=== PATIENT | female | born 1995 | race Caucasian/White ===

== ENCOUNTER 2022-03-31 22:15 | Observation (INO) | payer OTHER, SELFPAY ==
[2022-03-31 22:28] VITALS: BP 127/82; PULSE 80
[2022-03-31 22:31] VITALS: BP 129/63; PULSE 83
[2022-03-31 22:46] VITALS: BP 121/63; PULSE 73
[2022-03-31 23:01] VITALS: BP 118/56; PULSE 72
[2022-03-31 23:04] VITALS: BMI 20.3
--- NOTE | 2022-03-31 23:04 | OBADM ---
This patient, Maribel Hoffman, admitted to the OB room OB Post 116 for observation. Patient/family oriented to hospital policies and general routines including ID bracelet, bed and alarms, visiting hours, pain management, procedures, bathroom and other care routines, personal items, smoking policy, room service/diet, and visiting hours. Patient/Family are encouraged to report perceived risks to care and to ask questions if they do not understand what they are told or what they should do.
--- NOTE | 2022-04-24 10:55 | PM.OBTRLD ---
OB - Triage/Final Diagnosis Visit Information Comments/Additional reasons for admission: I have assessed the risk for this patient, Maribel Hoffman, and determined that she would benefit from observation care. Final Diagnosis (1) Trauma during : Code(s): O9A.219 - Injury, poisoning and certain other consequences of external causes complicating , unspecified trimester Status: Acute
== END 2022-03-31 23:30 | disposition home or self-care (01) ==
PROVIDERS: Admitting Provider Obstetrics & Gynecology; PCP Advanced Practice Midwife; Visit Provider Obstetrics & Gynecology
DX: O9A.212 Injury, poisoning and certain other consequences of external causes complicating pregnancy, second trimester (principal); Z3A.22 22 weeks gestation of pregnancy; X58.XXXA Exposure to other specified factors, initial encounter
CPT/HCPCS: G0378; G0379

== ENCOUNTER 2022-05-14 13:54 | Outpatient (CLI) | payer OTHER, SELFPAY ==
[2022-05-14 14:27] LABS: Hematocrit 33.4 % (37.0-47.0); Hemoglobin 11.3 g/dL (12.0-15.0)
[2022-05-14 15:17] LABS: HIV 1/2 Ab P24 Ag Result Negative (Negative)
[2022-05-14] MEDS: RHO(D) IMMUNE GLOBULIN 300 MCG/2 ML SYRINGE IM (15:44)
[2022-05-14 15:56] LABS: Glucose 1 Hour PP 50gm Dose 122 mg/dL
== END 2022-05-14 13:55 | disposition home or self-care (01) ==
LOC: ANHLAB 13:57
PROVIDERS: PCP Advanced Practice Midwife; Visit Provider Obstetrics & Gynecology
DX: Z36.89 Encounter for other specified antenatal screening (principal); O36.0130 Maternal care for anti-D [Rh] antibodies, third trimester, not applicable or unspecified; Z3A.00 Weeks of gestation of pregnancy not specified
CPT/HCPCS: 36415; 82947; 85014; 85018; 85461; 86703; 86850; 86900; 86901; 90384; 96372; G0432; J2790

== ENCOUNTER 2022-06-15 06:34 | Observation (INO) | payer OTHER, SELFPAY ==
[2022-06-15] VITALS (15 sets, daily range): BP systolic 104–136; BP diastolic 55–112; PULSE 53–97; RESP 18; TEMP 36.8–37; BMI 21.7
--- NOTE | 2022-06-15 07:06 | OBADM ---
This patient, Maribel Hoffman, admitted to the OB room 115 for observation. Patient/family oriented to hospital policies and general routines including ID bracelet, bed and alarms, visiting hours, pain management, procedures, bathroom and other care routines, personal items, smoking policy, room service/diet, and visiting hours. Patient/Family are encouraged to report perceived risks to care and to ask questions if they do not understand what they are told or what they should do.
--- NOTE | 2022-06-15 07:57 | PM.IMHP ---
H&P: HPI History of Present Illness Date/Time: 06/15/22 07:57 Chief Complaint: nausea, vomiting and diarrhea, unable to tolerate po fluids Narrative: pt has been treated multiple times in for UTI caused by E.coli. medication recently changed to ampicillin and GI sxs started soon after. denies fever, valerio Review of Systems Review of Systems: All systems reviewed & are unremarkable except as noted in HPI and below Meds Home Medications and Allergies Home Medications Medication Instructions Recorded Confirmed Type ampicillin 500 mg capsule 500 mg PO BID 06/15/22 06/15/22 History vits no.130-ferrous fum 1 tablet PO DAILY 06/15/22 06/15/22 History 27 mg iron-folic acid 800 mcg tablet ( Vitamin) sertraline 50 mg tablet 50 mg PO HS 06/15/22 06/15/22 History Allergies Allergy/AdvReac Type Severity Reaction Status Date / Time No Known Allergies Allergy Unknown Verified 02/20/19 03:03 Vital Signs Vital Signs - 24 hr 06/15/22 07:04 06/15/22 07:04 06/15/22 07:05 Temperature 36.8 C Pulse Rate 68 Respiratory Rate 18 Blood Pressure 124/69 Oxygen Delivery Room Air 06/15/22 07:15 06/15/22 07:30 06/15/22 07:46 Temperature Pulse Rate 74 72 75 Respiratory Rate Blood Pressure 123/76 123/72 123/73 Oxygen Delivery Exam Const: General: cooperative and ill appearing Resp: Effort & Inspection: normal respiratory effort and able to speak in complete sentences GI: Other: gravid Assessment and Plan Assessment and plan (1) Gastritis: Code(s): K29.70 - Gastritis, unspecified, without bleeding Status: Acute (2) UTI (urinary tract infection): Code(s): N39.0 - Urinary tract infection, site not specified Status: Acute Plan gastritis plan labs IV hydration anti-emetics Urinary tract infection rocephin IV monitor sxs await cultures
[2022-06-15] MEDS: ONDANSETRON INJ 4 MG/2 ML VIAL IV PUSH ×2 (08:20→14:29)
[2022-06-15] MEDS: SODIUM CHLORIDE 0.9% IV 100 ML 50 ML (08:23)
[2022-06-15] MEDS: FAMOTIDINE 20 MG/2 ML VIAL IV PUSH (08:27)
[2022-06-15 08:34] LABS: Basophils Percent Auto 0.2 % (0.2-1.2); Eosinophils Percent Auto 0.2 % (0-4.4); Hemoglobin 11.5 g/dL (12.0-15.0); Immature Granulocyte Absolute 0.06 K/mm3 (0.00-0.031); Immature Granulocyte Percent A 0.6 % (0-0.5); Lymphocytes Absolute Auto 1.53 K/mm3 (0.9-3.2); Lymphocytes Percent Auto 14.8 % (18.3-44.2); Mean Corpuscular HGB Conc 33.8 g/dl (32-36); Mean Corpuscular Hemoglobin 30.3 pg (26-34); Mean Corpuscular Volume 89.5 fl (80-100); Mean Platelet Volume 11.4 fl (7.4-10.4); Monocytes Absolute Auto 0.5 K/mm3 (0.1-0.6); Monocytes Percent Auto 4.5 % (2.6-8.5); Neutrophils Absolute Auto 8.3 K/mm3 (1.3-6.7); Neutrophils Percent Auto 79.7 % (45.5-73.1); Platelet Count Result 195 k/mm3 (150-375); White Blood Count 10.4 K/mm3 (4.5-10.0)
[2022-06-15 08:47] LABS: Alanine Aminotransferase 11 U/L (6-35); Albumin Level 3.6 g/dL (3.5-5.1); Alkaline Phosphatase 149 U/L (38-126); Anion Gap 6 mmol/L (8-16); Aspartate Amino Transferase 21 U/L (14-36); Bilirubin,Total 0.3 mg/dL (0.2-1.3); Blood Urea Nitrogen 4 mg/dL (7-17); Calcium 8.3 mg/dL (8.4-10.2); Carbon Dioxide 21 mmol/L (22-30); Chloride 105 mmol/L (98-107); Estimated CRCL calculation 142 ml/min; Estimated Glomerular Filt Rate > 60; Glucose 80 mg/dL (65-110); Potassium 3.1 mmol/L (3.4-5.0); Sodium 132 mmol/L (137-145)
[2022-06-15] MEDS: DEXTROSE 5%/LACTATED RINGERS 1,000 ML 999 ML IV CONT (09:15)
[2022-06-15] MEDS: POTASSIUM CHLORIDE INJ 40 MEQ in SODIUM CHLORIDE 0.9% IV 500 ML 125 MEQ IVPB (10:27)
[2022-06-15 10:49] LABS: Appearance Urine Slightly Cloudy (Clear); Bilirubin Urine Negative (Negative); Blood Urine Trace-intact (Negative); Color Urine Yellow (Yellow); Glucose Urine UA Negative (Negative); Ketones Urine 3+ mg/dL (Negative); Leukocyte Esterase Ur 2+ LEU/UL (Negative); Nitrate Urine Positive (Negative); Protein Urine Trace mg/dL (Negative); Specific Grav Ur 1.015 (1.001-1.035); Urobilinogen Urine 0.2 mg/dL (<2.0)
[2022-06-15 10:56] LABS: Bacteria Urine 1+ /hpf; Mucus Urine Rare /lpf; RBC Urine 0-2 /hpf (0-2); Squamous Epithelial Cell Urine Moderate /hpf (Few); WBC Urine >75 /hpf
[2022-06-15 10:59] LABS: Add Urine Microscopic? YES
[2022-06-15 13:57] LABS: Toxigenic C. Diff NEGATIVE (NEGATIVE)
[2022-06-15] MEDS: DEXTROSE 5%/LACTATED RINGERS 1,000 ML 250 ML IV CONT (15:16)
[2022-06-15] MEDS: AMPICILLIN TRIHYDRATE 500 MG CAPSULE PO (15:19)
--- NOTE | 2022-06-20 05:53 | PM.OBTRLD ---
OB - Triage/Final Diagnosis Visit Information Date of evaluation: 06/15/22 Reason for evaluation: other (nausea and vomiting) Comments/Additional reasons for admission: I have assessed the risk for this patient, Maribel Bradford Harlankaitlin, and determined that she would benefit from observation care. Evaluation Laboratory results: Laboratory Tests 06/15/22 06/15/22 06/15/22 08:17 08:17 10:33 WBC 10.4 H RBC 3.80 L Hgb 11.5 L Hct 34.0 L MCV 89.5 MCH 30.3 MCHC 33.8 RDW 13.0 Plt Count 195 MPV 11.4 H Immature Gran % (Auto) 0.6 H Neut % (Auto) 79.7 H Lymph % (Auto) 14.8 L [place] % (Auto) 4.5 Eos % (Auto) 0.2 Baso % (Auto) 0.2 Lymph # (Auto) 1.53 [place] # (Auto) 0.5 Eos # (Auto) 0.0 Baso # (Auto) 0.0 Abs Immat Gran (auto) 0.06 H Absolute Neuts (auto) 8.3 H Absolute Nucleated RBC 0.0 Nucleated RBC % 0.0 Sodium 132 L Potassium 3.1 L Chloride 105 Carbon Dioxide 21 L Anion Gap 6 L BUN 4 L Creatinine 0.50 L Estim Creat Clear Calc 142 Estimated GFR > 60 Glucose 80 Calcium 8.3 L Total Bilirubin 0.3 AST 21 ALT 11 Alkaline Phosphatase 149 H Total Protein 7.0 Albumin 3.6 Urine Color Yellow Urine Appearance Slightly cloudy Urine pH 7.0 Ur Specific [place] 1.015 Urine Protein Trace Urine Glucose (UA) Negative Urine Ketones 3+ H Ur Blood (Man) Trace-intact Urine Nitrate Positive H Urine Bilirubin Negative Urine Urobilinogen 0.2 Leukocyte Esterase Rfl 2+ H Urine RBC 0-2 Urine WBC >75 H Ur Squamous Epith Cells Moderate H Urine Bacteria 1+ H Urine Mucus Rare C. difficile (PCR) 06/15/22 12:03 WBC RBC Hgb Hct MCV MCH MCHC RDW Plt Count MPV Immature Gran % (Auto) Neut % (Auto) Lymph % (Auto) [place] % (Auto) Eos % (Auto) Baso % (Auto) Lymph # (Auto) [place] # (Auto) Eos # (Auto) Baso # (Auto) Abs Immat Gran (auto) Absolute Neuts (auto) Absolute Nucleated RBC Nucleated RBC % Sodium Potassium Chloride Carbon Dioxide Anion Gap BUN Creatinine Estim Creat Clear Calc Estimated GFR Glucose Calcium Total Bilirubin AST ALT Alkaline Phosphatase Total Protein Albumin Urine Color Urine Appearance Urine pH Ur Specific [place] Urine Protein Urine Glucose (UA) Urine Ketones Ur Blood (Man) Urine Nitrate Urine Bilirubin Urine Urobilinogen Leukocyte Esterase Rfl Urine RBC Urine WBC Ur Squamous Epith Cells Urine Bacteria Urine Mucus C. difficile (PCR) Negative
== END 2022-06-15 17:54 | disposition home or self-care (01) ==
PROVIDERS: Admitting Provider Obstetrics & Gynecology; PCP Advanced Practice Midwife; Visit Provider Obstetrics & Gynecology
DX: O21.2 Late vomiting of pregnancy (principal); O23.43 Unspecified infection of urinary tract in pregnancy, third trimester; N39.0 Urinary tract infection, site not specified; Z3A.33 33 weeks gestation of pregnancy
CPT/HCPCS: 36415; 80053; 81001; 85025; 87045; 87086; 87088; 87177; 87209; 87427; 87493; 96361; 96365; 96366; 96367; 96375; A9270; G0378; G0379; J0696; J2405; J3480; J7040; J7121

== ENCOUNTER 2022-07-01 08:27 | Outpatient (RCR) | payer OTHER, SELFPAY ==
[2022-06-30 08:52] VITALS: BP 126/61; PULSE 67
[2022-07-01 09:02] VITALS: BP 117/79; PULSE 87
== END 2022-08-11 19:48 | disposition home or self-care (01) ==
LOC: ANHOBOP 08:27
PROVIDERS: PCP Advanced Practice Midwife; Visit Provider Obstetrics & Gynecology
DX: O26.893 Other specified pregnancy related conditions, third trimester (principal); N85.8 Other specified noninflammatory disorders of uterus; Z3A.35 35 weeks gestation of pregnancy; Z3A.36 36 weeks gestation of pregnancy
CPT/HCPCS: 59025

== ENCOUNTER 2022-07-13 16:44 | Inpatient (IN) | payer OTHER, SELFPAY ==
[2022-07-13] VITALS (15 sets, daily range): BP systolic 124–161; BP diastolic 62–101; PULSE 50–78; RESP 14; TEMP 36.8; BMI 22.6
[2022-07-13 15:39] LABS: Basophils Percent Auto 0.2 % (0.2-1.2); Eosinophils Percent Auto 0.4 % (0-4.4); Hematocrit 33.6 % (37.0-47.0); Immature Granulocyte Absolute 0.04 K/mm3 (0.00-0.031); Immature Granulocyte Percent A 0.4 % (0-0.5); Lymphocytes Absolute Auto 1.62 K/mm3 (0.9-3.2); Lymphocytes Percent Auto 17.6 % (18.3-44.2); Mean Corpuscular HGB Conc 32.7 g/dl (32-36); Mean Corpuscular Hemoglobin 29.7 pg (26-34); Mean Corpuscular Volume 90.8 fl (80-100); Monocytes Absolute Auto 0.7 K/mm3 (0.1-0.6); Monocytes Percent Auto 7.2 % (2.6-8.5); Neutrophils Absolute Auto 6.8 K/mm3 (1.3-6.7); Neutrophils Percent Auto 74.2 % (45.5-73.1); Platelet Count Result 197 k/mm3 (150-375); Red Cell Distribution Width 13.9 % (11.5-14.5); White Blood Count 9.2 K/mm3 (4.5-10.0)
[2022-07-13 15:41] LABS: Appearance Urine Clear (Clear); Bilirubin Urine Negative (Negative); Blood Urine Negative (Negative); Color Urine Yellow (Yellow); Glucose Urine UA Negative (Negative); Ketones Urine Negative (Negative); Leukocyte Esterase Ur Negative LEU/UL (NEGATIVE); Nitrate Urine Negative (Negative); Protein Urine Negative (Negative); Urobilinogen Urine 0.2 mg/dL (<2.0)
[2022-07-13 15:48] LABS: Add Urine Microscopic? NO
[2022-07-13 15:52] LABS: Alanine Aminotransferase 12 U/L (6-35); Albumin Level 3.2 g/dL (3.5-5.1); Alkaline Phosphatase 166 U/L (38-126); Anion Gap 4 mmol/L (8-16); Aspartate Amino Transferase 21 U/L (14-36); Bilirubin,Total 0.3 mg/dL (0.2-1.3); Blood Urea Nitrogen 2 mg/dL (7-17); Calcium 8.3 mg/dL (8.4-10.2); Carbon Dioxide 21 mmol/L (22-30); Chloride 110 mmol/L (98-107); Estimated Glomerular Filt Rate > 60; Glucose 91 mg/dL (65-110); Potassium 3.6 mmol/L (3.4-5.0); Sodium 135 mmol/L (137-145); Uric Acid 3.9 mg/dL (2.5-7.5)
[2022-07-13 16:32] LABS: Creatinine Urine 11.4 mg/dL; Total Protein Urine Random 15 mg/dL; Ur Ttl Prot Creatinine Ratio 1.32 mg/mg (0-0.20)
--- NOTE | 2022-07-13 16:47 | WPDOBADMIT ---
Obstetrics - Admit Note Admission Note: record reviewed. No pertinent additions to the history and/or any subsequent changes in the physical findings that are not consistent with the expected course of the were found. pt admitted for IOL for preeclampsia,, elevated blood pressures no severe range pressures, mild valerio, elevated PCR, discussed POC with Dr. San Additions to the history and/or subsequent changes in the physical findings follow. None.
--- NOTE | 2022-07-13 17:34 | LDADM ---
This patient, Maribel Hoffman, was admitted to Labor/Delivery/Recovery 106 on 07/13/22 at 16:44. Plans for labor, pain management and were discussed with patient. Patient/family oriented to hospital policies and general routines including ID bracelet, bed and alarms, visiting hours, pain management, procedures, bathroom and other care routines, personal items, smoking policy, room service/diet and guest tray routines, infant security routines, and visiting hours. Patient/Family are encouraged to report perceived risks to care and to ask questions if they do not understand what they are told or what they should do. See OBIX for further documentation.
[2022-07-13 17:41] LABS: Amphetamine Screen Urine Negative (Negative); Barbiturate Screen Urine Negative (Negative); Benzodiazepines Screen Urine Negative (Negative); Cannabinoid Screen Urine Positive (Negative); Cocaine Screen Urine Negative (Negative); Methadone Screen Urine Negative (Negative); Opiate Screen Urine Negative (Negative); Phencyclidine Screen Urine Negative (Negative)
[2022-07-13] MEDS: DINOPROSTONE 10 MG VAG INSERT VAGINAL (18:02)
--- NOTE | 2022-07-13 20:26 | WPDANESEPP ---
Anes - Eval Pre Procedure Procedure: Labor Epidural Date/Time: 07/13/22 20:26 Surgeon: Mena Preop Diagnosis: Labor Pain Pre Op Diagnosis: IOL With Preeclampsia Patient Data Age: 27 Gender: F Height: 1.75 m Weight: 69.54 kg Last Vital Signs Temp 36.8 C 07/13/22 20:05 Pulse 50 L 07/13/22 20:00 Resp 14 07/13/22 20:05 BP 137/87 07/13/22 20:00 O2 Del Method Room Air 07/13/22 19:15 Allergies Allergy/AdvReac Type Severity Reaction Status Date / Time No Known Allergies Allergy Unknown Verified 07/10/22 12:28 Home Medications Medication Instructions Recorded Confirmed Type vits no.130-ferrous fum 1 tablet PO DAILY 06/15/22 07/13/22 History 27 mg iron-folic acid 800 mcg tablet ( Vitamin) sertraline 50 mg tablet 50 mg PO HS 06/15/22 07/13/22 History Laboratory Tests 07/13/22 07/13/22 07/13/22 15:24 15:24 15:24 WBC 9.2 K/mm3 K/mm3 (4.5-10.0) RBC 3.70 M/mm3 L M/mm3 (4.2-5.4) Hgb 11.0 g/dL L g/dL (12.0-15.0) Hct 33.6 % L % (37.0-47.0) MCV 90.8 fl fl (80-100) MCH 29.7 pg pg (26-34) MCHC 32.7 g/dl g/dl (32-36) RDW 13.9 % % (11.5-14.5) Plt Count 197 k/mm3 k/mm3 (150-375) MPV 12.0 fl H fl (7.4-10.4) Immature Gran % (Auto) 0.4 % % (0-0.5) Neut % (Auto) 74.2 % H % (45.5-73.1) Lymph % (Auto) 17.6 % L % (18.3-44.2) [place] % (Auto) 7.2 % % (2.6-8.5) Eos % (Auto) 0.4 % % (0-4.4) Baso % (Auto) 0.2 % % (0.2-1.2) Lymph # (Auto) 1.62 K/mm3 K/mm3 (0.9-3.2) [place] # (Auto) 0.7 K/mm3 H K/mm3 (0.1-0.6) Eos # (Auto) 0.0 K/mm3 K/mm3 (0-0.3) Baso # (Auto) 0.0 K/mm3 K/mm3 (0.0-0.1) Abs Immat Gran (auto) 0.04 K/mm3 H K/mm3 (0.00-0.031) Absolute Neuts (auto) 6.8 K/mm3 H K/mm3 (1.3-6.7) Absolute Nucleated RBC 0.0 K/mm3 K/mm3 (0.0-0.012) Nucleated RBC % 0.0 % % (0.0-0.2) Sodium Potassium Chloride Carbon Dioxide Anion Gap BUN Creatinine Estim Creat Clear Calc Estimated GFR Glucose Uric Acid Calcium Total Bilirubin AST ALT Alkaline Phosphatase Total Protein Albumin Urine Color Yellow (Yellow) Urine Appearance Clear (Clear) Urine pH 7.0 (5.0-9.0) Ur Specific [place] 1.010 (1.001-1.035) Urine Protein Negative mg/dL mg/dL (Negative) Urine Glucose (UA) Negative mg/dL mg/dL (Negative) Urine Ketones Negative mg/dL mg/dL (Negative) Ur Blood (Man) Negative (Negative) Urine Nitrate Negative (Negative) Urine Bilirubin Negative (Negative) Urine Urobilinogen 0.2 mg/dL mg/dL (<2.0) Ur Leukocyte Esterase Negative BRODERICK/UL BRODERICK/UL (NEGATIVE) U Random Total Protein 15 mg/dL mg/dL Urine Creatinine 11.4 mg/dL mg/dL Protein/Creat Ratio 2 1.32 mg/mg H mg/mg (0-0.20) Urine Opiates Screen Urine Methadone Screen Ur Barbiturates Screen Ur Phencyclidine Scrn Ur Amphetamine Screen U Benzodiazepines Scrn Urine Cocaine Screen U Cannabinoids Screen RPR Blood Type Antibody Screen 07/13/22 07/13/22 07/13/22 15:24 15:24 17:23 WBC RBC Hgb Hct MCV MCH MCHC RDW Plt Count MPV Immature Gran % (Auto) Neut % (Auto) Lymph % (Auto) [place] % (Auto) E
[2022-07-14] VITALS (208 sets, daily range): BP systolic 112–159; BP diastolic 58–105; PULSE 43–155; RESP 14–20; TEMP 36.6–37.2; O2SAT 96–100
[2022-07-14] MEDS: LACTATED RINGERS 1,000 ML 999 ML IV CONT (00:22)
[2022-07-14] MEDS: LACTATED RINGERS 1,000 ML 125 ML IV CONT (02:07)
--- NOTE | 2022-07-14 02:23 | WPDANESEPN ---
Anes - Epidural Procedure Note Date/Time: 07/14/22 02:23 Consent: I have discussed with the patient/family/POA, the placement of an epidural catheter and the use of epidural narcotic/local anesthetic for labor analgesia and/or postoperative pain management, including associated potential risks, benefits, complications and side effects. I have discussed alternative methods of labor analgesia and/or postoperative pain management. The patient/family/POA, understand(s) and wish(es) to proceed with epidural narcotic/local anesthetic for labor analgesia and/or postoperative pain management. Time-Out: A pre-procedural Time-Out was completed immediately before starting the procedure and confirmed: Patient Identification, Site, Procedure, Patient Position and the Availability of Requisite Equipment. Clinical Indications: Labor Epidural Epidural Insertion Note Patient position: sitting Skin prep: chlorhexidine and sterile drape Needle: 18g Tuohy-Schliff Catheter: 20g Unstyleted Technique: Loss of resistance. Level of insertion: L3/4 Catheter skin shante (cm): 4 Length in epidural space (cm): 9 Skin anesthesia: lidocaine 1% Test dose: 1.5% Lidocaine with [id number] Epi, negative for subarachnoid Inj and negative for intravascular Inj Time of test dose: 02:10 Observations: tolerated well Complications: none
[2022-07-14] MEDS: OXYTOCIN 30 UNITS/NS 500 ML 30 UNITS/500 ML BAG IV CONT (06:51)
--- NOTE | 2022-07-14 09:48 | PM.OBPNLAB ---
Pain Control Date/time seen: 07/14/22 09:48 Comments: SVE 2/60/-2 AROM large amount of clear, odorless fluid, anticipate vaginal delivery
[2022-07-14] MEDS: ONDANSETRON INJ 4 MG/2 ML VIAL IV PUSH (13:14)
[2022-07-14] MEDS: SODIUM CHLORIDE 0.9% IV 300 ML 600 ML I-UTERINE (15:23)
--- NOTE | 2022-07-14 17:53 | PM.OBPRVD ---
OB - Delivery Note Procedure Delivery date: 07/14/22 Procedure: Events: Preeclampsia w/o severe features Induction method: AROM, Per Pitocin Protocol and Per Cervidil Protocol Delivery monitor: External FHT and Internal Uterine Route of delivery: Episiotomy description: None Laceration Description: None Specimen: Yes Quantitative Blood Loss (ml): 95 Anesthesia type: Epidural [place] Baby Date of : 07/14/22 Time of : 17:36 Weeks of gestation at delivery: 37 Infant gender: Female presentation: vertex position: Left Occiput Anterior Placenta delivery description: Spontaneous Cord Vessel Description: 3 Vessels, Nuchal Cord, Loose, Clamped/Cut and Delayed Cord Clamping Narrative: mother and baby skin to skin in stable condition
[2022-07-14] MEDS: IBUPROFEN 600 MG TABLET PO (18:13)
[2022-07-14] MEDS: OXYTOCIN 30 UNITS/NS 500 ML 30 UNITS/500 ML BAG 125 UNITS IV CONT (18:13)
[2022-07-14] MEDS: ACETAMINOPHEN 325 MG TABLET 650 MG PO (19:26)
[2022-07-15 00:20] VITALS: BP 123/75; PULSE 60; RESP 16; TEMP 36.5; O2SAT 96
[2022-07-15] MEDS: IBUPROFEN 600 MG TABLET PO ×3 (00:36→17:21)
[2022-07-15] MEDS: ACETAMINOPHEN 325 MG TABLET 650 MG PO (01:30)
[2022-07-15 04:00] VITALS: BP 120/70; PULSE 64; RESP 14; TEMP 36.7; O2SAT 98
[2022-07-15 05:10] LABS: Hematocrit 31.8 % (37.0-47.0); Hemoglobin 10.4 g/dL (12.0-15.0)
--- NOTE | 2022-07-15 07:00 | PC.NURSE ---
PT introductions made and plan of care discussed per post , pain management, bottle feeding, daily care activities. PT and fob both recipients of such instructions and no barriers to learning identified at this time. Pt received such instructions per one to one discussion , mom baby care guide and demonstrations this shift. PT verbalized understanding of such care.
--- NOTE | 2022-07-15 08:16 | PM.OBPNVD ---
OB - PN: Subj Subjective Date/time seen: 07/15/22 08:16 s/p vaginal delivery day1 OB - PN: Obj Data Labs 07/15/22 04:42 07/13/22 15:24 Labs: Laboratory Results - last 24 hr 07/15/22 07/15/22 04:42 04:42 Hgb 10.4 L Hct 31.8 L Blood Type O Negative Antibody Screen Negative Screen Negative Baby's Blood Type O pos Baby's JOANN Negative Doses of RhIg Required 1 OB - PN A/P Plan day: 1 Plan: routine care Time Spent With Patient Time: Total time spent is greater than 50% in coordination of care (as documented) at patient's floor/unit and/or counseling patient: Review of Systems Review of Systems: All systems reviewed & are unremarkable except as noted in HPI and below Exam Const: General: cooperative, healthy appearing and comfortable
[2022-07-15 10:16] VITALS: BP 127/79; PULSE 64; PULSE 72; RESP 18; TEMP 36.8; O2SAT 99
[2022-07-15] MEDS: DOCUSATE SODIUM 100 MG CAPSULE PO ×2 (10:16→17:21)
[2022-07-15] MEDS: HYDROcodone/acetaminophen (*CRX) 5-325 MG TABLET 1 TAB PO ×4 (10:17→21:18)
--- NOTE | 2022-07-15 11:40 | WPDANLDPN2 ---
Anes-Prog Note L&D Date/Time: 07/15/22 11:40 Comfortable throughout: labor and delivery Neuraxial method: epidural Epidural/Spinal procedure site: clean & non-tender Neuro status: Neuro function grossly intact. Cardiovascular status: normal Respiratory status: normal Airway patency: baseline Mental status: baseline Post-Op hydration status: normal Vital Signs: Last Vital Signs Temp 36.7 C 07/15/22 04:00 Pulse 64 07/15/22 04:00 Resp 14 07/15/22 04:00 BP 120/70 07/15/22 04:00 Pulse Ox 98 07/15/22 04:00 O2 Del Method Room Air 07/13/22 19:15 Pain score (VAS): 3/10 I/O: Intake & Output 07/14/22 07/15/22 07/15/22 23:59 07:59 15:59 Intake Total 1100 550 Output Total 442 700 Balance 658 -150 Post-procedural complaints: none Patient feedback: Patient satisfied with anesthetic care.
[2022-07-15 13:00] VITALS: BP 124/80; PULSE 68; RESP 18; TEMP 36.6; O2SAT 99
[2022-07-15] MEDS: RHO(D) IMMUNE GLOBULIN 300 MCG/2 ML SYRINGE IM (17:22)
[2022-07-15 17:30] VITALS: BP 131/74; PULSE 88; RESP 18; TEMP 37.1; O2SAT 99
[2022-07-15 20:13] VITALS: BP 118/76; PULSE 71; RESP 18; TEMP 36.7; O2SAT 97
[2022-07-15] MEDS: SERTRALINE HCL 50 MG TABLET PO (21:18)
[2022-07-16] MEDS: HYDROcodone/acetaminophen (*CRX) 5-325 MG TABLET 1 TAB PO ×3 (02:46→11:40)
[2022-07-16] MEDS: IBUPROFEN 600 MG TABLET PO ×2 (02:46→11:40)
[2022-07-16 04:30] VITALS: BP 133/74
[2022-07-16 06:50] VITALS: PULSE 71; RESP 18; O2SAT 97
--- NOTE | 2022-07-16 08:00 | P.PNOB_ITS ---
OB - PN: Subj Subjective Date/time seen: 07/16/22 08:00 Patient comments: no complaints baby status: doing well OB - PN: Obj Data Labs 07/15/22 04:42 07/13/22 15:24 Labs: Laboratory Results - last 24 hr 07/15/22 04:42 Blood Type O Negative Antibody Screen Negative Screen Negative Baby's Blood Type O pos Baby's JOANN Negative Doses of RhIg Required 1 OB - PN A/P Plan day: 2 Plan: routine care and discharge home (F/U in 1 week for bp check) Comments: Pt doing well but has asked for rx for pain. Agreed to a couple norco in addition to ibuprofen rx. Pain described sounds appropriate for post involution.If any additional interventions or meds needed, she will need to be seen. Time Spent With Patient Time: Total time spent is greater than 50% in coordination of care (as documented) at patient's floor/unit and/or counseling patient: Time with patient: less than 15 minutes Review of Systems Review of Systems: All systems reviewed & are unremarkable except as noted in HPI and below Exam Narrative: Fundus firm and vaginal flow controlled. No lower ext redness, warmth, or edema. Negative homans. Denies h/a, v/d or e/p. Reflexes normal. Const: General: comfortable Chest: Breast/axilla inspection: normal inspection of the breasts Resp: Effort & Inspection: normal respiratory effort Cardio: Rate: regular rate GI: GI Palp: Yes Soft to palpation Psych: Appearance: grossly normal Affect: normal affect Attitude: coope rative Thought content: Yes Normal thought content present Judgement: Good judgement present (Psych)
[2022-07-16 08:10] VITALS: BP 148/83; PULSE 59; RESP 16; TEMP 36.8; O2SAT 100
--- NOTE | 2022-07-16 08:13 | PM.OBDSVD ---
DS: Admitting Diagnosis Discharge Date 07/16/22 Admitting Diagnosis Labor DS: Discharge Diagnosis Discharge Diagnosis (1) Vaginal delivery: Code(s): O80 - Encounter for full-term uncomplicated delivery Status: Acute OB - DS: Summary OB Procedures : None OB Procedures Intrapartum: Spontaneous Vag Delivery OB Procedures: : None Time Spent with Patient Time attestation: Total time spent providing and/or coordinating discharge services: DS: Data Data Completed and Pending Pending studies at discharge: Pending at discharge 07/14/22 17:58 Surgical [PTH] Routine Labs on day of discharge: Labs from last 24 hours 07/15/22 04:42 Blood Type O Negative Antibody Screen Negative Screen Negative Baby's Blood Type O pos Baby's JOANN Negative Doses of RhIg Required 1 Discharge Plan Discharge Attending physician on discharge: Norah Ramirez Discharging Clinician: Wilma Herring Patient Disposition: Home, Self-Care Activity: pelvic rest Diet: as tolerated Patient Instructions: Antibiotic Form Stand Alone Forms: General Discharge Information Follow-up/Referrals: Norah Ramirez CNM [Primary Care Provider] - Discharge Medications: New hydrocodone-acetaminophen 5-325 mg Tablet 1 tablet PO Q4H Qty: 5 0RF ibuprofen 600 mg Tablet 600 mg PO Q6H PRN (Reason: Pain) Qty: 20 0RF Continued sertraline 50 mg tablet 50 mg PO HS Vitamin 27 mg iron- 800 mcg tablet 1 tablet PO DAILY Date of admission: 07/13/22 16:44 Primary Care Provider: Norah Ramirez Admitting Provider: Matheus San Attending physician on admission: Matheus San Condition: Stable
[2022-07-16 10:02] LABS: Rapid Plasma Reagin Non-Reactive (NonReactive)
[2022-07-16 11:30] VITALS: BP 134/72; PULSE 58; RESP 14; TEMP 36.9; O2SAT 100
--- NOTE | 2022-07-16 12:02 | PCCCNOTE ---
Care Coordination Consult: Met with pt. and FOB at bedside. This is pt.'s second child, she has a three year old at home. Pt. has all necessary equipment for baby including a car seat, crib, clothing, diapers, and bottles. resources provided with pt. reporting she plans to return to her home in [place], encouraged pt. to seek [facility] services in [facility]. Pt. has family support. Reports recreational marijuana use, denies any other substance use. RN confirms baby was not tested for substances. Anticipates discharge today. Denies any other needs.
--- NOTE | 2022-07-16 12:35 | PC.NURSE ---
Patient was given the opportunity to view the discharge video Mother & Baby Care, The First Two Weeks and to ask questions. Patient declined viewing the video and has been given the mother/baby guide for home reference.
== END 2022-07-16 14:00 | disposition home or self-care (01) | DRG 560 ==
LOC: ANHOBOP 16:53 → ANHLDR 17:08 → ANHOB2 07-15 12:55 → ANHLDR 07-17 10:21 → ANHOB2 07-17 10:21 → ANHOBPP 07-17 10:21
PROVIDERS: Admitting Provider Obstetrics & Gynecology; PCP Advanced Practice Midwife; Visit Provider Advanced Practice Midwife
DX: O14.94 Unspecified pre-eclampsia, complicating childbirth (principal); O36.8330 Maternal care for abnormalities of the fetal heart rate or rhythm, third trimester, not applicable or unspecified; Z37.0 Single live birth; Z3A.37 37 weeks gestation of pregnancy; O69.81X0 Labor and delivery complicated by cord around neck, without compression, not applicable or unspecified; O43.193 Other malformation of placenta, third trimester
CPT/HCPCS: 36415; 80053; 80307; 81003; 82570; 84112; 84156; 84550; 85014; 85018; 85025; 85461; 86592; 86850; 86900; 86901; 87086; 88307; 90384; A9270; J2405; J2590; J2790; J2795; J7030; J7120

== ENCOUNTER 2022-07-30 00:07 | Day surgery (SDC) | payer OTHER, SELFPAY ==
[2022-07-26 12:01] VITALS: BMI 19.8
--- NOTE | 2022-07-26 12:05 | PC.NURSE ---
Report to the Outpatient Waiting Room, entrance under the green pavilion located off [facility], at time 1000 on date 07/30/22. Planned Procedure Time: 1200. Time changes happen often and if your time is changed the preop area will call you the afternoon before. - You and your visitor will be asked to self-screen and do not enter if you have any COVID symptoms. - Only one visitor is requested with a max of two and NO children visitors are allowed at this time. - The patient visitor may be requested to leave or wait in car when not with patient due to distancing restrictions. - A mask is optional within the hospital at this time. Patients may have clear liquids (water, carbonated beverages, clear teas, apple juice) until 3 hours prior to surgery with a maximum of 20 ounces. - No food from midnight until time of surgery Take the following medications with a SIP of water the morning of surgery: PAIN PILL IF NEEDED DO NOT STOP ANY OF YOUR OTHER PRESCRIPTION MEDICATIONS PRIOR TO SURGERY EXCEPT THE FOLLOWING Medications to discontinue per physician: N/A Date to take last dose: N/A Please no make-up, nail hungarian, hairspray, perfume, deodorant, or body powder the day of surgery. No jewelry (including any body piercings) or valuables the day of surgery, leave them at home. Please take a shower or bath the night before, or the morning of, surgery with an antibacterial soap. Wear comfortable, loose fitting clothing. - Jewelry must be removed prior to entering the operating room. Rings and piercings that are not removed may be cut off. - The hospital will not accept responsibility for valuables. - Please leave all valuables, including medications, at home the day of surgery. If you are going home after surgery, a licensed [facility] driver must drive you home. - NO public transportation without another adult if you receive anesthesia. - We recommend that an adult stay with you for 24 hours following discharge. - We also recommend that you do not drive, make important decision, drink alcoholic beverages, or take any drugs that were not prescribed by your health care provider for at least 24 hours after your discharge time. Follow any additional instructions given to you from your surgeon. If you or anyone in your household have experienced Covid symptoms in the past week, please notify your surgeon or the nurse liaison at the phone number below for possible testing. Telephone instructions given to PT - TONEY WAHL and asked if any additional questions and then verbalized understanding. Patient advised to call surgeon office or pre surgery nurse liaison [phone] if any additional questions.
[2022-07-30] MEDS: ACETAMINOPHEN 500 MG TABLET 1000 MG PO (10:11)
[2022-07-30 10:17] VITALS: BP 116/67; PULSE 78; RESP 16; TEMP 36.4; O2SAT 100
[2022-07-30] MEDS: LACTATED RINGERS 1,000 ML 30 ML IV CONT (10:30)
--- NOTE | 2022-07-30 11:39 | P.PNAN_ITS ---
Anes - Initial Pre Proc Eval Procedure: Operation Date: 07/30/22 12:00 Proposed Procedures p Suction Dilation and Curettage - Mahteus San MD Date/Time: 07/30/22 11:39 Surgeon: Matheus San MD Pre Op Diagnosis: Retained Products at Conception Patient Data Age: 27 Gender: F Height: 1.75 m Weight: 59 kg Last Vital Signs Temp 97.6 F 07/30/22 10:17 Pulse 78 07/30/22 10:17 Resp 16 07/30/22 10:17 BP 116/67 07/30/22 10:17 Pulse Ox 100 07/30/22 10:17 O2 Del Method Room Air 07/30/22 10:17 Allergies Allergy/AdvReac Type Severity Reaction Status Date / Time No Known Allergies Allergy Unknown Verified 07/30/22 10:07 Home Medications Medication Instructions Recorded Confirmed Type sertraline 50 mg tablet 50 mg PO HS 06/15/22 07/26/22 History hydrocodone 5 mg-acetaminophen 325 1 tablet PO Q4H PRN Pain 07/26/22 07/26/22 History mg tablet lamotrigine 25 mg tablet 25 mg PO HS 07/26/22 07/26/22 History Patient hx anesthesia problems: none Family hx anesthesia problems: none Results Review: All pre-operative results and documents have been reviewed as part of the pre- operative evaluation. [facility] Family History Family History Grandparent Diabetes mellitus Hypertension Grandparent Epilepsy Other No problems noted. Sibling Epilepsy Social History Social History Smoking packs per day: 1 Smoking cigarettes per day: 20.0 Years smoked: 5 Smoking pack-years: 5.00 Smoking status: Former smoker Tobacco type: cigarettes Second hand tobacco smoke exposure: No Smoking end date: 05/27/17 Alcohol intake: never Substance use: current Substance use type: marijuana Living arrangements: with family Spiritual care concerns: No Anes - Eval Final PreProcedure Day of Procedure 07/30/22 11:39 Patient weight: normal Heart: regular rate and rhythm Lungs: clear to auscultation Airway: Mallampati scale class II Neurological: alert and oriented Last oral intake: >/= 8 hours ASA classification: II Emergent: no Anesthetic plan: proceed Anesthesia type and monitoring: general GIVS and standard monitoring Results Review: All pre-operative results and documents have been reviewed as part of the pre- operative evaluation. Informed Consent: The patient's anesthetic plan and its attendant risks and benefits were discussed with the patient/family/POA. Questions were solicited and answers provided to the satisfaction of the patient/family/POA.
--- NOTE | 2022-07-30 11:52 | WPDANESEPPF ---
Anes - Initial Pre Proc Eval Procedure: Operation Date: 07/30/22 12:00 Proposed Procedures p Suction Dilation and Curettage - Matheus San MD Date/Time: 07/30/22 11:52 Surgeon: Matheus San MD Pre Op Diagnosis: Retained Products at Conception Patient Data Age: 27 Gender: F Height: 1.75 m Weight: 59 kg Last Vital Signs Temp 97.6 F 07/30/22 10:17 Pulse 78 07/30/22 10:17 Resp 16 07/30/22 10:17 BP 116/67 07/30/22 10:17 Pulse Ox 100 07/30/22 10:17 O2 Del Method Room Air 07/30/22 10:17 Allergies Allergy/AdvReac Type Severity Reaction Status Date / Time No Known Allergies Allergy Unknown Verified 07/30/22 10:07 Home Medications Medication Instructions Recorded Confirmed Type sertraline 50 mg tablet 50 mg PO HS 06/15/22 07/26/22 History hydrocodone 5 mg-acetaminophen 325 1 tablet PO Q4H PRN Pain 07/26/22 07/26/22 History mg tablet lamotrigine 25 mg tablet 25 mg PO HS 07/26/22 07/26/22 History Patient hx anesthesia problems: none Family hx anesthesia problems: none Results Review: All pre-operative results and documents have been reviewed as part of the pre-operative evaluation. [facility] Family History Family History Grandparent Diabetes mellitus Hypertension Grandparent Epilepsy Other No problems noted. Sibling Epilepsy Social History Social History Smoking packs per day: 1 Smoking cigarettes per day: 20.0 Years smoked: 5 Smoking pack-years: 5.00 Smoking status: Former smoker Tobacco type: cigarettes Second hand tobacco smoke exposure: No Smoking end date: 05/27/17 Alcohol intake: never Substance use: current Substance use type: marijuana Living arrangements: with family Spiritual care concerns: No Anes - Eval Final PreProcedure Day of Procedure 07/30/22 11:52 Patient weight: normal Heart: regular rate and rhythm Lungs: clear to auscultation Airway: Mallampati scale class II Neurological: alert and oriented Last oral intake: >/= 8 hours ASA classification: II Emergent: no Anesthetic plan: proceed Anesthesia type and monitoring: general GIVS and standard monitoring Results Review: All pre-operative results and documents have been reviewed as part of the pre-operative evaluation. Informed Consent: The patient's anesthetic plan and its attendant risks and benefits were discussed with the patient/family/POA. Questions were solicited and answers provided to the satisfaction of the patient/family/POA.
--- NOTE | 2022-07-30 12:21 | WPDHPUPDATE1 ---
History and Physical Update Update Date/Time: 07/30/22 12:21 History and Physical has been reviewed, including an updated exam of the patient. There are NO changes in the patient's condition. Risks, benefits, and alternatives have been discussed and questions answered. Patient agrees to proceed with procedure.
--- NOTE | 2022-07-30 12:28 | SUR.PREOP ---
dr crook said there is no need for rhogam at this time.
[2022-07-30] MEDS: LIDOCAINE HCL 1% LOCAL INJ 20 ML VIAL INFILTRATE (13:02)
--- NOTE | 2022-07-30 13:08 | W.PM.PROC2 ---
Procedure Note - Detailed Date of Procedure 07/30/22 Pre-op Diagnosis Retained Products at Conception Post-op Diagnosis Same Procedure Performed Suction D&C Surgeon Matheus San MD Anesthesia MAC Indications missed Findings normal-appearing vulva vagina and cervix to. Moderate amount of products conception within the uterus. 8 cm uterus Description of Procedure the patient was taken the operating room. She was prepped and draped in dorsal lithotomy position after induction of mac anesthesia. A speculum was placed in the vagina. Cervix grasped with tenaculum. The cervix was dilated to about 1 cm Using Wren dilators. A 8. Upper Sorbian curved curette was used to perform suction D&C. The curette was introduced and vacuum was applied. The curette was removed over all surfaces of the intrauterine cavity multiple times. This was done until all the surfaces were clear and had the familiar grainy texture they can be felt through the instrument. A sharp curette was then used to curettage all the surfaces. The suction cup was then reapplied 1 more time to remove any debris. The instruments were removed. The speculum and tenaculum were removed. The patient tolerated the procedure well. She was taken recovery room stable condition. Estimated Blood Loss 50 Drains No Packing No Pathology Yes Complications No immediate complications Condition Stable Disposition PACU
[2022-07-30 13:10] VITALS: BP 94/55; PULSE 61; RESP 14; O2SAT 100
[2022-07-30] MEDS: KETOROLAC 30 MG/ML VIAL (*BKC) IV PUSH (13:27)
[2022-07-30 13:40] VITALS: BP 109/70; PULSE 65
[2022-07-30] MEDS: oxyCODONE HCL (*CRX) 5 MG TAB IR PO (13:56)
[2022-07-30 14:10] VITALS: BP 102/60; PULSE 57
[2022-07-30 14:20] VITALS: BP 106/61; PULSE 58
== END 2022-07-30 14:35 | disposition home or self-care (01) ==
PROVIDERS: PCP Advanced Practice Midwife; Visit Provider Obstetrics & Gynecology
PROC: (CPT 59160; principal; 2022-07-30 12:00)
DX: O72.0 Third-stage hemorrhage (principal); Z87.891 Personal history of nicotine dependence; F12.90 Cannabis use, unspecified, uncomplicated
CPT/HCPCS: 59160; 88305; A9270; J1885; J2250; J2704; J3010; J7120

== ENCOUNTER 2022-11-02 16:58 | Emergency (ER) | payer OTHER, SELFPAY ==
--- NOTE | ~2022-11-02 | XR_ITS ---
EXAMINATION: XR hand RT min 3V INDICATION: Right hand pain, initial encounter TECHNIQUE: For views of the right hand are obtained. COMPARISON: None available FINDINGS: There is an acute, traumatic, closed, transverse fracture in the distal neck of the fifth m etacarpal. There are approximately 30 degrees of palmar angulation at the fracture site. The joint sp aces are normal. No additional fracture is identified. IMPRESSION: 1. Acute fracture in the distal neck of the fifth metacarpal with palmar angulation. Reviewed, dictated and finalized at location F. IMPRESSION: 1. Acute fracture in the distal neck of the fifth metacarpal with palmar angula tion.
[2022-11-02 17:13] VITALS: BP 115/72; PULSE 74; RESP 18; TEMP 36.6; O2SAT 100
--- NOTE | 2022-11-02 17:18 | ED.UPPEXIN ---
HPI - Extremity Injury (Upper) General Stated Complaint: right hand injury Source: patient and RN notes reviewed History of Present Illness HPI narrative: 27 yo F presents to urgent care with complaints of right hand swelling and pain. Pt states she was boxing earlier today without gloves. Pt states her hands were wrapped but admits to being overzealous during her workout today. Denies any numbness or tingling. Denies any other injury and has no other complaints. Pt admits to taking ibuprofen and one of her Tramadol [employer]. Related Data Home Medications Medication Instructions Recorded Confirmed alprazolam 1 mg tablet 1 mg PO TID PRN Anxiety 11/02/22 11/02/22 aripiprazole 2 mg tablet 2 mg PO DAILY 11/02/22 11/02/22 lamotrigine 100 mg tablet 100 mg PO DAILY 11/02/22 11/02/22 quetiapine 25 mg tablet 25 mg PO DAILY 11/02/22 11/02/22 sertraline 100 mg tablet 100 mg PO BID 11/02/22 11/02/22 Allergies Allergy/AdvReac Type Severity Reaction Status Date / Time No Known Allergies Allergy Unknown Verified 11/02/22 17:24 Review of Systems Review of Systems: CONSTITUTIONAL: Denies fever, chills, or sweats. EYES: Denies visual changes, redness, or discharge. ENT: Denies otalgia and sore throat CARDIOVASCULAR: Denies chest pain, palpitations, or edema. RESPIRATORY: Denies cough or dyspnea. GASTROINTESTINAL: Denies abdominal pain, nausea, vomiting, or diarrhea. GENITOURINARY: Denies dysuria or hematuria. SKIN: Denies rash or itching. MUSCULOSKELETAL: Right hand pain and swelling NEUROLOGIC: Denies headache, numbness, or weakness. Pertinent positives per HPI. [facility] Family History Family History Grandparent Diabetes mellitus Hypertension Grandparent Epilepsy Other No problems noted. Sibling Epilepsy Social History Social History Smoking packs per day: 1 Smoking cigarettes per day: 20.0 Years smoked: 5 Smoking pack-years: 5.00 Smoking status: Former smoker Tobacco type: cigarettes Second hand tobacco smoke exposure: No Smoking end date: 05/27/17 Alcohol intake: never Substance use: current Substance use type: marijuana Living arrangements: with family Spiritual care concerns: No Comments At the time of my signature, I reviewed and agree with the nursing past medical, surgical, social, and family history. There is no relevant family history pertinent to the patient complaint. Exam Narrative: GENERAL: This is a well-nourished, well-developed patient, in no apparent distress. HEAD: normocephalic, atraumatic. EYES: Sclera clear/white. Vision is grossly intact. EARS: External ears normal, auditory canals clear and without drainage. Hearing grossly intact. NOSE: External nose normal with no obvious nasal discharge, nares without redness, no rhinorrhea. THROAT: Mucous membranes moist, posterior pharynx clear. NECK: Neck supple, non-tender without lymphadenopathy, masses or thyromegaly. CARDIOVASCULAR: Regular rate and rhythm without murmurs, gallops, or rubs. RESPIRATORY: Clear to auscultation. Breath sounds equal bilaterally. No wheezes, rales, or rhonchi. SKIN: warm, intact with no suspicious lesions or rash, good texture and turgor. NEURO: awake, alert, and oriented to person, place and time. There were no obvious focal neurologic abnormalities. EXTREMITIES: Right dorsal hand swelling and tenderness over 5th metacarpal. BACK: Nontender without deformity or crepitus. No flank tenderness. Course Course Level of Care: Express Care Visit Vital Signs Vital signs: Vital Signs Temperature 97.9 F 11/02/22 17:13 Pulse Rate 74 11/02/22 17:13 Respiratory Rate 18 11/02/22 17:13 Blood Pressure 115/72 11/02/22 17:13 Pulse Oximetry 100 11/02/22 17:13 Oxygen Delivery Room Air 11/02/22 17:13 Temperature 97.9 F 11/02/22 17:13 Pulse Rate 74 11/02/22 17:13 Respiratory Rate 18 11/02/22 17:13 Blood
== END 2022-11-02 17:25 | disposition home or self-care (01) ==
PROVIDERS: Emergency Provider Nurse Practitioner Family; PCP Family Medicine
DX: S62.336A Displaced fracture of neck of fifth metacarpal bone, right hand, initial encounter for closed fracture (principal); W22.8XXA Striking against or struck by other objects, initial encounter; Y93.71 Activity, boxing; Z87.891 Personal history of nicotine dependence; F12.90 Cannabis use, unspecified, uncomplicated
CPT/HCPCS: 29125; 73130; 99214; A4565; G0463

== ENCOUNTER 2022-11-03 17:48 | Emergency (ER) | payer OTHER, SELFPAY ==
[2022-11-03 17:56] VITALS: BP 115/69; PULSE 66; RESP 16; TEMP 36.9; O2SAT 100
--- NOTE | 2022-11-03 17:57 | ED.UPPEXIN ---
HPI - Extremity Injury (Upper) General Stated Complaint: Right Wrist Injury Time Seen by Provider: 11/03/22 17:57 Source: patient Mode of arrival: ambulatory Limitations: no limitations History of Present Illness HPI narrative: 27 yo F presents with c/o pain to R hand. Seen yesterday for boxer fracture and thinks OCL is too tight. Reports tingling and cold sensation. Also says splint feels like rubbing on little finger knuckle . Requesting pain medication. States that she was not given any yesterday. has not schedule follow up appt with hand specialist. all systems reviewed and negative except as noted above. Related Data Home Medications Medication Instructions Recorded Confirmed alprazolam 1 mg tablet 1 mg PO TID PRN Anxiety 11/02/22 11/02/22 aripiprazole 2 mg tablet 2 mg PO DAILY 11/02/22 11/02/22 lamotrigine 100 mg tablet 100 mg PO DAILY 11/02/22 11/02/22 quetiapine 25 mg tablet 25 mg PO DAILY 11/02/22 11/02/22 sertraline 100 mg tablet 100 mg PO BID 11/02/22 11/02/22 Allergies Allergy/AdvReac Type Severity Reaction Status Date / Time No Known Allergies Allergy Unknown Verified 11/02/22 17:24 Review of Systems Review of Systems: CONSTITUTIONAL: Denies fever, chills, or sweats. EYES: Denies visual changes, redness, or discharge. ENT: Denies rhinorrhea, congestion, sore throat, or otalgia. CARDIOVASCULAR: Denies chest pain, palpitations, or edema. RESPIRATORY: Denies cough or dyspnea. GASTROINTESTINAL: Denies abdominal pain, nausea, vomiting, or diarrhea. GENITOURINARY: Denies dysuria or hematuria. SKIN: Denies rash or itching. MUSCULOSKELETAL: Reports pain, cool feeling and tingling to right 5th finger. NEUROLOGIC: Denies headache, numbness, or weakness. PSYCHIATRIC: Denies anxiety or depression. All other systems reviewed are negative, except as documented in HPI. [facility] Family History Family History Grandparent Diabetes mellitus Hypertension Grandparent Epilepsy Other No problems noted. Sibling Epilepsy Social History Social History Smoking packs per day: 1 Smoking cigarettes per day: 20.0 Years smoked: 5 Smoking pack-years: 5.00 Smoking status: Former smoker Tobacco type: cigarettes Second hand tobacco smoke exposure: No Smoking end date: 05/27/17 Alcohol intake: never Substance use: current Substance use type: marijuana Living arrangements: with family Spiritual care concerns: No Comments At time of signature, agree with nursing past medical, surgical, social and family history. There is no relevant family history pertinent to the presenting complaint. Exam Narrative: GENERAL: This is a well-nourished, well-developed patient, in no apparent distress. HEAD: normocephalic, atraumatic. EYES: PERRL. Sclera clear/white. Vision is grossly intact. EARS: External ears normal NOSE: External nose normal NECK: Neck supple, non-tender without lymphadenopathy, masses or thyromegaly. CARDIOVASCULAR: Regular rate and rhythm without murmurs, gallops, or rubs. RESPIRATORY: Clear to auscultation. Breath sounds equal bilaterally. No wheezes, rales, or rhonchi. SKIN: warm, Dry, intact with no suspicious lesions or rash, good texture and turgor. NEURO: awake, alert, and oriented to person, place and time. There were no obvious focal neurologic abnormalities. EXTREMITIES: Tenderness to right 5th metacarpal. No deformity noted. Mild swelling. OCL removed, no signs of decreased circulation. Course Course Level of Care: Express Care Visit Vital Signs Vital signs: Vital Signs Temperature 36.9 C 11/03/22 17:56 Pulse Rate 66 11/03/22 17:56 Respiratory Rate 16 11/03/22 17:56 Blood Pressure 115/69 11/03/22 17:56 Pulse Oximetry 100 11/03/22 17:56 Oxygen Delivery Room Air 11/03/22 17:56 Temperature 36.9 C 11/03/22 17:56 Pulse Rate 66 11/03/22 17:56 Respiratory Rate 16
== END 2022-11-03 18:30 | disposition home or self-care (01) ==
PROVIDERS: Emergency Provider Nurse Practitioner Family; PCP Family Medicine
DX: S62.306A Unspecified fracture of fifth metacarpal bone, right hand, initial encounter for closed fracture (principal); X58.XXXA Exposure to other specified factors, initial encounter; Z87.891 Personal history of nicotine dependence; Z86.16 Personal history of COVID-19
CPT/HCPCS: 99213; G0463

== ENCOUNTER → 2022-11-22 15:31 | Outpatient (CLI) | payer OTHER, SELFPAY ==
--- NOTE | ~2022-11-22 | XR_ITS ---
EXAM: XR hand RT min 3V DATE: 11/22/2022 16:32 HISTORY: PAIN IN 4TH METACARPAL OF RIGHT HAND . COMPARISON: 11/02/2022. FINDINGS: Normal mineralization. Redemonstration of the mildly comminuted distal left fifth metacarp al fracture, with increased anterior displacement and angulation. There is early callus formation. No new acute fracture or dislocation. No lytic or blastic lesion. Joint spaces are maintained. No erosi on or periosteal change. Soft tissue swelling over the fracture site. IMPRESSION: Worsening anterior displacement and angulation of the mildly comminuted distal right fift h metacarpal fracture. Early healing changes are present. Reviewed, dictated and finalized at location K. IMPRESSION: Worsening anterior displacement and angulation of the mildly commin uted distal right fifth metacarpal fracture. Early healing changes are present.
== END ==
PROVIDERS: PCP Family Medicine; Visit Provider Physician Assistant
DX: S62.91XA Unspecified fracture of right hand, initial encounter for closed fracture (principal)
CPT/HCPCS: 73130

== ENCOUNTER 2022-12-06 09:55 | Emergency (ER) | payer OTHER, SELFPAY ==
[2022-12-06 10:29] VITALS: BP 147/97; PULSE 67; RESP 14; TEMP 37; O2SAT 99
--- NOTE | 2022-12-06 10:58 | ED.UPPEXIN ---
HPI - Extremity Injury (Upper) General Chief Complaint: Extremity Injury, Upper Stated Complaint: right hand injury Time Seen by Provider: 12/06/22 10:07 Source: patient Mode of arrival: ambulatory Limitations: no limitations History of Present Illness HPI narrative: This is a 27 year old female that presents to the ER for right hand pain worsening since yesterday. Reports she has a right fifth metacarpal fracture. She has been following with Dr. Dickens for this. She had her cast taken off yesterday. She then had a brace placed. Reports the brace has been hurting her fracture worse which prompted her to be seen today. Denies fever, erythema, or numbness. Related Data Home Medications Medication Instructions Recorded Confirmed alprazolam 1 mg tablet 1 mg PO TID PRN Anxiety 11/02/22 11/02/22 aripiprazole 2 mg tablet 2 mg PO DAILY 11/02/22 11/02/22 lamotrigine 100 mg tablet 100 mg PO DAILY 11/02/22 11/02/22 quetiapine 25 mg tablet 25 mg PO DAILY 11/02/22 11/02/22 sertraline 100 mg tablet 100 mg PO BID 11/02/22 11/02/22 Allergies Allergy/AdvReac Type Severity Reaction Status Date / Time No Known Allergies Allergy Unknown Verified 12/06/22 10:43 Review of Systems Review of Systems: CONSTITUTIONAL: Denies fever MUSCULOSKELETAL: Reports joint pain, and myalgia. NEUROLOGIC: Denies numbness All systems reviewed & are unremarkable except as noted in HPI and below PMFSH Past Medical History Medical History (Updated 12/06/22 @ 11:50 by Bri Regalado PA-C) Depression Family History Family History Grandparent Diabetes mellitus Hypertension Grandparent Epilepsy Other No problems noted. Sibling Epilepsy Social History Social History Smoking packs per day: 1 Smoking cigarettes per day: 20.0 Years smoked: 5 Smoking pack-years: 5.00 Smoking status: Former smoker Tobacco type: cigarettes Second hand tobacco smoke exposure: No Smoking end date: 05/27/17 Alcohol intake: never Substance use: current Substance use type: marijuana Living arrangements: with family Spiritual care concerns: No Exam Narrative: GENERAL: Well-appearing, well-nourished, and in no acute distress. HEAD: Normocephalic, atraumatic. EYES: EOMI. EXTREMITIES: Normal range of motion, except decreased active ROM in the right 5th finger. Mild edema with bruising about the right fifth metacarpal. Normal radial pulse. Normal sensation. Normal capillary refill SKIN: Warm, dry, no rash. NEURO: No focal deficits. Alert and oriented x3. PSYCH: Normal mood and affect Course Course Emergency Course: Patient placed in fiberglass splint. We will follow-up with her orthopedics doctor on Saturday. She is in agreement with plan Consultations Consultation #1: Spoke with Dr. Dickens about patient and work-up who is okay with patient being placed in a fiberglass splint temporarily until he sees her on Saturday Date: 12/06/22 Vital Signs Vital signs: Vital Signs Temperature 98.6 F 12/06/22 10:29 Pulse Rate 67 12/06/22 10:29 Respiratory Rate 14 12/06/22 10:29 Blood Pressure 147/97 H 12/06/22 10:29 Pulse Oximetry 99 12/06/22 10:29 Oxygen Delivery Room Air 12/06/22 10:29 Temperature 98.6 F 12/06/22 10:29 Pulse Rate 58 L 12/06/22 11:38 Respiratory Rate 16 12/06/22 11:38 Blood Pressure 114/75 12/06/22 11:38 Pulse Oximetry 99 12/06/22 11:38 Oxygen Delivery Room Air 12/06/22 10:29 Procedures Orthopedic Splinting/Casting Injury #1: Splinting/Casting Date: 12/06/22 Splinting/Casting Time: 11:48 Side: right Upper Extremity Injury Location: hand Splint: customized in ED OCL: ulnar gutter Pre-Procedure Neuro Vascular Exam: normal Post-Procedure Neuro Vascular Exam: normal MDM - Extremity Injury (Upper) MDM Narrative Medical decision making narrative: Patient pres
[2022-12-06] MEDS: KETOROLAC 30 MG/ML VIAL (*BKC) IM (11:09)
[2022-12-06 11:10] VITALS: BP 105/60; PULSE 57; RESP 18; O2SAT 100
[2022-12-06 11:38] VITALS: BP 114/75; PULSE 58; RESP 16; O2SAT 99
== END 2022-12-06 12:00 | disposition home or self-care (01) ==
PROVIDERS: Emergency Provider Physician Assistant; PCP Family Medicine
DX: S62.336D Displaced fracture of neck of fifth metacarpal bone, right hand, subsequent encounter for fracture with routine healing (principal); Z87.891 Personal history of nicotine dependence; X58.XXXD Exposure to other specified factors, subsequent encounter
CPT/HCPCS: 29125; 96372; 99284; J1885

== ENCOUNTER 2023-01-16 08:07 | Emergency (ER) | payer OTHER, SELFPAY ==
[2023-01-16 08:13] VITALS: BP 142/94; PULSE 82; RESP 18; TEMP 36.3; O2SAT 100
--- NOTE | 2023-01-16 08:21 | ED.URI ---
HPI - URI/Sore Throat General Chief Complaint: Upper Respiratory Infection Stated Complaint: Sore Throat/Chest Congestion Time Seen by Provider: 01/16/23 08:26 Source: patient, RN notes reviewed and old records reviewed Mode of arrival: ambulatory Limitations: no limitations History of Present Illness HPI Narrative: 27 year old female who presents to [facility] care with complaints of sore throat since yesterday with cough and congestion starting this morning. Patient reports that she has had known exposure to strep throat from daughter who tested positive for strep one week ago. Patient reports increase throat pain when swallowing with some decreased appetite. Patient reports that she has not taken any OTC medication for her symptoms. MD elicited complaint: cough, sore throat, rhinorrhea and nasal congestion Pertinent past history: other (exposure to strep) Onset (ago): day(s) (day 2 of symptoms) Severity: moderate Able to tolerate fluids by mouth: Yes Exacerbating factors: swallowing Treatments prior to arrival: none Related Data Home Medications Medication Instructions Recorded Confirmed lamotrigine 100 mg tablet 100 mg PO DAILY 11/02/22 11/02/22 quetiapine 25 mg tablet 25 mg PO DAILY 11/02/22 11/02/22 sertraline 100 mg tablet 100 mg PO BID 11/02/22 11/02/22 ciprofloxacin HCl 500 mg tablet mg 01/16/23 Allergies Allergy/AdvReac Type Severity Reaction Status Date / Time No Known Allergies Allergy Unknown Verified 12/06/22 10:43 Review of Systems Review of Systems: CONSTITUTIONAL: Denies malaise, chills, sweats, or fever. EYES: Denies visual changes, redness, or discharge. ENT: Reports rhinorrhea, congestion, no sinus pain, no otalgia positive for sore throat. CARDIOVASCULAR: Denies chest pain, palpitations, or edema. RESPIRATORY: Reports cough.? Denies dyspnea. GASTROINTESTINAL: Denies abdominal pain, nausea, vomiting, diarrhea SKIN: Denies rash or itching. MUSCULOSKELETAL: Denies myalgia. NEUROLOGIC: Denies headache. All systems reviewed & are unremarkable except as noted in HPI and below PMFSH Past Medical History Medical History (Updated 01/16/23 @ 11:25 by Aline Orr NP) Anxiety Depression Surgical History Surgical History (Updated 01/16/23 @ 11:32 by Aline Orr NP) History of dilatation and curettage Family History Family History Grandparent Diabetes mellitus Hypertension Grandparent Epilepsy Other No problems noted. Sibling Epilepsy Social History Social History (Updated 01/16/23 @ 11:31 by Aline Orr NP) Smoking packs per day: 1 Smoking cigarettes per day: 20.0 Years smoked: 5 Smoking pack-years: 5.00 Smoking status: Current every day smoker Tobacco type: cigarettes and e-cigarettes/vaping Second hand tobacco smoke exposure: No Smoking end date: 05/27/17 Alcohol intake: never Substance use: current Substance use type: marijuana Living arrangements: with family Spiritual care concerns: No Comments At time of signature, agree with nursing past medical, surgical, social and family history. There is no relevant family history pertinent to the presenting complaint Exam Narrative: GENERAL: Well-appearing, well-nourished, and in no acute distress. HEAD: Normocephalic EYES: PERRLA, conjunctivae clear ENT: Nares clear, turbinates edematous and erythematous, clear discharge. Mucous membranes moist. TM pearly chacon with dull light reflex bilaterally; no tragal tenderness. Oropharynx erythematous without lesions. Tonsils red enlarged and without exudate, no drooling, no hoarseness, no trismus, uvula midline.Some post nasal drainage NECK: Supple. lymphadenopathy CHEST: Clear to auscultation, breath sounds equal. No wheezing, rhonchi, rales, or stridor. No respiratory distress, speaks in full sentences.SAO2 100% on room air HEART: Regular rate and rhythm.
== END 2023-01-16 08:51 | disposition home or self-care (01) ==
PROVIDERS: Emergency Provider Registered Nurse; PCP Family Medicine
DX: J03.90 Acute tonsillitis, unspecified (principal); Z20.818 Contact with and (suspected) exposure to other bacterial communicable diseases; F12.90 Cannabis use, unspecified, uncomplicated; F41.9 Anxiety disorder, unspecified; F32.A Depression, unspecified
CPT/HCPCS: 87081; 87880; 99213; G0463

== ENCOUNTER 2024-09-08 10:17 | Emergency (ER) | payer OTHER, SELFPAY ==
[2024-09-08 10:22] VITALS: BP 111/70; PULSE 90; RESP 20; TEMP 36.9; O2SAT 98
[2024-09-08 10:53] LABS: EDUAAPPEAR Cloudy; EDUABILI Negative (Negative); EDUABLOOD Negative (Negative); EDUACOLOR1 Light/Pale; EDUAGLUCOSE Negative (Negative); EDUAKETONE Negative (Negative); EDUALEUKO 1+ (Negative); EDUANITRATE Negative (Negative); EDUAPH 6.5; EDUAPROTEIN Negative (Negative); EDUASPGRAVITY 1.015; EDUAUROBILI 0.2
--- NOTE | 2024-09-08 11:11 | ED.FEMALEGU ---
HPI - Female Genitourinary General Chief complaint: Urogenital-Female Stated complaint: poss uti Time Seen by Provider: 09/08/24 11:00 Source: patient, RN notes reviewed and old records reviewed Mode of arrival: ambulatory Limitations: no limitations History of Present Illness HPI Narrative: 29 year old female presents to [facility] care with complaints of urinary burning, some cramping sensation and lower back pain for the past 2 weeks. Patient reports that she just found out recently that she is about 8 weeks along. 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 Patient reports that she has history of UTI's in past. Patient states that she has been taking Tylenol for her discomfort and has increased water intake. Patient reports no vaginal bleeding or discharge or any concern for STD exposure. Patient reports no nausea or vomiting or diarrhea. MD elicited complaint: UTI Pertinent past history: recurrent UTIs Onset (ago): week(s) (2) Location of symptoms: urethra, pelvis and low back Severity scale (1-10): 3 Vaginal discharge: none Vaginal bleeding: none Urinary symptoms: Dysuria, Urgency and Frequency Treatment prior to arrival: acetaminophen Possible : at home test positive Date of Last Menstrual Period: 07/10/24 Related Data Allergies Allergy/AdvReac Type Severity Reaction Status Date / Time No Known Allergies Allergy Unknown Verified 09/08/24 10:26 Review of Systems Review of Systems: CONSTITUTIONAL: Denies fever, chills, or sweats. CARDIOVASCULAR: Denies chest pain, palpitations, or edema. RESPIRATORY: Denies cough or dyspnea. GASTROINTESTINAL:reports some abdominal cramping,no nausea, vomiting, or diarrhea. GENITOURINARY: Reports dysuria, frequency, urgency. Denies flank pain or hematuria. SKIN: Denies rash or itching. MUSCULOSKELETAL: Reports low back pain or myalgia. Denies CVA tenderness NEUROLOGIC: Denies headache All systems reviewed & are unremarkable except as noted in HPI and below PMFSH Past Medical History Medical History (Updated 09/09/24 @ 09:02 by Aline Orr NP) Asthma as child UTI (urinary tract infection) Anxiety Depression Surgical History Surgical History (Updated 09/09/24 @ 08:44 by Aline Orr NP) H/O breast biopsy benign S/P thyroid biopsy History of dilatation and curettage Family History Family History Grandparent Diabetes mellitus Hypertension Grandparent Epilepsy Other No problems noted. Sibling Epilepsy Social History Social History Smoking packs per day: 1 Smoking cigarettes per day: 20.0 Years smoked: 5 Smoking pack-years: 5.00 Smoking status: Current every day smoker Tobacco type: cigarettes and e-cigarettes/vaping Second hand tobacco smoke exposure: No Smoking end date: 05/27/17 Additional smoking assessment comments: former cigarette smoker now vapes Alcohol intake: never Substance use: current Substance use type: marijuana Living arrangements: with family Spiritual care concerns: No Comments At time of signature, agree with nursing past medical, surgical, social and family history. There is no relevant family history pertinent to the presenting complaint Exam Narrative: GENERAL: Well-appearing, well-nourished, and in no acute distress. HEAD: Normocephalic, atraumatic. NECK: Supple. no lymphadenopathy CHEST: Clear to auscultation. No respiratory distress.SAO2 98% on room air HEART: Regular rate and rhythm. No murmur heard. Normal peripheral pulses. ABDOMEN: Soft, nontender to palpation, no suprapubic pain or any McBurney point tenderness, nondistended, normal active bowel sounds. No CVA tenderness, reports low back pain some pelvic cramping and burning with urination with some urgency and frequency. EXTREMITIES: Normal range of motion. No edema. SKIN: Warm, dry, no rash. NEURO: No focal deficits. Alert and oriented x3. Course Course Emergency Course: Patient is aware of diagnosis, understands and agrees to treatment plan.? Anticipatory guidance given.? Patient agrees to follow-up as directed and is aware of reasons to seek care at the emergency department. Portions of this record may have been created with voice recognition software Level of Care: Express Care Visit Vital Signs Vital signs: Vital Signs Temperature 36.9 C 09/08/24 10:22 Pulse Rate 90 09/08/24 10:22 Respiratory Rate 20 09/08/24 10:22 Blood Pressure 111/70 09/08/24 10:22 Pulse Oximetry 98 09/08/24 10:22 Oxygen Delivery Room Air 09/08/24 10:22 Temperature 36.9 C 09/08/24 10:22 Pulse Rate 90 09/08/24 10:22 Respiratory Rate 20 09/08/24 10:22 Blood Pressure 111/70 09/08/24 10:22 Pulse Oximetry 98 09/08/24 10:22 Oxygen Delivery Room Air 09/08/24 10:22 MDM - Female Genitourinary MDM Narrative Medical decision making narrative: Exam findings and UA show no acute concerns or changes; patient is non-toxic appearing and is in no distress.? Patient is appropriate for outpatient treatment and follow-up. Differential Diagnosis Differential diagnosis: Likely urinary tract infection, cystitis and other (low back pain, pelvic cramping, dysuria) Lab Data Attestation: I reviewed the patient's lab results. Lab results narrative: see urine dip: pale cloudy urine with 1+leukocytes, no blood noted in urine Labs: Lab Results 09/08/24 Range/Units 10:30 POC Urine Color Light/pale POC Urine Clarity Cloudy POC Urine pH 6.5 POC Ur Specif Causey 1.015 POC Urine Protein Negative (Negative) POC Ur Glucose (UA) Negative (Negative) POC Urine Ketones Negative (Negative) POC Urine Blood Negative (Negative) POC Urine Nitrite Negative (Negative) POC Urine Bilirubin Negative (Negative) POC Urine Urobilinogen 0.2 POC U Leukocyte Esteras 1+ (Negative) reviewed Critical Care Time Critical Care Time Critical Care Time: No Discharge Plan Discharge Clinical Impression: UTI (urinary tract infection) Qualifiers: Urinary tract infection type: site unspecified Hematuria presence: without hematuria Qualified Code(s): N39.0 - Urinary tract infection, site not specified Currently Qualifiers: Weeks of gestation: 8 weeks Qualified Code(s): Z3A.08 - 8 weeks gestation of Patient Disposition: Home Condition: Stable Instructions: Antibiotic Form, Dysuria (ED), Urinary Tract Infection in (ED) Additional Instructions: Increase fluids especially cranberry juice and water Avoid caffeine and carbonated beverages Antibiotic as directed take all doses Tylenol for pain or fever Follow-up with her primary care provider if further problems or concerns Recheck if you have fever over 101, nausea and vomiting. If your symptoms persist, change or worsen significantly before you can contact your personal physician then please, without delay, go to the emergency department for further evaluation. Follow-up with PCP in 7-10 days or sooner if needed Patient Language: Japanese Prescriptions: New nitrofurantoin monohyd/m-cryst [Macrobid] 100 mg capsule 100 mg PO Q12H 7 Days Qty: 14 0RF Rx Instructions: must administer with a meal/food Follow-up/Referrals: UNKNOWN,DOCTOR [Primary Care Provider] - Time of Disposition: 11:20 Quality Elizabeth Coma Scale Eyes: Open Verbal: Oriented and Alert Motor: Follows Commands Elizabeth Coma Total Score: 15
--- OUTSIDE RECORDS SUMMARY | 2024-09-08 11:13 | XMS_ITS ---
Author Organization [facility] Address [address] [place] [address] Care Team Providers Care Lung Puller Name Role Phone Monserrat Zapata Primary Care Provider [phone] Social History Sex Assigned At : Social History Observation Description Sex Assigned At Female Encounters Encounter Location Date Provider Diagnosis [place] [id number] [facility] [address] 09/01/2024 Monserrat Zapata Plan Of Treatment No Information Progress Notes * Maribel WAHL RDOB: (29 yo F)Acc No.[id number]:09/01/2024 Patient: Edwin Maribel MONTELONGO :1995 A ge:29 Y S ex:Female Address:[address] [place] [address], [id number] * true * Date: Generated for Printi ng/Fahannahg/eTransmitting on: 0 09/08/2024 11:13 AM CDT
--- OUTSIDE RECORDS SUMMARY | 2024-09-08 11:13 | XMS_ITS | Clinical Summary ---
Author Organization [facility] Address [address] [place] [address] Care Team Providers Care Shoe Cutter Name Role Phone Huma Hall MD Primary Care Provider [phone] Allergies No known active allergies Medications ALPRAZolam (XANAX) 0.5 mg tablet TK 1 T PO Q 8 H PRN FOR ANXIETY. SIS 0 7 Active clonazePAM (KlonoPIN) 1 mg tablet TK 1 T PO BID PRN 0 8 Active cyclobenzaprin e (FLEXERIL) 5 mg tablet TK 1 T PO TID 3 8 Active QUEtiapine (SEROquel) 100 mg tablet TK 1 T PO QD 5 8 Active sertraline (ZOLOFT) 100 mg tablet Take 1 tablet (100 mg total) by mouth 7 Active topiramate (TOPAMAX) 50 mg tablet TK 1 T PO QD 5 8 Active naproxen (NAPROSYN,ALEV E) 500 mg tablet Take 1 tablet (500 mg total) by mouth 2 (two) times a day as needed for pain. Take with food. 30 tablet 8 Active Additional Information Patient not taking.Reported on 11/09/2022 artificial tears,hypromel lose, (GENTEAL) 0.2 % ophthalmic solutionIndica tions:Dry Eye Administer 2 drops into the right eye 4 (four) times a day as needed (eye redness and eye itching). 1 Bottle 8 Active Additional Information Patient not taking.Reported on 11/09/2022 erythromycin (ILOTYCIN) ophthalmic ointment Place 1/2 inch ribbon in right eye four times a day for 7 days 3.5 g 8 Active Additional Information Patient not taking.Reported on 11/09/2022 ibuprofen (ADVIL,MOTRIN) 800 mg tabletIndicati ons:Closed displaced fracture of base of fifth metacarpal bone of right hand with routine healing, subsequent encounter Take 1 tablet (800 mg total) by mouth 3 (three) times a day P.r.n. pain and swelling. Take with food. 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 Anti-D, titer 1:2 S/p MFM consult on 08/18/18 For serial titers Supervision of high-risk , unspecified trimester 08/12/2018 Overview (08/12/2018): Co-management Referring Provider: Travis San MD [x] Dating Criteria: LMP 04/03/18 ANALY 01/08/19 [x] Labs: Rh [ O- ], Ab [ positive (anti-D) ], Rubella [ immune ], HIV [ negative ], HepBSAg [ negative ], RPR [ non-reactive ] [] Genetic Screening: [] Hgb electrophoresis (if indicated) [] GC/CT: [] UCx: [] Pap: 06/02/18 wnl [] PNBHS referral (if indicated) 2nd Tri Labs: [] Anatomy ultrasound [] CBC [] 1hr gtt [] Flu Shot (Jan-Apr) [] Tdap (27-36wks) [] Rhogam (if Rh neg): 3rd Tri Labs: [] CBC/HIV/RPR [] GBS [] GC/CT (if indicated) Counselling [] MOD: [] MOC: [] Method of feeding: [] PP Depression Discussed Bipolar disease during 08/12/2018 Overview (08/18/2018): Currently not on meds S/p MFM consult on 08/18/18. See consult letter. Medical History Medical History Date Comments Bipolar disorder, unspecified (HCC) Substance abuse (HCC) Kratom Family History Medical History Relation Name Comments Diabetes Maternal Grandmother Hyperlipidemia Maternal Grandmother Hypertension Maternal Grandmother Asthma Mother Ovarian cysts Mother Anemia Sister Relation Name Status Comments Maternal Grandmother Mother Sister Social History Tobacco Use Types Packs/Day Years Used Date Smoking Tobacco: Never Smokeless Tobacco: Never Tobacco Cessation:Counseling Given: Not Answered Alcohol Use Standard Drinks/Week Comments Never 0 (1 standard drink = 0.6 oz pur e alcohol) AUDIT-C Answer Date Recorded Frequency of Alcohol Consumption Never 05/17/2019 Average Number of Drinks Not on file 019 Frequency of Binge Drinking Not on file 04/27 Personal Safety Answer Date Recorded Have you ever been in or are you currently in a harmful physical or emotional relationship or is someone making you feel afraid or unsafe? 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 Gender Identity Not on file Sexual Orientation Not on file Obstetrics History Para Term AB IAB SAB Ectopic Multiple Livin g Live Births 2 0 0 0 1 0 0 0 0 0 0 Date Outcome GA Total Labor Labor/2nd/3rd Weight Sex Type Anes PTL April A1 A5 Name Clin AB Last Filed Vital Signs Vital Sign Reading Time Taken Comments Blood Pressure 131/87 02/21/2023 5:04 PM CDT Pulse 114 02/21/2023 5:04 PM CDT Temperature 36.7 C (98.1 F) 02/21/2023 5:04 PM CDT Respiratory Rate 16 02/21/2023 5:04 PM CDT Oxygen Saturation 100% 02/21/2023 5:04 PM CDT Inhaled Oxygen Concentration - - Weight 47.6 kg (105 lb) 02/21/2023 5:04 PM CDT Height 175.3 cm (5' 9 ) 02/21/2023 5:04 PM CDT Body Mass Index 15.51 02/21/2023 5:04 PM CDT Plan of Treatment Health Maintenance Due Date Last Done Comments Cervical Cancer Screening 1995 Depression Screening 1995 Hepatitis C Screening 1995 Varicella Vaccines (1 of 2 - 13+ 2-dose series) 2008 Hepatitis B Screening 2013 Regular Well Visit/Exam 18-64 2013 Pneumococcal vaccine <65 (1 of 2 - PCV) 2014 Influenza Vaccine (Season Ended) 2025 03/16/2019 DTaP/Tdap/Td Vaccine (3 - Td or Tdap) 05/14/2032 05/14/2022, 10/28/2018 HPV Vaccines Aged Out No longer eligi ble based on patient's age to complete this topic Insurance [facility] [address] [place] [phone] [facility] [address] [place] [phone] [facility] Care Teams Shoe Cutter Relationship Specialty Start Date End Date Huma Hall MD [facility] [place] [address] PCP - General Family Medicine 12/04/22
--- OUTSIDE RECORDS SUMMARY | 2024-09-08 11:13 | XMS_ITS | Referral Summary ---
Author Organization [facility] Address [address] [place] [address] Care Team Providers Care Powder Loader Name Role Phone Huma Hall MD Primary Care Provider [phone]- [phone] Allergies No known active allergies Medications ALPRAZolam [...] MFM consult on 08/18/18. See consult letter. 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
--- OUTSIDE RECORDS SUMMARY | 2024-09-08 11:13 | XMS_ITS | Data Portability ---
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 Plan of Treatment Reminders Order Date Submit Date Provider Last Modified By Organization Details Last Modified Time Details Appointments None recorded. Lab None recorded. Referral None recorded. Procedures None recorded. Surgeries suction dilation & curettage (SURG) 2022 023 [email or web address] [facility], [address], [place], [address], 19:38:03 Imaging US, pelvis 2022 023 [email or web address] [facility] [address], [place], [address], 3 20:36:32 Medication Orders None recorded. Patient TargetsNo targets recorded. Patient InstructionsNo instructions recorded. Reason for Referral None Reported. Results Created Date Observation Date Name Description Value Unit Range Abnormal Flag Note LastModifiedBy Organization Detail LastModifiedTime 07/06/1907/06/2022 URIC ACID uric acid 4.4 mg/dL 2.3-6. 6 Not Available [facility] (Lab) [address] [facility], [place], [address], 07/07/2022 03:01:25 07/06/19 23 07/06/2022 CMP(C OMPRE HENSI VE METAB OLIC PANEL ) sodium 140 mmol/ L 133-14 6 Not Available [facility] (Lab) [address] [facility], [place], [address], 07/07/2022 03:01:25 07/06/19 23 07/06/2022 CMP(C OMPRE HENSI VE METAB OLIC PANEL ) potassium 3.3 mmol/ L 3.5-5. 1 low Not Available [facility] (Lab) [address] [facility], [place], [address], 07/07/2022 03:01:25 07/06/19 23 07/06/2022 CMP(C OMPRE HENSI VE METAB OLIC PANEL ) chloride 105 mmol/ L 98-107 Not Available [facility] (Lab) [address] [facility], [place], [address], 07/07/2022 03:01:25 07/06/19 23 07/06/2022 CMP(C OMPRE HENSI VE METAB OLIC PANEL ) carbon dioxide 23 mmol/ L 21-31 Not Available [facility] (Lab) [address] [facility], [place], [address], 07/07/2022 03:01:25 07/06/19 23 07/06/2022 CMP(C OMPRE HENSI VE METAB OLIC PANEL ) anion gap 12 mmol/ L 4-13 Not Available [facility] (Lab) [address] [facility], [place], [address], 07/07/2022 03:01:25 07/06/19 23 07/06/2022 CMP(C OMPRE HENSI VE METAB OLIC PANEL ) blood urea nitrogen 4 mg/dL 7-25 low Not Available [facility] (Lab) [address] [place], [address], 07/07/2022 03:01:25 07/06/19 23 07/06/2022 CMP(C OMPRE HENSI VE METAB OLIC PANEL ) creatinine 0.64 mg/dL 0.60-1 .30 Not Available [facility] (Lab) [address] [place], [address], 07/07/2022 03:01:25 07/06/19 23 07/06/2022 CMP(C OMPRE HENSI VE METAB OLIC PANEL ) egfrcr (CKD-epi 2020) >90 mL/mi n/1.7 3_m2 >=60 Not Available [facility] (Lab) [address] [facility], [place], [address], 07/07/2022 03:01:25 07/06/19 23 07/06/2022 CMP(C OMPRE HENSI VE METAB OLIC PANEL ) calcium 8.7 mg/dL 8.3-10 .5 Not Available [facility] (Lab) [address] [facility], [place], [address], 07/07/2022 03:01:25 07/06/19 23 07/06/2022 CMP(C OMPRE HENSI VE METAB OLIC PANEL ) glucose 78 mg/dL 70-100 Not Available [facility] (Lab) [address] [facility], [place], [address], 07/07/2022 03:01:25 07/06/19 23 07/06/2022 CMP(C OMPRE HENSI VE METAB OLIC PANEL ) protein, total 6.3 g/dL 6.4-8. 3 low Not Available [facility] (Lab) [address] [place], [address], 07/07/2022 03:01:25 07/06/19 23 07/06/2022 CMP(C OMPRE HENSI VE METAB OLIC PANEL ) albumin 3.3 g/dL 3.5-5. 0 low Not Available [facility] (Lab) [address] [place], [address], 07/07/2022 03:01:25 07/06/19 23 07/06/2022 CMP(C OMPRE HENSI VE METAB OLIC PANEL ) ALT 7 units /L 9-43 low Not Available [facility] (Lab) [address] [facility], [place], [address], 07/07/2022 03:01:25 07/06/19 23 07/06/2022 CMP(C OMPRE HENSI VE METAB OLIC PANEL ) alkaline phosphatase 182 units /L 34-104 high Not Available [facility] (Lab) [address] [facility], [place], [address], 07/07/2022 03:01:25 07/06/19 23 07/06/2022 CMP(C OMPRE HENSI VE METAB OLIC PANEL ) AST 19 units /L 13-39 Not Available [facility] (Lab) [address] [facility], [place], [address], 07/07/2022 03:01:25 07/06/19 23 07/06/2022 CMP(C OMPRE HENSI VE METAB OLIC PANEL ) bilirubin, total 0.3 mg/dL 0.2-1. 2 Not Available [facility] (Lab) [address] [facility], [place], [address], 07/07/2022 03:01:25 07/06/19 23 07/06/2022 CBC W/DIF F WBC 13.5 10'3/ uL 3.6-10 .2 high Not Available [facility] (Lab) [address] [facility], [place], [address], 07/07/2022 03:01:26 07/06/19 23 07/06/2022 CBC W/DIF F RBC 4.14 10'6/ uL (based on docume nted legal sex) 4.10-5 .30 Not Available [facility] (Lab) [address] [facility], [place], [address], 07/07/2022 03:01:26 07/06/19 23 07/06/2022 CBC W/DIF F HGB 12.5 g/dL (based on docume nted legal sex) 11.9-1 5.8 Not Available [facility] (Lab) [address] [facility], [place], [address], 07/07/2022 03:01:26 07/06/19 23 07/06/2022 CBC W/DIF F HCT 38.7 % (based on docume nted legal sex) 37.4-4 8.3 Not Available [facility] (Lab) [address], [place], [address], 07/07/2022 03:01:26 07/06/19 23 07/06/2022 CBC W/DIF F MCV 93.5 fL 82.0-9 9.0 Not Available [facility] (Lab) [address], [place], [address], 07/07/2022 03:01:26 07/06/19 23 07/06/2022 CBC W/DIF F MCH 30.2 pg 27.0-3 3.0 Not Available [facility] (Lab) [address], [place], [address], 07/07/2022 03:01:26 07/06/19 23 07/06/2022 CBC W/DIF F MCHC 32.3 g/dL 32.0-3 6.0 Not Available [facility] (Lab) [address], [place], [address], 07/07/2022 03:01:26 07/06/19 23 07/06/2022 CBC W/DIF F RDW 13.7 % 11.0-1 5.0 Not Available [facility] (Lab) [address], [place], [address], 07/07/2022 03:01:26 07/06/19 23 07/06/2022 CBC W/DIF F plt 235 10'3/ uL 150-45 0 Not Available [facility] (Lab) [address], [place], [address], 07/07/2022 03:01:26 07/06/19 23 07/06/2022 CBC W/DIF F MPV 12.4 fL 9.8-12 .7 Not Available [facility] (Lab) [address], [place], [address], 07/07/2022 03:01:26 07/06/19 23 07/06/2022 CBC W/DIF F NRBC's 0.0 % 0 Not Available [facility] (Lab) [address] [facility], [place], [address], 07/07/2022 03:01:26 07/06/19 23 07/06/2022 CBC W/DIF F absolute NRBCs 0.0 10'3/ uL 0 Not Available [facility] (Lab) [address] [facility], [place], [address], 07/07/2022 03:01:26 07/06/19 23 07/06/2022 CBC W/DIF F neutrophils 74.5 % 37.0-7 2.0 high Not Available [facility] (Lab) [address] [facility], [place], [address], 07/07/2022 03:01:26 07/06/19 23 07/06/2022 CBC W/DIF F lymphocytes 19.2 % 16.0-4 8.0 Not Available [facility] (Lab) [address] [facility], [place], [address], 07/07/2022 03:01:26 07/06/19 23 07/06/2022 CBC W/DIF F monocytes 5.0 % 4.0-14 .0 Not Available [facility] (Lab) [address] [facility], [place], [address], 07/07/2022 03:01:26 07/06/19 23 07/06/2022 CBC W/DIF F eosinophils 0.2 % 0.0-9. 0 Not Available [facility] (Lab) [address] [facility], [place], [address], 07/07/2022 03:01:26 07/06/19 23 07/06/2022 CBC W/DIF F basophils 0.4 % 0.0-2. 0 Not Available [facility] (Lab) [address] [facility], [place], [address], 07/07/2022 03:01:26 07/06/19 23 07/06/2022 CBC W/DIF F immature granulocytes 0.7 % no define d refere nce range Not Available [facility] (Lab) [address] [facility], [place], [address], 07/07/2022 03:01:26 07/06/19 23 07/06/2022 CBC W/DIF F absolute neutrophils 10.0 10'3/ uL 1.1-6. 0 high Not Available [facility] (Lab) [address] [facility], [place], [address], 07/07/2022 03:01:26 07/06/19 23 07/06/2022 CBC W/DIF F absolute lymphocytes 2.6 10'3/ uL 0.7-3. 4 Not Available [facility] (Lab) [address] [facility], [place], [address], 07/07/2022 03:01:26 07/06/19 23 07/06/2022 CBC W/DIF F absolute monocytes 0.7 10'3/ uL 0.3-1. 0 Not Available [facility] (Lab) [address] [facility], [place], [address], 07/07/2022 03:01:26 07/06/19 23 07/06/2022 CBC W/DIF F absolute eosinophils 0.0 10'3/ uL 0.0-0. 6 Not Available [facility] (Lab) [address] [facility], [place], [address], 07/07/2022 03:01:26 07/06/19 23 07/06/2022 CBC W/DIF F absolute basophils 0.1 10'3/ uL 0.0-0. 1 Not Available [facility] (Lab) [address] [facility], [place], [address], 07/07/2022 03:01:26 07/06/19 23 07/06/2022 CBC W/DIF F absolute immature granulocytes 0.1 10'3/ uL 0.00-0 .10 2022 1:58 AM: P indic ates parti al resul ts on a panel have been relea sed. Addit ional resul ts will follo w. 2022 1:58 AM: This resul t has been final verif ied. No addit ional or lao ed resul ts are expec semaj. Not Available [facility] (Lab) [address], [place], [address], 07/07/2022 03:01:26 06/29/19 23 06/29/2022 non-s tress test No observ ation record ed. [email or web address] [facility] [address], [place], [address], 06/29/2022 15:20:48 06/29/19 23 06/29/2022 US, obste tric, follo w-up No observ ation record ed. [email or web address] [address], [place], [address], 07/02/2022 09:53:27 06/29/19 23 06/29/2022 US, obste tric, bioph ysica l profi le + non-s tress test No observ ation record ed. [email or web address] [facility] [address], [place], [address], 06/29/2022 18:15:40 06/29/19 23 06/29/2022 US, doppl er, umbil ical arter y veloc imetr y No observ ation record ed. [email or web address] [facility] [address], [place], [address], 06/29/2022 18:15:31 06/30/19 23 06/30/2022 non-s tress test No observ ation record ed. [facility] [address], [place], [address], 07/02/2022 12:10:05 07/01/19 23 07/01/2022 non-s tress test No observ ation record ed. [email or web address] [facility] [address] [facility] [address], [place], [address], 07/03/2022 10:48:59 07/02/19 23 07/02/2022 non-s tress test No observ ation record ed. [email or web address] [place] [address] [address], [place], [address], 07/02/2022 16:04:23 07/03/19 23 07/03/2022 US, obste tric, follo w-up No observ ation record ed. [email or web address] [address], [place], [address], 07/06/2022 11:00:37 07/06/19 23 07/06/2022 non-s tress test No observ ation record ed. [email or web address] [place] [address] [address], [place], [address], 07/06/2022 14:36:02 07/06/19 23 07/06/2022 US, obste tric, follo w-up No observ ation record ed. [email or web address] [address], [place], [address], 07/06/2022 15:46:10 07/06/19 23 07/06/2022 US, obste tric, bioph ysica l profi le No observ ation record ed. [email or web address] [facility] [address], [place], [address], 07/06/2022 17:00:11 07/13/19 23 07/13/2022 non-s tress test No observ ation record ed. [email or web address] [place] [address] [address], [place], [address], 07/13/2022 15:00:53 07/13/19 23 07/13/2022 US, obste tric, bioph ysica l profi le + non-s tress test No observ ation record ed. [email or web address] [address], [place], [address], 07/13/2022 18:13:17 07/13/19 23 07/13/2022 US, doppl er, umbil ical arter y veloc imetr y No observ ation record ed. [email or web address] [address], [place], [address], 07/13/2022 18:13:08 07/13/19 23 07/13/2022 US, obste tric, bioph ysica l profi le + non-s tress test No observ ation record ed. [email or web address] [address], [place], [address], 07/15/2022 09:18:38 07/24/19 23 07/24/2022 US, pelvi s No observ ation record ed. [email or web address] [address], [place], [address], 07/24/2022 18:35:59 07/24/19 23 07/24/2022 US, pelvi s No observ ation record ed. [email or web address] [address], [place], [address], 07/24/2022 22:09:21 Result Notes None recorded. Problems Name Problem SNOMED Code Status Onset Date Resolution Date Notes Provider Name and Address Organization Details Recorded Time Bipolar disorder 90845191 Active 2018 Bipolar disorder , unspecif ied;Prac isabell ID: [id number] Not Available [facility] 0 18:25:44 Pregnanc y 11080632 Completed 202109/03/2022 [facility] 17:51:37 Asthma 115711272 Completed not using inhaler Alie [facility] 3 17:51:31 Past pregnanc y history of gestatio nal diabetes mellitus 369272461 Completed early screenin g [facility] 3 17:51:31 Depressi ve disorder 87100679 Completed Started Zoloft 50mg [facility] 3 17:51:31 RhD negative 136554845 Completed Alie [facility] 3 17:51:31 Nausea and vomiting 55727036 Completed [facility] 3 17:51:31 Placenta l abnormal ity 845229241 Completed bilobed - Grade 1 & Grd 3- MFM 07/18 2wk growth at [facility] 3 17:51:31 Problem Notes None recorded. Procedures Surgical History Date Name Laterality Status Provider Name and Address Organization Details Recorded Time 07/31/19 23 SUCTION DILATION & CURETTAGE (SURG) completed [facility] 07/31/2022 10:15:18 07/31/19 23 SUCTION DILATION & CURETTAGE (SURG) completed [facility] 07/31/2022 10:15:12 12/28/19 22 Date of Last Pap Smear completed Karley Almeida [facility] 01/15/2022 11:18:52 05/27/19 20 biopsy of thyroid completed Anna Cohen [facility] 02/06/2022 17:27:34 05/27/19 19 Breast Biopsy completed Anna Cohen [facility] 02/06/2022 17:27:47 05/27/19 16 termination of completed Anna Cohen [facility] 02/06/2022 17:24:48 Imaging Results Imaging Date Name Status LastModified by Organiz ation Details LastModified Time 06/29/2022 non-stress test completed [address], [place], [address], 06/29/2022 15:20:48 06/29/2022 US, obstetric, follow-up completed [address] [facility], [place], [address], 07/02/2022 09:53:27 06/29/2022 US, obstetric, biophysical profile + non-stress test completed [address], [place], [address], 06/29/2022 18:15:40 06/29/2022 US, doppler, umbilical artery velocimetry completed [address], [place], [address], 06/29/2022 18:15:31 06/30/2022 non-stress test completed [email or web address], [address], 07/02/2022 12:10:05 07/01/2022 non-stress test completed [email or web address], [address], 07/03/2022 10:48:59 07/02/2022 non-stress test completed [address], [place], [address], 07/02/2022 16:04:23 07/03/2022 US, obstetric, follow-up completed [email or web address] [facility] [address], [place], [address], 07/06/2022 11:00:37 07/06/2022 non-stress test [facility] [address], [place], [address], 07/06/2022 14:36:02 07/06/2022 US, obstetric, follow-up completed [email or web address] [address], [place], [address], 07/06/2022 15:46:10 07/06/2022 US, obstetric, biophysical profile completed [email or web address] [facility] [address], [place], [address], 07/06/2022 17:00:11 07/13/2022 non-stress test [facility] [address], [place], [address], 07/13/2022 15:00:53 07/13/2022 US, obstetric, biophysical profile + non-stress test completed [email or web address] [address], [place], [address], 07/13/2022 18:13:17 07/13/2022 US, doppler, umbilical artery velocimetry completed [email or web address] [address], [place], [address], 07/13/2022 18:13:08 07/13/2022 US, obstetric, biophysical profile + non-stress test completed [email or web address] [address], [place], [address], 07/15/2022 09:18:38 07/24/2022 US, pelvis completed [email or web address] [facility] [address], [place], [address], 07/24/2022 18:35:59 07/24/2022 US, pelvis completed [email or web address] [address], [place], [address], 07/24/2022 22:09:21 Procedure Notes None recorded. Medical Equipment None Reported. Allergies No known drug allergies Medications Name Sig Start Date Stop Date Status Note LastModified by Organization Details LastModified Time quetiapin e 25 mg tablet TAKE 1 TABLET BY MOUTH EVERY NIGHT AT BEDTIME active Not Available Not Available No t Available cyclobenz aprine 10 mg tablet TAKE 1 TABLET BY MOUTH EVERY DAY AT BEDTIME active Not Available Not Available No t Available buspirone 5 mg tablet take 1 tablet by oral route 2 times every day 01/10 completed Prescrib ed Elsewher e: Yes Loca tion: [facility] odify By: [email or web address] Encounte r DateTime : 02/29/20 09:45:00 AM Not Available Not Available Not Available doxycycli ne hyclate 100 mg capsule take 1 capsule by oral route 2 times every day 01/10 completed Prescrib ed Elsewher e: No Locat ion: [facility] odify By: [email or web address] Encounte r DateTime : 02/29/20 09:45:00 AM Not Available Not Available Not Available trazodone 50 mg tablet TAKE 1 TABLET BY MOUTH EVERY DAY AT BEDTIME 01/10 completed Not Available Not Available Not Available azithromy richard 250 mg tablet TAKE 2 TABLETS BY MOUTH FOR 1 DAY THEN TAKE 1 TABLET BY MOUTH DAILY FOR 4 DAYS 01/10 completed Not Available Not Available Not Available ibuprofen 800 mg tablet TAKE 1 TABLET BY MOUTH THREE TIMES DAILY NEEDED FOR PAIN AND SWELLING . active Not Available Not Available No t Available alprazola m 1 mg tablet TAKE 1 TABLET BY MOUTH FOUR TIMES DAILY NEEDED active Not Available Not Available No t Available Lidocaine Viscous 2 % mucosal solution RINSE AND GARGLE 5 ML BY MOUTH EVERY 3 HOURS NEEDED active Not Available Not Available No t Available fluconazo le 150 mg tablet Take 1 tablet by oral route. 06/29 completed Not Available Not Available Not Available ampicilli n 500 mg capsule Take 1 capsule twice a day by oral route for 10 days. 06/29 completed Not Available Not Available Not Available hydrocodo ne 5 mg-acetam inophen 325 mg tablet TAKE 1 TABLET BY MOUTH EVERY 4 TO 6 HOURS NEEDED active Not Available Not Available No t Available prazosin 1 mg capsule take 1 capsule by oral route 3 times every day 02/04 completed Prescrib ed Elsewher e: Yes Loca tion: [facility] odify By: ernesto carmona DateTime : 06/02/19 01:00:00 PM Not Available Not Available Not Available phenazopy ridine 200 mg tablet TAKE 1 TABLET BY MOUTH THREE TIMES DAILY FOR 2 DAYS active Not Available Not Available No t Available prednison e 20 mg tablet active Not Available Not Available Not Available sertralin e 100 mg tablet TAKE 2 TABLETS BY MOUTH DAILY active Not Available Not Available No t Available acyclovir 400 mg tablet TAKE 1 TABLET BY MOUTH THREE TIMES DAILY FOR 7 DAYS 01/10 completed Not Available Not Available Not Available ciproflox acin 500 mg tablet TAKE 1 TABLET BY MOUTH EVERY 12 HOURS FOR 10 DAYS active Not Available Not Available No t Available Tamiflu 75 mg capsule take 1 capsule by oral route twice daily 01/14 completed Prescrib ed Elsewher e: No Locat ion: [facility] odify By: mohit qureshi DateTime : 10/04/19 02:19:09 PM Not Available Not Available Not Available tramadol 50 mg tablet TAKE 1 TABLET BY MOUTH EVERY 6 HOURS NEEDED FOR PAIN 01/10 completed Not Available Not Available Not Available butalbita l-acetami nophen-ca ffeine 50 mg-325 mg-40 mg tablet TAKE 1 TABLET BY MOUTH EVERY 4 HOURS NEEDED active Not Available Not Available No t Available ondansetr on 8 mg disintegr ating tablet DISSOLVE 1 TABLET ON THE TONGUE TWICE DAILY 06/06 completed Not Available Not Available Not Available lamotrigi ne 25 mg tablet TAKE 2 TABLETS BY MOUTH EVERY DAY active Not Available Not Available No t Available oxycodone -acetamin ophen 5 mg-325 mg tablet TAKE 1 TABLET BY MOUTH EVERY 6 HOURS active Not Available Not Available No t Available latricia WOOD QIKike 01/14 completed Prescrib ed Elsewher e: No Locat ion: Lilli tracey [facility] odify By: [email or web address] E ncounter DateTime : 12/10/19 03:30:00 PM Not Available Not Available Not Available amoxicill in 875 mg tablet TAKE 1 TABLET BY MOUTH EVERY 12 HOURS active Not Available Not Available No t Available Metrogel Vaginal 0.75 % (37.5 mg/5 gram) insert 1 applicat orful by vaginal route every day at bedtime 06/02 completed Prescrib ed Elsewher e: No Locat ion: Lilli tracey [facility] odify By: alonzo renteria DateTime : 05/13/20 10:42:35 AM Not Available Not Available Not Available potassium chloride ER 20 mEq tablet,ex tended release(p art/cryst ) TAKE 1 TABLET BY MOUTH TWICE DAILY FOR 3 DAYS 01/10 completed Not Available Not Available Not Available Flagyl 500 mg tablet take 1 tablet by oral route every 12 hours 01/10 completed Prescrib ed Elsewher e: No Locat ion: [facility] odify By: [email or web address] Kei r DateTime : 02/29/20 09:45:00 AM Not Available Not Available Not Available hydrocodo ne 7.5 mg-acetam inophen 325 mg tablet TAKE 1 TABLET BY MOUTH EVERY 8 HOURS NEEDED FOR PAIN active Not Available Not Available No t Available cephalexi n 500 mg capsule TAKE 1 CAPSULE BY MOUTH THREE TIMES DAILY 01/10 completed Not Available Not Available Not Available buspirone 10 mg tablet TAKE 1 TABLET BY MOUTH TWICE DAILY 01/10 completed Not Available Not Available Not Available promethaz ine 25 mg tablet TAKE 1 TABLET BY MOUTH EVERY 4 HOURS 06/06 completed Not Available Not Available Not Available orphenadr ine citrate ER 100 mg tablet,ex tended release TAKE 1 TABLET BY MOUTH EVERY 12 HOURS NEEDED FOR MUSCLE SPASMS 01/10 completed Not Available Not Available Not Available mirtazapi ne 15 mg tablet take 1 tablet by oral route every day before bedtime 02/04 completed Prescrib ed Elsewher e: Yes Loca tion: Lilli tracey [facility] odify By: [email or web address] l Zak ter DateTime : 06/02/19 19 01:00:00 PM Not Available Not Available Not Available ibuprofen 600 mg tablet TAKE 1 TABLET BY MOUTH EVERY 6 HOURS NEEDED FOR PAIN 09/07 completed Not Available Not Available Not Available methylpre dnisolone 4 mg tablets in a dose pack FOLLOW PACKAGE DIRECTIO NS 01/10 completed Not Available Not Available Not Available albuterol sulfate HFA 90 mcg/actua tion aerosol inhaler Inhale 2 puffs every 4 hours by inhalati on route. active Not Available Not Available No t Available ondansetr on 4 mg disintegr ating tablet Place 1 tablet every 8 hours by translin gual route as needed. 06/29 completed Not Available Not Available Not Available sertralin e 50 mg tablet TAKE 1 TABLET BY MOUTH EVERY DAY 09/07 completed Not Available Not Available Not Available medroxypr ogesteron e 150 mg/mL intramusc ular suspensio n ADMINIST ER 1 ML IN THE MUSCLE EVERY 3 MONTHS 01/10 completed Not Available Not Available Not Available doxycycli ne hyclate 100 mg tablet TAKE 1 TABLET BY MOUTH TWICE DAILY active Not Available Not Available No t Available lamotrigi ne 100 mg tablet TAKE 1 TABLET BY MOUTH EVERY DAY active Not Available Not Available No t Available naproxen 500 mg tablet TAKE 1 TABLET BY MOUTH TWICE DAILY FOR 5 DAYS 01/10 completed Not Available Not Available Not Available Vitamin 27 mg iron-0.8 mg tablet TAKE 1 TABLET BY MOUTH ONCE DAILY 01/10 completed Not Available Not Available Not Available Depo-Prov era 150 mg/mL intramusc ular syringe inject 1 millilit er by intramus cular route every 3 months 01/10 completed Prescrib ed Elsewher e: No Locat ion: [facility] odify By: [email or web address] Encounte r DateTime : 02/05/20 04:45:00 PM Not Available Not Available Not Available Lexapro 20 mg tablet take 1 tablet by oral route every day 02/04 completed Prescrib ed Elsewher e: No [facility] By: [email or web address] DateTime : 01/08/20 11:30:00 AM Not Available Not Available Not Available cyclobenz aprine 5 mg tablet TAKE 1 TABLET BY MOUTH THREE TIMES DAILY 06/29 completed Not Available Not Available Not Available aripipraz ole 5 mg tablet TAKE 1 TABLET BY MOUTH EVERY DAY active Not Available Not Available No t Available bupropion HCl XL 150 mg 24 hr tablet, extended release TAKE 1 TABLET BY MOUTH EVERY DAY active Not Available Not Available No t Available nitrofura ntoin monohydra te/macroc rystals 100 mg capsule TAKE 1 CAPSULE BY MOUTH EVERY 12 HOURS WITH FOOD FOR 5 DAYS 05/23 completed Not Available Not Available Not Available Tylenol active Not Available Not Avail able Not Available Vitamin active Not Available Not Available Not Available aripipraz ole 2 mg tablet TAKE 1 TABLET BY MOUTH EVERY DAY active Not Available Not Available No t Available Fioricet 50 mg-300 mg-40 mg capsule take 1 - 2 capsule by oral route every 4 hours as needed not to exceed 6 capsules per 24hrs 2022 active Not Available Not Available Not Avai lable OneTouch Ultra Blue Test Strip BS QID 01/14 completed Prescrib ed Elsewher e: No Locat ion: [facility] odify By: mohit qureshi DateTime : 12/10/19 03:30:00 PM Not Available Not Available Not Available OneTouch Ultra2 Meter Check blood sugar QID; fasting and 1hr pc 01/14 completed Prescrib ed Elsewher e: No Locat ion: [facility] odify By: mohit qureshi DateTime : 12/10/19 03:30:00 PM Not Available Not Available Not Available Vitals Date Recorded Body height Body mass index (BMI) Systolic blood pressure Diastolic blood pressure Provider Name and Address Organization Details Last Updated DateTime 07/25/2022 170.82 cm 21.3 kg/m2 120 mm[Hg] 76 mm[Hg] Karley Elle [facility] 07/25/2022 17:49:20 Date Recorded Body weight Provider Name an d Address Organization Details Last Updated DateTime 07/25/[phone] g [facility] 09/03/2022 17:51:35 Date Recorded Body height Body mass index (BMI) Systolic blood pressure Diastolic blood pressure Provider Name and Address Organization Details Last Updated DateTime 08/06/2022 170.82 cm 20.4 kg/m2 110 mm[Hg] 65 mm[Hg] Karley Almeida [facility] 08/06/2022 11:51:50 Date Recorded Body weight Provider Name an d Address Organization Details Last Updated DateTime 08/06/[phone] g [facility] 09/03/2022 17:51:35 Date Recorded Body height Body mass index (BMI) Body weight Systolic blood pressure Diastolic blood pressure Provider Name and Address Organization Details Last Updated DateTime 09/07/2022 170.82 cm 19.1 kg/m2 66869.86 g 131 mm[Hg] 84 mm[Hg] Anna Cohen [facility] 11:38:58 Social History Question Answer Notes LastModified by Organizat ion Details LastModified Time Tobacco Smoking Status Former Smoker Anna Cohen [facility] 04/11/2022 15:15:06 Do You Have An Advance Directive? No [email or web address] Information not available 04/11/2022 What Is Your Level Of Alcohol Consumption? None [email or web address] Information not available 02/06/2022 If You Are , What Was Your Level Of Alcohol Consumption Prior To ? Occasional [email or web address] Information not available 04/11/2022 Are You Blind Or Do You Have Difficulty Seeing? No [email or web address] Information not available 02/06/2022 What Is Your Level Of Caffeine Consumption? Moderate [email or web address] Information not available 04/11/2022 How Much Tobacco Do You Chew? None [email or web address] Information not available 04/11/2022 In The 14 Days Before Symptom Onset, Have You Had Close Contact [facility] While That Case Was Ill? No [email or web address] Information not available 02/06/2022 In The 14 Days Before Symptom Onset, Have You Had Close Contact With A Person Who Is Under Investigation For COVID-19 While That Person Was Ill? No [email or web address] Information not available 02/06/2022 Have You Been To An Area Known To Be High Risk For COVID-19? No Information not available 02/06/2022 Are You Deaf Or Do You Have Serious Difficulty Hearing? No [email or web address] Information not available 02/06/2022 What Type Of Diet Are You Following? REGULAR [email or web address] Information not available 02/06/2022 Do You Or Have You Ever Used E-cigarettes Or Vape? Former User Of Electronic Cigarettes [email or web address] Information not available 04/11/2022 What Is The Highest Grade Or Level Of School You Have Completed Or The Highest Degree You Have Received? 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 No Information not available 04/11/2022 Do You Use Protection During Sex? No Information not available 04/11/2022 Do You Use Your Seat Belt Or Car Seat Routinely? Yes Information not available 02/06/2022 Do You Have Smoke And Carbon Monoxide Detectors In Your Home? Yes [email or web address] Information not available 02/06/2022 At What Age Did You Start Smoking Tobacco? 14 [email or web address] Information not available 04/11/2022 How Much Tobacco Do You Smoke? No Information not available 04/11/2022 Do You Feel Stressed (tense, Restless, Nervous, Or Anxious, Or Unable To Sleep At Night)? [id number] [email or web address] Information not available 02/06/2022 Do You Use Any Illicit Or Recreational Drugs? No [email or web address] Information not available 02/06/2022 Do You Use Sunscreen Routinely? Yes Information not available 02/06/2022 Has Tobacco Cessation Counseling Been Provided? No [email or web address] Information not available 04/11/2022 How Many Years Have You Smoked Tobacco? 9 [email or web address] Information not available 04/11/2022 Have You Used IV Drugs? No Information not available 04/11/2022 Do You Or Have You Ever Used Any Other Forms Of Tobacco Or Nicotine? Yes [email or web address] Information not available 04/11/2022 Sex: Unknown Functional Status Question Answer Note LastModified by Organizat ion Details LastModified Time Do you have difficulty walking or climbing stairs? No [email or web address] Information not available 04/11/2022 Are you able to walk? YESWOREST [email or web address] Information not available 02/06/2022 Are you able to care for yourself? Yes [email or web address] Information not available 04/11/2022 Do you have difficulty dressing or bathing? No [email or web address] Information not available 04/11/2022 What is your exercise level? Occasional [email or web address] Information not available 02/06/2022 Mental Status None recorded. Family History Relationship Description Onset Age of this Age Resolved Age Notes LastModified by Organization Details LastModified Time Brother Malignant tumor of esophagus [email or web address] Not available 04/11 15:15:05 Brother Anxiety disorder [email or web address] Not available 04/11 15:15:05 Brother Depressive disorder Not available 04/11 15:15:05 Father Malignant neoplasm of skin [email or web address] Not available 04/11 15:15:05 Father Malignant tumor of thyroid gland [email or web address] Not available 04/11 15:15:05 Mother Cyst of ovary [email or web address] Not available 04/11 15:15:05 Mother Asthma [email or web address] Not available 02/06/2022 17:23:01 Mother Malignant tumor of thyroid gland glnigjof29 Not available 04/11 15:15:05 Mother Disorder of lung [email or web address] Not available 04/11 15:15:05 Mother Anxiety disorder [email or web address] Not available 04/11 15:15:05 Mother Hypercholest erolemia [email or web address] Not available 04/11 15:15:05 Mother Depressive disorder [email or web address] Not available 04/11 15:15:05 Mother Hypertensive disorder [email or web address] Not available 04/11 15:15:05 Mother Mental disorder [email or web address] Not available 04/11 15:15:05 Mother Disorder of thyroid gland [email or web address] Not available 04/11 15:15:05 Sister Anemia Not available 02/06/2022 17:23:07 Sister High risk [email or web address] Not available 04/11 15:15:05 Sister Depressive disorder [email or web address] Not available 04/11 15:15:05 Sister Cerebrovascu lar accident [email or web address] Not available 15:15:05 Sister Anxiety disorder [email or web address] Not available 04/11 15:15:05 Sister Mental disorder Not available 04/11 15:15:05 Maternal Grandmother Diabetes mellitus Not available 02/06 17:23:20 Maternal Grandmother Hypercholest erolemia [email or web address] Not available 02/06 17:23:30 Maternal Grandmother Hypertensive disorder [email or web address] Not available 02/06 17:23:40 Maternal Grandmother Malignant tumor of thyroid gland [email or web address] Not available 04/11 15:15:05 Maternal Grandmother Heart disease [email or web address] Not available 04/11 15:15:05 Maternal Grandmother Depressive disorder [email or web address] Not available 04/11 15:15:05 Maternal Grandmother Mental disorder Not available 04/11 15:15:05 Maternal Grandmother Disorder of lung [email or web address] Not available 04/11 15:15:05 Maternal Grandmother Osteoporosis [email or web address] Not availabl e 04/11/2022 15:15:05 Maternal Uncle Hypertensive disorder Not available 04/11 15:15:05 Daughter Mental disorder [email or web address] Not available 04/11 15:15:05 Maternal Aunt Disorder of thyroid gland [email or web address] Not available 04/11 15:15:05 Maternal Grandfather Depressive disorder [email or web address] Not available 04/11 15:15:05 Maternal Grandfather Mental disorder [email or web address] Not available 04/11 15:15:05 Maternal Grandfather Cerebrovascu lar accident [email or web address] Not available 15:15:05 Medical History Condition Response Allergies (Food, seasonal, environmental ) Y Other Y Breast Cancer N Drug/Latex Allergies/Reactions N Blood Transfusion N Dermatologic Disorders N Lung Disease N Defects or Inherited Disease N Breast Problem Y Gestational Diabetes Y Hematologic disorders N Anesthesia Complications N History of STI N Deep Vein Thrombosis N Polycystic ovary syndrome N Anxiety Disorder Y Autoimmune disease N Arthritis N Infertility N Polyps N Acid Reflux (GERD) N History of abnormal pap N Cancer N Stroke N Varicosities N Neurologic/Epilepsy Y Endometriosis N High Cholesterol N Headaches N Fibromyalgia N Kidney Disease N Heart Problems N Kidney or Bladder Problems N Thyroid Problems Y GI Problems N Eating Disorder N Anemia N Art (IVF or FET) N Psychiatric Illness Y Ovarian Cancer N Diabetes Y Pulmonary (TB, Asthma) N Hepatitis/Liver Disease N No Past Medical History N Eczema N Urinary Tract Infection N Abuse/Domestic Violence N Asthma Y Trauma/Violence N Depression/ depression Y Heart Disease N Pre-Eclampsia N Hypertension N Osteoporosis N Thrombophilias N Gynecological History Statement/Question Response Date of Last Mammogram Date of LMP 10/22/2021 STIs/STDs N Was last menstrual period normal N Current Control Method None Age at First Child 22 Sexually Active? Y Date of DEXA bone scan Age of first menstrual cycle 14 Date of Last Pap Smear 12/27/2021 Sexual Problems? N Desired Control Method None Obstetrics History GPAL:G 3 P 2 0 1 2 Type Value Full Term 2 Induced 1 Living 2 Total 3 Past Encounters Encounter ID Performer Location Encounter Start Date Encounter Closed Date Diagnosis/Indication Diagnosis SNOMED-CT Code Diagnosis ICD10 Code Diagnosis Note [id number] Ruth Robledo [facility] [address] [address] 12/27/2021 14:28:32 12/27/2021 14:50:54 [id number] [facility] [address] [address] 12/27/2021 14:31:55 12/27/2021 18:02:31 test positive 530629153 Z32.01 Amenorrhea 78762992 N91. 2 [id number] Lorenza Miller MD [facility] [address],[place] [address] 01/10/2022 15:17:23 01/12/2022 15:33:57 Bipolar disorder 67825364 F31.9 [id number] [facility] [address],[place] [address] 01/15/2022 10:24:01 01/15/2022 10:57:58 screening 334010123 Z36.82 [id number] Travis San MD [facility] [address],[place] [address] 01/15/2022 10:24:22 01/18/2022 14:24:38 Routine care 776077271 Z34.81 [id number] Travis San MD [facility] [address],[place] [address] 02/12/2022 10:57:19 02/12/2022 12:14:40 Nausea and vomiting 26444232 R11.2 Routine an tenatal care 372118627 Z34.81 [id number] Norah Ramirez [facility] [address],[place] [address] 03/14/2022 11:48:27 03/14/2022 13:59:54 Routine care 869323985 Z34.92 [id number] [facility] [address],[place] [address] 03/15/2022 16:56:25 03/16/2022 18:24:20 screening for malformation 194476572 Z36.3 [id number] [facility] [address],[place] [address] 04/11/2022 14:51:11 04/11/2022 15:36:29 Routine care 639298183 Z34.92 [id number] Anna Cohen [facility] [address],[place] [address] 05/09/2022 14:46:41 05/09/2022 17:06:32 Urinary symptoms 610853068 R39.9 Routine an tenatal care 531550117 Z34.92 [id number] Norah Ramirez [facility] [address],[place] [address] 05/23/2022 15:24:26 05/23/2022 16:20:32 Routine care 053825694 Z34.92 - induced hypertension 55463813 O13.9 [id number] Norah Ramirez [facility] [address],[place] [address] 06/06/2022 11:47:41 06/06/2022 14:39:04 Urinary symptoms 389254900 R39.9 Routine an tenatal care 006966767 Z34.92 [id number] Ruth Robledo [facility] [address],[place] [address] 06/20/2022 11:32:46 06/20/2022 12:31:48 Uterine size for dates discrepancy 484836273 O26.843 Z3A.34 [id number] Norah Ramirez [facility] [address],[place] [address] 06/20/2022 11:33:06 06/20/2022 13:18:02 Dysuria 94456901 R30.0 Routine an tenatal care 547845964 Z34.92 [id number] Brenda Ramírezdelfinakyung [facility] [address],[place] [address] 06/20/2022 12:29:24 06/20/2022 18:40:59 Placental abnormality 589569007 O43.193 Z3A.34 [id number] Whitley Moore [facility] [address],[place] [address] 06/29/2022 14:39:48 06/29/2022 15:29:39 Placental abnormality 342055145 O43.193 Z3A.34 [id number] Karolina Lau [facility] [address],[place] [address] 06/29/2022 14:40:06 07/02/2022 14:57:27 Placental abnormality 698541078 O43.193 Z3A.35 [id number] Norah Ramirez CNM [facility] [address],[place] [address] 06/29/2022 14:40:25 07/02/2022 17:10:56 Routine care 380560153 Z34.92 [id number] [facility] [address],[place] [address] 07/02/2022 15:26:44 07/02/2022 16:10:57 Placental abnormality 548138917 O43.193 Z3A.35 [id number] [facility] [address],[place] [address] 07/06/2022 13:53:51 07/06/2022 15:19:22 Placental abnormality 778021261 O43.193 Z3A.35 [id number] Alie Douglas [facility] [address],[place] [address] 07/06/2022 13:54:29 07/06/2022 17:04:42 Placental abnormality 880285087 O43.93 [id number] [facility] [address],[place] [address] 07/06/2022 13:54:45 07/06/2022 15:23:18 [id number] Nicole Georges [facility] [address] [place] [address] 07/13/2022 13:58:19 07/13/2022 15:04:53 Placental abnormality 009971763 O43.193 Z3A.37 [id number] [facility] [address] [place] [address] 07/13/2022 13:58:33 07/13/2022 15:01:52 Placental abnormality 242254895 O43.193 Z3A.35 [id number] Norah Ramirez CNM [facility] [address] [place] [address] 07/13/2022 13:58:45 07/13/2022 15:59:29 Routine care 084180104 Z34.92 [id number] Alie Douglas [facility] [address],[place] [address] 07/17/2022 16:43:16 07/17/2022 17:53:30 Past history of pre-eclampsia 1869291832 55122 Z87.59 Pt delivered on 07/14/22 r/t pre-e. Pt missed f/u at [facility] today. Went to PCP today and BP was 150/90 there and then rpt was 130/?, but pt states it was normal. No PIH sxs. Some non-pittin g edema in ankles. Initial BP 133/93 and manual rpt BP was 130/86. Reviewed and ok per SP and pt schd for 1 wk BP check. Gave precaution s and to call sooner with any changes in sxs. Pt verbalized understand ing. YU carranza [id number] Ruth Robledo [facility] [address],[place] [address] 07/24/2022 15:34:36 07/24/2022 16:32:47 Retained products of conception 114583509 O72.2 [id number] Travis San MD [facility] [address],[place] [address] 07/25/2022 17:42:15 07/26/2022 11:41:28 Retained placenta 200019694 O72.0 this patient is a 27-year-ol d female with retained placenta. We will perform suction D&C. She understand s the risks, benefits, and alternativ es. She has completed the informed consent process and is ready to proceed. [id number] Travis San MD [facility] [address],[place] [address] 08/06/2022 11:39:08 08/06/2022 14:51:55 Postoperative care 633619236 Z48.89 27-year-ol d female presents for postop follow-up. She is 1 week postop from a delivery. She is recovering normally. Her incision is clean dry and intact. She has no complaints . Her baby is doing. [id number] Anna Cohen [facility] [address] [address] 09/07/2022 11:10:58 09/07/2022 12:20:27 care 096048760 Z39.2 anxiety and depression continue to see PCP, start nextellis for bcm, disc se risks and benefits including blood clot, stroke, f/u [facility] in january Health Concerns Section Related Observation LastModified by Organization Detai ls LastModified Time None Recorded Concern Status LastModified by Organization Details LastModified Time None Recorded Advance Directives Directive N: Payers Encounter Date Sequence Insurance Name Policy Number Policy Edward Covered Member ID Edward Member ID Guarantor Name 07/24/2022 1 [facility] ON OR AFTER 11/24/20 (MEDICAID REPLACEMENT - HMO) Maribel Contreraz [id number] Maribel Contreraz 07/25/2022 1 [facility] ON OR AFTER 11/24/20 (MEDICAID REPLACEMENT - HMO) Maribel Contreraz [id number] Maribel Contreraz 08/06/2022 1 [facility] ON OR AFTER 11/24/20 (MEDICAID REPLACEMENT - HMO) Maribel Contreraz [id number] Maribel Contreraz 09/07/2022 1 [facility] ON OR AFTER 11/24/20 (MEDICAID REPLACEMENT - HMO) Maribel Contreraz [id number] Maribel Contreraz Notes Date Note Type Note Provider Name and Address Organization Details Recorded Time 07/25/2022 text/html patient is a 27-year-old female who is and has retained placenta. She needs D and C, The patient understands the procedure. The procedure was described to the patient in great detail. the patient also understands the risks. The risks were also explained in detail. She understands that injuries May occur during surgery. She understands these injuries can result in hospitalization, more surgery, and severe illness. She understands there is risk of hemorrhage and infection. Travis San MD [address], [place], [address], [facility] 07/25/2022 23:58:21 08/06/2022 text/html 27-year-old joshua pastor presents for postop follow-up. She is 1 week postop from a delivery. She is recovering normally. Her incision is clean dry and intact. She has no complaints. Her baby is doing. Travis San MD [address], [place], [address], [facility] 08/06/2022 14:46:35 09/07/2022 text/html VisitReported bypatient.Quality:N Context:complicatio ns of : PIH; complications of labor: PIH; complications: endometritis; feeding choice: bottle; depression; good support from partner/family; resumed menstrual bleeding no; needed d/c for retained product Associated Symptoms:no abnormal bleeding; no vaginal discharge; no pelvic pain; no constipation; no fecal incontinence; no dysuria; no urinary incontinence; no fever; no problems Contraception Plan:oral contraceptive pillNotes:wants bcm disc options wants to start with pill for nowvapes occ Anna brock, [facility] 09/07/2022 19:00:24 OBGyn Episode Ob Episode Information Episode Created Date Number of Fetuses Patient Bloodtype Patient rh Status Prepregnancy Weight lbs Domestic Partner Domestic Partner Phone Father Name Herbarium Curator Status 01/16/20 22 1 O Negative 118 CLOSED Fetus Data First Name Last Name Admitted to NICU Weight (g) Sex Living Outcome Pediatric Complications Fetus ID Race Codes Race Delivery Type Barry tijerina [phone] F true Full Term [id number] Vaginal Delivery Problems Problem Notes Forceps delivery - pushed fo r three hours, [facility] to d/c 04/18/22PIH LABS WNL 07/06 Problem Name Start Date End Date Resolution Snomed Code Not e Placental abnormality 29906906 5 bilobed - Grade 1 & Grd 3- MFM 07/18 2wk growth at [facility] Asthma 361567094 not using inhaler Past history of gestational diabetes mellitus 748820956 early scre ening Depressive disorder 25899254 Started Zoloft 50mg RhD negative 673111225 Nausea and vomiting 82800760 Brett Calculation Initial Brett Date Initial Exam Date Initial Exam Provider Initial Ultrasound Date Last Menstrual Period Date Ultra Sound Weeks Gestation 07/29/2022 01/15/2022 12/27/2021 10/22/2021 9 Eighteen To Twenty Week Brett Update Ultra Sound Date Fundal Height At Umbil Quickening Date Ultra Sound Latest Weeks Gestation Final Brett Confirmed By Final Brett Confirmed Date Final Brett Date Ultra Sound Latest Days Gestation 0 [email or web address] 01/15/2022 07/30/19 23 0 Pre- Flowsheet Flowsheet Date 01/15/2022 Haro Score Blood Edema Fundus Height Fundus Units Glucose Ketones Leukocytes Nitrite Labor Signs Protein Cervic Dilation Cervic Effacement Cervic Station 12 Type Weight in lbs Pre/Post Dialysis Refused Weight 122.685948179158 BP Diastolic BP Location Tested BP Systolic BP Type 68 R arm 120 sitting Fetus Heart Rate Present A 155 Fetus Movement Comments this patient is a 26-year-ol d 2 para 1001 at 12 weeks gestation who presents for initial care. She has a history of gestational diabetes, forceps delivery, intrapartum fever, endometritis. She has a medical history significant for asthma, and depression/anxiety. She is not taking any medications at this time. She is not vaccinated for COVID but did get infected with the virus. She was given other vaccine recommendations. She will begin routine care. care was described to her in detail. Flowsheet Date 02/12/2022 Haro Score Blood Edema Fundus Height Fundus Units Glucose Ketones Leukocytes Nitrite Labor Signs Protein Cervic Dilation Cervic Effacement Cervic Station 16 Type Weight in lbs Pre/Post Dialysis Refused Weight 124.206699998139 BP Diastolic BP Location Tested BP Systolic BP Type 65 R arm 131 sitting Fetus Heart Rate Present A 145 Fetus Movement Comments nausea and vomiting, Zofran snow effective at this time, to add some Phenergan, maybe had a viral GI infection. Was accompanied with some hypoglycemia. Given cautions on hypoglycemia. Flowsheet Date 03/14/2022 Haro Score Blood Edema Fundus Height Fundus Units Glucose Ketones Leukocytes Nitrite Labor Signs Protein Cervic Dilation Cervic Effacement Cervic Station Type Weight in lbs Pre/Post Dialysis Refused Weight 134.054328430146 BP Diastolic BP Location Tested BP Systolic BP Type 78 R arm 143 sitting Fetus Heart Rate Present Fetus Movement Comments anatomy scan tomorrow, early one hour glucose today, precautions reviewed, increase protein and hydration f/u as scheduled Flowsheet Date 03/15/2022 Haro Score Blood Edema Fundus Height Fundus Units Glucose Ketones Leukocytes Nitrite Labor Signs Protein Cervic Dilation Cervic Effacement Cervic Station Type Weight in lbs Pre/Post Dialysis Refused BP Diastolic BP Location Tested BP Systolic BP Type Fetus Heart Rate Present Fetus Movement Comments Flowsheet Date 04/11/2022 Haro Score Blood Edema Fundus Height Fundus Units Glucose Ketones Leukocytes Nitrite Labor Signs Protein Cervic Dilation Cervic Effacement Cervic Station neg none none trace Type Weight in lbs Pre/Post Dialysis Refused Weight 139.485388748063 BP Diastolic BP Location Tested BP Systolic BP Type 73 127 Fetus Heart Rate Present Fetus Movement A Yes Comments patient is having pain and n ausea. doing well with zoloft, tired working and going to school, precautions reviewed lab order given for rhogam and 28 week labs f/u 4 weeks Flowsheet Date 05/09/2022 Haro Score Blood Edema Fundus Height Fundus Units Glucose Ketones Leukocytes Nitrite Labor Signs Protein Cervic Dilation Cervic Effacement Cervic Station 27 wks Type Weight in lbs Pre/Post Dialysis Refused Weight 136.247581531951 BP Diastolic BP Location Tested BP Systolic BP Type 61 103 Fetus Heart Rate Present A 144 Present Fetus Movement Comments will do glucose and rhogam t omorrow at [place], [place]ap, forgetting zoloft sometimes, encouraged daily use, also uti, had been having sxs for almost 2 weeks, urine sent for culture, macrobid to pharmacy, precautions reviewed, will f/u in 2 weeks Flowsheet Date 05/23/2022 Haro Score Blood Edema Fundus Height Fundus Units Glucose Ketones Leukocytes Nitrite Labor Signs Protein Cervic Dilation Cervic Effacement Cervic Station neg trace 27 none trace Type Weight in lbs Pre/Post Dialysis Refused Weight 144.599377779324 BP Diastolic BP Location Tested BP Systolic BP Type 63 107 Fetus Heart Rate Present A 144 Present Fetus Movement A Yes Comments patient is having some pain, swelling, and contractions. labor precautions reviewed, fioricet and fleril for migraines, bp normotensive, will check labs f/u 2 weeks. 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 urine for culture, burning is resolving with increased hydration s<d plan growth us next visit, labs today rhogam and glucose complete, tdap done Flowsheet Date 06/20/2022 Haro Score Blood Edema Fundus Height Fundus Units Glucose Ketones Leukocytes Nitrite Labor Signs Protein Cervic Dilation Cervic Effacement Cervic Station Type Weight in lbs Pre/Post Dialysis Refused BP Diastolic BP Location Tested BP Systolic BP Type Fetus Heart Rate Present Fetus Movement Comments Flowsheet Date 06/20/2022 Haro Score Blood Edema Fundus Height Fundus Units Glucose Ketones Leukocytes Nitrite Labor Signs Protein Cervic Dilation Cervic Effacement Cervic Station Type Weight in lbs Pre/Post Dialysis Refused BP Diastolic BP Location Tested BP Systolic BP Type Fetus Heart Rate Present Fetus Movement Comments Flowsheet Date 06/20/2022 Haro Score Blood Edema Fundus Height Fundus Units Glucose Ketones Leukocytes Nitrite Labor Signs Protein Cervic Dilation Cervic Effacement Cervic Station neg none none trace Type Weight in lbs Pre/Post Dialysis Refused Weight 145.4304915602 BP Diastolic BP Location Tested BP Systolic BP Type 69 109 Fetus Heart Rate Present Fetus Movement A Yes Comments patient is having pain, cont ractions, burning with urination, and swelling.?bi lobed placenta grade 1/grade 3, short [place], will have beer review, plan weekly nst bpp, disc movement bpp today 01/03. precautions reviewed, call for preadmit Flowsheet Date 06/29/2022 Haro Score Blood Edema Fundus Height Fundus Units Glucose Ketones Leukocytes Nitrite Labor Signs Protein Cervic Dilation Cervic Effacement Cervic Station Type Weight in lbs Pre/Post Dialysis Refused BP Diastolic BP Location Tested BP Systolic BP Type Fetus Heart Rate Present Fetus Movement Comments Flowsheet Date 06/29/2022 Haro Score Blood Edema Fundus Height Fundus Units Glucose Ketones Leukocytes Nitrite Labor Signs Protein Cervic Dilation Cervic Effacement Cervic Station Type Weight in lbs Pre/Post Dialysis Refused BP Diastolic BP Location Tested BP Systolic BP Type Fetus Heart Rate Present Fetus Movement Comments Flowsheet Date 06/29/2022 Haro Score Blood Edema Fundus Height Fundus Units Glucose Ketones Leukocytes Nitrite Labor Signs Protein Cervic Dilation Cervic Effacement Cervic Station neg trace none trace Type Weight in lbs Pre/Post Dialysis Refused Weight 147.173561006085 BP Diastolic BP Location Tested BP Systolic BP Type 84 131 Fetus Heart Rate Present Fetus Movement A Yes Comments patient is having vaginal di scomfort, pain with urination, contractions, swelling and nausea. cervix FT/thick/softon review of US new area noted on grade 1 placenta/grade 3 bilobed again seen on US, disc with Dr. San and MFM was consulted by [facility] CNM, Dr. Rome, reviewed findings BPP 03/05 dopplers wnl, growth wnl, feels that outpatient appt with consult would be appropriate and was then scheduled for early next week, Per Dr. San NSt daily until MFM reviewpt aware, reviewed kick counts, movements, if any concerns to LD for evaluation.Pt given note to d/c work. Flowsheet Date 07/02/2022 Haro Score Blood Edema Fundus Height Fundus Units Glucose Ketones Leukocytes Nitrite Labor Signs Protein Cervic Dilation Cervic Effacement Cervic Station Type Weight in lbs Pre/Post Dialysis Refused BP Diastolic BP Location Tested BP Systolic BP Type 76 126 Fetus Heart Rate Present Fetus Movement Comments Flowsheet Date 07/06/2022 Haro Score Blood Edema Fundus Height Fundus Units Glucose Ketones Leukocytes Nitrite Labor Signs Protein Cervic Dilation Cervic Effacement Cervic Station Type Weight in lbs Pre/Post Dialysis Refused BP Diastolic BP Location Tested BP Systolic BP Type Fetus Heart Rate Present Fetus Movement Comments Flowsheet Date 07/06/2022 Haro Score Blood Edema Fundus Height Fundus Units Glucose Ketones Leukocytes Nitrite Labor Signs Protein Cervic Dilation Cervic Effacement Cervic Station Type Weight in lbs Pre/Post Dialysis Refused BP Diastolic BP Location Tested BP Systolic BP Type Fetus Heart Rate Present Fetus Movement Comments Flowsheet Date 07/06/2022 Haro Score Blood Edema Fundus Height Fundus Units Glucose Ketones Leukocytes Nitrite Labor Signs Protein Cervic Dilation Cervic Effacement Cervic Station neg trace none trace Type Weight in lbs Pre/Post Dialysis Refused Weight 150.969345336249 BP Diastolic BP Location Tested BP Systolic BP Type 77 130 Fetus Heart Rate Present Fetus Movement A Yes Comments patient feel like breast lum p bigger, swelling, vision changes, headaches, discharge, contractions, nausea and acid reflux. bpp 03/05reviewed MFM us, plan growth in 2-3 weeks per MFM, has a breast lump right that has been followed previously, that dr no longer in practice, will get records and refer to new breast specialist, area about 2-3 cm mobile soft, non tenderfioricet refilled for valerio, had blurry vision x 1, check labs, denies new valerio (same migraine type, that resolve with fioricet) or epigastric pain Flowsheet Date 07/13/2022 Haro Score Blood Edema Fundus Height Fundus Units Glucose Ketones Leukocytes Nitrite Labor Signs Protein Cervic Dilation Cervic Effacement Cervic Station Type Weight in lbs Pre/Post Dialysis Refused BP Diastolic BP Location Tested BP Systolic BP Type Fetus Heart Rate Present Fetus Movement Comments Flowsheet Date 07/13/2022 Haro Score Blood Edema Fundus Height Fundus Units Glucose Ketones Leukocytes Nitrite Labor Signs Protein Cervic Dilation Cervic Effacement Cervic Station Type Weight in lbs Pre/Post Dialysis Refused BP Diastolic BP Location Tested BP Systolic BP Type Fetus Heart Rate Present Fetus Movement Comments Flowsheet Date 07/13/2022 Haro Score Blood Edema Fundus Height Fundus Units Glucose Ketones Leukocytes Nitrite Labor Signs Protein Cervic Dilation Cervic Effacement Cervic Station neg trace none trace Type Weight in lbs Pre/Post Dialysis Refused Weight 153.116849598992 BP Diastolic BP Location Tested BP Systolic BP Type 93 147 80 140 Fetus Heart Rate Present Fetus Movement A Yes Comments patient states that is weak , dizzy, some pain, feels like wet with discharge, swelling, nausea and vomiting. to ld for r/o rupture and PIH labs, bpp 8/8, c/o headache and visual changes Flowsheet Date 07/17/2022 Haro Score Blood Edema Fundus Height Fundus Units Glucose Ketones Leukocytes Nitrite Labor Signs Protein Cervic Dilation Cervic Effacement Cervic Station Type Weight in lbs Pre/Post Dialysis Refused BP Diastolic BP Location Tested BP Systolic BP Type 93 133 86 130 Fetus Heart Rate Present Fetus Movement Comments Flowsheet Date 07/24/2022 Haro Score Blood Edema Fundus Height Fundus Units Glucose Ketones Leukocytes Nitrite Labor Signs Protein Cervic Dilation Cervic Effacement Cervic Station Type Weight in lbs Pre/Post Dialysis Refused BP Diastolic BP Location Tested BP Systolic BP Type Fetus Heart Rate Present Fetus Movement Comments Flowsheet Date 07/25/2022 Haro Score Blood Edema Fundus Height Fundus Units Glucose Ketones Leukocytes Nitrite Labor Signs Protein Cervic Dilation Cervic Effacement Cervic Station Type Weight in lbs Pre/Post Dialysis Refused Weight 137.494728326166 BP Diastolic BP Location Tested BP Systolic BP Type 76 R arm 120 sitting Fetus Heart Rate Present Fetus Movement Comments Flowsheet Date 07/30/2022 Haro Score Blood Edema Fundus Height Fundus Units Glucose Ketones Leukocytes Nitrite Labor Signs Protein Cervic Dilation Cervic Effacement Cervic Station Type Weight in lbs Pre/Post Dialysis Refused BP Diastolic BP Location Tested BP Systolic BP Type Fetus Heart Rate Present Fetus Movement Comments Flowsheet Date 08/06/2022 Haro Score Blood Edema Fundus Height Fundus Units Glucose Ketones Leukocytes Nitrite Labor Signs Protein Cervic Dilation Cervic Effacement Cervic Station Type Weight in lbs Pre/Post Dialysis Refused Weight 131.255832954404 BP Diastolic BP Location Tested BP Systolic BP Type 65 R arm 110 sitting Fetus Heart Rate Present Fetus Movement Comments Menstrual History Last Menstrual Date Menses Monthly On Bcp Conception Prior Menses Frequency Hcg Plus Date Menarche Onset Age 0510/22/2021 Genetic Screening And Infection History Question Response Note Mental Retardation/Autism false Patient's Age Will Be 35 Years Or Older At Estim ated Date of Delivery false Thalassemia (Syrian, Czech, Mediterranean, Or Background): MCV < 80 false Neural Tube Defect (Meningomyelocele, Spina Bifi da, Or Anencephaly) false Congenital Heart Defect false Down Syndrome false Sherman-Sachs (eg, Cheondoism, Cajun, [place] Islander-Latty) f alse Kindra Disease false Sickle Cell Disease Or Trait () false Hemophilia Or Other Blood Disorders false Muscular Dystrophy false Cystic Fibrosis false Fults's Chorea false Intellectual Disability/Autism false If Yes, Was Person Tested For Fragile X? false Other Inherited Genetic Or Chromosomal Disorder false Maternal Metabolic Disorder (eg, Type 1 Diabetes , PKU) false Patient Or Baby's Father Had A Child With Defects Not Listed Above false Recurrent Loss, Or A Stillbirth false Medications (including Suppl ements, Vitamins, Herbs, OTC Drugs), Illicit/Recreational Drugs, Alcohol false If Yes, Agent(s) And Strength/Dosage false Any Other Genetic History false Live With Someone With TB Or Exposed To TB false Patient Or Partner Has History Of Genital Herpes false Rash Or Viral Illness Since Last Menstrual Perio d false History Of STD, Gonorrhea, Chlamydia, HPV, Syphi lis false Other Infection History false History of HIV false History of Hepatitis false Prior GBS-infected child false Hemoglobinopathy Or Carrier false Other Structural Defect false Recent Travel History Outside of Country false Delivery Information Delivery Date Delivery Type Labor Anesthesia Weeks Gestation Incision Type Labor Labor Length Hrs Delivered By Post Complications Tubal Sterilization Discharge Date Comments 3 Induce d [facility]- idural 37.6 false Norah Ramirez CNM Lobed Placenta & Pre Eclampsia w/o severe features Discharge Information Feeding Method Contraceptive Method Maternal HG B and HCT Levels Ob Episode Information Episode Created Date Number of Fetuses Patient Bloodtype Patient rh Status Prepregnancy Weight lbs Domestic Partner Domestic Partner Phone Father Name Herbarium Curator Status 02/07/20 22 1 CLOSED Fetus Data First Name Last Name Admitted to NICU Weight (g) Sex Living Outcome Pediatric Complications Fetus ID Race Codes Race Delivery Type , Induced [id number] Brett Calculation Initial Brett Date Initial Exam Date Initial Exam Provider Initial Ultrasound Date Last Menstrual Period Date Ultra Sound Weeks Gestation 0 Eighteen To Twenty Week Brett Update Ultra Sound Date Fundal Height At Umbil Quickening Date Ultra Sound Latest Weeks Gestation Final Brett Confirmed By Final Brett Confirmed Date Final Brett Date Ultra Sound Latest Days Gestation 0 0 Menstrual History Last Menstrual Date Menses Monthly On Bcp Conception Prior Menses Frequency Hcg Plus Date Menarche Onset Age Delivery Information Delivery Date Delivery Type Labor Anesthesia Weeks Gestation Incision Type Labor Labor Length Hrs Delivered By Post Complications Tubal Sterilization Discharge Date Comments 6 Discharge Information Feeding Method Contraceptive Method Maternal HG B and HCT Levels Ob Episode Information Episode Created Date Number of Fetuses Patient Bloodtype Patient rh Status Prepregnancy Weight lbs Domestic Partner Domestic Partner Phone Father Name Herbarium Curator Status 01/16/20 22 1 CLOSED Fetus Data First Name Last Name Admitted to NICU Weight (g) Sex Living Outcome Pediatric Complications Fetus ID Race Codes Race Delivery Type 3118.44 5 F Full Term [id number] Vaginal Delivery Brett Calculation Initial Brett Date Initial Exam Date Initial Exam Provider Initial Ultrasound Date Last Menstrual Period Date Ultra Sound Weeks Gestation 0 Eighteen To Twenty Week Brett Update Ultra Sound Date Fundal Height At Umbil Quickening Date Ultra Sound Latest Weeks Gestation Final Brett Confirmed By Final Brett Confirmed Date Final Brett Date Ultra Sound Latest Days Gestation 0 0 Menstrual History Last Menstrual Date Menses Monthly On Bcp Conception Prior Menses Frequency Hcg Plus Date Menarche Onset Age Delivery Information Delivery Date Delivery Type Labor Anesthesia Weeks Gestation Incision Type Labor Labor Length Hrs Delivered By Post Complications Tubal Sterilization Discharge Date Comments 9 39 Jeffrey tracey GDM Discharge Information Feeding Method Contraceptive Method Maternal HG B and HCT Levels
--- OUTSIDE RECORDS SUMMARY | 2024-09-08 11:14 | XMS_ITS ---
Author Organization [facility]ly [facility] Address [address] [place] [address] Care Team Providers Care Grocery Specialist Name Role Phone Monserrat Zapata Primary Care Provider [phone] Butch Cooney Unavailable [phone] REASON FOR VISIT clarify rx Social History Sex Assigned At : Social History Observation Description Sex Assigned At Female Encounters Encounter Location Date Provider Diagnosis [address] [place] [address] 08/31/2024 Butch Cooney Plan Of Treatment No Information Progress Notes * Maribel WAHL RDOB: (29 yo F)Acc No.[id number]:08/31/2024 Patient: Edwin Maribel MONTELONGO :1995 A ge:29 Y S ex:Female Address:[address] [place] [address], [id number] * true * Date: Generated for Printi ng/Faxing/eTransmitting on: 0 09/08/2024 11:14 AM CDT
--- OUTSIDE RECORDS SUMMARY | 2024-09-08 11:14 | XMS_ITS ---
Author Organization [facility] Address [address] [place] [address] Care Team Providers Care Bias Binding Folder Name Role Phone Monserrat Zapata Primary Care Provider Butch Cooney Unavailable [phone] REASON FOR VISIT Medications Medication SIG (Take, Route, Fr equency, Duration) Notes Start Date End Date Status Azithromycin 250 MG 4 tablets Orally once for 2 days 08/29/2024 Active Social History Sex Assigned At : Social History Observation Description Sex Assigned At Female Encounters Encounter Location Date Provider Diagnosis [address] [address] 08/28/2024 Butch Cooney Chlamydia A74.9 Assessments Encounter Date Diagnosis (ICD Code) Assessment Notes Treatment Notes Treatment Clinical Notes Section Notes 08/28/2024 Chlamydia (ICD-10 - A74.9) Plan Of Treatment Medication Medication Name Sig Start Date Stop Date Notes Azithromycin 250 MG 4 tablets Orally once for 2 days 08/29 Progress Notes * Maribel WAHL RDOB: (29 yo F)Acc No.[id number]:08/28/2024 Patient: Edwin Maribel MONTELONGO :1995 A ge:29 Y S ex:Female Address:[address] [place] [address], [id number] * Refills Start Azithromycin Tablet, 250 MG, Orally, 4, 4 tablets, once, 2 days, Refills=0 Subjective: * Chief Complaints: * P regnancy * Medical History: * Surgical History: * Hospitalization/Major Diagno stic Procedure: * Medications: Objective: * Vitals: * Physical Examination: Assessment: * Assessment: 1. C hlamydia - A74.9 (Primary) Plan: * Treatment: * Procedure Codes: * true * Date: Generated for [place]/eTransmitting on: 0 09/08/2024 11:14 AM CDT
--- OUTSIDE RECORDS SUMMARY | 2024-09-08 11:14 | XMS_ITS | Patient Health Record ---
Author Organization [facility] Address [address] [place] [address] Care Team Providers Care Event Designer Name Role Phone Monserrat Roach Primary Care Provider [phone] Ivet Butch Unavailable [phone] Marissa Magana Unavailable [phone] Rei Cool Unavailable [phone] Wall LakeLorenza stanford Unavailable [phone] Sabmorelia, Anjali Unavailable [phone] Allergies No Known Allergies Results Component Value Reference Range Notes UA/M w/rflx Culture, Comp Reviewed date:07/02/2024 08:05:29 AM Interpretation: Performing Lab:[facility] [place], [address] [facility], Phone - [phone], Director - Claudette Notes/Report: Specific [place] 1.014 1.005-1.030 pH 7.0 5.0-7.5 Urine-Color Yellow Yellow Appearance Clear Clear WBC Esterase 2+ Negative Protein Negative Negative/Trace Glucose Negative Negative Ketones Negative Negative Occult Blood Negative Negative Bilirubin Negative Negative Urobilinogen,Semi-Qn 0.2 0.2-1.0 mg/dL Nitrite, Urine Negative Negative Microscopic Examination See below: Micr oscopic was indicated and was performed. Urinalysis Reflex This speci men has reflexed to a Urine Culture. WBC 11-30 0 - 5 /hpf RBC None seen 0 - 2 /hpf Epithelial Cells (non renal) >10 0 - 10 /hpf Casts None seen None seen /lpf Bacteria None seen None seen/Few Urine Culture,Comprehensive Final report Result 1 No growth in 36 - 48 hours. No Test Indicated Reviewed date:06/28/2024 05:24:26 PM Interpretation: Performing Lab:[facility], [address] [facility], Phone - [phone], Director - Claudette Notes/Report: . NTI Miscellaneous . Dear Doctor, . The requisition we received for the above patient has no test indicated on the request form for one or more of the specimens submitted. The [place] Code of Federal Regulations requires a written and signed request be forwarded to the testing laboratory following the verbal order of a laboratory test. . Date: . ICD-9/10 Diagnosis Code(s): . Physician or Authorized Designee Signature: . _ . Your signature confirms your order of the test(s) listed . Required test name(s): . Required test number(s): . Please provide requested information and fax to to expedite testing. . NuSwab Vaginitis Plus (VG+) ([id number]) Reviewed date:07/05/2024 04:16:37 PM Interpretation:Abnormal Performing Lab:[facility], [address] [place] [address] [facility], Phone - [phone], Director - Zenaida Notes/Report: Test(s) 967505- Atopobium vaginae; 129838- BVAB 2; 100228- Megasphaera 1 was developed and its performance characteristics determined by [facility]. It has not been cleared or approved by the Food and Drug Administration. Test(s) 006656-Ywwmnui albicans, TOBIAS; 071488-Uizuxlf glabrata, TOBIAS was developed and its performance characteristics determined by [facility]. It has not been cleared or approved by the Food and Drug Administration. Atopobium vaginae Low - 0 BVAB 2 Low - 0 Megasphaera 1 Low - 0 Calculate total score by adding the 3 individual bacterial vaginosis (BV) marker scores together. Total score is interpreted as follows: Total score 0-1: Indicates the absence of BV. Total score 2: Indeterminate for BV. Additional clinical data should be evaluated to establish a diagnosis. Total score 3-6: Indicates the presence of BV. Joanie albicans, TOBIAS Negative Negative Joanie glabrata, TOBIAS Negative Negative Trich vag by TOBIAS Positive Negative Chlamydia trachomatis, TOBIAS Negative Negative Neisseria gonorrhoeae, TOBIAS Negative Negative Urine Culture,Comprehensive Reviewed date:03/16/2024 01:05:54 PM Interpretation:Abnormal [facility]forming [facility], [address] [place] [address], Phone - [phone], Director - Claudette Notes/Report: Urine Culture,Comprehensive Final report Result 1 Escherichia coli Multi-Drug Resistant Organism Susceptibility profile is consistent with a probable ESBL. Greater than 100,000 colony forming units per mL Antimicrobial Susceptibility S = Susceptible; I = Intermediate; R = Resistant P = Positive; N = Negative MICS are expressed in micrograms per mL Antibiotic RSLT#1 RSLT#2 RSLT#3 RSLT#4 Amoxicillin/Clavulanic Acid S Ampicillin R Cefazolin R Cefepime S Ceftriaxone R Cefuroxime R Ciprofloxacin S Ertapenem S Gentamicin S Imipenem S Levofloxacin S Meropenem S Nitrofurantoin S Piperacillin/Tazobactam S Tetracycline S Tobramycin S Trimethoprim/Sulfa S Urinalysis In-House, Routine Reviewed date:03/10/2024 02:59:26 PM Interpretation: Performing Lab: Notes/Report: Leukocytes small Nitrite, Urine neg Urobilinogen,Semi-Qn 0.2 Protein neg pH 7.0 Occult Blood neg Specific Opolis 1.020 Ketones neg Bilirubin neg Glucose neg Test, Urine Reviewed date:04/08/2024 02:37:55 PM Interpretation: Performing Lab: Notes/Report: Test, Urine neg Negative - Negative TSH Rfx on Abnormal to Free T4 Reviewed date:03/16/2024 01:05:54 PM Interpretation:Normal Performing Lab:[facility] [place], [facility], Phone - [phone], Director - [facility] Notes/Report: TSH 0.556 0.450-4.500 uIU/mL RPR w/reflex to TrepSure Reviewed date:03/16/2024 01:05:54 PM Interpretation:Negative Performing Lab:[facility] [place], [place], [place], Phone - [phone], Director - [facility] Notes/Report: RPR Non Reactive Non Reactive Treponemal Antibodies, TPPA Non Reactive Non Reactive Interpretation: Syphilis: Treponemal Antibodies with Reflex to RPR and RPR Titer, Reverse Screening and Diagnosis Algorithm Treponemal Treponemal Ab RPR, Qn Ab, TPPA Final Interpretation -------- Non N/A N/A No laboratory evidence Reactive of syphilis. Retest in 2-4 weeks if recent exposure is suspected. -------- Reactive Non Non Treponemal antibodies Reactive Reactive not confirmed. Inconclusive for syphilis; potential early syphilis, possible false positive. Retest in 2-4 weeks if recent exposure is suspected. -------- Reactive Non Reactive Treponemal antibodies Reactive detected. Consistent with past or current (potential early) syphilis. -------- Reactive >/=1:1 N/A Treponemal and nontreponemal antibodies detected. Consistent with current or past syphilis. This test is intended ONLY for specimens that have tested positive (reactive) or equivocal for Treponema pallidum antibodies prior to submission for testing. For the full CDC-recommended syphilis screening and diagnosis algorithm, [facility] offers test code 406711 RPR, Rfx Qn RPR/Confirm TP or 464532 T pallidum Screening [place]. HIV Screen *HIV 1, 2 Ab, p24 Ag ([id number]) Reviewed date:03/16/2024 01:05:54 PM Interpretation:Negative Performing Lab:[facility], [address] [facility], Phone - [phone], Director - Claudette Notes/Report: HIV Ab/p24 Ag Screen Non Reactive Non Reactive HIV-1/HIV-2 antibodies and HIV-1 p24 antigen were NOT detected. There is no laboratory evidence of HIV infection. HIV Negative Test, Urine Reviewed date:08/28/2024 03:32:38 PM Interpretation: Performing Lab: Notes/Report: Test, Urine pos Negative - Negative Urinalysis In-House, Routine Reviewed date:06/23/2024 12:02:02 PM Interpretation: Performing Lab: Notes/Report: Leukocytes small Nitrite, Urine neg Urobilinogen,Semi-Qn 0.2 Protein neg pH 7.0 Occult Blood trace Specific Opol[place] 1.030 Ketones neg Bilirubin neg Glucose neg NuSwab Vaginitis Plus (VG+) ([id number]) Reviewed date:08/17/2024 02:05:07 PM Interpretation: Performing Lab:[address], Phone - [phone], Director - Zenaida Notes/Report: Test(s) 127160- Atopobium vaginae; 298235- BVAB 2; 506384- Megasphaera 1 was developed and its performance characteristics determined by [facility]. It has not been cleared or approved by the Food and Drug Administration. Test(s) 512704-Fifiuvx albicans, TOBIAS; 738218-Zpwrcal glabrata, TOBIAS was developed and its performance characteristics determined by [facility]. It has not been cleared or approved by the Food and Drug Administration. Atopobium vaginae High - 2 BVAB 2 High - 2 Megasphaera 1 High - 2 Calculate total score by adding the 3 individual bacterial vaginosis (BV) marker scores together. Total score is interpreted as follows: Total score 0-1: Indicates the absence of BV. Total score 2: Indeterminate for BV. Additional clinical data should be evaluated to establish a diagnosis. Total score 3-6: Indicates the presence of BV. Joanie albicans, TOBIAS Negative Negative Joanie glabrata, TOBIAS Negative Negative Trich vag by TOBIAS Positive Negative Chlamydia trachomatis, TOBIAS Positive Negative . Neisseria gonorrhoeae, TOBIAS Negative Negative Hemoglobin A1c* Reviewed date:06/15/2024 05:24:49 PM Interpretation: Performing Lab:[facility] [place], [address] [facility], Phone - [phone], Director - [facility] Notes/Report: Hemoglobin A1c 5.7 4.8-5.6 % . Prediabetes: 5.7 - 6.4 Diabetes: >6.4 Glycemic control for adults with diabetes: <7.0 CMP 14 Comprehensive Metabol ic Panel* Reviewed date:06/15/2024 05:24:49 PM Interpretation: Performing Lab:[facility] [place], [address] [facility], Phone - [phone], Director - [facility] Notes/Report: Glucose 80 70-99 mg/dL BUN 8 6-20 mg/dL Creatinine 0.65 0.57-1.00 mg/dL eGFR 122 >59 mL/min/1.73 BUN/Creatinine Ratio 12 9-23 Sodium 138 134-144 mmol/L Potassium 4.2 3.5-5.2 mmol/L Chloride 100 96-106 mmol/L Carbon Dioxide, Total 23 20-29 mmol/L Calcium 9.9 8.7-10.2 mg/dL Protein, Total 7.4 6.0-8.5 g/dL Albumin 4.7 4.0-5.0 g/dL Globulin, Total 2.7 1.5-4.5 g/dL Bilirubin, Total <0.2 0.0-1.2 mg/dL Alkaline Phosphatase 93 44-121 IU/L AST (SGOT) 30 0-40 IU/L ALT (SGPT) 19 0-32 IU/L CBC With Differential/Platel et* Reviewed date:06/15/2024 05:24:49 PM Interpretation: Performing Lab:[facility] [place], [address] [facility], Phone - [phone], Director - [facility] Notes/Report: WBC 6.4 3.4-10.8 x10E3/uL RBC 4.86 3.77-5.28 x10E6/uL Hemoglobin 13.0 11.1-15.9 g/dL Hematocrit 40.7 34.0-46.6 % MCV 84 79-97 fL MCH 26.7 26.6-33.0 pg MCHC 31.9 31.5-35.7 g/dL RDW 15.1 11.7-15.4 % Platelets 581 150-450 x10E3/uL Neutrophils 48 Not Estab. % Lymphs 42 Not Estab. % Monocytes 8 Not Estab. % Eos 1 Not Estab. % Basos 1 Not Estab. % Neutrophils (Absolute) 3.0 1.4-7.0 x10E3/uL Lymphs (Absolute) 2.7 0.7-3.1 x10E3/uL Monocytes(Absolute) 0.5 0.1-0.9 x10E3/uL Eos (Absolute) 0.1 0.0-0.4 x10E3/uL Baso (Absolute) 0.1 0.0-0.2 x10E3/uL Immature Granulocytes 0 Not Estab. % Immature Grans (Abs) 0.0 0.0-0.1 x10E3/uL CMP 14 Comprehensive Metabol ic Panel* Reviewed date:03/16/2024 01:05:54 PM Interpretation:Normal Performing Lab:[facility] [place], [address] [facility], Phone - [phone], Director - [facility] Notes/Report: Glucose 78 70-99 mg/dL BUN 13 6-20 mg/dL Creatinine 0.70 0.57-1.00 mg/dL eGFR 121 >59 mL/min/1.73 BUN/Creatinine Ratio 19 9-23 Sodium 140 134-144 mmol/L Potassium 4.4 3.5-5.2 mmol/L Chloride 105 96-106 mmol/L Carbon Dioxide, Total 20 20-29 mmol/L Calcium 9.6 8.7-10.2 mg/dL Protein, Total 6.9 6.0-8.5 g/dL Albumin 4.5 4.0-5.0 g/dL Globulin, Total 2.4 1.5-4.5 g/dL Bilirubin, Total <0.2 0.0-1.2 mg/dL Alkaline Phosphatase 88 44-121 IU/L AST (SGOT) 20 0-40 IU/L ALT (SGPT) 11 0-32 IU/L CBC With Differential/Platel et* Reviewed date:03/16/2024 01:05:54 PM Interpretation:Normal Performing Lab:[facility] [place], [address] [place] [address], Phone - [phone], Director - Claudette Notes/Report: WBC 7.2 3.4-10.8 x10E3/uL RBC 4.48 3.77-5.28 x10E6/uL Hemoglobin 12.0 11.1-15.9 g/dL Hematocrit 38.2 34.0-46.6 % MCV 85 79-97 fL MCH 26.8 26.6-33.0 pg MCHC 31.4 31.5-35.7 g/dL RDW 14.2 11.7-15.4 % Platelets 370 150-450 x10E3/uL Neutrophils 59 Not Estab. % Lymphs 34 Not Estab. % Monocytes 5 Not Estab. % Eos 2 Not Estab. % Basos 0 Not Estab. % Neutrophils (Absolute) 4.2 1.4-7.0 x10E3/uL Lymphs (Absolute) 2.5 0.7-3.1 x10E3/uL Monocytes(Absolute) 0.4 0.1-0.9 x10E3/uL Eos (Absolute) 0.2 0.0-0.4 x10E3/uL Baso (Absolute) 0.0 0.0-0.2 x10E3/uL Immature Granulocytes 0 Not Estab. % Immature Grans (Abs) 0.0 0.0-0.1 x10E3/uL Written Authorization Reviewed date:07/05/2024 04:22:56 PM Interpretation: Performing Lab:[facility] [place], [address] [place] [place], Phone - [phone], Director - Zenaida Notes/Report: Test(s) 212420- Atopobium vaginae; 175284- BVAB 2; 537610- Megasphaera 1 was developed and its performance characteristics determined by [facility]. It has not been cleared or approved by the Food and Drug Administration. Test(s) 209455-Bttoxoh albicans, TOBIAS; 403345-Abajmwx glabrata, TOBIAS was developed and its performance characteristics determined by [facility]. It has not been cleared or approved by the Food and Drug Administration. Written Authorization Written Authorization Received. Authorization received from MONSERRAT ROACH APRN 07-02-2024 Logged by Cary Manzo Reason For Referral Reason Hx of frequent UTIs. Recent hospitalization for pyelo. with midline insertion. Urine culture still abnormal. Diagnosis [address] urinary tra ct infections (N39.0) Referral Organization [facility] Referring Provider First Name Monserrat Referring Provider Last Name Benny Referring Provider [facility] Referred Provider [facility] Referred Provider Specialty Urology General Notes Silvia Vicente 06/29/2024 02:47:53 PM >Spoke with staff and was advised patient's insurance is accepted at this office Clinical Notes [facility]- Urology dept. , [address] [facility] [address], [place]. [address], , Referral Priority Routine Medications Medication SIG (Take, Route, Frequency, Duration) Notes Start Date End Date Status Albuterol Sulfate HFA 108 (90 Base) MCG/ACT 1 puff as needed Inhalation every 4 hrs for 30 days 03/10/2024 Active Azithromycin 250 MG 4 tablets Orally onc e for 2 days 08/29/2024 Active lamoTRIgine 100 MG 1 tablet Orally twic e a day for 30 days Active Triamcinolone Acetonide 0.1 % 1 application Externally twice daily for 7 days 08/13/2024 Active diphenhydrAMINE HCl 25 MG 1 capsule every 6 hours Orally Once a day for 7 days As needed 08/13/2024 Active Doxycycline Hyclate 100 MG 1 capsule Ora lly twice daily for 7 days 08/17/2024 Active Social History Tobacco Use: Social History Observation Description Date Details (start date - stop date) Never Smoker NA - NA Sex Assigned At : Social History Observation Description Sex Assigned At Female PRAPARE Question Answer Notes Enabling Services Provided? Yes Are you a refugee? No What country are you from? [place] Date Completed/Updated: 03/10/2024 What is your current housing situation? I do not have housing (staying with others, in a hotel, in a nursing home, living outside on the street, on a beach, or in a park) Are you worried about losing your housing? Yes What is the highest level of school that you have finished? 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 Check all that apply Clothing Has lack of transportation k ept you from medical appointments, meetings, work or from getting things needed for daily living? No How often do you see or talk to people that you care about and feel close to? (For example: talking to friends on the phone, visiting friends or family, going to mandaen or club meetings) Less than once a week How stressed are you? Stress is when someone feels tense, nervous, anxious, or can\t sleep at night because their mind is troubled Very much In the past year have you sp ent more than 2 nights in a row in a skilled nursing, half-way, [place] [facility] center, or juvenile correctional facility? No Do you feel physically and emotionally safe where you currently live? Unsure In the past year, have you b een afraid of your partner or ex-partner? No Please specify Referral for Housing Services,Other Services Housing and clothing resources PRAPARE Score: 1 Tobacco Control (Standard) Question Answer Notes Tobacco use: Nonsmoker Section Notes: Social History- location- Current home- Describe childhood- Abuse/Trauma- Education- Occupation- Hobbies/Interests- Spiritual Affiliation- Who lives at home? Siblings? Children? 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 [employer] Legal History- Drug-related charges in past, nothing current Spiritual Affiliation- None Other Social History - Lives with mom right now - - - - - - - - - - - ALCOHOL/DRUG HISTORY Alcohol - None Marijuana - None Cocaine - None Heroin - None Fentanyl - Last 01/15/2024 Meth - None Other Illicit Drugs - None OTC/Rx Drugs - Last use 01/15/2024 - Rx pills uppers - - - - - - - - - - - PAST PSYCHIATRIC HISTORY Past Psychiatrist or Therapist - Saw a provider in [phone] for a short time Psychiatric Diagnosis(es) - Substance use disorder, depression, anxiety Past Psychiatric Medications - Lamictal, Xanax, Buspar, Trazodone, and possibly Sertraline In Psych Hospitalizations - Twice at age and at age 20 Suicidal Ideation Hx - endorses Suicide Attempt(s) - At age 13-overdose on pills Homicidal Ideation - None Self-Injury/High Risk Bx - None - - - - - - - - - - - FAMILY PSYCHIATRIC HISTORY Suicides or Attempts - Father hung himself and , mother made an attempt, 3 uncles on father's side by suicide. 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[employer] Legal History- Drug-related charges in past, nothing current Spiritual Affiliation- None Other Social History - Lives with mom right now - - - - - - - - - - - ALCOHOL/DRUG HISTORY Alcohol - None Marijuana - None Cocaine - None Heroin - None Fentanyl - Last 01/15/2024 Meth - None Other Illicit Drugs - None OTC/Rx Drugs - Last use 01/15/2024 - Rx pills uppers - - - - - - - - - - - PAST PSYCHIATRIC HISTORY Past Psychiatrist or Therapist - Saw a provider in [phone] for a short time Psychiatric Diagnosis(es) - Substance use disorder, depression, anxiety Past Psychiatric Medications - Lamictal, Xanax, Buspar, Trazodone, and possibly Sertraline Inpt Psych Hospitalizations - Twice at age and at age 20 Suicidal Ideation Hx - endorses Suicide Attempt(s) - At age 13-overdose on pills Homicidal Ideation - None Self-Injury/High Risk Bx - None - - - - - - - - - - - FAMILY PSYCHIATRIC HISTORY Suicides or Attempts - Father hung himself and , mother made an attempt, 3 uncles on father's side by suicide. 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[employer] Legal History- Drug-related charges in past, nothing current Spiritual Affiliation- None Other Social History - Lives with mom right now - - - - - - - - - - - ALCOHOL/DRUG HISTORY Alcohol - None Marijuana - None Cocaine - None Heroin - None Fentanyl - Last 01/15/2024 Meth - None Other Illicit Drugs - None OTC/Rx Drugs - Last use 01/15/2024 - Rx pills uppers - - - - - - - - - - - PAST PSYCHIATRIC HISTORY Past Psychiatrist or Therapist - Saw a provider in [phone] for a short time Psychiatric Diagnosis(es) - Substance use disorder, depression, anxiety Past Psychiatric Medications - Lamictal, Xanax, Buspar, Trazodone, and possibly Sertraline Inpt Psych Hospitalizations - Twice at age and at age 20 Suicidal Ideation Hx - endorses Suicide Attempt(s) - At age 13-overdose on pills Homicidal Ideation - None Self-Injury/High Risk Bx - None - - - - - - - - - - - FAMILY PSYCHIATRIC HISTORY Suicides or Attempts - Father hung himself and , mother made an attempt, 3 uncles on father's side by suicide. 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[employer] Legal History- Drug-related charges in past, nothing current Spiritual Affiliation- None Other Social History - Lives with mom right now - - - - - - - - - - - ALCOHOL/DRUG HISTORY Alcohol - None Marijuana - None Cocaine - None Heroin - None Fentanyl - Last 01/15/2024 Meth - None Other Illicit Drugs - None OTC/Rx Drugs - Last use 01/15/2024 - Rx pills uppers - - - - - - - - - - - PAST PSYCHIATRIC HISTORY Past Psychiatrist or Therapist - Saw a provider in [phone] for a short time Psychiatric Diagnosis(es) - Substance use disorder, depression, anxiety Past Psychiatric Medications - Lamictal, Xanax, Buspar, Trazodone, and possibly Sertraline Inpt Psych Hospitalizations - Twice at age and at age 20 Suicidal Ideation Hx - endorses Suicide Attempt(s) - At age 13-overdose on pills Homicidal Ideation - None Self-Injury/High Risk Bx - None - - - - - - - - - - - FAMILY PSYCHIATRIC HISTORY Suicides or Attempts - Father hung himself and , mother made an attempt, 3 uncles on father's side by suicide. 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[employer] Legal History- Drug-related charges in past, nothing current Spiritual Affiliation- None Other Social History - Lives with mom right now - - - - - - - - - - - ALCOHOL/DRUG HISTORY Alcohol - None Marijuana - None Cocaine - None Heroin - None Fentanyl - Last 01/15/2024 Meth - None Other Illicit Drugs - None OTC/Rx Drugs - Last use 01/15/2024 - Rx pills uppers - - - - - - - - - - - PAST PSYCHIATRIC HISTORY Past Psychiatrist or Therapist - Saw a provider in [phone] for a short time Psychiatric Diagnosis(es) - Substance use disorder, depression, anxiety Past Psychiatric Medications - Lamictal, Xanax, Buspar, Trazodone, and possibly Sertraline Inpt Psych Hospitalizations - Twice at age and at age 20 Suicidal Ideation Hx - endorses Suicide Attempt(s) - At age 13-overdose on pills Homicidal Ideation - None Self-Injury/High Risk Bx - None - - - - - - - - - - - FAMILY PSYCHIATRIC HISTORY Suicides or Attempts - Father hung himself and , mother made an attempt, 3 uncles on father's side by suicide. 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[employer] Legal History- Drug-related charges in past, nothing current Spiritual Affiliation- None Other Social History - Lives with mom right now - - - - - - - - - - - ALCOHOL/DRUG HISTORY Alcohol - None Marijuana - None Cocaine - None Heroin - None Fentanyl - Last 01/15/2024 Meth - None Other Illicit Drugs - None OTC/Rx Drugs - Last use 01/15/2024 - Rx pills uppers - - - - - - - - - - - PAST PSYCHIATRIC HISTORY Past Psychiatrist or Therapist - Saw a provider in [phone] for a short time Psychiatric Diagnosis(es) - Substance use disorder, depression, anxiety Past Psychiatric Medications - Lamictal, Xanax, Buspar, Trazodone, and possibly Sertraline Inpt Psych Hospitalizations - Twice at age and at age 20 Suicidal Ideation Hx - endorses Suicide Attempt(s) - At age 13-overdose on pills Homicidal Ideation - None Self-Injury/High Risk Bx - None - - - - - - - - - - - FAMILY PSYCHIATRIC HISTORY Suicides or Attempts - Father hung himself and , mother made an attempt, 3 uncles on father's side by suicide. 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[employer] Legal History- Drug-related charges in past, nothing current Spiritual Affiliation- None Other Social History - Lives with mom right now - - - - - - - - - - - ALCOHOL/DRUG HISTORY Alcohol - None Marijuana - None Cocaine - None Heroin - None Fentanyl - Last 01/15/2024 Meth - None Other Illicit Drugs - None OTC/Rx Drugs - Last use 01/15/2024 - Rx pills uppers - - - - - - - - - - - PAST PSYCHIATRIC HISTORY Past Psychiatrist or Therapist - Saw a provider in [phone] for a short time Psychiatric Diagnosis(es) - Substance use disorder, depression, anxiety Past Psychiatric Medications - Lamictal, Xanax, Buspar, Trazodone, and possibly Sertraline Inpt Psych Hospitalizations - Twice at age and at age 20 Suicidal Ideation Hx - endorses Suicide Attempt(s) - At age 13-overdose on pills Homicidal Ideation - None Self-Injury/High Risk Bx - None - - - - - - - - - - - FAMILY PSYCHIATRIC HISTORY Suicides or Attempts - Father hung himself and , mother made an attempt, 3 uncles on father's side by suicide. Alcohol/Drug Use - Father, paternal uncles Schizophrenia - Maternal grandtather Bipolar - A lot on mom's side of family Depression - Mother Anxiety - Mother - - - - - - - - - - - Problems Problem Type SNOMED Code ICD Code Onset Dates Problem Status W/U Status Risk Notes Problem Tobacco user (141494533) Nicotine dependence, unspecified, uncomplicated (F17.200) 03/18/20 Active confirmed Problem Depression (490502748) Depression (F32.9) Active confirmed Problem Mood disorder (00374752) Mood disorder (F39) 03/18/20 Active confirmed MDD vs. bipolar 2 disorder Problem Posttraumatic stress disorder (54300588) PTSD (post-traumatic stress disorder) (F43.10) 03/18/20 Active confirmed Problem Asthma (809178605) Asthma (J45.909) Active confirmed Problem Generalized anxiety disorder (60440009) AZAEL (generalized anxiety disorder) (F41.1) 03/18/20 Active confirmed Problem Thyroid nodule (244443543) Thyroid nodule (E04.1) Active confirmed Problem Missed period (83111420) Missed menses (N92.6) Active confirmed Problem migraine (disorder) (76804774) Migraines (G43.909) Active confirmed Problem Peripheral neuropathy of bilateral lower limbs (disorder) (171212895474728 08) Neuropathy involving both lower extremities (G57.93) Active confirmed Vital Signs Heart Rate 78 /min 08/13/2024 Temperature 98.4 degrees Fahrenheit 06/11/2024 Respiratory Rate 16 /min 08/13/2024 Blood pressure diastolic 68 mm Hg 08/13/2024 Oximetry 98 % 08/13/2024 Height 67.5 in 08/13/2024 Blood pressure systolic 110 mm Hg 08/13/2024 Weight 119 lbs 08/13/2024 BMI 18.36 kg/m2 08/13/2024 Encounters Encounter Location Date Provider Diagnosis [address] [place] [address] 03/17/2024 Lorenza Means Nicotine dependence, unspecified, uncomplicated F17.200 [facility] [address] [place] [address] 08/28/2024 Monserrat Roach [facility] [address] [place] [address] 03/10/2024 Monserrat Roach Establishing care with new doctor, encounter for Z71.89 ; Screening for deficiency anemia Z13.0 ; Screening for metabolic disorder Z13.228 ; Exposure to potential infection Z20.9 ; Missed menses N92.6 ; Screening for thyroid disorder Z13.29 ; Symptoms of urinary tract infection R39.9 ; Cough R05.9 ; Asthma J45.909 ; Nicotine dependence, unspecified, uncomplicated F17.200 ; Thyroid nodule E04.1 and Breast mass, right N63.10 [facility] [address] [place] [address] 03/10/2024 Marissa Magana [address] [address] 03/18/2024 Anjali Sabmorelia Mood disorder F39 ; PTSD (post-traumatic stress disorder) F43.10 ; AZAEL (generalized anxiety disorder) F41.1 ; Substance use disorder F19.90 ; Nicotine dependence, unspecified, uncomplicated F17.200 and Medication management Z79.[address] [address] 04/20/2024 Anjali Sabblut Mood disorder F39 ; PTSD (post-traumatic stress disorder) F43.10 ; AZAEL (generalized anxiety disorder) F41.1 ; Substance use disorder F19.90 ; Nicotine dependence, unspecified, uncomplicated F17.200 and Medication management Z79.[address] [address] 06/02/2024 Anjali Sabblut Mood disorder F39 ; PTSD (post-traumatic stress disorder) F43.10 ; AZAEL (generalized anxiety disorder) F41.1 ; Substance use disorder F19.90 ; Nicotine dependence, unspecified, uncomplicated F17.200 and Medication management Z79.899 [facility] [address] [place] [address] 06/11/2024 Monserrat Roach Screening for deficiency anemia Z13.0 ; Hospital discharge follow-up Z09 ; Screening for metabolic disorder Z13.228 ; Screening for diabetes mellitus Z13.1 ; Patient underweight R63.6 ; Non-tobacco user Z78.9 and Nutritional counseling Z71.3 [facility] [place] [address] 06/23/2024 Monserrat Roach Urinary tract infection N39.0 and Vaginitis N76.[address] [address] 08/03/2024 Anjali House Mood disorder F39 ; PTSD (post-traumatic stress disorder) F43.10 ; AZAEL (generalized anxiety disorder) F41.1 ; Substance use disorder F19.90 ; Nicotine dependence, unspecified, uncomplicated F17.200 and Medication management Z79.899 [facility] [address] [place] [address] 08/13/2024 Monserrat Roach Patient underweight R63.6 ; Insect bite W57.XXXA ; Non-tobacco user Z78.9 ; Nutritional counseling Z71.3 and Vaginitis N76.[address] [place] [address] 03/11/2024 Rei Cool [address] [address] 03/16/2024 Monserrat Roach Urinary tract infection N39.[address] [place] [address] 03/19/2024 Monserrat Roach [address] [address] 05/25/2024 Anjali House Mood disorder F39 ; PTSD (post-traumatic stress disorder) F43.10 and AZAEL (generalized anxiety disorder) F41.[address] [place] [address] 06/22/2024 Monserrat Roach [address] [place] [address] 06/28/2024 Monserrat Roach Pyelonephritis N12 and Frequent urinary tract infections N39.0 [facility] [address] [place] [address] 07/01/2024 Monserrat Roach [address] [place] [address] 07/05/2024 Monserrat Roach Trichomoniasis of vagina A59.[address] [place] [address] 08/17/2024 Monserrat Roach Chlamydia A74.[address] [place] [address] 08/28/2024 Monserrat Roach Mood disorder F39 [address] [place] [address] 08/28/2024 Butch Cooney Chlamydia A74.[address] [place] [address] 08/31/2024 Butch Cooney [facility] [address] [place] [address] [place] [address] 09/01/2024 Monserrat Roach Assessments Encounter Date Diagnosis (ICD Code) Assessment Notes Treatment Notes Treatment Clinical Notes Section Notes 08/28/2024 Mood disorder (ICD-10 - F39) 08/28/2024 Chlamydia (ICD-10 - A74.9) 08/17/2024 Chlamydia (ICD-10 - A74.9) 08/13/2024 Insect bite (ICD-10 - W57.XXXA) 08/13/2024 Patient underweight (ICD-10 - R63.6) 06/11/2024 Screening for deficiency anemia (ICD-10 - Z13.0) 06/23/2024 Vaginitis (ICD-10 - N76.0) 06/23/2024 Urinary tract infection (ICD-10 - N39.0) 06/28/2024 Pyelonephritis (ICD-10 - N12) 06/28/2024 Frequent urinary tract infections (ICD-10 - N39.0) 07/05/2024 Trichomoniasis of vagina (ICD-10 - A59.01) 06/11/2024 Hospital discharge follow-up (ICD-10 - Z09) 08/03/2024 Mood disorder (ICD-10 - F39) MDD vs. bipolar 2 disorder Continue psychotherapy as scheduled. 03/10/2024 Establishing care with new doctor, encounter for (ICD-10 - Z71.89) 03/16/2024 Urinary tract infection (ICD-10 - N39.0) 03/17/2024 Nicotine dependence, unspecified, uncomplicated (ICD-10 - F17.200) 03/18/2024 Mood disorder (ICD-10 - F39) MDD vs. bipolar 2 disorder Continue psychotherapy as scheduled. 04/20/2024 Mood disorder (ICD-10 - F39) MDD vs. bipolar 2 disorder Continue psychotherapy as scheduled. 05/25/2024 Mood disorder (ICD-10 - F39) MDD vs. bipolar 2 disorder 06/02/2024 Mood disorder (ICD-10 - F39) MDD vs. bipolar 2 disorder Continue psychotherapy as scheduled. 03/10/2024 Screening for deficiency anemia (ICD-10 - Z13.0) 06/02/2024 PTSD (post-traumatic stress disorder) (ICD-10 - F43.10) Continue psychotherapy as scheduled. 05/25/2024 PTSD (post-traumatic stress disorder) (ICD-10 - F43.10) 04/20/2024 PTSD (post-traumatic stress disorder) (ICD-10 - F43.10) Continue psychotherapy as scheduled. 03/18/2024 PTSD (post-traumatic stress disorder) (ICD-10 - F43.10) Continue psychotherapy as scheduled. 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 Continue psychotherapy as scheduled. 08/13/2024 Non-tobacco user (ICD-10 - Z78.9) 06/11/2024 Screening for metabolic disorder (ICD-10 - Z13.228) 08/13/2024 Nutritional counseling (ICD-10 - Z71.3) 08/03/2024 AZAEL (generalized anxiety disorder) (ICD-10 - F41.1) Client reports no longer needing gabapentin. Continue psychotherapy as scheduled. 03/18/2024 AZAEL (generalized anxiety disorder) (ICD-10 - F41.1) Continue psychotherapy as scheduled. 04/20/2024 AZAEL (generalized anxiety disorder) (ICD-10 - F41.1) Continue psychotherapy as scheduled. 05/25/2024 AZAEL (generalized anxiety disorder) (ICD-10 - F41.1) 06/02/2024 AZAEL (generalized anxiety disorder) (ICD-10 - F41.1) Continue psychotherapy as scheduled. 03/10/2024 Exposure to potential infection (ICD-10 - Z20.9) 06/11/2024 Screening for diabetes mellitus (ICD-10 - Z13.1) 03/10/2024 Missed menses (ICD-10 - N92.6) 06/02/2024 Substance use disorder (ICD-10 - F19.90) Recommend a combination of 12-step programs, outpatient programs, and psychotherapy to maintain recovery in the outpatient setting. Recommend sober living house as planned. 04/20/2024 Substance use disorder (ICD-10 - F19.90) Recommend a combination of 12-step programs, outpatient programs, and psychotherapy to maintain recovery in the outpatient setting. Recommend sober living house as planned. 03/18/2024 Substance use disorder (ICD-10 - F19.90) Recommend a combination of 12-step programs, outpatient programs, and psychotherapy to maintain recovery in the outpatient setting. Recommend sober living house as planned. 08/03/2024 Substance use disorder (ICD-10 - F19.90) Recommend a combination of 12-step programs, outpatient programs, and psychotherapy to maintain recovery in the outpatient setting. Recommend sober living house as planned. 08/13/2024 Vaginitis (ICD-10 - N76.0) 06/11/2024 Patient underweight (ICD-10 - R63.6) 08/03/2024 Nicotine dependence, unspecified, uncomplicated (ICD-10 - F17.200) 04/20/2024 Nicotine dependence, unspecified, uncomplicated (ICD-10 - F17.200) 03/18/2024 Nicotine dependence, unspecified, uncomplicated (ICD-10 - F17.200) 03/10/2024 Screening for thyroid disorder (ICD-10 - Z13.29) 06/02/2024 Nicotine dependence, unspecified, uncomplicated (ICD-10 - F17.200) 06/02/2024 Medication management (ICD-10 - Z79.899) May self-administer medications or be administered own oral medications per [facility] protocols. Provided informed consent with understanding of side effects, adverse effects, risks and benefits as well as alternative treatments as previously discussed and with the above recommended medications & other aspects of the treatment program. Agrees to return sooner if symptoms worsen or suicidal or homicidal ideations occur. 03/10/2024 Symptoms of urinary tract infection (ICD-10 - R39.9) 03/18/2024 Medication management (ICD-10 - Z79.899) May self-administer medications or be administered own oral medications per [facility] protocols. Provided informed consent with understanding of side effects, adverse effects, risks and benefits as well as alternative treatments as previously discussed and with the above recommended medications & other aspects of the treatment program. Agrees to return sooner if symptoms worsen or suicidal or homicidal ideations occur. 04/20/2024 Medication management (ICD-10 - Z79.899) May self-administer medications or be administered own oral medications per [facility] protocols. Provided informed consent with understanding of side effects, adverse effects, risks and benefits as well as alternative treatments as previously discussed and with the above recommended medications & other aspects of the treatment program. Agrees to return sooner if symptoms worsen or suicidal or homicidal ideations occur. 08/03/2024 Medication management (ICD-10 - Z79.899) May self-administer medications or be administered own oral medications per [facility] protocols. Provided informed consent with understanding of side effects, adverse effects, risks and benefits as well as alternative treatments as previously discussed and with the above recommended medications & other aspects of the treatment program. Agrees to return sooner if symptoms worsen or suicidal or homicidal ideations occur. 06/11/2024 Non-tobacco user (ICD-10 - Z78.9) 06/11/2024 Nutritional counseling (ICD-10 - Z71.3) 03/10/2024 Cough (ICD-10 - R05.9) 03/10/2024 Asthma (ICD-10 - J45.909) 03/10/2024 Nicotine dependence, unspecified, uncomplicated (ICD-10 - F17.200) 03/10/2024 Thyroid nodule (ICD-10 - E04.1) Reports right thyroid nodule w/ biopsy- benign 03/10/2024 Breast mass, right (ICD-10 - N63.10) Reports biopsy- benign 03/10/2024 Other Human Factors Specialist met with Maribel to assist in working on building skills to help the consumer gain confidence in their independent living skills. The account underwriter practiced with Maribel implementing problem solving skills to help facilitate exploration of options. The account underwriter encouraged and engaged in critical thinking of how to use natural resources and coping skills to help manage symptoms in the moment. Human Factors Specialist also worked on modeling and practicing with the consumer healthy coping skills to reduce stress and anxiety. 06/23/2024 Other Learning About the Safe Use of Antibiotics material was discussed. Pt was educated on use of antibiotic medication including dosing, side effects, adverse effects and anticipated response. Pt was also educated on importance of completing full course of treatment as ordered. Patient voiced understanding of all. Plan Of Treatment No Information Insurance Providers Payer Name Payer Address Payer Phone Subscriber Number Group Number Insured Name Patient Relationship to Insured Coverage Start Date Coverage End Date [facility] Attn Claims Department [address] [place] [phone] [id number] Maribel Hoffman Self - patient is the insured 2 [facility] Attn Claims Department [facility] [address] [place] [address] [phone] [id number] Maribel Hoffman Self - patient is the insured 4 Medical (General) History Medical History History ICD Code Asthma J45.909 Neuropathy involving both lower extremit ies G57.93 Migraines G43.909 Pleurisy R09.1 Ovarian cyst N83.209 Thyroid mass E07.9 Hospitalization History Reason Date(Month/Year) [facility] 2022 PID [id number]
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
--- OUTSIDE RECORDS SUMMARY | 2024-09-08 11:14 | XMS_ITS | Data Portability ---
Author Organization [facility] AGN[facility] Address [address] [place] [address] Care Team Providers Care Laborer Cheesemaking Name Role Phone RODERICK CASTILLO Psychiatrist [phone] SHOBHA FRANCIS Primary Care Provider Unavailabl e Assessment No assessment recorded. 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-Bc Not available Not available Not available Lab CMP, serum or plasma 2017 [facility], [address] [place], [place] [address]s[address], [address], [place], [address], 03/21/2018 10:36:29 HbA1c (hemoglob in A1c), blood 2017 018 [facility], [address] [place], [place] [address]sunny [address], [address], [place], [address], 03/21/2018 10:36:29 TSH, ultra-sen sitive, serum 2017 018 [facility], [address] [place], [place] [address]s[address] Harvey, [address], [place], [address], 03/21/2018 10:36:30 CBC w/ auto diff 2017 018 [facility], [address] [place], [place] [address]sunny Harvey, [address], [place], [address], 03/21/2018 10:36:28 Referral None recorded. Procedures None recorded. Surgeries None recorded. Imaging None recorded. Medication Orders Ventolin HFA 90 mcg/actua tion aerosol inhaler 2017 018 [id number] [id number], [address], [place], [place], [id number], 08/28/2024 12:13:31 ranitidin e 150 mg tablet 2017 018 [id number] [facility] #[id number], [address], [place], [place], [id number], 08/28/2024 12:13:52 Patient TargetsNo targets recorded. Patient Instructions Encounter Date Encounter Id Patient Instructions Last Modified By Organization Details Last Modified Time 03/20/2018 [id number] gastroesophageal reflux disease (GERD): care instructions [email or web address] Not available 03/20/2018 09:48:30 Reason for Referral None Reported. Results Created Date Observation Date Name Description Value Unit Range Abnormal Flag Note LastModifiedBy Organization Detail LastModifiedTime 03/20/20 18 03/20/2018 CBC w/ auto diff WBC 6.1 x10e3 /uL 3.4-10 .8 Not Available [facility] ([facility]) [address] [place], [address], 03/21/2018 10:36:28 03/20/2003/20/2018 CBC w/ auto diff RBC 4.12 x10e6 /uL 3.77-5 .28 Not Available [facility] ([facility]) [address] [place], [address], 03/21/2018 10:36:28 03/20/20 18 03/20/2018 CBC w/ auto diff hemoglobin 12.0 g/dL 11.1-1 5.9 Not Available [facility] ([facility]) [address] [place], [address], 03/21/2018 10:36:28 03/20/20 18 03/20/2018 CBC w/ auto diff hematocrit 36.0 % 34.0-4 6.6 Not Available [facility] ([facility]) [address] [facility], [place], [address], 03/21/2018 10:36:28 03/20/20 18 03/20/2018 CBC w/ auto diff MCV 87 fL 79-97 Not Available [facility] ([facility]) [address] [facility], [place], [address], 03/21/2018 10:36:28 03/20/20 18 03/20/2018 CBC w/ auto diff MCH 29.1 pg 26.6-3 3.0 Not Available [facility] ([facility]) [address] [facility], [place], [address], 03/21/2018 10:36:28 03/20/20 18 03/20/2018 CBC w/ auto diff MCHC 33.3 g/dL 31.5-3 5.7 Not Available [facility] ([facility]) [address] [facility], [place], [address], 03/21/2018 10:36:28 03/20/20 18 03/20/2018 CBC w/ auto diff RDW 14.0 % 12.3-1 5.4 Not Available [facility] ([facility]) [address] [facility], [place], [address], 03/21/2018 10:36:28 03/20/20 18 03/20/2018 CBC w/ auto diff platelets 269 x10e3 /uL 150-37 9 Not Available [facility] ([facility]) [address] [facility], [place], [address], 03/21/2018 10:36:28 03/20/20 18 03/20/2018 CBC w/ auto diff neutrophils 62 % not estab. Not Available [facility] ([facility]) [address] [facility], [place], [address], 03/21/2018 10:36:28 03/20/20 18 03/20/2018 CBC w/ auto diff lymphs 30 % not estab. Not Available [facility] ([facility]) [address] [facility], [place], [address], 03/21/2018 10:36:28 03/20/20 18 03/20/2018 CBC w/ auto diff monocytes 7 % not estab. Not Available [facility] ([facility]) [address] [facility], [place], [address], 03/21/2018 10:36:28 03/20/20 18 03/20/2018 CBC w/ auto diff eos 1 % not estab. Not Available [facility] ([facility]) [address] [place], [address], 03/21/2018 10:36:28 03/20/20 18 03/20/2018 CBC w/ auto diff basos 0 % not estab. Not Available [facility] ([facility]) [address] [facility], [place], [address], 03/21/2018 10:36:28 03/20/20 18 03/20/2018 CBC w/ auto diff immature cells HEEL GOUGER Not Available [facility] ([facility]) [address] [facility], [place], [address], 03/21/2018 10:36:28 03/20/20 18 03/20/2018 CBC w/ auto diff neutrophils (absolute) 3.8 x10e3 /uL 1.4-7. 0 Not Available [facility] ([facility]) [address] [place], [address], 03/21/2018 10:36:28 03/20/20 18 03/20/2018 CBC w/ auto diff lymphs (absolute) 1.8 x10e3 /uL 0.7-3. 1 Not Available [facility] ([facility]) [address] [place], [address], 03/21/2018 10:36:28 03/20/20 18 03/20/2018 CBC w/ auto diff monocytes(ab solute) 0.4 x10e3 /uL 0.1-0. 9 Not Available [facility] ([facility]) [address] [facility], [place], [address], 03/21/2018 10:36:28 03/20/20 18 03/20/2018 CBC w/ auto diff eos (absolute) 0.1 x10e3 /uL 0.0-0. 4 Not Available [facility] ([facility]) [address] [facility], [place], [address], 03/21/2018 10:36:28 03/20/20 18 03/20/2018 CBC w/ auto diff baso (absolute) 0.0 x10e3 /uL 0.0-0. 2 Not Available [facility] ([facility]) [address] [facility], [place], [address], 03/21/2018 10:36:28 03/20/20 18 03/20/2018 CBC w/ auto diff immature granulocytes 0 % not estab. Not Available [facility] ([facility]) [address] [facility], [place], [address], 03/21/2018 10:36:28 03/20/20 18 03/20/2018 CBC w/ auto diff immature grans (abs) 0.0 x10e3 /uL 0.0-0. 1 Not Available [facility] ([facility]) [address] [facility], [place], [address], 03/21/2018 10:36:28 03/20/20 18 03/20/2018 CBC w/ auto diff NRBC HEEL GOUGER Not Available [facility] ([facility]) [address] [place], [address], 03/21/2018 10:36:28 03/20/20 18 03/20/2018 CBC w/ auto diff hematology comments: HEEL GOUGER Not Available [facility] ([facility]) [address] [facility], [place], [address], 03/21/2018 10:36:28 03/20/20 18 03/21/2018 CMP, serum or plasm a glucose 83 mg/dL 65-99 Not Available [facility] ([facility]) [address] [place], [address], 03/21/2018 10:36:29 03/20/20 18 03/21/2018 CMP, serum or plasm a BUN 8 mg/dL 6-20 Not Available [facility] ([facility]) [address] [place], [address], 03/21/2018 10:36:29 03/20/20 18 03/21/2018 CMP, serum or plasm a creatinine 0.59 mg/dL 0.57-1 .00 Not Available [facility] ([facility]) [address] [place], [address], 03/21/2018 10:36:29 03/20/20 18 03/21/2018 CMP, serum or plasm a eGFR if nonafricn AM 131 mL/mi n/1.7 3 >59 Not Available [facility] ([facility]) [address] [place], [address], 03/21/2018 10:36:29 03/20/20 18 03/21/2018 CMP, serum or plasm a eGFR if africn AM 150 mL/mi n/1.7 3 >59 Not Available [facility] ([facility]) [address] [place], [address], 03/21/2018 10:36:29 03/20/20 18 03/21/2018 CMP, serum or plasm a BUN/creatini ne ratio 14 9-23 Not Available [facility] ([facility]) [address] [place] [address], [address], 03/21/2018 10:36:29 03/20/20 18 03/21/2018 CMP, serum or plasm a sodium 141 mmol/ L 134-14 4 Not Available [facility] ([facility]) [address] [facility] [place], [address], 03/21/2018 10:36:29 03/20/20 18 03/21/2018 CMP, serum or plasm a potassium 4.6 mmol/ L 3.5-5. 2 Not Available [facility] ([facility]) [address] [facility] [place], [address], 03/21/2018 10:36:29 03/20/20 18 03/21/2018 CMP, serum or plasm a chloride 106 mmol/ L 96-106 Not Available [facility] ([facility]) [address] [facility] [place], [address], 03/21/2018 10:36:29 03/20/20 18 03/21/2018 CMP, serum or plasm a carbon dioxide, total 22 mmol/ L 20-29 Not Available [facility] ([facility]) [address] [facility] [place], [address], 03/21/2018 10:36:29 03/20/20 18 03/21/2018 CMP, serum or plasm a calcium 9.6 mg/dL 8.7-10 .2 Not Available [facility] ([facility]) [address] [facility], [place], [address], 03/21/2018 10:36:29 03/20/20 18 03/21/2018 CMP, serum or plasm a protein, total 7.1 g/dL 6.0-8. 5 Not Available [facility] ([facility]) [address] [facility] [place], [address], 03/21/2018 10:36:29 03/20/20 18 03/21/2018 CMP, serum or plasm a albumin 4.5 g/dL 3.5-5. 5 Not Available [facility] ([facility]) [address] [facility], [address], 03/21/2018 10:36:29 03/20/20 18 03/21/2018 CMP, serum or plasm a globulin, total 2.6 g/dL 1.5-4. 5 Not Available [facility] ([facility]) [address] [place], [address], 03/21/2018 10:36:29 03/20/20 18 03/21/2018 CMP, serum or plasm a A/G ratio 1.7 1.2-2. 2 Not Available [facility] ([facility]) [address] [place], [address], 03/21/2018 10:36:29 03/20/20 18 03/21/2018 CMP, serum or plasm a bilirubin, total 0.3 mg/dL 0.0-1. 2 Not Available [facility] ([facility]) [address] [place], [address], 03/21/2018 10:36:29 03/20/20 18 03/21/2018 CMP, serum or plasm a alkaline phosphatase 72 IU/L 39-117 Not Available [facility] ([facility]) [address] [place] [address], [address], 03/21/2018 10:36:29 03/20/20 18 03/21/2018 CMP, serum or plasm a AST (SGOT) 26 IU/L 0-40 Not Available [facility] ([facility]) [address] [place], [address], 03/21/2018 10:36:29 03/20/20 18 03/21/2018 CMP, serum or plasm a ALT (SGPT) 14 IU/L 0-32 Not Available [facility] ([facility]) [address] [place] [address], [address], 03/21/2018 10:36:29 03/20/20 18 03/21/2018 HbA1c (hemo globi n A1c), blood hemoglobin A1C 5.2 % 4.8-5. 6 Predi abete s: 5.7 - 6.4 Diabe zulay: >6.4 Glyce margareth contr ol for adult s with diabe zulay: <7.0 Not Available [facility] ([facility]) [address] [facility], [place], [address], 03/21/2018 10:36:29 03/20/20 18 03/21/2018 TSH, ultra -sens itive , serum TSH 1.170 uIU/m L 0.450- 4.500 Not Available [facility] ([facility]) [address] [facility], [place], [address], 03/21/2018 10:36:30 07/06/19 23 07/06/2022 CBC W Auto Diffe renti al panel - Blood WBC high WBC Not Available Not Availa ble 08/28/2024 10:42:12 07/06/19 23 07/06/2022 CBC W Auto Diffe renti al panel - Blood RBC RBC Not Available Not Availa ble 08/28/2024 10:42:12 07/06/19 23 07/06/2022 CBC W Auto Diffe renti al panel - Blood HGB HGB Not Available Not Availa ble 08/28/2024 10:42:12 07/06/19 23 07/06/2022 CBC W Auto Diffe renti al panel - Blood HCT HCT Not Available Not Availa ble 08/28/2024 10:42:12 07/06/19 23 07/06/2022 CBC W Auto Diffe renti al panel - Blood MCV MCV Not Available Not Availa ble 08/28/2024 10:42:12 07/06/19 23 07/06/2022 CBC W Auto Diffe renti al panel - Blood MCH MCH Not Available Not Availa ble 08/28/2024 10:42:12 07/06/19 23 07/06/2022 CBC W Auto Diffe renti al panel - Blood MCHC MCHC Not Available Not Availa ble 08/28/2024 10:42:12 07/06/19 23 07/06/2022 CBC W Auto Diffe renti al panel - Blood RDW RDW Not Available Not Availa ble 08/28/2024 10:42:12 07/06/19 23 07/06/2022 CBC W Auto Diffe renti al panel - Blood plt plt Not Available Not Availa ble 08/28/2024 10:42:12 07/06/19 23 07/06/2022 CBC W Auto Diffe renti al panel - Blood MPV MPV Not Available Not Availa ble 08/28/2024 10:42:12 07/06/19 23 07/06/2022 CBC W Auto Diffe renti al panel - Blood NRBC's NRBC' s Not Available Not Available 08/28/2024 10:42:12 07/06/19 23 07/06/2022 CBC W Auto Diffe renti al panel - Blood absolute NRBCs absol [place] NRBCs Not Available Not Available 08/28/2024 10:42:12 07/06/19 23 07/06/2022 CBC W Auto Diffe renti al panel - Blood neutrophils high neutr ophil s Not Available Not Available 08/28/2024 10:42:12 07/06/19 23 07/06/2022 CBC W Auto Diffe renti al panel - Blood lymphocytes lymph ocyte s Not Available Not Available 08/28/2024 10:42:12 07/06/19 23 07/06/2022 CBC W Auto Diffe renti al panel - Blood monocytes monoc ytes Not Available Not Available 08/28/2024 10:42:12 07/06/19 23 07/06/2022 CBC W Auto Diffe renti al panel - Blood eosinophils eosin ophil s Not Available Not Available 08/28/2024 10:42:12 07/06/19 23 07/06/2022 CBC W Auto Diffe renti al panel - Blood basophils basop hils Not Available Not Available 08/28/2024 10:42:12 07/06/19 23 07/06/2022 CBC W Auto Diffe renti al panel - Blood immature granulocytes immat ure granu locyt es Not Available Not Available 08/28/2024 10:42:12 07/06/19 23 07/06/2022 CBC W Auto Diffe renti al panel - Blood absolute neutrophils high absol [place] neutr ophil s Not Available Not Available 08/28/2024 10:42:12 07/06/19 23 07/06/2022 CBC W Auto Diffe renti al panel - Blood absolute lymphocytes absol [place] lymph ocyte s Not Available Not Available 08/28/2024 10:42:12 07/06/19 23 07/06/2022 CBC W Auto Diffe renti al panel - Blood absolute monocytes absol [place] monoc ytes Not Available Not Available 08/28/2024 10:42:12 07/06/19 23 07/06/2022 CBC W Auto Diffe renti al panel - Blood absolute eosinophils absol [place] eosin ophil s Not Available Not Available 08/28/2024 10:42:12 07/06/19 23 07/06/2022 CBC W Auto Diffe renti al panel - Blood absolute basophils [place] basop hils Not Available Not Available 08/28/2024 10:42:12 07/06/19 23 07/06/2022 CBC W Auto Diffe renti al panel - Blood absolute immature granulocytes absol [place] immat ure granu locyt es Not Available Not Available 08/28/2024 10:42:12 07/06/19 23 07/06/2022 Compr ehens pieter metab olic 2000 panel - Serum or Plasm a sodium sodiu m Not Available Not Available 08/28/2024 10:42:12 07/06/19 23 07/06/2022 Compr ehens pieter metab olic 2000 panel - Serum or Plasm a potassium low potas sium Not Available Not Available 08/28/2024 10:42:12 07/06/19 23 07/06/2022 Compr ehens pieter metab olic 2000 panel - Serum or Plasm a chloride chlor melecio Not Available Not Available 08/28/2024 10:42:12 07/06/19 23 07/06/2022 Compr ehens pieter metab olic 2000 panel - Serum or Plasm a carbon dioxide carbo n dioxi de Not Available Not Available 08/28/2024 10:42:12 07/06/19 23 07/06/2022 Compr ehens pieter metab olic 2000 panel - Serum or Plasm a anion gap anion gap Not Available Not Available 08/28/2024 10:42:12 07/06/19 23 07/06/2022 Compr ehens pieter metab olic 2000 panel - Serum or Plasm a blood urea nitrogen low blood urea nitro gen Not Available Not Available 08/28/2024 10:42:12 07/06/19 23 07/06/2022 Compr ehens pieter metab olic 1999 panel - Serum or Plasm a creatinine creat inine Not Available Not Available 08/28/2024 10:42:12 07/06/19 23 07/06/2022 Compr ehens pieter metab olic 1999 panel - Serum or Plasm a egfrcr (CKD-epi 2020) >90 egfrc r (CKD- epi 2020) Not Available Not Available 08/28/2024 10:42:12 07/06/19 23 07/06/2022 Compr ehens pieter metab olic 1999 panel - Serum or Plasm a calcium calci um Not Available Not Available 08/28/2024 10:42:12 07/06/19 23 07/06/2022 Compr ehens pieter metab olic 1999 panel - Serum or Plasm a glucose gluco se Not Available Not Available 08/28/2024 10:42:12 07/06/19 23 07/06/2022 Compr ehens pieter metab olic 1999 panel - Serum or Plasm a protein, total low prote in, total Not Available Not Available 08/28/2024 10:42:12 07/06/19 23 07/06/2022 Compr ehens pieter metab olic 1999 panel - Serum or Plasm a albumin low album in Not Available Not Available 08/28/2024 10:42:12 07/06/19 23 07/06/2022 Compr ehens pieter metab olic 1999 panel - Serum or Plasm a ALT low ALT Not Available Not Availa ble 08/28/2024 10:42:12 07/06/19 23 07/06/2022 Compr ehens pieter metab olic 1999 panel - Serum or Plasm a alkaline phosphatase high alkal ine phosp hatas e Not Available Not Available 08/28/2024 10:42:12 07/06/19 23 07/06/2022 Compr ehens pieter metab olic 1999 panel - Serum or Plasm a AST AST Not Available Not Availa ble 08/28/2024 10:42:12 07/06/19 23 07/06/2022 Compr ehens pieter metab olic 2000 panel - Serum or Plasm a bilirubin, total bilir ubin, total Not Available Not Available 08/28/2024 10:42:12 07/06/19 23 07/06/2022 Urate [Mass /volu me] in Serum or Plasm a uric acid uric acid Not Available Not Available 08/28/2024 10:42:12 05/09/20 24 05/12/2024 Bacte maximino ident ified in Urine by Cultu re bacteria identified in urine by culture >100,0 00 CFU/mL Escher ichia coli extend ed-spe ctrum beta-l actama se (ESBL) abnormal Cultu re Urine >100, 000 CFU/m L Esche jerald a coli exten ded-s pectr um beta- lacta angus (ESBL ) (A) MARGARETH 05/12 10:40 PM REHAB SERVICES AIDE [facility] Not Available Not Available 08/28/2024 10:41:54 05/09/20 24 05/12/2024 Bacte maximino ident ified in Urine by Cultu re Unknown Analyte Contac t Precau tions Requir ed. Conta ct Preca ution s Requi red. Not Available Not Available 08/28/2024 10:41:54 05/09/20 24 05/12/2024 Bacte maximino ident ified in Urine by Cultu re interpretati on and review of laboratory results Abnorm al Not Available Not Available 10:41:54 06/05/19 25 06/11/2024 Bacte maximino ident ified in Blood by Cultu re microorganis m identified in specimen by culture No growth day 5 Cultu re No growt h day 5 MARGARETH 06/11 11:00 AM REHAB SERVICES AIDE [facility] Not Available Not Available 08/28/2024 10:42:06 06/05/19 25 06/11/2024 Bacte maximino ident ified in Blood by Cultu re interpretati on and review of laboratory results Normal Not Available Not Available 08/2024 10:42:06 06/05/19 25 06/05/2024 Lacta te [Mole s/vol ume] in Blood lactate [moles/volum e] in serum or plasma 0.9 mmol/ L low: 0.5mmo l/Lhig h: 2mmol/ L Lacti c Acid 0.9 0.5 - 2.0 mmol/ L 06/05 8:33 PM REHAB SERVICES AIDE [facility] Not Available Not Available 08/28/2024 10:42:06 06/05/1906/05/2024 Lacta te [Mole s/vol ume] in Blood interpretati on and review of laboratory results Normal Not Available Not Available 08/2024 10:42:06 06/05/19 25 06/06/2024 Phosp hate [Mass /volu me] in Serum or Plasm a phosphate [mass/volume ] in serum or plasma 2.5 mg/dL low: 2.5mg/ dLhigh : 4.5mg/ dL Phosp horus 2.5 2.5 - 4.5 mg/dL 06/05 11:56 PM REHAB SERVICES AIDE [facility] Not Available Not Available 08/28/2024 10:42:06 06/05/19 25 06/06/2024 Phosp hate [Mass /volu me] in Serum or Plasm a interpretati on and review of laboratory results Normal Not Available Not Available 08/2024 10:42:06 06/05/19 25 06/06/2024 Magne sium [Mass /volu me] in Serum or Plasm a magnesium [mass/volume ] in serum or plasma 1.9 mg/dL low: 1.6mg/ dLhigh : 2.6mg/ dL Magne sium 1.9 1.6 - 2.6 mg/dL 06/05 11:56 PM [facility] Not Available Not Available 08/28/2024 10:42:06 06/05/19 25 06/06/2024 Magne sium [Mass /volu me] in Serum or Plasm a interpretati on and review of laboratory results Normal Not Available Not Available 08/2024 10:42:06 06/05/19 25 06/08/2024 Bacte maximino ident ified in Urine by Cultu re bacteria identified in urine by culture >100,0 00 CFU/mL Escher ichia coli extend ed-spe ctrum beta-l actama se (ESBL) abnormal Cultu re Urine >100, 000 CFU/m L Esche jerald a coli exten ded-s pectr um beta- lacta angus (ESBL ) (A) MARGARETH 06/08 8:31 AM REHAB SERVICES AIDE [facility] Not Available Not Available 08/28/2024 10:42:06 06/05/19 25 06/08/2024 Bacte maximino ident ified in Urine by Cultu re Unknown Analyte Contac t Precau tions Requir ed. Conta ct Preca ution s Requi red. Not Available Not Available 08/28/2024 10:42:06 06/05/19 25 06/08/2024 Bacte maximino ident ified in Urine by Cultu re interpretati on and review of laboratory results Abnorm al Not Available Not Available 10:42:06 06/05/19 25 06/05/2024 Urina lysis compl ete W Refle x Cultu re panel - Urine service comment Cultur e to follow Refle x Statu s Cultu re to follo w 06/05 7:22 PM REHAB SERVICES AIDE [facility] Not Available Not Available 08/28/2024 10:42:05 06/05/19 25 06/05/2024 Urina lysis compl ete W Refle x Cultu re panel - Urine erythrocytes [#/area] in urine sediment by automated count 6-10 text: 0 - 5 # /hpf abnormal RBC UA 6-10 (A) 0 - 5 # /hpf 06/05 7:22 PM REHAB SERVICES AIDE [employer] [facility] Not Available Not Available 08/28/2024 10:42:05 06/05/19 25 06/05/2024 Urina lysis compl ete W Refle x Cultu re panel - Urine leukocytes [#/area] in urine sediment by automated count 51-100 text: none seen, 0-5 # /hpf abnormal WBC UA 51-10 0 (A) None Seen, 0-5 # /hpf 06/05 7:22 PM REHAB SERVICES AIDE [facility] Not Available Not Available 08/28/2024 10:42:05 06/05/19 25 06/05/2024 Urina lysis compl ete W Refle x Cultu re panel - Urine bacteria [presence] in urine by automated 3+ text: none seen abnormal Bacte maximino UA 3+ (A) None Seen 06/05 7:22 PM REHAB SERVICES AIDE [facility] Not Available Not Available 08/28/2024 10:42:05 06/05/19 25 06/05/2024 Urina lysis compl ete W Refle x Cultu re panel - Urine epithelial cells.squamo us [presence] in urine by automated 11-03 text: none seen, 0-2, 3-5 /hpf abnormal Squam ous Epith elial Cells 6-10 (A) None Seen, 0-2, 3-5 /hpf 06/05 7:22 PM REHAB SERVICES AIDE [facility] Not Available Not Available 08/28/2024 10:42:05 06/05/19 25 06/05/2024 Urina lysis compl ete W Refle x Cultu re panel - Urine yeast.buddin g [presence] in urine by computer assisted method Occasi onal text: none seen /hpf abnormal Buddi ng Yeast Occas ional (A) None seen /hpf 06/05 7:22 PM REHAB SERVICES AIDE [facility] Not Available Not Available 08/28/2024 10:42:05 06/05/19 25 06/05/2024 Urina lysis compl ete W Refle x Cultu re panel - Urine Unknown Analyte Not Available Not Available 08/2024 10:42:05 06/05/19 25 06/05/2024 Urina lysis compl ete W Refle x Cultu re panel - Urine interpretati on and review of laboratory results Abnorm al Not Available Not Available 10:42:05 06/05/19 25 06/05/2024 Influ colin virus A and B and SARS- CoV-2 (COVI D-19) and Respi rator y syncy tial virus RNA panel - Respi rator y syste m speci men by TOBIAS with probe detec tion sars-cov-2 (covid-19) RNA [presence] in respiratory system specimen by TOBIAS with probe detection Not detect ed text: not detect ed, invali d COVID -19 PCR Not detec semaj Not detec semaj, Inval id 06/05 7:53 PM [facility] Not Available Not Available 08/28/2024 10:42:05 06/05/19 25 06/05/2024 Influ colin virus A and B and SARS- CoV-2 (COVI D-19) and Respi rator y syncy tial virus RNA panel - Respi rator y syste m speci men by TOBIAS with probe detec tion influenza virus A RNA [presence] in specimen by TOBIAS with probe detection Not detect ed text: not detect ed Influ colin A PCR Not detec semaj Not detec semaj 06/05 7:53 PM [facility] SERVICES [facility] Not Available Not Available 08/28/2024 10:42:05 06/05/19 25 06/05/2024 Influ colin virus A and B and SARS- CoV-2 (COVI D-19) and Respi rator y syncy tial virus RNA panel - Respi rator y syste m speci men by TOBIAS with probe detec tion influenza virus B RNA [presence] in specimen by TOBIAS with probe detection Not detect ed text: not detect ed Influ colin B PCR Not detec semaj Not detec semaj 06/05 7:53 PM [facility] SERVICES A[facility] Not Available Not Available 08/28/2024 10:42:05 06/05/19 25 06/05/2024 Influ colin virus A and B and SARS- CoV-2 (COVI D-19) and Respi rator y syncy tial virus RNA panel - Respi rator y syste m speci men by TOBIAS with probe detec tion respiratory syncytial virus RNA [identifier] in specimen by TOBIAS with probe detection Not detect ed text: not detect ed RSV PCR Not detec semaj Not detec semaj 06/05 7:53 PM [facility] SERVICES A[facility] Not Available Not Available 08/28/2024 10:42:05 06/05/1906/05/2024 Influ colin virus A and B and SARS- CoV-2 (COVI D-19) and Respi rator y syncy tial virus RNA panel - Respi rator y syste m speci men by TOBIAS with probe detec tion Unknown Analyte The Cephei d Xpert Xpress SARS-C OV-2 has been author ized by the Food and Drug admini strati on (FDA) under an Emerge ncy Use Author soheila torres (INGA). This test has been valida semaj in accord ance with the FDA's guidan ce bijalume nt Polic y for Diagno stic Testin g in Labora tories Certif ied to perfor m High Comple xity Testin g under CLIA prior to Emerge ncy Use Author soheila torres for Mast virus Diseas -2018 during the Public Health Emerge ncy issued on 2019. FDA indepe ndent review of this valida tion is pendin g. This test is only author ized for the durati on of time the declar ation that circum stance s exist justif kaushik the author soheila torres of emerge ncy use of in vitro diagno stic tests for detect ion of SARS-C OV-2 virus and/or diagno sis of COVID- 19 infect ion under 564(b) (1)of the Act, 21 U.S.C. 360bbb -3 (b) (1), unless the author soheila torres is termin ated or revoke d sooner . The Cephe id Xpert Xpres s SARS- COV-2 has been autho rized by the Food and Drug admin istra tion (FDA) under an Emerg ency Use Autho rizat ion (EUA) . This test has been valid ated in accor dance with the FDA's myron nce docum ent [place] for Diagn ostic Testi ng in Labor atori es Certi fied to perfo rm High Compl exity Testi ng under CLIA prior to Emerg ency Use Autho rizat ion for Coron aviru s Disea durin g the Publi c Healt h Emerg ency issue d on 2019. FDA indep enden t revie w of this valid ation is pendi ng. This test is only autho rized for the durat ion of time the decla ratio n that circu mstan polly exist justi fying the autho rizat ion of emerg ency use of in vitro diagn ostic tests for detec tion of SARS- COV-2 virus and/o r diagn osis of COVID -19 infec tion under 564(b )(1)o f the Act, 21 U.S.C . 360bb b-3 (b) (1), unles s the autho rizat ion is termi nated or revok ed soone r. Not Available Not Available 08/28/2024 10:42:05 01/10/20 25 06/05/2024 Influ colin virus A and B and SARS- CoV-2 (COVI D-19) and Respi rator y syncy tial virus RNA panel - Respi rator y syste m speci men by TOBIAS with probe detec tion interpretati on and review of laboratory results Normal Not Available Not Available 08/2024 10:42:05 06/05/19 25 06/05/2024 Urina lysis panel - Urine by Autom ated color of urine by auto Yellow text: straw, yellow , dark yellow Color UA Yello w Straw , Yello w, Dark Yello w 06/05 7:23 PM [facility] SERVICES AIDE [facility] Not Available Not Available 08/28/2024 10:42:05 06/05/19 25 06/05/2024 Urina lysis panel - Urine by Autom ated clarity in urine by refractometr y automated Slt Cloudy text: clear abnormal Vane ty UA Slt [place] y (A) Clear 06/05 7:23 PM [facility] SERVICES AIDE [facility] Not Available Not Available 08/28/2024 10:42:05 06/05/19 25 06/05/2024 Urina lysis panel - Urine by Autom ated glucose [presence] in urine by test strip Negati ve text: negati ve Gluco se UA Negat pieter Negat pieter 06/05 7:23 PM RE[facility] SERVICES AIDE [facility] Not Available Not Available 08/28/2024 10:42:05 06/05/19 25 06/05/2024 Urina lysis panel - Urine by Autom ated bilirubin.to alyssa [presence] in urine by test strip Negati ve text: negati ve Bilir ubin UA Negat pieter Negat pieter 06/05 7:23 PM RE[facility] SERVICES AIDE [facility] Not Available Not Available 08/28/2024 10:42:05 06/05/19 25 06/05/2024 Urina lysis panel - Urine by Autom ated ketones [presence] in urine by automated test strip Negati ve text: negati ve Keton e UA Negat pieter Negat pieter 06/05 7:23 PM RE[facility] SERVICES AIDE [facility] Not Available Not Available 08/28/2024 10:42:05 06/05/19 25 06/05/2024 Urina lysis panel - Urine by Autom ated specific gravity of urine by test strip 1.009 low: 1.005h igh: 1.03 Speci fic Gravi ty UA 1.009 1.005 - 1.030 06/05 7:23 PM RE[facility] SERVICES AIDE [facility] Not Available Not Available 08/28/2024 10:42:05 06/05/19 25 06/05/2024 Urina lysis panel - Urine by Autom ated hemoglobin [presence] in urine by test strip 1+ text: negati ve abnormal Blood UA 1+ (A) Negat pieter 06/05 7:23 PM RE[facility] SERVICES AIDE [facility] Not Available Not Available 08/28/2024 10:42:05 06/05/19 25 06/05/2024 Urina lysis panel - Urine by Autom ated pH of urine by test strip 6 pH low: 5pHhig h: 8pH pH UA 6.0 5.0 - 8.0 pH 06/05 7:23 PM RE[facility] SERVICES AIDE [facility] Not Available Not Available 08/28/2024 10:42:05 06/05/19 25 06/05/2024 Urina lysis panel - Urine by Autom ated protein [presence] in urine by test strip 1+ text: negati ve abnormal Prote in UA 1+ (A) Negat pieter 06/05 7:23 PM RE[facility] SERVICES A[facility] Not Available Not Available 08/28/2024 10:42:05 06/05/19 25 06/05/2024 Urina lysis panel - Urine by Autom ated urobilinogen [mass/volume ] in urine by automated test strip 2 mg/dL text: negati ve, >8.0 abnormal Urobi linog en UA 2.0 (A) Negat pieter, >8.0 mg/dL 06/05 7:23 PM [facility] SERVICES AIDE [facility] Not Available Not Available 08/28/2024 10:42:05 06/05/19 25 06/05/2024 Urina lysis panel - Urine by Autom ated nitrite [presence] in urine by test strip Positi ve text: negati ve abnormal Nitri te UA Posit pieter (A) Negat pieter 06/05 7:23 PM [facility] Not Available Not Available 08/28/2024 10:42:05 06/05/19 25 06/05/2024 Urina lysis panel - Urine by Autom ated leukocyte esterase [presence] in urine by test strip 3+ text: negati ve abnormal Leuko cyte UA 3+ (A) Negat pieter 06/05 7:23 PM [facility] Not Available Not Available 08/28/2024 10:42:05 06/05/19 25 06/05/2024 Urina lysis panel - Urine by Autom ated microscopic method - urine Urine micros copy to follow Urine Micro scopy Urine micro scopy to [facility] w 06/05 7:23 PM [facility] Not Available Not Available 08/28/2024 10:42:05 06/05/19 25 06/05/2024 Urina lysis panel - Urine by Autom ated service comment Cultur e to follow Refle x Statu s Cultu re to [facility] w 06/05 7:23 PM [facility] Not Available Not Available 08/28/2024 10:42:05 06/05/19 25 06/05/2024 Urina lysis panel - Urine by Autom ated Unknown Analyte Not Available Not Available 08/2024 10:42:05 06/05/19 25 06/05/2024 Urina lysis panel - Urine by Autom ated interpretati on and review of laboratory results Abnorm al Not Available Not Available 10:42:05 06/05/19 25 06/05/2024 Chori ogona dotro pin [Pres ence] in Urine choriogonado tropin [presence] in urine Negati ve text: negati ve hCG Quali tativ e Urine Negat pieter Negat pieter 06/05 7:21 PM [facility] Not Available Not Available 08/28/2024 10:42:05 06/05/19 25 06/05/2024 Chori ogona dotro pin [Pres ence] in Urine specific gravity of urine by test strip 1.009 low: 1.005h igh: 1.03 Speci fic Gravi ty UA 1.009 1.005 - 1.030 06/05 7:21 PM [facility] SERVICES AIDE [facility] Not Available Not Available 08/28/2024 10:42:05 06/05/19 25 06/05/2024 Chori ogona dotro pin [Pres ence] in Urine interpretati on and review of laboratory results Normal Not Available Not Available 08/2024 10:42:05 06/05/19 25 06/05/2024 Lipas e [Enzy matic activ ity/v olume ] in Serum or Plasm a lipase [enzymatic activity/vol ume] in serum or plasma 13 U/L low: 8U/Lhi gh: 78U/L Lipas e 13 8 - 78 U/L 06/05 7:32 PM [facility] Not Available Not Available 08/28/2024 10:42:05 06/05/19 25 06/05/2024 Lipas e [Enzy matic activ ity/v olume ] in Serum or Plasm a interpretati on and review of laboratory results Normal Not Available Not Available 08/2024 10:42:05 06/05/19 25 06/05/2024 Compr ehens pieter metab olic 1999 panel - Serum or Plasm a glucose [mass/volume ] in serum or plasma 133 mg/dL low: 70mg/d Lhigh: 125mg/ dL high Gluco se 133 (H) 70 - 125 mg/dL 06/05 7:32 PM [facility] Not Available Not Available 08/28/2024 10:42:05 06/05/19 25 06/05/2024 Compr ehens pieter metab olic 1999 panel - Serum or Plasm a sodium [moles/volum e] in serum or plasma 137 mmol/ L low: 136mmo l/Lhig h: 145mmo l/L Sodiu m 137 136 - 145 mmol/ L 06/05 7:32 PM [facility] Not Available Not Available 08/28/2024 10:42:05 06/05/19 25 06/05/2024 Compr ehens pieter metab olic 1999 panel - Serum or Plasm a potassium [moles/volum e] in serum or plasma 3.4 mmol/ L low: 3.4mmo l/Lhig h: 5.1mmo l/L Potas sium 3.4 3.4 - 5.1 mmol/ L 06/05 7:32 PM [facility] Not Available Not Available 08/28/2024 10:42:05 06/05/19 25 06/05/2024 Compr [employer] pieter metab olic 1999 panel - Serum or Plasm a chloride [moles/volum e] in serum or plasma 104 mmol/ L low: 98mmol /Lhigh : 107mmo l/L Chlor melecio 104 98 - 107 mmol/ L 06/05 7:32 PM [facility] Not Available Not Available 08/28/2024 10:42:05 06/05/19 25 06/05/2024 Compr [employer] pieter metab olic 2000 panel - Serum or Plasm a carbon dioxide, total [moles/volum e] in serum or plasma 24 mmol/ L low: 22mmol /Lhigh : 29mmol /L CO2 24 22 - 29 mmol/ L 06/05 7:32 PM [facility] Not Available Not Available 08/28/2024 10:42:05 06/05/19 25 06/05/2024 Compr DS [employer] pieter [employer] olic 1999 panel - Serum or Plasm a calcium [mass/volume ] in serum or plasma 10.03 mg/dL low: 8.4mg/ dLhigh : 10.2mg /dL Calci um 10.03 8.4 - 10.2 mg/dL 06/05 7:32 PM [facility] Not Available Not Available 08/28/2024 10:42:05 06/05/19 25 06/05/2024 Compr [employer] pieter [employer] olic 1999 panel - Serum or Plasm a anion gap in blood by calculation 9 mmol/ L low: 6mmol/ Lhigh: 16mmol /L Anion Gap 9 6 - 16 mmol/ L 06/05 7:32 PM [facility] Not Available Not Available 08/28/2024 10:42:05 06/05/19 25 06/05/2024 Compr Moblyngens pieter metab olic 1999 panel - Serum or Plasm a urea nitrogen [mass/volume ] in serum or plasma 11 mg/dL low: 9.8mg/ dLhigh : 20.1mg /dL BUN 11.0 9.8 - 20.1 mg/dL 06/05 7:32 PM [facility] Not Available Not Available 08/28/2024 10:42:05 06/05/1906/05/2024 Compr [employer]lyngens pieter metab olic 1999 panel - Serum or Plasm a creatinine [mass/volume ] in serum or plasma 0.64 mg/dL low: 0.57mg /dLhig h: 1.11mg /dL Creat inine 0.64 0.57 - 1.11 mg/dL 06/05 7:32 PM [facility] Not Available Not Available 08/28/2024 10:42:05 06/05/19 25 06/05/2024 Compr Moblyngens pieter metab olic 1999 panel - Serum or Plasm a alkaline phosphatase [enzymatic activity/vol ume] in serum or plasma 81 U/L low: 40U/Lh igh: 150U/L Alkal ine Phosp hatas e 81 40 - 150 U/L 06/05 7:32 PM [facility] Not Available Not Available 08/28/2024 10:42:05 06/05/19 25 06/05/2024 Compr [employer]lyngens pieter metab olic 1999 panel - Serum or Plasm a alanine aminotransfe rase [enzymatic activity/vol ume] in serum or plasma 11 U/L high: 55U/L ALT 11 <=55 U/L 06/05 7:32 PM [facility] Not Available Not Available 08/28/2024 10:42:05 06/05/19 25 06/05/2024 Compr DS [employer] Seiten pieter metab olic 1999 panel - Serum or Plasm a aspartate aminotransfe rase [enzymatic activity/vol ume] in serum or plasma 18 U/L low: 5U/Lhi gh: 34U/L AST 18 5 - 34 U/L 06/05 7:32 PM [facility] Not Available Not Available 08/28/2024 10:42:05 06/05/19 25 06/05/2024 Compr Moblyngens pieter metab olic 1999 panel - Serum or Plasm a protein [mass/volume ] in serum or plasma 7.7 text: 6.4 - 8.3 gm/dL Prote in Total 7.7 6.4 - 8.3 gm/dL 06/05 7:32 PM [facility] Not Available Not Available 08/28/2024 10:42:05 06/05/19 25 06/05/2024 Compr DS [employer]itale Seiten pieter[employer]NA PRE[employer]Eic 1999 panel - Serum or Plasm a albumin [mass/volume ] in serum or plasma 4.1 text: 3.4 - 4.8 gm/dL Album in 4.1 3.4 - 4.8 gm/dL 06/05 7:32 PM [facility] [employer] [facility] Not Available Not Available 08/28/2024 10:42:05 06/05/19 25 06/05/2024 Compr DS Digitale Seiten pieter [employer] olic 2000 panel - Serum or Plasm a globulin [mass/volume ] in urine by calculation 3.6 text: 2.6 - 4.0 gm/dL Globu shiraz Total 3.6 2.6 - 4.0 gm/dL 06/05 7:32 PM [facility] [employer] [facility] Not Available Not Available 08/28/2024 10:42:05 06/05/19 25 06/05/2024 Compr DS Digitale Seiten pieterA [employer] olic 2000 panel - Serum or Plasm a albumin/glob ulin [mass ratio] in serum or plasma 1.1 low: 0.9hig h: 1.6 Album in/Gl obuli n Ratio 1.1 0.9 - 1.6 06/05 7:32 PM [facility] [employer] [facility] Not Available Not Available 08/28/2024 10:42:05 06/05/19 25 06/05/2024 Compr [employer] 2000 panel - Serum or Plasm a bilirubin.to alyssa [mass/volume ] in serum or plasma 0.6 mg/dL low: 0.2mg/ dLhigh : 1.2mg/ dL Bilir ubin Total 0.6 0.2 - 1.2 mg/dL 06/05 7:32 PM [facility] [employer] [facility] Not Available Not Available 08/28/2024 10:42:05 06/05/19 25 06/05/2024 Compr DS Digitale Seiten pieterA [employer] olic 2000 panel - Serum or Plasm a glomerular filtration rate [volume rate/area] in serum, plasma or blood by creatinine-b ased formula (CKD-epi 2020)/1.73 sq M text: >90 mL/min /1.73m 2 eGFR >90 >90 mL/mi n/1.7 3m2 06/05 7:32 PM [facility] A[facility] Not Available Not Available 08/28/2024 10:42:05 06/05/1906/05/2024 Compr ehens pieter metab olic 2000 panel - Serum or Plasm a interpretati on and review of laboratory results Abnorm al Not Available Not Available 10:42:05 06/05/1906/05/2024 CBC W Auto Diffe renti al panel - Blood leukocytes [#/volume] in blood by automated count 10.9 text: 4.0 - 10.7 x10e9/ L high WBC 10.9 (H) 4.0 - 10.7 x10E9 /L 06/05 7:18 PM [facility] Not Available Not Available 08/28/2024 10:42:06/05/1906/05/2024 CBC W Auto Diffe renti al panel - Blood erythrocytes [#/volume] in blood by automated count 4.96 text: 3.90 - 5.20 x10e12 /L RBC Count 4.96 3.90 - 5.20 x10E1 2/L 06/05 7:18 PM [facility] Not Available Not Available 08/28/2024 10:42:05 06/05/1906/05/2024 CBC W Auto Diffe renti al panel - Blood hemoglobin [mass/volume ] in blood 13.4 g/dL low: 11.9g/ dLhigh : 15.8g/ dL Hemog lobin 13.4 11.9 - 15.8 g/dL 06/05 7:18 PM [facility] Not Available Not Available 08/28/2024 10:42:05 06/05/1906/05/2024 CBC W Auto Diffe renti al panel - Blood hematocrit [volume fraction] of blood by automated count 41 % low: 34.8%h igh: 46.1% Hemat ocrit 41.0 34.8 - 46.1 % 06/05 7:18 PM [facility] Not Available Not Available 08/28/2024 10:42:05 06/05/1906/05/2024 CBC W Auto Diffe renti al panel - Blood MCV [entitic mean volume] in red blood cells by automated count 82.7 fL low: 80fLhi gh: 98fL MCV 82.7 80.0 - 98.0 fL 06/05 7:18 PM [facility] Not Available Not Available 08/28/2024 10:42:05 06/05/1906/05/2024 CBC W Auto Diffe renti al panel - Blood MCH [entitic mass] by automated count 27 pg low: 26.7pg high: 33.6pg MCH 27.0 26.7 - 33.6 pg 06/05 7:18 PM [facility] Not Available Not Available 08/28/2024 10:42:05 06/05/19 25 06/05/2024 CBC W Auto Diffe renti al panel - Blood MCHC [entitic mass/volume] in red blood cells by automated count 32.7 g/dL low: 31.7g/ dLhigh : 36.3g/ dL MCHC 32.7 31.7 - 36.3 g/dL 06/05 7:18 PM [facility] Not Available Not Available 08/28/2024 10:42:05 06/05/19 25 06/05/2024 CBC W Auto Diffe renti al panel - Blood erythrocyte [distwidth] in red blood cells by automated count 15.2 % low: 11.3%h igh: 14.8% high RDW-C V 15.2 (H) 11.3 - 14.8 % 06/05 7:18 PM [facility] Not Available Not Available 08/28/2024 10:42:05 06/05/1906/05/2024 CBC W Auto Diffe renti al panel - Blood platelets [#/volume] in blood by automated count 249 text: 150 - 420 x10e9/ L Plate let Count 249 150 - 420 x10E9 /L 06/05 7:18 PM [facility] Not Available Not Available 08/28/2024 10:42:05 06/05/1906/05/2024 CBC W Auto Diffe renti al panel - Blood platelet [entitic mean volume] in blood by automated count 10.5 fL low: 7.8fLh igh: 11.4fL MPV 10.5 7.8 - 11.4 fL 06/05 7:18 PM [facility] Not Available Not Available 08/28/2024 10:42:05 06/05/19 25 06/05/2024 CBC W Auto Diffe renti al panel - Blood neutrophils/ leukocytes in blood by automated count 74.8 % low: 41%hig h: 74% high Neutr ophil % 74.8 (H) 41.0 - 74.0 % 06/05 7:18 PM REHAB SERVICES AIDE [employer] [facility] Not Available Not Available 08/28/2024 10:42:05 06/05/19 25 06/05/2024 CBC W Auto Diffe renti al panel - Blood lymphocytes/ leukocytes in blood by automated count 13.3 % low: 17%hig h: 47% low Lymph ocyte % 13.3 (L) 17.0 - 47.0 % 06/05 7:18 PM REH[facility] SERVICES AIDE [employer] [facility] Not Available Not Available 08/28/2024 10:42:05 06/05/19 25 06/05/2024 CBC W Auto Diffe renti al panel - Blood monocytes/le ukocytes in blood by automated count 11.1 % low: 3%high : 11% high Monoc yte % 11.1 (H) 3.0 - 11.0 % 06/05 7:18 PM [facility] Not Available Not Available 08/28/2024 10:42:05 06/05/19 25 06/05/2024 CBC W Auto Diffe renti al panel - Blood eosinophils/ leukocytes in blood by automated count 0.3 % low: 0%high : 7% Eosin ophil % 0.3 0.0 - 7.0 % 06/05 7:18 PM [facility] Not Available Not Available 08/28/2024 10:42:05 06/05/19 25 06/05/2024 CBC W Auto Diffe renti al panel - Blood basophils/le ukocytes in blood by automated count 0.2 % low: 0%high : 1.6% Basop hil % 0.2 0.0 - 1.6 % 06/05 7:18 PM [facility] Not Available Not Available 08/28/2024 10:42:05 06/05/19 25 06/05/2024 CBC W Auto Diffe renti al panel - Blood immature granulocytes /leukocytes in blood by automated count 0.3 % low: 0%high : 1% Immat ure Granu locyt es % 0.3 0.0 - 1.0 % 06/05 7:18 PM [facility] Not Available Not Available 08/28/2024 10:42:05 06/05/19 25 06/05/2024 CBC W Auto Diffe renti al panel - Blood neutrophils [#/volume] in blood by automated count 8.13 text: 1.60 - 7.50 x10e9/ L high Neutr ophil Absol [place] 8.13 (H) 1.60 - 7.50 x10E9 /L 06/05 7:18 PM [facility] Not Available Not Available 08/28/2024 10:42:05 06/05/19 25 06/05/2024 CBC W Auto Diffe renti al panel - Blood lymphocytes [#/volume] in blood by automated count 1.44 text: 1.00 - 4.40 x10e9/ L Lymph ocyte Absol [place] 1.44 1.00 - 4.40 x10E9 /L 06/05 7:18 PM [facility] Not Available Not Available 08/28/2024 10:42:05 06/05/19 25 06/05/2024 CBC W Auto Diffe renti al panel - Blood monocytes [#/volume] in blood by automated count 1.2 text: 0.15 - 1.00 x10e9/ L high Monoc yte Absol [place] 1.20 (H) 0.15 - 1.00 x10E9 /L 06/05 7:18 PM [facility] Not Available Not Available 08/28/2024 10:42:05 06/05/19 25 06/05/2024 CBC W Auto Diffe renti al panel - Blood eosinophils [#/volume] in blood 0.03 text: 0.00 - 0.60 x10e9/ L Eosin ophil Absol [place] 0.03 0.00 - 0.60 x10E9 /L 06/05 7:18 PM [facility] Not Available Not Available 08/28/2024 10:42:05 06/05/19 25 06/05/2024 CBC W Auto Diffe renti al panel - Blood basophils [#/volume] in blood by automated count 0.02 text: 0.00 - 0.13 x10e9/ L Basop hil Absol [place] 0.02 0.00 - 0.13 x10E9 /L 06/05 7:18 PM [facility] Not Available Not Available 08/28/2024 10:42:05 06/05/1906/05/2024 CBC W Auto Diffe renti al panel - Blood interpretati on and review of laboratory results Abnorm al Not Available Not Available 10:42:05 06/05/1906/05/2024 Urina lysis dipst ick panel - Urine by Autom ated test strip color of urine Steffany text: straw, yellow , light yellow abnormal Color UA POCT Steffany (A) Straw , Yello w, Light Yello w 06/05 1:12 PM [facility] N[facility] CARE Not Available Not Available 08/28/2024 10:42:10 06/05/19 25 06/05/2024 Urina lysis dipst ick panel - Urine by Autom ated test strip clarity of urine Cloudy text: clear abnormal Vane ty UA POCT [place] y (A) Clear 06/05 1:12 PM [facility] CONVE NIENT CARE Not Available Not Available 08/28/2024 10:42:10 06/05/19 25 06/05/2024 Urina lysis dipst ick panel - Urine by Autom ated test strip urinalysis dipstick panel - urine by automated test strip 1.02 low: 1.005h igh: 1.03 Speci fic Gravi ty UA POCT 1.020 1.005 - 1.030 06/05 1:12 PM [facility] CONVE NIENT CARE Not Available Not Available 08/28/2024 10:42:10 06/05/19 25 06/05/2024 Urina lysis dipst ick panel - Urine by Autom ated test strip pH of urine by test strip 6 pH low: 5pHhig h: 8.5pH pH UA POCT 6.0 5.0 - 8.5 pH 06/05 1:12 PM [facility] [place] [facility] C[facility] Not Available Not Available 08/28/2024 10:42:10 06/05/19 25 06/05/2024 Urina lysis dipst ick panel - Urine by Autom ated test strip protein [presence] in urine by test strip 1+ text: negati ve abnormal Prote in UA POCT 1+ (A) Negat pieter 06/05 1:12 PM [facility] SERVICES [facility] [facility] NIENT CARE Not Available Not Available 08/28/2024 10:42:10 06/05/19 25 06/05/2024 Urina lysis dipst ick panel - Urine by Autom ated test strip hemoglobin [presence] in urine by test strip Trace- lysed text: negati ve, trace- lysed, trace- intact Blood UA POCT Trace -lyse d Negat pieter, Trace -lyse d, Trace -inta ct 06/05 1:12 PM [facility]HAB SERVICES AIDE [facility] [facility] NIENT CARE Not Available Not Available 08/28/2024 10:42:10 06/05/19 25 06/05/2024 Urina lysis dipst ick panel - Urine by Autom ated test strip leukocyte esterase [presence] in urine by test strip 1+ text: negati ve abnormal Leuko cyte UA POCT 1+ (A) Negat pieter 06/05 1:12 PM [facility] SERVICES AIDE [facility] [facility] Not Available Not Available 08/28/2024 10:42:10 06/05/19 25 06/05/2024 Urina lysis dipst ick panel - Urine by Autom ated test strip nitrite [presence] in urine by test strip Negati ve text: negati ve Nitri te UA POCT Negat pieter Negat pieter 06/05 1:12 PM REH[facility] SERVICES AIDE [facility] [facility] Not Available Not Available 08/28/2024 10:42:10 06/05/19 25 06/05/2024 Urina lysis dipst ick panel - Urine by Autom ated test strip glucose [presence] in urine by test strip Negati ve text: negati ve Gluco se UA POCT Negat pieter Negat pieter 06/05 1:12 PM [facility] CONVE NIENT CARE Not Available Not Available 08/28/2024 10:42:10 06/05/19 25 06/05/2024 Urina lysis dipst ick panel - Urine by Autom ated test strip ketones [presence] in urine by test strip Trace text: negati ve abnormal Keton e UA POCT Trace (A) Negat pieter 06/05 1:12 PM [facility]VE NIENT CARE Not Available Not Available 08/28/2024 10:42:10 06/05/1906/05/2024 Urina lysis dipst ick panel - Urine by Autom ated test strip bilirubin.to alyssa [presence] in urine by test strip Negati ve text: negati ve Bilir ubin UA POCT Negat pieter Negat pieter 06/05 1:12 PM [facility] CONVE NIENT CARE Not Available Not Available 08/28/2024 10:42:10 06/05/19 25 06/05/2024 Urina lysis dipst ick panel - Urine by Autom ated test strip urobilinogen [units/volum e] in urine by test strip 1 eu/dL low: 0.2eu/ dLhigh : 1eu/dL Urobi linog en UA POCT 1.0 0.2 - 1.0 EU/dL 06/05 1:12 PM [facility] NIENT CARE Not Available Not Available 08/28/2024 10:42:10 06/05/19 25 06/05/2024 Urina lysis dipst ick panel - Urine by Autom ated test strip interpretati on and review of laboratory results Abnorm al Not Available Not Available 10:42:10 06/06/1906/06/2024 Compr ehens pieter metab olic 2000 panel - Serum or Plasm a glucose [mass/volume ] in serum or plasma 109 mg/dL low: 70mg/d Lhigh: 125mg/ dL Gluco se 109 70 - 125 mg/dL 06/06 5:02 AM [facility] ATORY Not Available Not Available 08/28/2024 10:42:06 06/06/19 25 06/06/2024 Compr ehens pieter metab olic 1999 panel - Serum or Plasm a sodium [moles/volum e] in serum or plasma 139 mmol/ L low: 136mmo l/Lhig h: 145mmo l/L Sodiu m 139 136 - 145 mmol/ L 06/06 5:02 AM [facility] AT[facility] Not Available Not Available 08/28/2024 10:42:06 06/06/19 25 06/06/2024 Compr ehens pieter metab olic 2000 panel - Serum or Plasm a potassium [moles/volum e] in serum or plasma 3 mmol/ L low: 3.4mmo l/Lhig h: 5.1mmo l/L critical low Potas sium 3.0 (LL) 3.4 - 5.1 mmol/ L 06/06 5:02 AM [facility] AT[facility] Not Available Not Available 08/28/2024 10:42:06 06/06/19 25 06/06/2024 Compr ehens pieter metab olic 2000 panel - Serum or Plasm a chloride [moles/volum e] in serum or plasma 108 mmol/ L low: 98mmol /Lhigh : 107mmo l/L high Chlor melecio 108 (H) 98 - 107 mmol/ L 06/06 5:02 AM [facility] Not Available Not Available 08/28/2024 10:42:06 06/06/19 25 06/06/2024 Compr ehens pieter metab olic 2000 panel - Serum or Plasm a carbon dioxide, total [moles/volum e] in serum or plasma 26 mmol/ L low: 22mmol /Lhigh : 29mmol /L CO2 26 22 - 29 mmol/ L 06/06 5:02 AM [facility] Not Available Not Available 08/28/2024 10:42:06 06/06/19 25 06/06/2024 Compr ehens pieter metab olic 2000 panel - Serum or Plasm a calcium [mass/volume ] in serum or plasma 8.4 mg/dL low: 8.4mg/ dLhigh : 10.2mg /dL Calci um 8.40 8.4 - 10.2 mg/dL 06/06 5:02 AM [facility] Not Available Not Available 08/28/2024 10:42:06 06/06/19 25 06/06/2024 Compr [employer] pieter metab olic 1999 panel - Serum or Plasm a anion gap in blood by calculation 5 mmol/ L low: 6mmol/ Lhigh: 16mmol /L low Anion Gap 5 (L) 6 - 16 mmol/ L 06/06 5:02 AM [facility] Not Available Not Available 08/28/2024 10:42:06 06/06/19 25 06/06/2024 Compr Mobly[employer] pieter metab olic 1999 panel - Serum or Plasm a urea nitrogen [mass/volume ] in serum or plasma 8.4 mg/dL low: 9.8mg/ dLhigh : 20.1mg /dL low BUN 8.4 (L) 9.8 - 20.1 mg/dL 06/06 5:02 AM [facility] Not Available Not Available 08/28/2024 10:42:06 06/06/19 25 06/06/2024 Compr DS [employer] pieter [employer] olic 1999 panel - Serum or Plasm a creatinine [mass/volume ] in serum or plasma 0.66 mg/dL low: 0.57mg /dLhig h: 1.11mg /dL Creat inine 0.66 0.57 - 1.11 mg/dL 06/06 5:02 AM [facility] Not Available Not Available 08/28/2024 10:42:06 06/06/19 25 06/06/2024 Compr Moblyngens pieter metab olic 1999 panel - Serum or Plasm a alkaline phosphatase [enzymatic activity/vol ume] in serum or plasma 63 U/L low: 40U/Lh igh: 150U/L Alkal ine Phosp hatas e 63 40 - 150 U/L 06/06 5:02 AM [facility] Not Available Not Available 08/28/2024 10:42:06 06/06/19 25 06/06/2024 Compr DS [employer] pieter metab olic 2000 panel - Serum or Plasm a alanine aminotransfe rase [enzymatic activity/vol ume] in serum or plasma 8 U/L high: 55U/L ALT 8 <=55 U/L 06/06 5:02 AM [facility] Not Available Not Available 08/28/2024 10:42:06 06/06/19 25 06/06/2024 Compr [employer] pieter metab olic 2000 panel - Serum or Plasm a aspartate aminotransfe rase [enzymatic activity/vol ume] in serum or plasma 13 U/L low: 5U/Lhi gh: 34U/L AST 13 5 - 34 U/L 06/06 5:[address] [facility] [employer] LABOR ATORY Not Available Not Available 08/28/2024 10:42:06 06/06/19 25 06/06/2024 Compr Moblyngens pieter metab olic 1999 panel - Serum or Plasm a protein [mass/volume ] in serum or plasma 5.8 text: 6.4 - 8.3 gm/dL low Prote in Total 5.8 (L) 6.4 - 8.3 gm/dL 06/06 5:02 AM [facility] [employer] ATORY Not Available Not Available 08/28/2024 10:42:06 06/06/19 25 06/06/2024 Compr Moblyngens pieter metab olic 1999 panel - Serum or Plasm a albumin [mass/volume ] in serum or plasma 3.2 text: 3.4 - 4.8 gm/dL low Album in 3.2 (L) 3.4 - 4.8 gm/dL 06/06 5:02 AM [facility] [employer] ATORY Not Available Not Available 08/28/2024 10:42:06 06/06/19 25 06/06/2024 Compr Moblyngens pieter [employer] olic 2000 panel - Serum or Plasm a globulin [mass/volume ] in urine by calculation 2.6 text: 2.6 - 4.0 gm/dL Globu shiraz Total 2.6 2.6 - 4.0 gm/dL 06/06 5:02 AM [facility] AT[facility] Not Available Not Available 08/28/2024 10:42:06 06/06/19 25 06/06/2024 Compr ehens pieter metab olic 2000 panel - Serum or Plasm a albumin/glob ulin [mass ratio] in serum or plasma 1.2 low: 0.9hig h: 1.6 Album in/Gl obuli n Ratio 1.2 0.9 - 1.6 06/06 5:02 AM [facility] AT[facility] Not Available Not Available 08/28/2024 10:42:06 06/06/19 25 06/06/2024 Compr ehens pieter metab olic 1999 panel - Serum or Plasm a bilirubin.to alyssa [mass/volume ] in serum or plasma 0.4 mg/dL low: 0.2mg/ dLhigh : 1.2mg/ dL Bilir ubin Total 0.4 0.2 - 1.2 mg/dL 06/06 5:02 AM [facility] AT[facility] Not Available Not Available 08/28/2024 10:42:06 06/06/19 25 06/06/2024 Compr ehens pieter metab olic 2000 panel - Serum or Plasm a glomerular filtration rate [volume rate/area] in serum, plasma or blood by creatinine-b ased formula (CKD-epi 2020)/1.73 sq M text: >90 mL/min /1.73m 2 eGFR >90 >90 mL/mi n/1.7 3m2 06/06 5:02 AM [facility] ATORY Not Available Not Available 08/28/2024 10:42:06 06/06/19 25 06/06/2024 Compr ehens pieter metab olic 2000 panel - Serum or Plasm a interpretati on and review of laboratory results Abnorm al Not Available Not Available 10:42:06 06/06/19 25 06/06/2024 CBC W Auto Diffe renti al panel - Blood leukocytes [#/volume] in blood by automated count 7.2 text: 4.0 - 10.7 x10e9/ L WBC 7.2 4.0 - 10.7 x10E9 /L 06/06 4:42 AM [facility] ATORY Not Available Not Available 08/28/2024 10:42:06 06/06/19 25 06/06/2024 CBC W Auto Diffe renti al panel - Blood erythrocytes [#/volume] in blood by automated count 4.11 text: 3.90 - 5.20 x10e12 /L RBC Count 4.11 3.90 - 5.20 x10E1 2/L 06/06 4:42 AM [facility] LABOR ATORY Not Available Not Available 08/28/2024 10:42:06 06/06/1906/06/2024 CBC W Auto Diffe renti al panel - Blood hemoglobin [mass/volume ] in blood 11 g/dL low: 11.9g/ dLhigh : 15.8g/ dL low Hemog lobin 11.0 (L) 11.9 - 15.8 g/dL 06/06 4:42 AM [facility] AT[facility] Not Available Not Available 08/28/2024 10:42:06 06/06/1906/06/2024 CBC W Auto Diffe renti al panel - Blood hematocrit [volume fraction] of blood by automated count 33.7 % low: 34.8%h igh: 46.1% low Hemat ocrit 33.7 (L) 34.8 - 46.1 % 06/06 4:42 AM [facility] AT[facility] Not Available Not Available 08/28/2024 10:42:06 06/06/1906/06/2024 CBC W Auto Diffe renti al panel - Blood MCV [entitic mean volume] in red blood cells by automated count 82 fL low: 80fLhi gh: 98fL MCV 82.0 80.0 - 98.0 fL 06/06 4:42 AM [facility] AT[facility] Not Available Not Available 08/28/2024 10:42:06 06/06/1906/06/2024 CBC W Auto Diffe renti al panel - Blood MCH [entitic mass] by automated count 26.8 pg low: 26.7pg high: 33.6pg MCH 26.8 26.7 - 33.6 pg 06/06 4:42 AM [facility] AT[facility] Not Available Not Available 08/28/2024 10:42:06 06/06/1906/06/2024 CBC W Auto Diffe renti al panel - Blood MCHC [entitic mass/volume] in red blood cells by automated count 32.6 g/dL low: 31.7g/ dLhigh : 36.3g/ dL MCHC 32.6 31.7 - 36.3 g/dL 06/06 4:42 AM [facility] AT[facility] Not Available Not Available 08/28/2024 10:42:06 06/06/19 25 06/06/2024 CBC W Auto Diffe renti al panel - Blood erythrocyte [distwidth] in red blood cells by automated count 15.2 % low: 11.3%h igh: 14.8% high RDW-C V 15.2 (H) 11.3 - 14.8 % 06/06 4:42 AM [facility] AT[facility] Not Available Not Available 08/28/2024 10:42:06 06/06/19 25 06/06/2024 CBC W Auto Diffe renti al panel - Blood platelets [#/volume] in blood by automated count 179 text: 150 - 420 x10e9/ L Plate let Count 179 150 - 420 x10E9 /L 06/06 4:42 AM [facility] Not Available Not Available 08/28/2024 10:42:06 06/06/19 25 06/06/2024 CBC W Auto Diffe renti al panel - Blood platelet [entitic mean volume] in blood by automated count 10.7 fL low: 7.8fLh igh: 11.4fL MPV 10.7 7.8 - 11.4 fL 06/06 4:42 AM [facility] Not Available Not Available 08/28/2024 10:42:06 06/06/19 25 06/06/2024 CBC W Auto Diffe renti al panel - Blood neutrophils/ leukocytes in blood by automated count 65.5 % low: 41%hig h: 74% Neutr ophil % 65.5 41.0 - 74.0 % 06/06 4:42 AM [facility] Not Available Not Available 08/28/2024 10:42:06 06/06/19 25 06/06/2024 CBC W Auto Diffe renti al panel - Blood lymphocytes/ leukocytes in blood by automated count 17 % low: 17%hig h: 47% Lymph ocyte % 17.0 17.0 - 47.0 % 06/06 4:42 AM [facility] ATORY Not Available Not Available 08/28/2024 10:42:06 06/06/19 25 06/06/2024 CBC W Auto Diffe renti al panel - Blood monocytes/le ukocytes in blood by automated count 16.3 % low: 3%high : 11% high Monoc yte % 16.3 (H) 3.0 - 11.0 % 06/06 4:42 AM [facility] ATORY Not Available Not Available 08/28/2024 10:42:06 06/06/19 25 06/06/2024 CBC W Auto Diffe renti al panel - Blood eosinophils/ leukocytes in blood by automated count 0.7 % low: 0%high : 7% Eosin ophil % 0.7 0.0 - 7.0 % 06/06 4:42 AM [facility] ATORY Not Available Not Available 08/28/2024 10:42:06 06/06/19 25 06/06/2024 CBC W Auto Diffe renti al panel - Blood basophils/le ukocytes in blood by automated count 0.1 % low: 0%high : 1.6% Basop hil % 0.1 0.0 - 1.6 % 06/06 4:42 AM [facility] AT[facility] Not Available Not Available 08/28/2024 10:42:06 06/06/19 25 06/06/2024 CBC W Auto Diffe renti al panel - Blood immature granulocytes /leukocytes in blood by automated count 0.4 % low: 0%high : 1% Immat ure Granu locyt es % 0.4 0.0 - 1.0 % 06/06 4:42 AM [facility] ATORY Not Available Not Available 08/28/2024 10:42:06 06/06/19 25 06/06/2024 CBC W Auto Diffe renti al panel - Blood neutrophils [#/volume] in blood by automated count 4.72 text: 1.60 - 7.50 x10e9/ L Neutr ophil Absol [place] 4.72 1.60 - 7.50 x10E9 /L 06/06 4:42 AM [facility] ATORY Not Available Not Available 08/28/2024 10:42:06 06/06/19 25 06/06/2024 CBC W Auto Diffe renti al panel - Blood lymphocytes [#/volume] in blood by automated count 1.23 text: 1.00 - 4.40 x10e9/ L Lymph ocyte Absol [place] 1.23 1.00 - 4.40 x10E9 /L 06/06 4:42 AM [facility] ATORY Not Available Not Available 08/28/2024 10:42:06 06/06/1906/06/2024 CBC W Auto Diffe renti al panel - Blood monocytes [#/volume] in blood by automated count 1.18 text: 0.15 - 1.00 x10e9/ L high Monoc yte Absol [place] 1.18 (H) 0.15 - 1.00 x10E9 /L 06/06 4:42 AM [facility] LAB[facility] ATORY Not Available Not Available 08/28/2024 10:42:06 06/06/1906/06/2024 CBC W Auto Diffe renti al panel - Blood eosinophils [#/volume] in blood 0.05 text: 0.00 - 0.60 x10e9/ L Eosin ophil Absol [place] 0.05 0.00 - 0.60 x10E9 /L 06/06 4:42 AM [facility] ATORY Not Available Not Available 08/28/2024 10:42:06 06/06/19 25 06/06/2024 CBC W Auto Diffe renti al panel - Blood basophils [#/volume] in blood by automated count 0.01 text: 0.00 - 0.13 x10e9/ L Basop hil Absol [place] 0.01 0.00 - 0.13 x10E9 /L 06/06 4:42 AM [facility] LAB[facility] ATORY Not Available Not Available 08/28/2024 10:42:06 06/06/1906/06/2024 CBC W Auto Diffe renti al panel - Blood interpretati on and review of laboratory results Abnorm al Not Available Not Available 10:42:06 06/07/19 25 06/07/2024 Basic metab olic 2000 panel - Serum or Plasm a glucose [mass/volume ] in serum or plasma 94 mg/dL low: 70mg/d Lhigh: 125mg/ dL Gluco se 94 70 - 125 mg/dL 06/07 6:34 AM [facility] ATORY Not Available Not Available 08/28/2024 10:42:06 06/07/19 25 06/07/2024 Basic metab olic 2000 panel - Serum or Plasm a sodium [moles/volum e] in serum or plasma 136 mmol/ L low: 136mmo l/Lhig h: 145mmo l/L Sodiu m 136 136 - 145 mmol/ L 06/07 6:34 AM [facility] LAB[facility] ATORY Not Available Not Available 08/28/2024 10:42:06 06/07/19 25 06/07/2024 Basic metab olic 2000 panel - Serum or Plasm a potassium [moles/volum e] in serum or plasma 3.9 mmol/ L low: 3.4mmo l/Lhig h: 5.1mmo l/L Potas sium 3.9 3.4 - 5.1 mmol/ L 06/07 6:34 AM [facility] ATORY Not Available Not Available 08/28/2024 10:42:06 06/07/19 25 06/07/2024 Basic metab olic 2000 panel - Serum or Plasm a chloride [moles/volum e] in serum or plasma 109 mmol/ L low: 98mmol /Lhigh : 107mmo l/L high Chlor melecio 109 (H) 98 - 107 mmol/ L 06/07 6:34 AM [facility] AT[facility] Not Available Not Available 08/28/2024 10:42:06 06/07/19 25 06/07/2024 Basic metab olic 2000 panel - Serum or Plasm a carbon dioxide, total [moles/volum e] in serum or plasma 23 mmol/ L low: 22mmol /Lhigh : 29mmol /L CO2 23 22 - 29 mmol/ L 06/07 6:34 AM [facility] ATORY Not Available Not Available 08/28/2024 10:42:06 06/07/19 25 06/07/2024 Basic metab olic 2000 panel - Serum or Plasm a calcium [mass/volume ] in serum or plasma 8.47 mg/dL low: 8.4mg/ dLhigh : 10.2mg /dL Calci um 8.47 8.4 - 10.2 mg/dL 06/07 6:34 AM [facility] LAB[facility] ATORY Not Available Not Available 08/28/2024 10:42:06 06/07/19 25 06/07/2024 [employer] panel - Serum or Plasm a anion gap in blood by calculation 4 mmol/ L low: 6mmol/ Lhigh: 16mmol /L low Anion Gap 4 (L) 6 - 16 mmol/ L 06/07 6:34 AM [facility] LAB[facility] ATORY Not Available Not Available 08/28/2024 10:42:06 06/07/19 25 06/07/2024 Basic [employer] olic 2000 panel - Serum or Plasm a urea nitrogen [mass/volume ] in serum or plasma 5.8 mg/dL low: 9.8mg/ dLhigh : 20.1mg /dL low BUN 5.8 (L) 9.8 - 20.1 mg/dL 06/07 6:34 AM [facility] AT[facility] Not Available Not Available 08/28/2024 10:42:06 06/07/19 25 06/07/2024 Basic [employer] 2000 panel - Serum or Plasm a creatinine [mass/volume ] in serum or plasma 0.57 mg/dL low: 0.57mg /dLhig h: 1.11mg /dL Creat inine 0.57 0.57 - 1.11 mg/dL 06/07 6:34 AM [facility] ATORY Not Available Not Available 08/28/2024 10:42:06 06/07/19 25 06/07/2024 [email or web address] 2000 panel - Serum or Plasm a glomerular filtration rate [volume rate/area] in serum, plasma or blood by creatinine-b ased formula (CKD-epi 2020)/1.73 sq M text: >90 mL/min /1.73m 2 eGFR >90 >90 mL/mi n/1.7 3m2 06/07 6:34 AM [facility] LAB[facility] ATORY Not Available Not Available 08/28/2024 10:42:06 06/07/19 25 06/07/2024 [employer] 2000 panel - Serum or Plasm a interpretati on and review of laboratory results Abnorm al Not Available Not Available 10:42:06 06/07/19 25 06/07/2024 CBC W Auto Diffe renti al panel - Blood leukocytes [#/volume] in blood by automated count 7.2 text: 4.0 - 10.7 x10e9/ L WBC 7.2 4.0 - 10.7 x10E9 /L 06/07 6:10 AM [facility] LABOR ATORY Not Available Not Available 08/28/2024 10:42:06 06/07/19 25 06/07/2024 CBC W Auto Diffe cathyti al panel - Blood erythrocytes [#/volume] in blood by automated count 3.76 text: 3.90 - 5.20 x10e12 /L low RBC Count 3.76 (L) 3.90 - 5.20 x10E1 2/L 06/07 6:10 AM [facility] LABOR ATORY Not Available Not Available 08/28/2024 10:42:06 06/07/1906/07/2024 CBC W Auto Diffe cyrus al panel - Blood hemoglobin [mass/volume ] in blood 10.3 g/dL low: 11.9g/ dLhigh : 15.8g/ dL low Hemog lobin 10.3 (L) 11.9 - 15.8 g/dL 06/07 6:10 AM [facility] LAB[facility] ATORY Not Available Not Available 08/28/2024 10:42:06 06/07/19 25 06/07/2024 CBC W Auto Diffe cyrus coy panel - Blood hematocrit [volume fraction] of blood by automated count 31.6 % low: 34.8%h igh: 46.1% low Hemat ocrit 31.6 (L) 34.8 - 46.1 % 06/07 6:10 AM [facility] LAB[facility] ATORY Not Available Not Available 08/28/2024 10:42:06 06/07/19 25 06/07/2024 CBC W Auto Diffe cathyti al panel - Blood MCV [entitic mean volume] in red blood cells by automated count 84 fL low: 80fLhi gh: 98fL MCV 84.0 80.0 - 98.0 fL 06/07 6:10 AM [facility] ATORY Not Available Not Available 08/28/2024 10:42:06 06/07/19 25 06/07/2024 CBC W Auto Diffe cathyti al panel - Blood MCH [entitic mass] by automated count 27.4 pg low: 26.7pg high: 33.6pg MCH 27.4 26.7 - 33.6 pg 06/07 6:10 AM [facility] ATORY Not Available Not Available 08/28/2024 10:42:06 06/07/19 25 06/07/2024 CBC W Auto Diffe renti al panel - Blood MCHC [entitic mass/volume] in red blood cells by automated count 32.6 g/dL low: 31.7g/ dLhigh : 36.3g/ dL MCHC 32.6 31.7 - 36.3 g/dL 06/07 6:10 AM [facility] AT[facility] Not Available Not Available 08/28/2024 10:42:06 06/07/19 25 06/07/2024 CBC W Auto Diffe renti al panel - Blood erythrocyte [distwidth] in red blood cells by automated count 15.6 % low: 11.3%h igh: 14.8% high RDW-C V 15.6 (H) 11.3 - 14.8 % 06/07 6:10 AM [facility] AT[facility] Not Available Not Available 08/28/2024 10:42:06 06/07/19 25 06/07/2024 CBC W Auto Diffe renti al panel - Blood platelets [#/volume] in blood by automated count 196 text: 150 - 420 x10e9/ L Plate let Count 196 150 - 420 x10E9 /L 06/07 6:10 AM [facility] AT[facility] Not Available Not Available 08/28/2024 10:42:06 06/07/19 25 06/07/2024 CBC W Auto Diffe renti al panel - Blood platelet [entitic mean volume] in blood by automated count 10.9 fL low: 7.8fLh igh: 11.4fL MPV 10.9 7.8 - 11.4 fL 06/07 6:10 AM [facility] LAB[facility] ATORY Not Available Not Available 08/28/2024 10:42:06 06/07/19 25 06/07/2024 CBC W Auto Diffe renti al panel - Blood neutrophils/ leukocytes in blood by automated count 63.2 % low: 41%hig h: 74% Neutr ophil % 63.2 41.0 - 74.0 % 01/12 /2025 6:10 AM REH[facility] SERVICES AIDE [employer] LABOR ATORY Not Available Not Available 08/28/2024 10:42:06 06/07/19 25 06/07/2024 CBC W Auto Diffe renti al panel - Blood lymphocytes/ leukocytes in blood by automated count 19.7 % low: 17%hig h: 47% Lymph ocyte % 19.7 17.0 - 47.0 % 06/07 6:10 AM [facility] [place] [facility] Not Available Not Available 08/28/2024 10:42:06 06/07/19 25 06/07/2024 CBC W Auto Diffe renti al panel - Blood monocytes/le ukocytes in blood by automated count 15.1 % low: 3%high : 11% high Monoc yte % 15.1 (H) 3.0 - 11.0 % 06/07 6:10 AM [facility] ATORY Not Available Not Available 08/28/2024 10:42:06 06/07/19 25 06/07/2024 CBC W Auto Diffe renti al panel - Blood eosinophils/ leukocytes in blood by automated count 1.4 % low: 0%high : 7% Eosin ophil % 1.4 0.0 - 7.0 % 06/07 6:10 AM [facility] ATORY Not Available Not Available 08/28/2024 10:42:06 06/07/19 25 06/07/2024 CBC W Auto Diffe renti al panel - Blood basophils/le ukocytes in blood by automated count 0.3 % low: 0%high : 1.6% Basop hil % 0.3 0.0 - 1.6 % 06/07 6:10 AM [facility] Not Available Not Available 08/28/2024 10:42:06 06/07/19 25 06/07/2024 CBC W Auto Diffe renti al panel - Blood immature granulocytes /leukocytes in blood by automated count 0.3 % low: 0%high : 1% Immat ure Granu locyt es % 0.3 0.0 - 1.0 % 06/07 6:10 AM [facility] Not Available Not Available 08/28/2024 10:42:06 06/07/19 25 06/07/2024 CBC W Auto Diffe renti al panel - Blood neutrophils [#/volume] in blood by automated count 4.52 text: 1.60 - 7.50 x10e9/ L Neutr ophil Absol [place] 4.52 1.60 - 7.50 x10E9 /L 06/07 6:10 AM [facility] Not Available Not Available 08/28/2024 10:42:06 06/07/19 25 06/07/2024 CBC W Auto Diffe renti al panel - Blood lymphocytes [#/volume] in blood by automated count 1.41 text: 1.00 - 4.40 x10e9/ L Lymph ocyte Absol [place] 1.41 1.00 - 4.40 x10E9 /L 06/07 6:10 AM [facility] Not Available Not Available 08/28/2024 10:42:06/07/1906/07/2024 CBC W Auto Diffe renti al panel - Blood monocytes [#/volume] in blood by automated count 1.08 text: 0.15 - 1.00 x10e9/ L high Monoc yte Absol [place] 1.08 (H) 0.15 - 1.00 x10E9 /L 06/07 6:10 AM [facility] Not Available Not Available 08/28/2024 10:42:06 06/07/19 25 06/07/2024 CBC W Auto Diffe renti al panel - Blood eosinophils [#/volume] in blood 0.1 text: 0.00 - 0.60 x10e9/ L Eosin ophil Absol [place] 0.10 0.00 - 0.60 x10E9 /L 06/07 6:10 AM [facility] ATORY Not Available Not Available 08/28/2024 10:42:06 06/07/19 25 06/07/2024 CBC W Auto Diffe renti al panel - Blood basophils [#/volume] in blood by automated count 0.02 text: 0.00 - 0.13 x10e9/ L Basop hil Absol [place] 0.02 0.00 - 0.13 x10E9 /L 06/07 6:10 AM [facility] ATORY Not Available Not Available 08/28/2024 10:42:06 06/07/19 25 06/07/2024 CBC W Auto Diffe renti al panel - Blood interpretati on and review of laboratory results Abnorm al Not Available Not Available 10:42:06 06/08/19 25 06/08/2024 Basic metab olic 2000 panel - Serum or Plasm a glucose [mass/volume ] in serum or plasma 86 mg/dL low: 70mg/d Lhigh: 125mg/ dL Gluco se 86 70 - 125 mg/dL 06/08 5:14 AM [facility] ATORY Not Available Not Available 08/28/2024 10:42:06 06/08/19 25 06/08/2024 Basic metab olic 2000 panel - Serum or Plasm a sodium [moles/volum e] in serum or plasma 139 mmol/ L low: 136mmo l/Lhig h: 145mmo l/L Sodiu m 139 136 - 145 mmol/ L 06/08 5:14 AM [facility] ATORY Not Available Not Available 08/28/2024 10:42:06 06/08/19 25 06/08/2024 Basic metab olic 2000 panel - Serum or Plasm a potassium [moles/volum e] in serum or plasma 3.7 mmol/ L low: 3.4mmo l/Lhig h: 5.1mmo l/L Potas sium 3.7 3.4 - 5.1 mmol/ L 06/08 5:14 AM [facility] ATORY Not Available Not Available 08/28/2024 10:42:06 06/08/19 25 06/08/2024 Basic metab olic 2000 panel - Serum or Plasm a chloride [moles/volum e] in serum or plasma 110 mmol/ L low: 98mmol /Lhigh : 107mmo l/L high Chlor melecio 110 (H) 98 - 107 mmol/ L 06/08 5:14 AM [facility] ATORY Not Available Not Available 08/28/2024 10:42:06 06/08/19 25 06/08/2024 Basic metab olic 2000 panel - Serum or Plasm a carbon dioxide, total [moles/volum e] in serum or plasma 22 mmol/ L low: 22mmol /Lhigh : 29mmol /L CO2 22 22 - 29 mmol/ L 06/08 5:14 AM [facility] [employer] LAB[facility] ATORY Not Available Not Available 08/28/2024 10:42:06 06/08/19 25 06/08/2024 Basic metab olic 2000 panel - Serum or Plasm a calcium [mass/volume ] in serum or plasma 8.63 mg/dL low: 8.4mg/ dLhigh : 10.2mg /dL Calci um 8.63 8.4 - 10.2 mg/dL 06/08 5:14 AM [facility] [employer] ATORY Not Available Not Available 08/28/2024 10:42:06 06/08/19 25 06/08/2024 Basic metab olic 2000 panel - Serum or Plasm a anion gap in blood by calculation 7 mmol/ L low: 6mmol/ Lhigh: 16mmol /L Anion Gap 7 6 - 16 mmol/ L 06/08 5:14 AM [facility] [employer] ATORY Not Available Not Available 08/28/2024 10:42:06 06/08/19 25 06/08/2024 Basic metab olic 2000 panel - Serum or Plasm a urea nitrogen [mass/volume ] in serum or plasma 6.5 mg/dL low: 9.8mg/ dLhigh : 20.1mg /dL low BUN 6.5 (L) 9.8 - 20.1 mg/dL 06/08 5:[address] [facility] ATORY Not Available Not Available 08/28/2024 10:42:06 06/08/19 25 06/08/2024 Basic metab olic 2000 panel - Serum or Plasm a creatinine [mass/volume ] in serum or plasma 0.55 mg/dL low: 0.57mg /dLhig h: 1.11mg /dL low Creat inine 0.55 (L) 0.57 - 1.11 mg/dL 06/08 5:14 AM [facility] [employer] ATORY Not Available Not Available 08/28/2024 10:42:06 06/08/19 25 06/08/2024 Basic metab olic 2000 panel - Serum or Plasm a glomerular filtration rate [volume rate/area] in serum, plasma or blood by creatinine-b ased formula (CKD-epi 2020)/1.73 sq M text: >90 mL/min /1.73m 2 eGFR >90 >90 mL/mi n/1.7 3m2 06/08 5:14 AM [facility] ATORY Not Available Not Available 08/28/2024 10:42:06 06/08/1906/08/2024 Basic metab olic 2000 panel - Serum or Plasm a interpretati on and review of laboratory results Abnorm al Not Available Not Available 10:42:06 06/08/1906/08/2024 CBC W Auto Diffe renti al panel - Blood leukocytes [#/volume] in blood by automated count 6.2 text: 4.0 - 10.7 x10e9/ L WBC 6.2 4.0 - 10.7 x10E9 /L 06/08 5:02 AM [facility] ATORY Not Available Not Available 08/28/2024 10:42:06 06/08/19 25 06/08/2024 CBC W Auto Diffe renti al panel - Blood erythrocytes [#/volume] in blood by automated count 3.86 text: 3.90 - 5.20 x10e12 /L low RBC Count 3.86 (L) 3.90 - 5.20 x10E1 2/L 06/08 5:02 AM [facility] ATORY Not Available Not Available 08/28/2024 10:42:06 06/08/19 25 06/08/2024 CBC W Auto Diffe renti al panel - Blood hemoglobin [mass/volume ] in blood 10.4 g/dL low: 11.9g/ dLhigh : 15.8g/ dL low Hemog lobin 10.4 (L) 11.9 - 15.8 g/dL 06/08 5:02 AM [facility] ATORY Not Available Not Available 08/28/2024 10:42:06 06/08/19 25 06/08/2024 CBC W Auto Diffe renti al panel - Blood hematocrit [volume fraction] of blood by automated count 32.2 % low: 34.8%h igh: 46.1% low Hemat ocrit 32.2 (L) 34.8 - 46.1 % 06/08 5:02 AM [facility] ATORY Not Available Not Available 08/28/2024 10:42:06 06/08/19 25 06/08/2024 CBC W Auto Diffe renti al panel - Blood MCV [entitic mean volume] in red blood cells by automated count 83.4 fL low: 80fLhi gh: 98fL MCV 83.4 80.0 - 98.0 fL 06/08 5:02 AM [facility] ATORY Not Available Not Available 08/28/2024 10:42:06 06/08/19 25 06/08/2024 CBC W Auto Diffe renti al panel - Blood MCH [entitic mass] by automated count 26.9 pg low: 26.7pg high: 33.6pg MCH 26.9 26.7 - 33.6 pg 06/08 5:02 AM [facility] ATORY Not Available Not Available 08/28/2024 10:42:06 06/08/19 25 06/08/2024 CBC W Auto Diffe renti al panel - Blood MCHC [entitic mass/volume] in red blood cells by automated count 32.3 g/dL low: 31.7g/ dLhigh : 36.3g/ dL MCHC 32.3 31.7 - 36.3 g/dL 06/08 5:02 AM [facility] ATORY Not Available Not Available 08/28/2024 10:42:06 06/08/19 25 06/08/2024 CBC W Auto Diffe renti al panel - Blood erythrocyte [distwidth] in red blood cells by automated count 15.3 % low: 11.3%h igh: 14.8% high RDW-C V 15.3 (H) 11.3 - 14.8 % 06/08 5:02 AM [facility] ATORY Not Available Not Available 08/28/2024 10:42:06 06/08/19 25 06/08/2024 CBC W Auto Diffe renti al panel - Blood platelets [#/volume] in blood by automated count 241 text: 150 - 420 x10e9/ L Plate let Count 241 150 - 420 x10E9 /L 06/08 5:02 AM [facility] ATORY Not Available Not Available 08/28/2024 10:42:06 06/08/19 25 06/08/2024 CBC W Auto Diffe renti al panel - Blood platelet [entitic mean volume] in blood by automated count 11.2 fL low: 7.8fLh igh: 11.4fL MPV 11.2 7.8 - 11.4 fL 06/08 5:02 AM [facility] ATORY Not Available Not Available 08/28/2024 10:42:06 06/08/19 25 06/08/2024 CBC W Auto Diffe renti al panel - Blood neutrophils/ leukocytes in blood by automated count 68.2 % low: 41%hig h: 74% Neutr ophil % 68.2 41.0 - 74.0 % 06/08 5:02 AM [facility] ATORY Not Available Not Available 08/28/2024 10:42:06 06/08/19 25 06/08/2024 CBC W Auto Diffe renti al panel - Blood lymphocytes/ leukocytes in blood by automated count 17.9 % low: 17%hig h: 47% Lymph ocyte % 17.9 17.0 - 47.0 % 06/08 5:02 AM [facility] ATORY Not Available Not Available 08/28/2024 10:42:06 06/08/19 25 06/08/2024 CBC W Auto Diffe renti al panel - Blood monocytes/le ukocytes in blood by automated count 12.2 % low: 3%high : 11% high Monoc yte % 12.2 (H) 3.0 - 11.0 % 06/08 5:02 AM [facility] ATORY Not Available Not Available 08/28/2024 10:42:06 06/08/19 25 06/08/2024 CBC W Auto Diffe renti al panel - Blood eosinophils/ leukocytes in blood by automated count 1.1 % low: 0%high : 7% Eosin ophil % 1.1 0.0 - 7.0 % 06/08 5:02 AM [facility] ATORY Not Available Not Available 08/28/2024 10:42:06 06/08/19 25 06/08/2024 CBC W Auto Diffe renti al panel - Blood basophils/le ukocytes in blood by automated count 0.3 % low: 0%high : 1.6% Basop hil % 0.3 0.0 - 1.6 % 06/08 5:02 AM [facility] ATORY Not Available Not Available 08/28/2024 10:42:06 06/08/19 25 06/08/2024 CBC W Auto Diffe renti al panel - Blood immature granulocytes /leukocytes in blood by automated count 0.3 % low: 0%high : 1% Immat ure Granu locyt es % 0.3 0.0 - 1.0 % 06/08 5:02 AM [facility] ATORY Not Available Not Available 08/28/2024 10:42:06 06/08/19 25 06/08/2024 CBC W Auto Diffe renti al panel - Blood neutrophils [#/volume] in blood by automated count 4.2 text: 1.60 - 7.50 x10e9/ L Neutr ophil Absol [place] 4.20 1.60 - 7.50 x10E9 /L 06/08 5:02 AM [facility] ATORY Not Available Not Available 08/28/2024 10:42:06 06/08/19 25 06/08/2024 CBC W Auto Diffe renti al panel - Blood lymphocytes [#/volume] in blood by automated count 1.1 text: 1.00 - 4.40 x10e9/ L Lymph ocyte Absol [place] 1.10 1.00 - 4.40 x10E9 /L 06/08 5:02 AM [facility] ATORY Not Available Not Available 08/28/2024 10:42:06 06/08/19 25 06/08/2024 CBC W Auto Diffe renti al panel - Blood monocytes [#/volume] in blood by automated count 0.75 text: 0.15 - 1.00 x10e9/ L Monoc yte Absol [place] 0.75 0.15 - 1.00 x10E9 /L 06/08 5:02 AM [facility] ATORY Not Available Not Available 08/28/2024 10:42:06 06/08/19 25 06/08/2024 CBC W Auto Diffe renti al panel - Blood eosinophils [#/volume] in blood 0.07 text: 0.00 - 0.60 x10e9/ L Eosin ophil Absol [place] 0.07 0.00 - 0.60 x10E9 /L 06/08 5:02 AM [facility] ATORY Not Available Not Available 08/28/2024 10:42:06 06/08/19 25 06/08/2024 CBC W Auto Diffe renti al panel - Blood basophils [#/volume] in blood by automated count 0.02 text: 0.00 - 0.13 x10e9/ L Basop hil Absol [place] 0.02 0.00 - 0.13 x10E9 /L 06/08 5:02 AM [facility] ATORY Not Available Not Available 08/28/2024 10:42:06 06/08/19 25 06/08/2024 CBC W Auto Diffe renti al panel - Blood interpretati on and review of laboratory results Abnorm al Not Available Not Available 10:42:06 06/09/19 25 06/09/2024 Basic metab olic 2000 panel - Serum or Plasm a glucose [mass/volume ] in serum or plasma 96 mg/dL low: 70mg/d Lhigh: 125mg/ dL Gluco se 96 70 - 125 mg/dL 06/09 5:18 AM [facility] ATORY Not Available Not Available 08/28/2024 10:42:07 06/09/19 25 06/09/2024 Basic metab olic 2000 panel - Serum or Plasm a sodium [moles/volum e] in serum or plasma 138 mmol/ L low: 136mmo l/Lhig h: 145mmo l/L Sodiu m 138 136 - 145 mmol/ L 06/09 5:18 AM [facility] ATORY Not Available Not Available 08/28/2024 10:42:07 06/09/19 25 06/09/2024 Basic metab olic 2000 panel - Serum or Plasm a potassium [moles/volum e] in serum or plasma 3.9 mmol/ L low: 3.4mmo l/Lhig h: 5.1mmo l/L Potas sium 3.9 3.4 - 5.1 mmol/ L 06/09 5:18 AM [facility] ATORY Not Available Not Available 08/28/2024 10:42:07 06/09/19 25 06/09/2024 Basic metab olic 2000 panel - Serum or Plasm a chloride [moles/volum e] in serum or plasma 107 mmol/ L low: 98mmol /Lhigh : 107mmo l/L Chlor melecio 107 98 - 107 mmol/ L 06/09 5:18 AM [facility] [employer] LABOR ATORY Not Available Not Available 08/28/2024 10:42:07 06/09/19 25 06/09/2024 Basic metab olic 2000 panel - Serum or Plasm a carbon dioxide, total [moles/volum e] in serum or plasma 25 mmol/ L low: 22mmol /Lhigh : 29mmol /L CO2 25 22 - 29 mmol/ L 06/09 5:18 AM [facility] [employer] LABOR ATORY Not Available Not Available 08/28/2024 10:42:07 06/09/1906/09/2024 Basic metab olic 2000 panel - Serum or Plasm a calcium [mass/volume ] in serum or plasma 9.15 mg/dL low: 8.4mg/ dLhigh : 10.2mg /dL Calci um 9.15 8.4 - 10.2 mg/dL 06/09 5:18 AM [facility] [employer] ATORY Not Available Not Available 08/28/2024 10:42:07 06/09/19 25 06/09/2024 Basic metab olic 2000 panel - Serum or Plasm a anion gap in blood by calculation 6 mmol/ L low: 6mmol/ Lhigh: 16mmol /L Anion Gap 6 6 - 16 mmol/ L 06/09 5:18 AM [facility] ATORY Not Available Not Available 08/28/2024 10:42:07 06/09/19 25 06/09/2024 Basic metab olic 2000 panel - Serum or Plasm a urea nitrogen [mass/volume ] in serum or plasma 6.6 mg/dL low: 9.8mg/ dLhigh : 20.1mg /dL low BUN 6.6 (L) 9.8 - 20.1 mg/dL 06/09 5:18 AM [facility] ATORY Not Available Not Available 08/28/2024 10:42:07 06/09/19 25 06/09/2024 Basic metab olic 2000 panel - Serum or Plasm a creatinine [mass/volume ] in serum or plasma 0.58 mg/dL low: 0.57mg /dLhig h: 1.11mg /dL Creat inine 0.58 0.57 - 1.11 mg/dL 06/09 5:18 AM [facility] ATORY Not Available Not Available 08/28/2024 10:42:07 06/09/1906/09/2024 Basic metab olic 2000 panel - Serum or Plasm a glomerular filtration rate [volume rate/area] in serum, plasma or blood by creatinine-b ased formula (CKD-epi 2020)/1.73 sq M text: >90 mL/min /1.73m 2 eGFR >90 >90 mL/mi n/1.7 3m2 06/09 5:18 AM [facility] ATORY Not Available Not Available 08/28/2024 10:42:07 06/09/1906/09/2024 Basic metab olic 2000 panel - Serum or Plasm a interpretati on and review of laboratory results Abnorm al Not Available Not Available 10:42:07 06/09/1906/09/2024 CBC W Auto Diffe renti al panel - Blood leukocytes [#/volume] in blood by automated count 5.3 text: 4.0 - 10.7 x10e9/ L WBC 5.3 4.0 - 10.7 x10E9 /L 06/09 4:57 AM [facility] ATORY Not Available Not Available 08/28/2024 10:42:07 06/09/19 25 06/09/2024 CBC W Auto Diffe renti al panel - Blood erythrocytes [#/volume] in blood by automated count 4.14 text: 3.90 - 5.20 x10e12 /L RBC Count 4.14 3.90 - 5.20 x10E1 2/L 06/09 4:57 AM [facility] ATORY Not Available Not Available 08/28/2024 10:42:07 06/09/1906/09/2024 CBC W Auto Diffe renti al panel - Blood hemoglobin [mass/volume ] in blood 11.1 g/dL low: 11.9g/ dLhigh : 15.8g/ dL low Hemog lobin 11.1 (L) 11.9 - 15.8 g/dL 06/09 4:57 AM [facility] ATORY Not Available Not Available 08/28/2024 10:42:07 06/09/19 25 06/09/2024 CBC W Auto Diffe renti al panel - Blood hematocrit [volume fraction] of blood by automated count 33.9 % low: 34.8%h igh: 46.1% low Hemat ocrit 33.9 (L) 34.8 - 46.1 % 06/09 4:57 AM [facility] ATORY Not Available Not Available 08/28/2024 10:42:07 06/09/19 25 06/09/2024 CBC W Auto Diffe renti al panel - Blood MCV [entitic mean volume] in red blood cells by automated count 81.9 fL low: 80fLhi gh: 98fL MCV 81.9 80.0 - 98.0 fL 06/09 4:57 AM [facility] ATORY Not Available Not Available 08/28/2024 10:42:07 06/09/19 25 06/09/2024 CBC W Auto Diffe renti al panel - Blood MCH [entitic mass] by automated count 26.8 pg low: 26.7pg high: 33.6pg MCH 26.8 26.7 - 33.6 pg 06/09 4:57 AM [facility] ATORY Not Available Not Available 08/28/2024 10:42:07 06/09/19 25 06/09/2024 CBC W Auto Diffe renti al panel - Blood MCHC [entitic mass/volume] in red blood cells by automated count 32.7 g/dL low: 31.7g/ dLhigh : 36.3g/ dL MCHC 32.7 31.7 - 36.3 g/dL 06/09 4:57 AM [facility] ATORY Not Available Not Available 08/28/2024 10:42:07 06/09/19 25 06/09/2024 CBC W Auto Diffe renti al panel - Blood erythrocyte [distwidth] in red blood cells by automated count 15.2 % low: 11.3%h igh: 14.8% high RDW-C V 15.2 (H) 11.3 - 14.8 % 06/09 4:57 AM [facility] ATORY Not Available Not Available 08/28/2024 10:42:07 06/09/19 25 06/09/2024 CBC W Auto Diffe renti al panel - Blood platelets [#/volume] in blood by automated count 283 text: 150 - 420 x10e9/ L Plate let Count 283 150 - 420 x10E9 /L 06/09 4:57 AM [facility] ATORY Not Available Not Available 08/28/2024 10:42:07 06/09/19 25 06/09/2024 CBC W Auto Diffe renti al panel - Blood platelet [entitic mean volume] in blood by automated count 10.6 fL low: 7.8fLh igh: 11.4fL MPV 10.6 7.8 - 11.4 fL 06/09 4:57 AM [facility] ATORY Not Available Not Available 08/28/2024 10:42:07 06/09/19 25 06/09/2024 CBC W Auto Diffe renti al panel - Blood neutrophils/ leukocytes in blood by automated count 58.3 % low: 41%hig h: 74% Neutr ophil % 58.3 41.0 - 74.0 % 06/09 4:57 AM [facility] ATORY Not Available Not Available 08/28/2024 10:42:07 06/09/19 25 06/09/2024 CBC W Auto Diffe renti al panel - Blood lymphocytes/ leukocytes in blood by automated count 27.1 % low: 17%hig h: 47% Lymph ocyte % 27.1 17.0 - 47.0 % 06/09 4:57 AM [facility] ATORY Not Available Not Available 08/28/2024 10:42:07 06/09/19 25 06/09/2024 CBC W Auto Diffe renti al panel - Blood monocytes/le ukocytes in blood by automated count 12.5 % low: 3%high : 11% high Monoc yte % 12.5 (H) 3.0 - 11.0 % 06/09 4:57 AM [facility] ATORY Not Available Not Available 08/28/2024 10:42:07 06/09/19 25 06/09/2024 CBC W Auto Diffe renti al panel - Blood eosinophils/ leukocytes in blood by automated count 1.5 % low: 0%high : 7% Eosin ophil % 1.5 0.0 - 7.0 % 06/09 4:57 AM [facility] ATORY Not Available Not Available 08/28/2024 10:42:07 06/09/19 25 06/09/2024 CBC W Auto Diffe renti al panel - Blood basophils/le ukocytes in blood by automated count 0.2 % low: 0%high : 1.6% Basop hil % 0.2 0.0 - 1.6 % 06/09 4:57 AM [facility] ATORY Not Available Not Available 08/28/2024 10:42:07 06/09/19 25 06/09/2024 CBC W Auto Diffe renti al panel - Blood immature granulocytes /leukocytes in blood by automated count 0.4 % low: 0%high : 1% Immat ure Granu locyt es % 0.4 0.0 - 1.0 % 06/09 4:57 AM [facility] ATORY Not Available Not Available 08/28/2024 10:42:07 06/09/19 25 06/09/2024 CBC W Auto Diffe renti al panel - Blood neutrophils [#/volume] in blood by automated count 3.07 text: 1.60 - 7.50 x10e9/ L Neutr ophil Absol [place] 3.07 1.60 - 7.50 x10E9 /L 06/09 4:57 AM [facility] ATORY Not Available Not Available 08/28/2024 10:42:07 06/09/19 25 06/09/2024 CBC W Auto Diffe renti al panel - Blood lymphocytes [#/volume] in blood by automated count 1.43 text: 1.00 - 4.40 x10e9/ L Lymph ocyte Absol [place] 1.43 1.00 - 4.40 x10E9 /L 06/09 4:57 AM [facility] ATORY Not Available Not Available 08/28/2024 10:42:07 06/09/19 25 06/09/2024 CBC W Auto Diffe renti al panel - Blood monocytes [#/volume] in blood by automated count 0.66 text: 0.15 - 1.00 x10e9/ L Monoc yte Absol [place] 0.66 0.15 - 1.00 x10E9 /L 06/09 4:57 AM [facility] [place] [facility] Not Available Not Available 08/28/2024 10:42:07 06/09/19 25 06/09/2024 CBC W Auto Diffe renti al panel - Blood eosinophils [#/volume] in blood 0.08 text: 0.00 - 0.60 x10e9/ L Eosin ophil Absol [place] 0.08 0.00 - 0.60 x10E9 /L 06/09 4:57 AM [facility] [place] [facility] Not Available Not Available 08/28/2024 10:42:07 06/09/19 25 06/09/2024 CBC W Auto Diffe renti al panel - Blood basophils [#/volume] in blood by automated count 0.01 text: 0.00 - 0.13 x10e9/ L Basop hil Absol [place] 0.01 0.00 - 0.13 x10E9 /L 06/09 4:57 AM [facility] [place] [facility] Not Available Not Available 08/28/2024 10:42:07 06/09/19 25 06/09/2024 CBC W Auto Diffe renti al panel - Blood interpretati on and review of laboratory results Abnorm al Not Available Not Available 10:42:07 11/23/19 23 11/22/2022 XR, hand No observ ation record ed. [facility] [address], [place], [address], 12/20/2022 11:14:36 11/24/19 23 11/22/2022 XR, hand No observ ation record ed. [facility] [address], [place], [address], 11/23/2022 11:58:12 Result Notes None recorded. Problems Name Problem SNOMED Code Status Onset Date Resolution Date Notes Provider Name and Address Organization Details Recorded Time History of drug abuse 828215134 Active 018 Shobha Francis PA-C Attn: Delonte g,[address] [facility], [place], [address], [facility] [place] 8 14:05:10 Mixed anxiety and depressive disorder [id number] Active 018 Shobha Francis PA-C Attn: Delonte strickland,[address] [facility], [place], [address], [facility] - [place] 8 14:05:12 [id number] Active 025 Karina Nassar [facility] [place] [place] - [place] 5 12:20:30 Problem Notes None recorded. Procedures Surgical History None recorded. Imaging Results Imaging Date Name Status LastModified by Organiz ation Details LastModified Time 11/22/2022 XR[facility] [address] [facility] [address], [place], [address], 12/20/2022 11:14:36 11/22/2022 XR, hand completed phillip [facility] [address], [place], [address], 11/23/2022 11:58:12 Procedure Notes None recorded. Medical Equipment None Reported. Allergies No known drug allergies Medications Name Sig Start Date Stop Date Status Note LastModified by Organization Details LastModified Time amoxicillin 500 mg capsule 08/28 completed Not Available Not Available Not Available buspirone 5 mg tablet 08/28 completed Not Available Not Available Not Available ropinirole 1 mg tablet 08/28 completed Not Available Not Available Not Available polyethylen e glycol 3350 17 gram oral powder packet 08/28 completed Not Available Not Available Not Available ibuprofen 800 mg tablet 08/28 completed Not Available Not Available Not Available alprazolam 1 mg tablet 08/28 completed Not Available Not Available Not Available hydrocodone 5 mg-acetamin ophen 325 mg tablet 08/28 completed Not Available Not Available Not Available prazosin 1 mg capsule Take 1 capsule every day by oral route at bedtime. 08/28 completed Not Available Not Available Not Available ondansetron HCl 8 mg tablet 08/28 completed Not Available Not Available Not Available metronidazo le 0.75 % (37.5 mg/5 gram) vaginal gel 08/28 completed Not Available Not Available Not Available topiramate 25 mg tablet 08/28 completed Not Available Not Available Not Available metronidazo le 500 mg tablet 08/28 completed Not Available Not Available Not Available acetaminoph en 300 mg-codeine 30 mg tablet 08/28 completed Not Available Not Available Not Available sulfamethox azole 800 mg-trimetho prim 160 mg tablet 08/28 completed Not Available Not Available Not Available tramadol 50 mg tablet 08/28 completed Not Available Not Available Not Available butalbital- acetaminoph en-caffeine 50 mg-325 mg-40 mg tablet 08/28 completed Not Available Not Available Not Available lamotrigine 25 mg tablet 08/28 completed Not Available Not Available Not Available alprazolam 0.5 mg tablet 08/28 completed Not Available Not Available Not Available potassium chloride ER 20 mEq tablet,exte nded release(par t/cryst) 08/28 completed Not Available Not Available Not Available DOK 100 mg capsule 08/28 completed Not Available Not Available Not Available doxycycline monohydrate 100 mg capsule 08/28 completed Not Available Not Available Not Available hydrocodone 7.5 mg-acetamin ophen 325 mg tablet 08/28 completed Not Available Not Available Not Available oseltamivir 75 mg capsule 08/28 completed Not Available Not Available Not Available ranitidine 150 mg tablet TAKE 1 TABLET BY MOUTH TWICE DAILY 08/28 completed Not Available Not Available Not Available buspirone 10 mg tablet 08/28 completed Not Available Not Available Not Available omeprazole 20 mg capsule,del ayed release 08/28 completed Not Available Not Available Not Available alcohol swabs 08/28 completed Not Available Not Available Not Available diclofenac sodium 50 mg tablet,martine yed release 08/28 completed Not Available Not Available Not Available mirtazapine 15 mg tablet Take 1 tablet every day by oral route at bedtime. 08/28 completed Not Available Not Available Not Available levofloxaci n 500 mg tablet 08/28 completed Not Available Not Available Not Available methylpredn isolone 4 mg tablets in a dose pack 08/28 completed Not Available Not Available Not Available albuterol sulfate HFA 90 mcg/actuati on aerosol inhaler Inhale 2 puffs every 4 hours by inhalatio n route as needed. 08/28 completed Not Available Not Available Not Available ondansetron 4 mg disintegrat ing tablet 08/28 completed Not Available Not Available Not Available medroxyprog esterone 150 mg/mL intramuscul ar suspension 08/28 completed Not Available Not Available Not Available lamotrigine 100 mg tablet Take 0.5 tablets every day by oral route. 08/28 completed Not Available Not Available Not Available naproxen 500 mg tablet 08/28 completed Not Available Not Available Not Available amoxicillin 875 mg-potassiu m clavulanate 125 mg tablet 08/28 completed Not Available Not Available Not Available escitalopra m 20 mg tablet Take 1 tablet every day by oral route in the morning. 08/28 completed Not Available Not Available Not Available cyclobenzap rine 5 mg tablet 08/28 completed Not Available Not Available Not Available nitrofurant oin monohydrate /macrocryst als 100 mg capsule 08/28 completed Not Available Not Available Not Available chlorhexidi ne gluconate 0.12 % mouthwash 08/28 completed Not Available Not Available Not Available active Not Available Not Avai lable Not Available Advocate Redi-Code strips 08/28 completed Not Available Not Available Not Available OneTouch Delica Lancets 30 gauge 08/28 completed Not Available Not Available Not Available OneTouch Ultra Blue Test Strip 08/28 completed Not Available Not Available Not Available OneTouch Ultra2 Meter 08/28 completed Not Available Not Available Not Available Vitals Date Recorded Body height Body mass index (BMI) Body weight Heart rate Respiratory rate Body temperature Oxygen saturation Oxygen saturation in Arterial blood by Pulse oximetry Systolic blood pressure Diastolic blood pressure Provider Name and Address Organization Details Last Updated DateTime 8 171.45 cm 23.8 kg/m2 93718.6 6 g 75 /min 16 /min 98.6 [degF] 100 % 100 % 106 mm[Hg] 72 mm[Hg] HUSSEIN Garber [place] - [facility] 8 09:28:45 Social History Question Answer Notes LastModified by Organization Details LastModified Time Tobacco Smoking Status Current Every Day Smoker Vapes Karina Hoytbreezy [place], [place] - [facility] 08/28/2024 12:19:46 What Is Your Level Of Alcohol Consumption? None Information not available 03/20/2018 What Is Your Level Of Caffeine Consumption? Occasional [email or web address] Information not available 08/28/2024 How Much Tobacco Do You Chew? None Information not available 03/20/2018 In The 14 Days Before Symptom Onset, Have You Had Close Contact With A Laboratory-confi rmed COVID-19 While That Case Was Ill? No [email or web address] Information not available 08/28/2024 In The 14 Days Before Symptom Onset, Have You Had Close Contact With A Person Who Is Under Investigation For COVID-19 While That Person Was Ill? No [email or web address] Information not available 08/28/2024 Have You Been To An Area Known To Be High Risk For COVID-19? No [email or web address] Information not available 08/28/2024 What Type Of Diet Are You Following? REGULAR Information not available 03/20/2018 Which Illicit Or Recreational Drugs Have You Used? None 7 Months Clean-used Benzo, Hydrocodone Information not available 03/20/2018 Do You Or Have You Ever Used E-cigarettes Or Vape? 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 No [email or web address] Information not available 08/28/2024 Hard Of Hearing Or Deaf In One Or Both Ears? No Information not available 03/20/2018 Legally Blind In One Or Both Eyes? No Information not available 03/20/2018 Marital Status Informatio n not available 03/20/2018 What Was The Date Of Your Most Recent Tobacco Screening? 08/28/2024 Information not available 08/28/2024 Performs Monthly Self-breast Exam? No Information not available 03/20/2018 Do You Have Smoke And Carbon Monoxide Detectors In Your Home? Yes [email or web address] Information not available 08/28/2024 How Much Tobacco Do You Smoke? No [email or web address] Information not available 08/28/2024 Do You Use Any Illicit Or Recreational Drugs? No [email or web address] Information not available 08/28/2024 Do You Use Sunscreen Routinely? Yes [email or web address] Information not available 08/28/2024 Has Tobacco Cessation Counseling Been Provided? Yes [email or web address] Information not available 08/28/2024 How Many Years Have You Smoked Tobacco? 7 Information not available 03/20/2018 Do You Or Have You Ever Used Any Other Forms Of Tobacco Or Nicotine? Yes Information not available 08/28/2024 Sex: Female Functional Status Question Answer Note LastModified by Organizat ion Details LastModified Time What is your exercise level? Occasional Information not available 03/20/2018 Mental Status None recorded. Family History Relationship Description Onset Age of this Age Resolved Age Notes LastModified by Organization Details LastModified Time Mother Chronic obstructive pulmonary disease [email or web address] Not available 2017 09:20:29 Mother Asthma [email or web address] Not available 1 09:20:35 Mother Hypothyroidi sm kyoungma Not available 2017 09:21:33 Mother Hypertensive disorder [email or web address] Not available 2024 12:18:30 Mother Diabetes mellitus [email or web address] Not available 2024 12:18:37 Maternal Grandmother Pulmonary emphysema kyoungma Not available 2017 09:20:50 Maternal Grandmother Diabetes mellitus [email or web address] Not available 2017 09:20:59 Maternal Grandmother Osteoporosis [email or web address] Not available 03/20/2018 09:21:16 Maternal Grandmother Hypertensive disorder [email or web address] Not available 2017 09:21:23 Maternal Grandmother Fibromyalgia [email or web address] Not available 03/20/2018 09:21:43 Notes:father's side unknown Medical History Condition Response Coronary Artery Disease N Other N Atrial Fibrillation N High Blood Pressure N Kidney or Bladder Problems Y Thyroid Problems N GI Problems N Depression Y COPD N Blood Clots N Skin Problems N Anemia N Heart Attack (MS) N Anxiety Disorder Y Diabetes N Muscle, Joint, or Bone Problems N Seizures/Epilepsy N Acid Reflux (GERD) Y Cancer N Stroke N Asthma Y Allergies Y High Cholesterol N Hepatitis Y Liver Disease N Headaches N Heart Failure N Osteoporosis N Gynecological History Statement/Question Response Flow Moderate Date of LMP 06/30/2024 Menses Monthly Y Duration of Flow (days) 5 Age at Menarche 15 Current Control Method Age at First Child 22 LMP Approximate Obstetrics History GPAL:G 4 P 2 0 1 2 Type Value Full Term 2 Spontaneous 1 Living 2 Total 4 Past Encounters Encounter ID Performer Location Encounter Start Date Encounter Closed Date Diagnosis/Indication Diagnosis SNOMED-CT Code Diagnosis ICD10 Code Diagnosis Note [id number] [facility] ([facility] [address] [place] [address] 03/20/2018 09:00:46 03/20/2018 18:03:37 Gastroesophageal reflux disease without esophagitis 222505849 K21.9 with cough and morning nausea, pain radiating to back, recommend low fat, low acid foods, avoid spicy foods, given list of food types to limit. Take H2 rob. Limit caffeine. She denies any alcohol use and quit smoking this past October. Long-term drug therapy 448500935 Z79.899 On lamotrigin e, remeron, escitalopr am and prazosin from psychiatry . She has not had labs done since she started meds. Recommend monitoring of kidney & liver function. With weight gain, check A1c. Adult [facility] examination 354837366 Z00.00 Exercise-i nduced asthma 33607902 J45.990 Not sure if truly asthma related sxs; hx of childhood asthma. She has clear lung exam today. Recommend treating GERD, use ihaler prior to exercise and PRN to see if it helps. f/u in 2-4 weeks if not improving. Corneal abrasion 1089877 2 S05.01XD had abrasion few months ago, feels similar sxs, less severe that started this past week. Recommend she see eye doctor, she said she was working on that. Ok to cont artificial tears as needed. Mixed anxi ety and depressive disorder 118788747 F41.8 Seeing carol ann ist, feels sxs are controlled on current meds, but she is gaining weight, likely from remeron. Recommend she reduce portions and once her shortness of breath improves, then increase exercise. History of drug abuse 37 8029695 F19.[address], recommend she discuss with her psychiatri st what med could be causing false ethanol positive test results. [id number] [facility] ([facility] [address] [place] [address] 04/30/2018 15:21:56 05/02/2018 13:01:47 Requires course of hepatitis B vaccination 551821527 Z23 Health Concerns Section Related Observation LastModified by Organization Detai ls LastModified Time None Recorded Concern Status LastModified by Organization Details LastModified Time None Recorded Advance Directives Directive None Recorded Payers Encounter Date Sequence Insurance Name Policy Number Policy Edward Covered Member ID Edward Member ID Guarantor Name 03/20/2018 1 [employer] - DOS PRIOR TO 2024 - [employer] () Maribel Contreraz [id number] Maribel Contreraz 04/30/2018 1 [employer] - [employer] PRIOR TO 2024 - [employer] () Maribel Contreraz [id number] Maribel Contreraz Notes Date Note Type Note Provider Name and Address Organization Details Recorded Time 03/20/2018 text/html Seeing psychiatrist HEEL GOUGER in [place], on [facility], but gaining weight since she started. She feels weight has leveled now that she is aware and has been able to reduce food portions, for a while she was waking up during the night and eating 5 bowls of cereal. She is going through drug court, has been clean, getting regular drug testing and going to NA meetings. h/o childhood asthma. getting short of breath with just reading, sweeping, mopping. trying to exercise, walking, hurt upper back and chest and struggling to breathe. Occasional wheeze. Quit smoking in October. Shobha Francis PA-C Attn: Accounting,[address] [facility], [place], [address], [facility] 03/20/2018 14:06:57 OBGyn Episode Ob Episode Information Episode Created Date Number of Fetuses Patient Bloodtype Patient rh Status Prepregnancy Weight lbs Domestic Partner Domestic Partner Phone Father Name City Carrier Status 08/29/19 25 1 CLOSED Fetus Data First Name Last Name Admitted to NICU Weight (g) Sex Living Outcome Pediatric Complications Fetus ID Race Codes Race Delivery Type F [id number] Vaginal Brett Calculation Initial Brett Date Initial Exam [...] Complications Tubal Sterilization Discharge Date Comments 3 37.5 Bi-lobe placenta with small tear. Also had preeclams ia, had to pe induced. Discharge Information Feeding Method Contraceptive Method Maternal HG B and HCT Levels Ob Episode Information Episode Created Date Number of Fetuses Patient Bloodtype Patient rh Status Prepregnancy Weight lbs Domestic Partner Domestic Partner Phone Father Name City Carrier Status 08/29/19 1 CLOSED Fetus Data First Name Last Name Admitted to NICU Weight (g) Sex Living Outcome Pediatric Complications Fetus ID Race Codes Race Delivery Type F [id number] Vaginal Brett Calculation Initial Brett Date Initial Exam [...] Complications Tubal Sterilization Discharge Date Comments 9 Had forceps . Had gestation al diabetes. Discharge Information Feeding Method Contraceptive Method Maternal HG B and HCT Levels Ob Episode Information Episode Created Date Number of Fetuses Patient Bloodtype Patient rh Status Prepregnancy Weight lbs Domestic Partner Domestic Partner Phone Father Name City Carrier Status 08/29/[address] Marcus Patrick OPEN Fetus Data First Name Last Name Admitted to NICU Weight (g) Sex Living Outcome Pediatric Complications Fetus ID Race Codes Race Delivery Type [id number] Brett Calculation Initial Brett Date Initial Exam Date Initial Exam Provider Initial Ultrasound Date Last Menstrual Period Date Ultra Sound Weeks Gestation 04/06/2025 08/28/2024 06/30/2024 0 Eighteen To Twenty Week Brett Update Ultra Sound Date Fundal Height At Umbil Quickening Date Ultra Sound Latest Weeks Gestation Final Brett Confirmed By Final Brett Confirmed Date Final Brett Date Ultra Sound Latest Days Gestation 0 0 Menstrual History Last Menstrual Date Menses Monthly On Bcp Conception Prior Menses Frequency Hcg Plus Date Menarche Onset Age 0206/30/2024 Genetic Screening And Infection History Question Response Note Patient's Age Will Be 35 Yea rs Or Older At Estimated Date of Delivery false Thalassemia (Khmer, Citizen Of [place], Mediterranean, Or Background): MCV < 80 false Neural Tube Defect (Meningom yelocele, Spina Bifida, Or Anencephaly) false Congenital Heart Defect true Patient' s brother from [place] in right ventricle Down Syndrome false Sherman-Sachs (eg, Scientology, Cajun , Belarusian-Beauregard) false Kindra Disease false Sickle Cell Disease Or Trait () false Hemophilia Or Other Blood Disorders false Muscular Dystrophy false Cystic Fibrosis false Philippe's Chorea false Mental Retardation/Autism false If Yes, Was Person Tested Fo r Fragile X? false Other Inherited Genetic Or C hromosomal Disorder false Maternal Metabolic Disorder (eg, Type 1 Diabetes, PKU) false Gestational diabetes Patient Or Baby's Father Had A Child With Defects Not Listed Above true Spinal stenosis Recurrent Loss, Or A Stillbirth false Medications (including Suppl ements, Vitamins, Herbs, OTC Drugs), Illicit/Recreational Drugs, Alcohol true If Yes, Agent(s) And Strength/Dosage true prenatals Any Other Genetic History false Live With Someone With TB Or Exposed To TB false Patient Or Partner Has Histo ry Of Genital Herpes false Rash Or Viral Illness Since Last Menstrual Period true Has had hive like rash on/of f since . PCP gave her cream. Previous had PUPS rash History Of STD, Gonorrhea, C hlamydia, HPV, Syphilis false Other Infection History false History of HIV false History of Hepatitis false Prior GBS-infected child false Delivery Information Delivery Date Delivery Type Labor Anesthesia Weeks Gestation Incision Type Labor Labor Length Hrs Delivered By Post Complications Tubal Sterilization Discharge Date Comments Discharge Information Feeding Method Contraceptive Method Maternal HG B and HCT Levels
--- OUTSIDE RECORDS SUMMARY | 2024-09-08 11:15 | XMS_ITS | Clinical Summary ---
Author Organization [facility] [employer] Address [address] [place] [address] Care Team Providers Care Air Hoist Operator Name Role Phone Huma Hall MD Unavailable [phone] Norah Ramirez APRN-COURT ABSTRACTOR Primary Care Provider Source Comments [facility],non-owned Affiliates and Associated Physician Practices is amultiple site organization consisting of ambulatory clinics and hospital sitesin [place], [place], [place] and [place]. This disclosure is being madepursuant to the Care Everywhere program and may not contain all information available regarding this patient. Last updated 18.[facility] [employer] Allergies No known active allergies Medications * This document contains information received from the source organization and may not represent a complete record from that organization. * Be aware that medications may not be up to date on this document. Alwaysverify current medications with the patient. gabapentin (Neurontin) 100 MG capsule Take 2 (two) capsules by mouth once daily for 7 days 14 capsule 4 Active Additional Information Patient not taking.Reason: Patient adjusted, Informant: Patient, Reported on 06/22/2024 lamoTRIgine (LaMICtal) 100 MG tablet Take 1 (one) tablet by mouth once daily for 7 days 7 tablet 4 Active traZODone (Desyrel) 50 MG tablet Take 1 (one) tablet by mouth at bedtime for 7 days 7 tablet 4 Active Additional Information Patient taking differently:50 mg OralAT BEDTIME PRN, Insomnia, Reason: Provider adjusted, Reported on 06/06/2024 ondansetron, disintegrating, (Zofran ODT) 4 MG tablet Take 1 (one) tablet to 2 (two) tablets by mouth every 6 hours as needed for Nausea/Vomiting Allow tablet to dissolve on the tongue 30 tablet 5 Active HYDROcodone-aakash taminophen (Bryant) 5-325 MG tabletIndicatio ns:Pyelonephrit is Take 1 (one) tablet by mouth every 6 hours as needed for Pain 16 tablet 5 Active Additional Information Patient not taking.Reason: Patient adjusted, Informant: Patient, Reported on 06/19/2024 ertapenem 1,000 mg in 0.9% NaCl IV 0.9 % 50 mL 1,000 (one thousand) mg by Intravenous route every 24 hours 13 Each 5 Active Active Problems Problem Noted Date Diagnosed Date Kidney abscess 06/09/2024 Nausea and vomiting 06/05/2024 Flank pain 06/05/2024 Nephroma, right 06/05/2024 Pyelonephritis 06/05/2024 Nausea and vomiting, unspecified vomiting type 0 06/05/2024 Injury of right hand 05/25/2024 Encounter for medication refill 05/25/2024 Major depression 09/17/2016 Generalized anxiety disorder 09/17/2016 Suicidal ideation 09/17/2016 Asthma 09/17/2016 Encounters Date Type Department Care Team Description 06/22/2024 8:00 AM ORE FIELDER - 06/22/2024 11:59 PM [facility] Hospital Encounter [facility] [address] [place] [address] Rosy Coe MD Discharge Disposition: Home or Self Care 06/21/2024 9:00 AM ORE FIELDER - 06/21/2024 11:59 PM [facility] Hospital Encounter [facility] [address] [place] [address] Rosy Coe MD Discharge Disposition: Home or Self Care 06/20/2024 8:03 AM ORE FIELDER - 06/20/2024 11:59 PM O[facility] FIEL[facility] Hospital Encounter [facility] [address] [place] [phone] Rosy Coe MD Discharge Disposition: Home or Self Care 06/19/2024 8:00 AM ORE FIELDER - 06/19/2024 11:59 PM O[facility] FIEL[facility] Hospital Encounter [facility] [address] [place] [phone] Rosy Coe MD Discharge Disposition: Home or Self Care 06/18/2024 8:30 AM ORE FIELDER - 06/18/2024 11:59 PM O[facility] FIELDER Hospital Encounter [facility] [address] [place] [phone] Rosy Coe MD Discharge Disposition: Home or Self Care 06/17/2024 8:30 AM ORE FIELDER - 06/17/2024 11:59 PM ORE FIELDER Hospital Encounter [facility] [address] [place] [phone] Rosy Coe MD Discharge Disposition: Home or Self Care 06/16/2024 8:30 AM ORE FIELDER - 06/16/2024 11:59 PM ORE FIELDER Hospital Encounter [facility] [address] [place] [phone] Rosy Coe MD Discharge Disposition: Home or Self Care 06/15/2024 9:00 AM ORE FIELDER - 06/15/2024 11:59 PM O[facility] FIEL[facility] Hospital Encounter [facility] [address] [place] [phone] Rosy Coe MD Discharge Disposition: Home or Self Care 06/14/2024 8:00 AM ORE FIELDER - 06/14/2024 11:59 PM ORE FIELDER Hospital Encounter [facility] [address] [place] [phone] Rosy Coe MD Discharge Disposition: Home or Self Care 06/13/2024 8:00 AM ORE FIELDER - 06/13/2024 11:59 PM ORE FIELDER Hospital Encounter [facility] [address] [place] [phone] Rosy Coe MD Discharge Disposition: Home or Self Care 06/12/2024 7:57 AM ORE FIELDER - 06/12/2024 11:59 PM O[facility] FIELDER Hospital Encounter [facility] [address] [place] [phone] Rosy Coe MD Discharge Disposition: Home or Self Care 06/11/2024 9:05 AM ORE FIELDER - 06/11/2024 11:59 PM ORE FIELDER Hospital Encounter [facility] [address] [place] [phone] Rosy Coe MD Discharge Disposition: Home or Self Care 06/10/2024 10:04 AM ORE FIELDER - 06/10/2024 11:59 PM ORE FIELDER Hospital Encounter [facility] [address] [place] [phone] Rosy Coe MD Discharge Disposition: Home or Self Care from Last 3 Months Family History Medical History Relation Name Comments Bipolar Disorder Maternal Grandfather Seizures Maternal Grandfather COPD - Chronic Obstructive Pulmonary Disease Maternal Grandmother Diabetes Maternal Grandmother Heart Failure Maternal Grandmother Asthma Mother Bipolar Disorder Mother COPD - Chronic Obstructive Pulmonary Disease Mother Bipolar Disorder Paternal Grandmother Relation Name Status Comments Maternal Grandfather Maternal Grandmother Mother Paternal Grandmother Social History Tobacco Use Types Packs/Day Years Used Date Smoking Tobacco: Former Cigarettes 0.5 6 Smokeless Tobacco: Former Quit: 10/31/2017 Tobacco Cessation:Counseling Given: Not Answered Alcohol Use Standard Drinks/Week Comments No 0 (1 standard drink = 0.6 oz pur e alcohol) AUDIT-C Answer Date Recorded Q1: How often do you have a drink containing alcohol? Never 06/06/2024 Q2: How many drinks containi ng alcohol do you have on a typical day when you are drinking? Patient does not drink Q3: How often do you have si x or more drinks on one occasion? Never 06/06/2024 Overall Financial Resource Strain (CARDIA) Answe r Date Recorded How hard is it for you to pa y for the very basics like food, housing, medical care, and heating? Not hard at all 06/06/2024 PHQ-2 Answer Date Recorded Patient Health Questionnaire-2 Score 0 06/22/2024 [facility] - Occupational Stress Questionnaire Answer Date Recorded Do you feel stress - tense, restless, nervous, or anxious, or unable to sleep at night because your mind is troubled all the time - these days? Not at all 06/06/2024 Hunger Vital Sign Answer Date Recorded Within the past 12 months, y ou worried that your food would run out before you got the money to buy more. Never true 06/06/19 25 Within the past 12 months, t he food you bought just didn't last and you didn't have money to get more. Never true 06/06/2024 PRAPARE - Transportation Answer Date Re corded In the past 12 months, has l ack of transportation kept you from medical appointments or from getting medications? No 05/27 In the past 12 months, has l ack of transportation kept you from meetings, work, or from getting things needed for daily living? No 06/06/2024 Housing Stability Vital Sign Answer Douglas e Recorded In the last 12 months, was t here a time when you were not able to pay the mortgage or rent on time? No 06/06/2024 In the past 12 months, how m any times have you moved where you were living? 1 06/06/2024 At any time in the past [address] [facility], were you homeless or living in a chcf (including now)? No 06/06/2024 Comments No Sex and Gender Information Value Date Recorded Sex Assigned at Female 02/26/2023 6:03 PM CDT Legal Sex Female 3:11 AM CDT Gender Identity Female 02/26/2023 6:03 PM CDT Sexual Orientation Not on file Last Filed Vital Signs Vital Sign Reading Time Taken Comments Blood Pressure 114/68 06/22/2024 8:10 AM ORE FIELDER Pulse 85 06/22/2024 8:10 AM ORE FIELDER Temperature 36.6 C (97.8 F) 06/22/2024 8:10 AM ORE FIELDER Respiratory Rate 16 06/22/2024 8:10 AM ORE FIELDER Oxygen Saturation 98% 06/22/2024 8:10 AM ORE FIELDER Inhaled Oxygen Concentration 21% 06/09/2024 7 :51 AM ORE FIELDER Weight 56.2 kg (124 lb) 06/12/2024 8:10 AM ORE FIELDER Height 175.3 cm (5' 9 ) 06/12/2024 8:10 AM ORE FIELDER Body Mass Index 18.31 06/12/2024 8:10 AM ORE FIELDER Plan of Treatment Health Maintenance Due Date Last Done Comments PAP SMEAR 1995 HIV SCREENING 2010 HEPATITIS C SCREENING 05/05/2013 DTAP/TDAP/TD VACCINES (1 - Tdap) 2014 HEPATITIS B VACCINE (1 of 3 - 19+ 3-dose series) 2014 PNEUMOCOCCAL VACCINE (1 of 2 - PCV) 2014 COVID-19 VACCINE (2 - 2023-2 5 season) 2024 12/23/2020 INFLUENZA VACCINE (Season Ended) 2025 03/16/2019 ZOSTER VACCINE (1 of 2) 2045 DEPRESSION SCREENING Completed 06/10/2024, 05/09/2024 HIB VACCINE Aged Out No longer eligi ble based on patient's age to complete this topic HPV VACCINE Aged Out No longer eligi ble based on patient's age to complete this topic MENINGOCOCCAL (Group B) VACCINE SHARED DECISION-MAKING Aged Out No longer eligible based on patient's age to complete this topic MENINGOCOCCAL GROUPS A/C/Y/W VACCINE Aged Out No longer eligible b ased on patient's age to complete this topic Procedures Procedure Name Priority Date/Time Associated Diagnosis Comments CARDIAC RHYTHM STRIP ORDER 06/12/2024 2:26 PM ORE FIELDER from Last 3 Months Results * CARDIAC RHYTHM STRIP ORDER (06/12/2024 2:26 PM ORE FIELDER) Narrative 06/12/2024 2:26 PM ORE FIELDER Ordered by an unspecified provider. us Scanned Document CARDIAC SERVICES ORDERABLES Fin al Result from Last 3 Months Additional Health Concerns Infection Onset Date Last Indicated ESBL GNR Comment:Urine 06/05/24; 05/09/2024 06/05/2024 Insurance [facility] [place] [address] [facility] MEDICAID - [place] Advance Directives * Full Code (Latest Code Status on File) Date Activated Date Inactivated Comments 06/05/2024 11:04 PM 06/09/2024 6:08 PM * Full Code Date Activated Date Inactivated Comments 06/05/2024 9:51 PM 06/05/2024 11:04 PM * Full Code Date Activated Date Inactivated Comments 09/16/2016 3:58 PM 09/20/2016 12:39 PM Care Teams Air Hoist Operator Relationship Specialty Start Date End Date Norah Ramirez, CAR DROPPER-COURT ABSTRACTOR [address] [place] [address] [place] [id number] PCP - General 08/01/22 Huma Hall MD [facility] [place] [phone] Family Medicine 10/06/18
== END 2024-09-08 11:24 | disposition home or self-care (01) ==
PROVIDERS: Emergency Provider Registered Nurse
DX: O23.41 Unspecified infection of urinary tract in pregnancy, first trimester (principal); N39.0 Urinary tract infection, site not specified; Z3A.08 8 weeks gestation of pregnancy; O99.330 Smoking (tobacco) complicating pregnancy, unspecified trimester; F17.290 Nicotine dependence, other tobacco product, uncomplicated
CPT/HCPCS: 81003; 87086; 87186; 99213; G0463

== ENCOUNTER 2025-01-19 15:00 | Emergency (ER) | payer OTHER, SELFPAY ==
--- OUTSIDE RECORDS SUMMARY | 2025-01-19 15:04 | XMS_ITS | Patient Health Record ---
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 Name Role Phone Monserrat Roach Primary Care Provider [phone] Butch Cooney Unavailable [phone] Marissa Magana Unavailable [phone] Rei Cool Unavailable [phone] Lorenza Means Unavailable [phone] Marline Cruz Unavailable [phone] Sabblut, Anjali Unavailable [phone] Allergies No Known Allergies Results Component Value Reference Range Notes Urinalysis In-House, Routine Reviewed date:06/23/2024 12:02:02 PM Interpretation: Performing Lab: Notes/Report: Leukocytes small Nitrite, Urine neg Urobilinogen,Semi-Qn 0.2 Protein neg pH 7.0 Occult Blood trace Specific [place] 1.030 Ketones neg Bilirubin neg Glucose neg UA/M w/rflx Culture, Comp Reviewed date:07/02/2024 08:05:29 AM Interpretation: Performing Lab:[facility] [place], [address] [facility], Phone - [phone], Director - Claudette Notes/Report: Specific [place] 1.014 1.005-1.030 pH 7.0 5.0-7.5 Urine-Color Yellow [...] date:06/28/2024 05:24:26 PM Interpretation: Performing Lab:[facility], [address] [facility], Phone - [phone], Director - Claudette Notes/Report: . NTI Miscellaneous [...] expedite testing. . NuSwab Vaginitis Plus (VG+) (790161) Reviewed date:07/05/2024 04:16:37 PM Interpretation:Abnormal Performing Lab:[facility] [place], [address] [place] [address], Phone - [phone], Director - Zenaida Notes/Report: Test(s) 651437- Atopobium vaginae; 028684- BVAB 2; 893349- Megasphaera 1 was developed and its performance characteristics determined by [facility]. It has not been cleared or approved by the Food and Drug Administration. Test(s) 210518-Xqvifdf albicans, TOBIAS; 846544-Jmkecdw glabrata, TOBIAS was developed and its performance characteristics determined by [facility]. It has not been cleared or approved [...] Negative Negative Neisseria gonorrhoeae, TOBIAS Negative Negative CBC With Differential/Platel et* Reviewed date:03/16/2024 01:05:54 PM Interpretation:Normal Performing Lab:[facility] [place], [address] [place] [address], Phone - [phone], Director - Claudette Notes/Report: WBC 7.2 3.4-10.8 [...] Panel* Reviewed date:03/16/2024 01:05:54 PM Interpretation:Normal Performing Lab:[facility], [place], [address] [facility], Phone - [phone], Director - Claudette Notes/Report: Glucose 78 70-99 mg/dL BUN 13 [...] 0-40 IU/L ALT (SGPT) 11 0-32 IU/L HIV Screen *HIV 1, 2 Ab, p24 Ag (874428) Reviewed date:03/16/2024 01:05:54 PM Interpretation:Negative Performing Lab:[facility], [place], [address] [employer] [facility], [place], Phone - [phone], Director - Claudette Notes/Report: HIV Ab/p24 Ag Screen Non Reactive Non Reactive HIV-1/HIV-2 antibodies and HIV-1 p24 antigen were NOT detected. There is no laboratory evidence of HIV infection. HIV Negative RPR w/reflex to TrepSure Reviewed date:03/16/2024 01:05:54 PM Interpretation:Negative Performing Lab:[facility], [address] [facility], [place], Phone - [phone], Director - Claudette Notes/Report: RPR Non Reactive Non Reactive Treponemal [...] full CDC-recommended syphilis screening and diagnosis algorithm, [facility] offers test code 903727 RPR, Rfx Qn RPR/Confirm TP or 656639 T pallidum Screening [place]. TSH Rfx on Abnormal to Free T4 Reviewed date:03/16/2024 01:05:54 PM Interpretation:Normal Performing Lab:[facility], [address] [place] [address], Phone - [phone], Director - PhDLisbethi Notes/Report: TSH 0.556 0.450-4.500 uIU/mL Test, Urine Reviewed date:04/08/2024 02:37:55 PM Interpretation: Performing Lab: Notes/Report: Test, Urine neg Negative - Negative Urinalysis In-House, Routine Reviewed date:03/10/2024 02:59:26 PM Interpretation: Performing Lab: Notes/Report: Leukocytes small Nitrite, Urine neg Urobilinogen,Semi-Qn 0.2 Protein neg pH 7.0 Occult Blood neg Specific [place] 1.020 Ketones neg Bilirubin neg Glucose neg Urine Culture,Comprehensive Reviewed date:03/16/2024 01:05:54 PM Interpretation:Abnormal Performing Lab:[facility], [address] [place] [address], Phone - [phone], Director - [facility] Notes/Report: Urine Culture,Comprehensive Final report Result 1 [...] S Tetracycline S Tobramycin S Trimethoprim/Sulfa S NuSwab Vaginitis Plus (VG+) (510591) Reviewed date:08/17/2024 02:05:07 PM Interpretation: Performing Lab:[facility] [place] [address] [place] [address], Phone - [phone], Director - UTMarita Notes/Report: Test(s) 523033- Atopobium vaginae; 050746- BVAB 2; 321403- Megasphaera 1 was developed and its performance characteristics determined by [facility]. It has not been cleared or approved by the Food and Drug Administration. Test(s) 841721-Xgxtufk albicans, TOBIAS; 384645-Fneldag glabrata, TOBIAS was developed and its performance [...] Negative . Neisseria gonorrhoeae, TOBIAS Negative Negative Written Authorization Reviewed date:07/05/2024 04:22:56 PM Interpretation: Performing Lab:[facility] [place], [address] [place] [address], Phone - [phone], Director - Zenaida Notes/Report: Test(s) 747313- Atopobium vaginae; 232979- BVAB 2; 273872- Megasphaera 1 was developed and its performance characteristics determined by [facility]. It has not been cleared or approved by the Food and Drug Administration. Test(s) 579030-Ndlznoj albicans, TOBIAS; 031289-Vjujzlb glabrata, TOBIAS was developed and its performance characteristics determined by [facility]. It has not been cleared or approved by the Food and Drug Administration. Written Authorization Written Authorization Received. Authorization received from MONSERRAT ROACH APRN 07-02-2024 Logged by Cary Manzo Test, Urine Reviewed date:08/28/2024 03:32:38 PM Interpretation: Performing Lab: Notes/Report: Test, Urine pos Negative - Negative CBC With Differential/Platel et* Reviewed date:06/15/2024 05:24:49 PM Interpretation: Performing Lab:[facility], [address] [facility], Phone - [phone], Director - [facility] Notes/Report: WBC 6.4 3.4-10.8 x10E3/uL [...] Panel* Reviewed date:06/15/2024 05:24:49 PM Interpretation: Performing Lab:[facility], [address] [facility], Phone - [phone], Director - [facility] Notes/Report: Glucose 80 70-99 mg/dL [...] 0-40 IU/L ALT (SGPT) 19 0-32 IU/L Hemoglobin A1c* Reviewed date:06/15/2024 05:24:49 PM Interpretation: Performing Lab:[facility] [place], [address] [facility], Phone - [phone], Director - Claudette Notes/Report: Hemoglobin A1c 5.7 4.8-5.6 % . Prediabetes: 5.7 - 6.4 Diabetes: >6.4 Glycemic control for adults with diabetes: <7.0 Reason For Referral Reason Hx of frequent UTIs. Recent hospitalization for pyelo. with midline insertion. Urine culture still abnormal. Diagnosis [address] urinary [address] infections (N39.0) Referral Organization [facility] Referring Provider First Name Monserrat Referring Provider Last Name Benny Referring Provider Speciality [facility] Specialty Urology General Notes Silvia Vicente 06/29/2024 02:47:53 PM >Spoke with staff and was advised patient's insurance is accepted at this office Clinical Notes [facility]- Urology dept. , [address] [facility] [address]. [address], , Referral Priority Routine Medications Medication SIG (Take, Route, Frequency, Duration) Notes Start Date End Date Status Vraylar 1.5 MG 1 capsule Orally Onc e a day; Duration: 30 days Active Triamcinolone Acetonide 0.1 % 1 application Externally twice daily; Duration: 7 days 08/13/2024 Active Doxycycline Hyclate 100 MG 1 capsule Ora lly twice daily; Duration: 7 days 08/17/2024 Active Azithromycin 250 MG 4 tablets Orally onc e; Duration: 2 days 08/29/2024 Active Albuterol Sulfate HFA 108 (90 Base) MCG/ACT 1 puff as needed Inhalation every 4 hrs; Duration: 30 days 03/10/2024 Active diphenhydrAMINE HCl 25 MG 1 capsule every 6 hours Orally Once a day; Duration: 7 days As needed 08/13/2024 Active QUEtiapine Fumarate 50 MG 1-2 tablet at bedtime Orally Once a day; Duration: 30 days As needed 12/28/2024 Active Social History Tobacco Use: Social History Observation Description Date Details (start date - stop date) Never Smoker NA - NA Sex Assigned At : Social History Observation Description Sex Assigned At Female PRAPARE Question Answer Notes Date Completed/Updated: 10/22/2024 What is your current housing situation? I have h ousing Are you worried about losing your housing? No What is the highest level of school that you have finished? 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 Check all that apply I do not have problems meeting my needs Has lack of transportation k ept you from medical appointments, meetings, work or from getting things needed for daily living? No How often do you see or talk to people that you care about and feel close to? (For example: talking to friends on the phone, visiting friends or family, going to holiness or club meetings) More than 5 times a week How stressed are you? Stress is when someone feels tense, nervous, anxious, or can\t sleep at night because their mind is troubled Very much In the past year have you sp ent more than 2 nights in a row in a snf, alf, senior living center, or juvenile correctional facility? No Are you a refugee? No What country are you from? [place] Do you feel physically and e motionally safe where you currently live? Yes In the past year, have you b een afraid of your partner or ex-partner? 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 Legal History- Drug-related charges in past, nothing [...] or Therapist - Saw a provider in [phone] for a short time Psychiatric Diagnosis(es) - [...] to discuss Education- 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 EMT, 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, 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 Legal History- Drug-related charges in past, nothing [...] or Therapist - Saw a provider in [phone] for a short time Psychiatric Diagnosis(es) - [...] to discuss Education- 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 EMT, 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, 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 Legal History- Drug-related charges in past, nothing [...] or Therapist - Saw a provider in [phone] for a short time Psychiatric Diagnosis(es) - [...] to discuss Education- 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 EMT, 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, 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 Legal History- Drug-related charges in past, nothing [...] or Therapist - Saw a provider in [phone] for a short time Psychiatric Diagnosis(es) - [...] to discuss Education- 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 EMT, 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, 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 Legal History- Drug-related charges in past, nothing [...] or Therapist - Saw a provider in [phone] for a short time Psychiatric Diagnosis(es) - [...] to discuss Education- 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 EMT, 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, 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 Legal History- Drug-related charges in past, nothing [...] or Therapist - Saw a provider in [phone] for a short time Psychiatric Diagnosis(es) - [...] to discuss Education- 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 EMT, 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, 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 Legal History- Drug-related charges in past, nothing [...] or Therapist - Saw a provider in [phone] for a short time Psychiatric Diagnosis(es) - [...] to discuss Education- 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 EMT, 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, 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 Legal History- Drug-related charges in past, nothing [...] or Therapist - Saw a provider in [phone] for a short time Psychiatric Diagnosis(es) - [...] to discuss Education- 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 EMT, 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, 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 Legal History- Drug-related charges in past, nothing [...] or Therapist - Saw a provider in 7295-5607 for a short time Psychiatric Diagnosis(es) - [...] to discuss Education- 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 EMT, 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, 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 Legal History- Drug-related charges in past, nothing [...] or Therapist - Saw a provider in [phone] for a short time Psychiatric Diagnosis(es) - [...] - - - - - - - Social History- location- Current home- Describe childhood- [...] to discuss Education- 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 EMT, 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 bipolar 2 disorder Problem Posttraumatic stress disorder (23635499) PTSD (post-traumatic stress disorder) (F43.10) 03/18/20 Active confirmed Problem Asthma (786206713) Asthma (J45.909) Active confirmed Problem Generalized anxiety disorder (00014364) AZAEL (generalized anxiety disorder) (F41.1) 03/18/20 Active confirmed Problem Thyroid nodule (641033228) Thyroid nodule (E04.1) Active confirmed Problem Substance use disorder (8817199109) Substance use disorder (F19.90) 03/18/20 Active confirmed Problem Missed period (02177706) Missed menses (N92.6) Active confirmed Problem migraine (disorder) (23127124) Migraines (G43.909) Active confirmed Problem Peripheral neuropathy of bilateral lower limbs (disorder) (800204304469314 08) Neuropathy involving both lower extremities (G57.93) Active confirmed Problem Cannabis dependence (18212713) Marijuana smoker (F12.90) Active confirmed Vital Signs Heart Rate 78 /min 08/13/2024 Temperature 98.4 degrees Fahrenheit 06/11/2024 Respiratory Rate 16 /min 08/13/2024 Oximetry 98 % 08/13/2024 Blood pressure diastolic 68 mm Hg 08/13/2024 Height 67.5 in 08/13/2024 Blood pressure systolic 110 mm Hg 08/13/2024 Weight 119 lbs 08/13/2024 BMI 18.36 kg/m2 08/13/2024 Encounters Encounter Location Date Provider Diagnosis [address] [address] 03/11/2024 Rei Cool [address] [address] 03/16/2024 Monserrat Roach Urinary tract infection N39.[address] [address] 03/19/2024 Monserrat Roach [address] [address] 05/25/2024 Anjali House Mood disorder F39 ; PTSD (post-traumatic stress disorder) F43.10 and AZAEL (generalized anxiety disorder) F41.[address] [address] 06/22/2024 Monserrat Roach [address] [address] 06/28/2024 Monserrat Roach Pyelonephritis N12 and Frequent urinary tract infections N39.[address] [address] 07/01/2024 Monserrat Roach [address] [address] 07/05/2024 Monserrat Roach Trichomoniasis of vagina A59.[address] [place] [address] 08/17/2024 Monserrat Roach Chlamydia A74.[address] [address] 08/28/2024 Monserrat Roach Mood disorder F39 [address] [place] [address] 08/28/2024 Butch Cooney Chlamydia A74.[address] [facility] [place] [address] 08/31/2024 Butch Cooney [facility] [address] [place] [address] 09/01/2024 Monserrat Roach [facility] [address] [place] [address] 09/28/2024 Butch Cooney [facility] [address], [place] [address] 10/22/2024 Anjali Harsh Mood disorder F39 [address] [place] [address] 10/23/2024 Butch Cooney [facility] [address] [facility] [place] [place] [address] 06/23/2024 Monserrat Roach Urinary tract infection N39.0 and Vaginitis N76.0 [place] [address] [address] [facility] [place] [place] [address] 08/13/2024 Monserrat Roach Patient underweight R63.6 ; Insect bite W57.XXXA ; Non-tobacco user Z78.9 ; Nutritional counseling Z71.3 and Vaginitis N76.0 [place] [address] [place] [address] 08/28/2024 Monserrat Roach [facility] [place] [address] 03/10/2024 Marissa Magana [facility] [address], [place] [address] 03/17/2024 Lorenza Means Nicotine dependence, unspecified, uncomplicated F17.200 [place] [address] [place] [address] 03/10/2024 Monserrat Roach Establishing care with new [...] nodule E04.1 and Breast mass, right N63.10 [facility] [address] [address] 06/11/2024 Monserrat Roach Screening for deficiency anemia Z13.0 ; Hospital discharge follow-up Z09 ; Screening for metabolic disorder Z13.228 ; Screening for diabetes mellitus Z13.1 ; Patient underweight R63.6 ; Non-tobacco user Z78.9 and Nutritional counseling Z71.[address] [address] 10/27/2024 Anjali Sabblut Mood disorder F39 ; PTSD (post-traumatic stress disorder) F43.10 ; AZAEL (generalized anxiety disorder) F41.1 ; Substance use disorder F19.90 ; Marijuana smoker F12.90 ; Nicotine dependence, unspecified, uncomplicated F17.200 and Medication management Z79.[address] [address] 12/28/2024 Anjali Sabblut Mood disorder F39 ; PTSD (post-traumatic stress disorder) F43.10 ; AZAEL (generalized anxiety disorder) F41.1 ; Substance use disorder F19.90 ; Marijuana smoker F12.90 ; Nicotine dependence, unspecified, uncomplicated F17.200 and Medication management Z79.[address] [address] 04/20/2024 Anjali Sabblut Mood disorder F39 ; PTSD (post-traumatic stress disorder) F43.10 ; AZAEL (generalized anxiety disorder) F41.1 ; Substance use disorder F19.90 ; Nicotine dependence, unspecified, uncomplicated F17.200 and Medication management Z79.[address] [address] 06/02/2024 Anjali Sabblut Mood disorder F39 ; PTSD (post-traumatic stress disorder) F43.10 ; AZAEL (generalized anxiety disorder) F41.1 ; Substance use disorder F19.90 ; Nicotine dependence, unspecified, uncomplicated F17.200 and Medication management Z79.[address] [address] 10/05/2024 Anjali Sabblut Mood disorder F39 ; PTSD (post-traumatic stress disorder) F43.10 ; AZAEL (generalized anxiety disorder) F41.1 ; Substance use disorder F19.90 ; Marijuana smoker F12.90 ; Nicotine dependence, unspecified, uncomplicated F17.200 and Medication management Z79.[address] [address] 08/03/2024 Anjali Sabblut Mood disorder F39 ; PTSD (post-traumatic stress disorder) F43.10 ; AZAEL (generalized anxiety disorder) F41.1 ; Substance use disorder F19.90 ; Nicotine dependence, unspecified, uncomplicated F17.200 and Medication management Z79.[address] [address] 03/18/2024 Anjali Sabblut Mood disorder F39 ; PTSD (post-traumatic stress disorder) F43.10 ; AZAEL (generalized anxiety disorder) F41.1 ; Substance use disorder F19.90 ; Nicotine dependence, unspecified, uncomplicated F17.200 and Medication management Z79.899 Assessments Encounter Date Diagnosis (ICD Code) Assessment Notes Treatment Notes Treatment Clinical Notes Section Notes 08/28/2024 Mood disorder (ICD-10 - F39) 08/28/2024 Chlamydia (ICD-10 - A74.9) 08/03/2024 Mood disorder (ICD-10 - F39) MDD vs. bipolar 2 disorder Continue psychotherapy as scheduled. 06/11/2024 Hospital discharge follow-up (ICD-10 - Z09) 06/11/2024 Screening for deficiency anemia (ICD-10 - Z13.0) 06/23/2024 Vaginitis (ICD-10 - N76.0) 06/23/2024 Urinary tract infection (ICD-10 - N39.0) 12/28/2024 Mood disorder (ICD-10 - F39) MDD vs. bipolar 2 disorder Continue psychotherapy as scheduled. Client reports lamotrigine caused rash. 10/27/2024 Mood disorder (ICD-10 - F39) MDD vs. bipolar 2 disorder Continue psychotherapy as scheduled. Client reports lamotrigine caused rash. 10/22/2024 Mood disorder (ICD-10 - F39) MDD vs. bipolar 2 disorder 08/17/2024 Chlamydia (ICD-10 - A74.9) 06/28/2024 Pyelonephritis (ICD-10 - N12) 06/28/2024 Frequent urinary tract infections (ICD-10 - N39.0) 07/05/2024 Trichomoniasis of vagina (ICD-10 - A59.01) 10/05/2024 Mood disorder (ICD-10 - F39) MDD vs. bipolar 2 disorder Continue psychotherapy as scheduled. Client reports lamotrigine caused rash. 03/10/2024 Establishing care with new doctor, encounter [...] Screening for deficiency anemia (ICD-10 - Z13.0) 08/13/2024 Insect bite (ICD-10 - W57.XXXA) 08/13/2024 Patient underweight (ICD-10 - R63.6) 08/13/2024 Non-tobacco user (ICD-10 - Z78.9) 06/11/2024 Screening for metabolic disorder (ICD-10 - Z13.228) 06/02/2024 PTSD (post-traumatic stress disorder) (ICD-10 - F43.10) Continue psychotherapy as scheduled. 05/25/2024 PTSD (post-traumatic stress disorder) (ICD-10 - F43.10) 04/20/2024 PTSD (post-traumatic stress disorder) (ICD-10 - F43.10) Continue psychotherapy as scheduled. 03/18/2024 PTSD (post-traumatic stress disorder) (ICD-10 - F43.10) Continue psychotherapy as scheduled. 03/10/2024 Screening for metabolic disorder (ICD-10 - Z13.228) 10/05/2024 PTSD (post-traumatic stress disorder) (ICD-10 - F43.10) Continue psychotherapy as scheduled. 10/27/2024 PTSD (post-traumatic stress disorder) (ICD-10 - F43.10) Continue psychotherapy as scheduled. 12/28/2024 PTSD (post-traumatic stress disorder) (ICD-10 - F43.10) Continue psychotherapy as scheduled. On waiting list to start trauma-based therapy. Trazodone stopped d/t inefficacy. 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 Continue psychotherapy as scheduled. 08/03/2024 AZAEL (generalized anxiety disorder) (ICD-10 - F41.1) Client reports no longer needing gabapentin. Continue psychotherapy as scheduled. 12/28/2024 AZAEL (generalized anxiety disorder) (ICD-10 - F41.1) Client reports no longer needing gabapentin. Continue psychotherapy as scheduled. 10/27/2024 AZAEL (generalized anxiety disorder) (ICD-10 - F41.1) Client reports no longer needing gabapentin. Continue psychotherapy as scheduled. 10/05/2024 AZAEL (generalized anxiety disorder) (ICD-10 - F41.1) [...] Screening for diabetes mellitus (ICD-10 - Z13.1) 08/13/2024 Nutritional counseling (ICD-10 - Z71.3) 08/13/2024 Vaginitis (ICD-10 - N76.0) 03/10/2024 Missed menses (ICD-10 - N92.6) 06/02/2024 [...] setting. Recommend sober living house as planned. 10/05/2024 Substance use disorder (ICD-10 - F19.90) Recommend a combination of 12-step programs, outpatient programs, and psychotherapy to maintain recovery in the outpatient setting. Recommend sober living house as planned. 10/27/2024 Substance use disorder (ICD-10 - F19.90) Recommend a combination of 12-step programs, outpatient programs, and psychotherapy to maintain recovery in the outpatient setting. Recommend sober living house as planned. 12/28/2024 Substance use disorder (ICD-10 - F19.90) Recommend a combination of 12-step programs, outpatient programs, and psychotherapy to maintain recovery in the outpatient setting. Recommend sober living house as planned. 08/03/2024 Substance use disorder (ICD-10 - F19.90) Recommend a combination of 12-step programs, outpatient programs, and psychotherapy to maintain recovery in the outpatient setting. Recommend sober living house as planned. 08/03/2024 Nicotine dependence, unspecified, uncomplicated (ICD-10 - F17.200) 06/11/2024 Patient underweight (ICD-10 - R63.6) 12/28/2024 Marijuana smoker (ICD-10 - F12.90) 10/27/2024 Marijuana smoker (ICD-10 - F12.90) 10/05/2024 Marijuana smoker (ICD-10 - F12.90) 04/20/2024 Nicotine dependence, unspecified, uncomplicated (ICD-10 - F17.200) 03/18/2024 Nicotine dependence, unspecified, uncomplicated (ICD-10 - F17.200) 03/10/2024 Screening for thyroid disorder (ICD-10 - Z13.29) 06/02/2024 Nicotine dependence, unspecified, uncomplicated (ICD-10 - F17.200) 06/02/2024 Medication management (ICD-10 - Z79.899) May self-administer medications or be administered own oral medications per [facility] protocols. Provided informed consent with understanding of [...] or be administered own oral medications per [facility] protocols. Provided informed consent with understanding of [...] or be administered own oral medications per [facility] protocols. Provided informed consent with understanding of side effects, adverse effects, risks and benefits as well as alternative treatments as previously discussed and with the above recommended medications & other aspects of the treatment program. Agrees to return sooner if symptoms worsen or suicidal or homicidal ideations occur. 10/05/2024 Nicotine dependence, unspecified, uncomplicated (ICD-10 - F17.200) 10/27/2024 Nicotine dependence, unspecified, uncomplicated (ICD-10 - F17.200) 06/11/2024 Non-tobacco user (ICD-10 - Z78.9) 08/03/2024 Medication management (ICD-10 - Z79.899) May self-administer medications or be administered own oral medications per [facility] protocols. Provided informed consent with understanding of side effects, adverse effects, risks and benefits as well as alternative treatments as previously discussed and with the above recommended medications & other aspects of the treatment program. Agrees to return sooner if symptoms worsen or suicidal or homicidal ideations occur. 12/28/2024 Nicotine dependence, unspecified, uncomplicated (ICD-10 - F17.200) Client reports trying to get vaping. Consider nicotine cessation therapy as needed - contact office if desiring medication assisted therapy. 12/28/2024 Medication management (ICD-10 - Z79.899) May self-administer medications or be administered own oral medications per [facility] protocols. Provided informed consent with understanding of side effects, adverse effects, risks and benefits as well as alternative treatments as previously discussed and with the above recommended medications & other aspects of the treatment program. Agrees to return sooner if symptoms worsen or suicidal or homicidal ideations occur. Labs monitored by PCP. Last done in May 2024. 06/11/2024 Nutritional counseling (ICD-10 - Z71.3) 10/27/2024 Medication management (ICD-10 - Z79.899) May self-administer medications or be administered own oral medications per [facility] protocols. Provided informed consent with understanding of side effects, adverse effects, risks and benefits as well as alternative treatments as previously discussed and with the above recommended medications & other aspects of the treatment program. Agrees to return sooner if symptoms worsen or suicidal or homicidal ideations occur. 10/05/2024 Medication management (ICD-10 - Z79.899) May self-administer medications or be administered own oral medications per [facility] protocols. Provided informed consent with understanding of side effects, adverse effects, risks and benefits as well as alternative treatments as previously discussed and with the above recommended medications & other aspects of the treatment program. Agrees to return sooner if symptoms worsen or suicidal or homicidal ideations occur. 03/10/2024 Cough (ICD-10 - R05.9) 03/10/2024 Asthma (ICD-10 - J45.909) 03/10/2024 Nicotine dependence, unspecified, uncomplicated (ICD-10 - F17.200) 03/10/2024 Thyroid nodule (ICD-10 - E04.1) Reports right thyroid nodule w/ biopsy- benign 03/10/2024 Breast mass, right (ICD-10 - N63.10) Reports biopsy- benign 06/23/2024 Other Learning About the Safe Use of Antibiotics material was discussed. Pt was educated on use of antibiotic medication including dosing, side effects, adverse effects and anticipated response. Pt was also educated on importance of completing full course of treatment as ordered. Patient voiced understanding of all. 03/10/2024 Other Swing Type Lathe Operator met with Maribel to assist in working on building skills to help the consumer gain confidence in their independent living skills. The manual writer practiced with Maribel implementing problem solving skills to help facilitate exploration of options. The manual writer encouraged and engaged in critical thinking of how to use natural resources and coping skills to help manage symptoms in the moment. Swing Type Lathe Operator also worked on modeling and practicing with the consumer healthy coping skills to reduce stress and anxiety. Plan Of Treatment No Information Insurance Providers Payer Name Payer Address Payer Phone Subscriber Number Group Number Insured Name Patient Relationship to Insured Coverage Start Date Coverage End Date [facility] Claims Department [address] [place] [address] [phone] [id number] Maribel Hoffman Self - patient is the insured 2 [facility] Claims [facility] [address] [place] [address] [phone] [id number] Maribel Hoffman Self - patient is the insured 4 Medical (General) History Medical History History ICD Code Asthma J45.909 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
--- OUTSIDE RECORDS SUMMARY | 2025-01-19 15:04 | XMS_ITS | Clinical Summary ---
Author Organization [facility] Care Team Providers Care Armament Mechanic Name Role Phone Provider, None Primary Care Provider Huma Evans MD Unavailable [phone] Allergies No known active allergies Medications No known medications Social History Tobacco Use Types Packs/Day Years Used Date Smoking Tobacco: Former Cigarettes Smokeless Tobacco: Never Tobacco Cessation:Counseling Given: Not Answered Alcohol Use Standard Drinks/Week Comments Not Currently 0 (1 standard drink = 0.6 oz pur e alcohol) Comments Unknown Sex and Gender Information Value Date Recorded Sex Assigned at Not on file Legal Sex Female 11:29 AM CDT Gender Identity Not on file Sexual Orientation Not on file Last Filed Vital Signs Vital Sign Reading Time Taken Comments Blood Pressure 135/87 02/21/2023 6:53 PM CDT Pulse 108 02/21/2023 6:55 PM CDT Temperature 36.2 C (97.1 F) 02/21/2023 6:53 PM CDT Respiratory Rate 20 02/21/2023 6:53 PM CDT Oxygen Saturation 99% 02/21/2023 6:53 PM CDT Inhaled Oxygen Concentration - - Weight 47.6 kg (105 lb) 02/21/2023 6:53 PM CDT Height 172.7 cm (5' 8) 02/21/2023 6:53 PM CDT Body Mass Index 15.97 02/21/2023 6:53 PM CDT Plan of Treatment Health Maintenance Due Date Last Done Comments Hepatitis C Virus (HCV) Screening 1995 Hepatitis B Immunization (1 of 3 - 19+ 3-dose series) 2014 Pap Smear 2016 Human Papillomavirus (HPV) Immunization (1 - 3-dose SCDM series) 2022 SARS-COV-2 Immunization ( season) 2024 12/23/2020 Influenza Immunization (#1) 2025 03/16/2019 Respiratory Syncytial Virus (RSV) Immunization (Adult) (1 - 1-dose 75+ series) 2070 DTaP/Tdap/Td Immunization Discontinued 2021, 10/28/2018 TdaP Immunization Completed 05/14/2022, 10/28/2018 Meningococcal Immunization (ACWY) Aged Out No longer eligible based on patient's age to complete this topic Pneumococcal Immunization Combined Aged Out No longer eligible based on patient's age to complete this topic Rotavirus Immunization Aged Out No lo nger eligible based on patient's age to complete this topic Insurance MEDICAID [facility] [employer]ICAID [facility] Care Teams Armament Mechanic Relationship Specialty Start Date End Date Provider, None [place] PCP - General 12/16/22 Huma Hall MD [address] [place] [address] Cmv Driver 12/16/22
--- OUTSIDE RECORDS SUMMARY | 2025-01-19 15:04 | XMS_ITS | Clinical Summary ---
Author Organization [facility] Address [address] [place] [address] Care Team Providers Care Insurance Adviser Name Role Phone Huma Hall MD Primary Care Provider [phone] Allergies No known active allergies Medications ALPRAZolam [...] MFM consult on 08/18/18. See consult letter. Encounters Date Type Department Care Team Description 12/16/2024 Telephone [facility] Primary Care at [address] [place] [address] No, Physician Appointment from Last 3 Months Medical History Medical History Date Comments Bipolar [...] on file Legal Sex Female 10:36 AM MOTION GRAPHICS ARTIST Gender Identity Not on file Sexual Orientation [...] 5:04 PM CDT Height 175.3 cm (5' 9) 02/21/2023 5:04 PM CDT Body Mass Index 15.51 02/21/2023 5:04 PM CDT Plan of Treatment Health Maintenance Due Date Last Done Comments Cervical Cancer Screening 1995 Depression Screening 1995 Hepatitis C Screening 1995 Varicella Vaccines (1 of 2 - 13+ 2-dose series) 2008 Hepatitis B Screening 2013 Regular Well Visit/Exam 18-64 2013 Pneumococcal vaccine <65 (1 of 2 - PCV) 2014 HPV Vaccines (1 - 3-dose SCDM series) 2022 Influenza Vaccine (#1) 2025 03/16/2019 DTaP/Tdap/Td Vaccine (3 - Td or Tdap) 05/14/2032, 10/28/2018 Insurance [facility]PA [facility] Care Teams Insurance Adviser Relationship Specialty Start Date End Date Huma Hall MD [facility] [place] [address] PCP - General Family Medicine 12/04/22
--- OUTSIDE RECORDS SUMMARY | 2025-01-19 15:04 | XMS_ITS | Clinical Summary ---
Author Organization [facility] Address [address] [place] [address] Care Team Providers Care Grease Press Helper Name Role Phone Huma Hall MD Unavailable [phone] Norah Ramirez APRN-SYSTEMS PROGRAM MANAGER Primary Care Provider Source Comments [facility],non-owned Affiliates and Associated Physician Practices is amultiple site organization consisting of ambulatory clinics and hospital sitesin [place], [place], [place] and [place]. This disclosure is being madepursuant to the Care Everywhere program and may not contain all information available regarding this patient. Last updated 18.[facility] Allergies No known active allergies Medications * [...] on the tongue 30 tablet 5 Active HYDROcodone-aaksah taminophen (Zarephath) 5-325 MG tabletIndicatio ns:Pyelonephrit is Take 1 [...] disorder 09/17/2016 Suicidal ideation 09/17/2016 Asthma 09/17/2016 Family History Medical History Relation Name Comments [...] Recorded Patient Health Questionnaire-2 Score 0 06/22/2024 [facility] - Occupational Stress Questionnaire Answer Date Recorded [...] any time in the past 12 m [facility], were you homeless or living in a custodial (including now)? No 06/06/2024 Comments No Sex and Gender Information Value Date Recorded Sex Assigned at Female 02/26/2023 6:03 PM CDT Legal Sex Female 3:11 AM CDT Gender Identity Female 02/26/2023 6:03 PM CDT Sexual Orientation Not on file Last Filed Vital Signs Vital Sign Reading Time Taken Comments Blood Pressure 114/68 06/22/2024 8:10 AM POULTRY HATCHERY MAN Pulse 85 06/22/2024 8:10 AM POULTRY HATCHERY MAN Temperature 36.6 C (97.8 F) 06/22/2024 8:10 AM POULTRY HATCHERY MAN Respiratory Rate 16 06/22/2024 8:10 AM POULTRY HATCHERY MAN Oxygen Saturation 98% 06/22/2024 8:10 AM POULTRY HATCHERY MAN Inhaled Oxygen Concentration 21% 06/09/2024 7 :51 AM POULTRY HATCHERY MAN Weight 56.2 kg (124 lb) 06/12/2024 8:10 AM POULTRY HATCHERY MAN Height 175.3 cm (5' 9) 06/12/2024 8:10 AM POULTRY HATCHERY MAN Body Mass Index 18.31 06/12/2024 8:10 AM POULTRY HATCHERY MAN Plan of Treatment Health Maintenance Due Date Last Done Comments HIV SCREENING 2010 HEPATITIS C SCREENING 05/05/2013 DTAP/TDAP/TD VACCINES (1 - Tdap) 2014 HEPATITIS B VACCINE (1 of 3 - 19+ 3-dose series) 2014 PNEUMOCOCCAL VACCINE (1 of 2 - PCV) 2014 PAP SMEAR 2016 HPV VACCINE (1 - 3-dose SCDM series) 2022 COVID-19 VACCINE (2 - 2023-2 5 season) 2024 12/23/2020 INFLUENZA VACCINE (#1) 2025 03/16/2019 ZOSTER VACCINE (1 of 2) [...] on patient's age to complete this topic Additional Health Concerns Infection Onset Date Last Indicated ESBL GNR Comment:Urine 06/05/24; 05/09/2024 06/05/2024 Insurance [facility] [place] [place] Advance Directives * Full Code (Latest Code Status on File) Date Activated Date Inactivated Comments 06/05/2024 11:04 PM 06/09/2024 6:08 PM * Full Code Date Activated Date Inactivated Comments 06/05/2024 9:51 PM 06/05/2024 11:04 PM * Full Code Date Activated Date Inactivated Comments 09/16/2016 3:58 PM 09/20/2016 12:39 PM Care Teams Grease Press Helper Relationship Specialty Start Date End Date Lincoln, Norah E, POWER GENERATION PLANT OPERATOR-SYSTEMS PROGRAM MANAGER [address] [place] [address] [place] [id number] PCP - General 08/01/22 Huma Hall MD [facility] [place] [address] Family Medicine 10/06/18
[2025-01-19 15:12] VITALS: BP 120/69; PULSE 61; RESP 16; TEMP 36.6; O2SAT 100
--- NOTE | 2025-01-19 16:01 | ED.GENADULT ---
HPI - General Adult General Chief complaint: Extremity Injury, Upper Stated complaint: Left Hand Injury Source: patient Mode of arrival: ambulatory Limitations: no limitations History of Present Illness HPI narrative: Patient presents for evaluation of right hand pain. Symptom onset this morning. 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 She had her hand wrapped but did not feel she was in the correct position when she hit the bag. She now has pain and bruising over the distal metacarpals of the 3rd and 4th digits of the right hand. She rates her symptoms 4/10 in severity. Denies loss of range of motion but movement makes her symptoms worse. She is right-handed. She has not taken any medication to assist with her symptoms. Related Data Allergies Allergy/AdvReac Type Severity Reaction Status Date / Time No Known Allergies Allergy Unknown Verified 09/08/24 10:26 Review of Systems Review of Systems: CONSTITUTIONAL: Denies fever, chills, or sweats. EYES: Denies visual changes, redness, or discharge. ENT: Denies rhinorrhea, congestion, sore throat, or otalgia. CARDIOVASCULAR: Denies chest pain, palpitations, or edema. RESPIRATORY: Denies cough or dyspnea. GASTROINTESTINAL: Denies abdominal pain, nausea, vomiting, or diarrhea. GENITOURINARY: Denies dysuria or hematuria. SKIN: Reports bruising to the right hand MUSCULOSKELETAL: Reports right hand pain NEUROLOGIC: Denies headache, numbness, dizziness, or weakness. PSYCHIATRIC: Denies anxiety or depression. [facility] Past Medical History Medical History Asthma as child UTI (urinary tract infection) Anxiety Depression Surgical History Surgical History H/O breast biopsy benign S/P thyroid biopsy History of dilatation and curettage Family History Family History Grandparent Diabetes mellitus Hypertension Grandparent Epilepsy Other No problems noted. Sibling Epilepsy Social History Social History Smoking packs per day: 1 Smoking cigarettes per day: 20.0 Years smoked: 5 Smoking pack-years: 5.00 Smoking status: Current every day smoker Tobacco type: cigarettes and e-cigarettes/vaping Second hand tobacco smoke exposure: No Smoking end date: 05/27/17 Additional smoking assessment comments: former cigarette smoker now vapes Alcohol intake: never Substance use: current Substance use type: marijuana Living arrangements: with family Spiritual care concerns: No Exam Narrative: GENERAL: Well-appearing, well-nourished, and in no acute distress. HEAD: Normocephalic, atraumatic. EYES: PERRLA and EOMI. ENT: Nares clear, no rhinorrhea or epistaxis. Mucous membranes moist. Oropharynx without tonsillar hypertrophy exudate or other lesions. Bilateral TMs pearly chacon nonbulging NECK: Supple. No adenopathy or masses. No carotid bruits or JVD CHEST: Clear to auscultation. No respiratory distress. No wheezes rales or rhonchi HEART: Regular rate and rhythm. No murmur heard. Normal peripheral pulses. ABDOMEN: Soft, nontender, nondistended, normal active bowel sounds. EXTREMITIES: 5/5 hand broadcast program director strength bilaterally. There is tenderness over the distal aspect of the metacarpals of the 3rd and 4th digits of the right hand, over the MCP joints and proximal phalanges of those digits SKIN: There is ecchymosis noted overlying the distal 3rd and 4th metacarpals of the right hand NEURO: No focal deficits. Alert and oriented x3. PSYCH: Normal mood and affect. Course Course Emergency Course: This is a 29-year-old female who presented for evaluation of right hand pain and bruising. Unfortunately, we do not have video surveillance technician here today. I discussed recommendations for x-ray with patient and she is agreeable to going to one of our other [facility] cares. I contacted our [place] location and spoke with ELECTRONICS RECYCLER, Dorys Cherry. She agrees to have pt come to that facility for x ray. Pt agreeable to plan. After several hours pt did not show up at facility. She was oriented x3 and competent to make her own decisions. Level of Care: Express Care Visit Vital Signs Vital signs: Vital Signs Temperature 36.6 C 01/19/25 15:12 Pulse Rate 61 01/19/25 15:12 Respiratory Rate 16 01/19/25 15:12 Blood Pressure 120/69 01/19/25 15:12 Pulse Oximetry 100 01/19/25 15:12 Oxygen Delivery Room Air 01/19/25 15:12 Temperature 36.6 C 01/19/25 15:12 Pulse Rate 61 01/19/25 15:12 Respiratory Rate 16 01/19/25 15:12 Blood Pressure 120/69 01/19/25 15:12 Pulse Oximetry 100 01/19/25 15:12 Oxygen Delivery Room Air 01/19/25 15:12 Medical Decision Making Vital Signs Vital Signs: Vital Signs Temperature 36.6 C 01/19/25 15:12 Pulse Rate 61 01/19/25 15:12 Respiratory Rate 16 01/19/25 15:12 Blood Pressure 120/69 01/19/25 15:12 Pulse Oximetry 100 01/19/25 15:12 Oxygen Delivery Room Air 01/19/25 15:12 Temperature 36.6 C 01/19/25 15:12 Pulse Rate 61 01/19/25 15:12 Respiratory Rate 16 01/19/25 15:12 Blood Pressure 120/69 01/19/25 15:12 Pulse Oximetry 100 01/19/25 15:12 Oxygen Delivery Room Air 01/19/25 15:12 Discharge Plan Discharge Clinical Impression: Contusion of hand, right Patient Disposition: Elopement After Seen by Prov Patient Language: Singaporean Follow-up/Referrals: PHYSICIAN,INFORMATION MANAGEMENT MANAGER [Primary Care Provider, Internal Medicine] Time of Disposition: 19:06
== END 2025-01-19 19:05 | disposition left against medical advice (07) ==
PROVIDERS: Emergency Provider Nurse Practitioner
DX: S60.221A Contusion of right hand, initial encounter (principal); W22.8XXA Striking against or struck by other objects, initial encounter; Y93.71 Activity, boxing; F17.290 Nicotine dependence, other tobacco product, uncomplicated
CPT/HCPCS: 99213; G0463

== ENCOUNTER 2025-04-09 15:28 | Emergency (ER) | payer SELFPAY ==
--- OUTSIDE RECORDS SUMMARY | 2024-09-29 02:00 | XMS_ITS ---
Author Organization [facility] Address [address] [place] [address] Care Team Providers Care Professor Of Spanish Name Role Phone Monserrat Zapata Primary Care Provider Anjali House Unavailable [phone] REASON FOR VISIT 4 week F/U Social History Sex Assigned At : Social History Observation Description Sex Assigned At Female Encounters Encounter Location Date Provider Diagnosis [facility] [address] [facility] [address] 09/29/2024 Anjali House Plan Of Treatment Next Appt Details Provider Name:Anjali dietz, 04/12/2025 08:15:00 AM, [address] [facility] [address] [facility] [place], [address], Progress Notes * Maribel WAHL RDOB: (29 yo F)Acc No.[id number]:09/29/2024 UNLOCKED PROGRESS NOTE Patient: Edwin Maribel MONTELONGO Provider: Omid House, BILLIE, CEMENT WORKER, PMHNP-BC :1995 A ge:29 Y S ex:Female Date:09/29/2024 Address:[address] [place] [phone] Pcp:Monserrat Zapata Structured Data:Is there a n jason you would prefer we call you? (Nombre que prefiere usar) : No Subjective: * Chief Complaints: * 1 . 4 week F/U. * Medical History: Objective: * Vitals: Assessment: Plan: * Treatment: * * Electronic signature of Laura Terrazas , [id number] on 04/09/2025 at 07:49 PM MIRROR SPECIALIST Sign off status: Pending * Provider: Omid House DNP, APRN, PMHNP- Date: 0 09/29/2024 Generated for Printing/Faxing/eTransmitting on: 06/09/2024 07:49 PM MIRROR SPECIALIST
--- OUTSIDE RECORDS SUMMARY | 2024-09-30 09:00 | XMS_ITS ---
Author Organization [facility] Address [address] [place] [address] Care Team Providers Care Instrument Fitter Name Role Phone Monserrat Zapata Primary Care Provider [phone] Marline Cruz Unavailable REASON FOR VISIT ER FOLLOW-UP: uti/kidney infection Social History Sex Assigned At : Social History Observation Description Sex Assigned At Female Encounters Encounter Location Date Provider Diagnosis [facility] [address] [place] [address] 09/30/2024 Marline Cruz Plan Of Treatment Next Appt Details Provider Name:Anjali Jessica pa, 04/12/2025 08:15:00 AM, [address], [place], [address], Progress Notes * Maribel WAHL RDOB: (29 yo F)Acc No.[id number]:09/30/2024 UNLOCKED PROGRESS NOTE Progress Note Patient: Edwin JAYDA Maribel Bradford Provider: Christiane Cruz, MSN, LEAD PERFORMANCE SUPPORT ANALYST, CHIEF DESIGN BRANCH-BC, CHIEF DESIGN BRANCH-C :1995 A ge:29 Y S ex:Female Date:09/30/2024 Address:[facility] [place] [phone] Pcp:Monserrat Zapata Structured Data:Is there a n jason you would prefer we call you? (Nombre marvel prefiere usar) : No Subjective: * Chief Complaints: * 1 . ER FOLLOW-UP: uti/kidney infection. * Medical History: Objective: * Vitals: Assessment: Plan: * Treatment: * * Electronic signature of Rip Cruz APRN, [id number] on 04/09/2025 at 07:49 PM MARINE SERVICES TECHNICIAN Sign off status: Pending * Provider: MAHESH Richter, LEAD PERFORMANCE SUPPORT ANALYST, CHIEF DESIGN BRANCH-BC, CHIEF DESIGN BRANCH-C Date: 0 09/30/2024 Generated for Printing/Faxing/eTransmitting on: 1 06/09/2024 07:49 PM MARINE SERVICES TECHNICIAN
--- OUTSIDE RECORDS SUMMARY | 2024-10-20 10:30 | XMS_ITS ---
Author Organization [facility] Address [address] [place] [address] Care Team Providers Care Top Executive Name Role Phone Monserrat Zapata Primary Care Provider Anjali House Unavailable [phone] REASON FOR VISIT 2 Week Psych Med Check Social History Sex Assigned At : Social History Observation Description Sex Assigned At Female Encounters Encounter Location Date Provider Diagnosis [address] [place] [address] 10/20/2024 Anjali House Plan Of Treatment Next Appt Details Provider Name:Anjali dietz, 04/12/2025 08:15:00 AM, [address] [facility] , [place], [address], Progress Notes * Maribel WAHL RDOB: (29 yo F)Acc No.[id number]:10/20/2024 UNLOCKED PROGRESS NOTE Patient: Edwin Maribel MONTELONGO Provider: Omid House, BILLIE, COMMUNICATIONS EQUIPMENT OPERATOR, PMHNP-BC :1995 A ge:29 Y S ex:Female Date:10/20/2024 Address:[address] [place] [phone] Pcp:Monserrat Zapata Structured Data:Is there a n jason you would prefer we call you? (Nombre que prefiere usar) : No Subjective: * Chief Complaints: * 1 . 2 Week Psych Med Check. * Medical History: Objective: * Vitals: Assessment: Plan: * Treatment: * * Electronic signature of Laura Terrazas , [id number] on 04/09/2025 at 07:48 PM SUBSTANCE ABUSE PREVENTION COORDINATOR Sign off status: Pending * Provider: Omid House DNP, APRN, PMHNP-BC Date: 0 10/20/2024 Generated for Printing/Faxing/eTransmitting on: 06/09/2024 07:48 PM SUBSTANCE ABUSE PREVENTION COORDINATOR
--- OUTSIDE RECORDS SUMMARY | 2025-03-29 07:00 | XMS_ITS ---
Author Organization [facility] Address [address] [place] [address] Care Team Providers Care Seo Manager Name Role Phone Monserrat Zapata Primary Care Provider [phone] Anjali House Unavailable [phone] REASON FOR VISIT last seen 02/02/25; 4 week F/U Medications Medication SIG (Take, Route, Frequency, Duration) Notes Start Date End Date Status diphenhydrAMINE HCl 25 MG 1 capsule every 6 hours Orally Once a day; Duration: 7 days As needed 08/13/2024 Active Doxycycline Hyclate 100 MG 1 capsule Ora lly twice daily; Duration: 7 days 08/17/2024 Active Triamcinolone Acetonide 0.1 % 1 application Externally twice daily; Duration: 7 days 08/13/2024 Active QUEtiapine Fumarate 50 MG 1-2 tablet at bedtime Orally Once a day; Duration: 30 days Active Azithromycin 250 MG 4 tablets Orally onc e; Duration: 2 days 08/29/2024 Active Albuterol Sulfate HFA 108 (90 Base) MCG/ACT 1 puff as needed Inhalation every 4 hrs; Duration: 30 days 03/10/2024 Active QUEtiapine Fumarate 50 MG 1-2 tablet at bedtime Orally Once a day; Duration: 30 days As needed Active Vraylar 3 MG 1 capsule Orally Onc e a day; Duration: 30 days Active Social History Sex Assigned At : Social History Observation Description Sex Assigned At Female Encounters Encounter Location Date Provider Diagnosis [address] [place] [address] 03/29/2025 Anjali House Plan Of Treatment Next Appt Details Provider Name:Anjali Jaime Jessica ut, 04/12/2025 08:15:00 AM, [address] [facility], [place], [address], Progress Notes * Maribel WAHL RDOB: (29 yo F)Acc No.[id number]:03/29/2025 UNLOCKED PROGRESS NOTE Patient: Maribel DASILVA Provider: Omid House DNP, APRN, PMHNP-BC :1995 A ge:29 Y S ex:Female Date:03/29/2025 Address:[address] [place], [place] [id number] Pcp:Monserrat Zapata Structured Data:Is there a n jason you would prefer we call you? (Nombre que prefiere usar) : No Subjective: * Chief Complaints: * 1 . last seen 02/02/25; 4 week F/U. * Medical History: * Medications: T aking Vraylar 3 MG Capsule 1 capsule Orally Once a day , Taking QUEtiapine Fumarate 50 MG Tablet 1-2 tablet at bedtime Orally Once a day As needed, Taking Albuterol Sulfate HFA 108 (90 Base) MCG/ACT Aerosol Solution 1 puff as needed Inhalation every 4 hrs , Taking diphenhydrAMINE HCl 25 MG Capsule 1 capsule every 6 hours Orally Once a day As needed, Taking Triamcinolone Acetonide 0.1 % Cream 1 application Externally twice daily , Taking Doxycycline Hyclate 100 MG Capsule 1 capsule Orally twice daily , Taking Azithromycin 250 MG Tablet 4 tablets Orally once , Taking QUEtiapine Fumarate 50 MG Tablet 1-2 tablet at bedtime Orally Once a day Objective: * Vitals: Assessment: Plan: * Treatment: * * Electronic signature of Laura Terrazas , [id number] on 04/09/2025 at 07:48 PM NAVIGATION TEACHER Sign off status: Pending * Provider: Omid House DNP, APRN, PMHNP-BC Date: 05/29/2024 Generated for Printing/Faxing/eTransmitting on: 06/09/2024 07:48 PM NAVIGATION TEACHER
[2025-04-09 15:35] VITALS: BP 135/88; PULSE 90; RESP 20; TEMP 36.9; O2SAT 100
--- NOTE | 2025-04-09 15:36 | ED_ITS ---
HPI - General Adult General Chief complaint: Skin/Abscess/Foreign Body Stated complaint: Left Breast Pain Time Seen by Provider: 04/09/25 15:36 Source: patient, RN notes reviewed and old records reviewed Mode of arrival: ambulatory Limitations: no limitations History of Present Illness HPI narrative: 29 year old female presents to [facility] care with complaints of left breast pain with redness and swelling of left areola and nipple with tenderness for the past 1 week duration.Patient reports that she has not had a fever and has been taking Ibuprofen for her discomfort. Patien has nipple piercing to left breast was told to remove and she did, no purulent drainage from nipple, redness and swelling mainly of areola and nipple area with warmth and pain. Patient reports that she had a breast biopsy of right breat in past that was negative.Patient reports no trauma to breast.Patient has not been in past 6 months and has not breastfed wither. MD complaint: Left breast pain and swelling and redness Onset (ago): week(s) (1) Location: chest (left breast) Severity scale (1-10): 10 Quality: other (throbbing) Treatments prior to arrival: NSAID Related Data Home Medications ?Medication ?Instructions ?Recorded ?Confirmed ?Last Taken ?Type cariprazine 3 mg capsule (Vraylar) mg 04/09/25 Unknow n History quetiapine 50 mg tablet mg 04/09/25 Unknown History Allergies Allergy/AdvReac Type Severity Reaction Status Date / Time No Known Allergies Allergy Unknown Verified 04/09/25 15:30 Review of Systems Review of Systems: CONSTITUTIONAL: Denies fever, chills, or sweats. EYES: Denies visual changes, redness, or discharge. ENT: Denies rhinorrhea, congestion, sore throat, or otalgia. CARDIOVASCULAR: Denies chest pain, palpitations, or edema. RESPIRATORY: Denies cough or dyspnea. GASTROINTESTINAL: Denies abdominal pain, nausea, vomiting, or diarrhea. GENITOURINARY: Denies dysuria or hematuria. SKIN: Reports swelling pain redness to left breast around areola and nipple mainly with no drainage noted, warm to touch and painful MUSCULOSKELETAL: Denies back pain, joint pain, or myalgia. NEUROLOGIC: Denies headache, numbness, or weakness. PSYCHIATRIC: Positive for history of anxiety or depression. All systems reviewed & are unremarkable except as noted in HPI and below PMFSH Past Medical History Medical History (Updated 04/11/25 @ 08:16 by Aline Orr APRN) Bronchitis Anxiety and depression Miscarriage Bipolar 1 disorder, mixed Asthma as child UTI (urinary tract infection) Anxiety Depression Surgical History Surgical History H/O breast biopsy benign S/P thyroid biopsy History of dilatation and curettage Family History Family History Grandparent Diabetes mellitus Hypertension Grandparent Epilepsy Other No problems noted. Sibling Epilepsy Social History Social History Smoking packs per day: 1 Smoking cigarettes per day: 20.0 Years smoked: 5 Smoking pack-years: 5.00 Smoking status: Current every day smoker Tobacco type: cigarettes and e-cigarettes/vaping Second hand tobacco smoke exposure: No Smoking end date: 05/27/17 Additional smoking assessment comments: former cigarette smoker now vapes Alcohol intake: never Substance use: current Substance use type: marijuana Living arrangements: with family Spiritual care concerns: No Comments At time of signature, agree with nursing past medical, surgical, social and family history. There is no relevant family history pertinent to the presenting complaint Exam Narrative: GENERAL: Well-appearing, fair-nourished, and in some acute distress. HEAD: Normocephalic, atraumatic. EYES: PERRLA and EOMI. ENT: Nares clear, no rhinorrhea or epistaxis. Mucous membranes moist.TM's normal throat pink with no swelling or exudates NECK: Supple.no lymphadenopathy CHEST: Clear to auscultation. No respiratory distress.SAO2 100% on room air HEART: Regular rate and rhythm. No murmur heard. Normal peripheral pulses. ABDOMEN: Soft, nontender, nondistended, normal active bowel sounds. EXTREMITIES: Normal range of motion. No edema. SKIN: Warm, dry, no rash.Left breast red and swollen and painful around areola and nipple with warmth with no drainage noted,painful on palpation for one week duration NEURO: No focal deficits. Alert and oriented x3. Course Course Emergency Course: Patient is aware of diagnosis, understands and agrees to treatment plan.? Anticipatory guidance given.? Patient agrees to follow-up as directed and is aware of reasons to seek care at the emergency department. Portions of this record may have been created with voice recognition software Level of Care: Express Care Visit Vital Signs Vital signs: Vital Signs Temperature 36.9 C 04/09/25 15:35 Pulse Rate 90 04/09/25 15:35 Respiratory Rate 20 04/09/25 15:35 Blood Pressure 135/88 04/09/25 15:35 Pulse Oximetry 100 04/09/25 15:35 Oxygen Delivery Room Air 04/09/25 15:35 Temperature 36.9 C 04/09/25 15:35 Pulse Rate 90 04/09/25 15:35 Respiratory Rate 20 04/09/25 15:35 Blood Pressure 135/88 04/09/25 15:35 Pulse Oximetry 100 04/09/25 15:35 Oxygen Delivery Room Air 04/09/25 15:35 Reviewed Medical Decision Making MDM Narrative Medical decision making narrative: Exam findings and imaging show no acute concerns or changes; patient is non- toxic appearing and is in no distress.? Patient is appropriate for outpatient treatment and follow-up Differential Diagnosis Differential Diagnosis: abscess left breast, pain to left breast with redness and swelling. infection of left breast, cellulitis Medical Records Medical records reviewed: Yes I reviewed the external patient's medical records. Vital Signs Vital Signs: Vital Signs Temperature 36.9 C 04/09/25 15:35 Pulse Rate 90 04/09/25 15:35 Respiratory Rate 20 04/09/25 15:35 Blood Pressure 135/88 04/09/25 15:35 Pulse Oximetry 100 04/09/25 15:35 Oxygen Delivery Room Air 04/09/25 15:35 Temperature 36.9 C 04/09/25 15:35 Pulse Rate 90 04/09/25 15:35 Respiratory Rate 20 04/09/25 15:35 Blood Pressure 135/88 04/09/25 15:35 Pulse Oximetry 100 04/09/25 15:35 Oxygen Delivery Room Air 04/09/25 15:35 reviewed Critical Care Time Critical Care Time Critical Care Time: No Discharge Plan Discharge Clinical Impression: Abscess of breast, left Patient Disposition: Home Condition: Stable Instructions: Antibiotic Form, Abscess (ED) Additional Instructions: Cleanse left breast with liquid Dial soap twice rinse pat dry apply mupirocin ointment on breast areola and nipple warm compresses to the breast 3 times daily watch for any increasing infection--redness, swelling, drainage Tylenol or ibuprofen for any fever pain follow up with PCP in 7-10 days for a wound check and further evaluation recheck if develop fever, chills, increasing symptom Go to the ER if your symptoms become worse of if ANY new symptoms develop may need further testing follow-up PCP If your symptoms persist, change or worsen significantly before you can contact your personal physician then please, without delay, go to the emergency department for further evaluation. Follow-up with PCP in 7-10 days or sooner if needed Follow up with PCP soon in regards to your blood pressure which is elevated above threshold for referral. Blood pressure above 120/80 may indicate pre-hy pertension.135/88 Patient Language: Maori Prescriptions: New clindamycin HCl [Cleocin HCl] 300 mg capsule 300 mg PO Q8H Qty: 30 0RF Rx Instructions: take with food mupirocin [Centany] 2 % ointment 1 applic topical BID Qty: 22 0RF Rx Instructions: apply to left breast No Action quetiapine 50 mg tablet Vraylar 3 mg capsule Follow-up/Referrals: PHYSICIAN,ORGANIC LAB WORKER [Primary Care Provider, Internal Medicine] Time of Disposition: 15:54 Quality [place] Coma Scale Eyes: Open Verbal: Oriented and Alert Motor: Follows Commands Elizabeth Coma Total Score: 15
--- OUTSIDE RECORDS SUMMARY | 2025-04-09 19:49 | XMS_ITS | Clinical Summary ---
Author Organization [facility] Care Team Providers Care Core Microarchitect Name Role Phone Provider, None Primary Care Provider Huma Evans MD Unavailable [phone] Allergies No known active allergies Medications No [...] Immunization (1 - 3-dose SCDM series) 2022 Influenza Immunization (#1) 2025 03/16/2019 SARS-COV-2 Immunization (2 - season) 2025 12/23/2020 Respiratory Syncytial Virus (RSV) Immunization (Adult) (1 [...] age to complete this topic Insurance MEDICAID [facility] MEDICAID [employer] [facility] Care Teams Core Microarchitect Relationship Specialty Start Date End Date Provider, None [place] PCP - General 12/16/22 Huma Hall MD [address] [place] [address] Reimbursement Rep 12/16/22
--- OUTSIDE RECORDS SUMMARY | 2025-04-09 19:49 | XMS_ITS | Clinical Summary ---
Author Organization [facility] Address [address] [place] [address] Care Team Providers Care Facilities Administrator Name Role Phone Huma Hall MD Unavailable [phone] Norah Ramirez APRN-SENIOR INDUSTRIAL ENGINEER Primary Care Provider Source Comments [facility],non-owned Affiliates and Associated Physician Practices is amultiple site organization consisting of ambulatory clinics and hospital sitesin [place], [place], [place] and [place]. This disclosure is being madepursuant to the Care Everywhere program and may not contain all information available regarding this patient. Last updated 18.[facility] Allergies No known active allergies Medications * [...] Patient taking differently:50 mg OralAT BEDTIME PRN, insomnia, Reason: Provider adjusted, Reported on 06/06/2024 ondansetron, disintegrating, (Zofran ODT) 4 MG tablet Take 1 (one) tablet to 2 (two) tablets by mouth every 6 hours as needed for Nausea/Vomiting Allow tablet to dissolve on the tongue 30 tablet 5 Active HYDROcodone-aakash taminophen (Blossom) 5-325 MG tabletIndicatio ns:Pyelonephrit is Take 1 [...] Recorded Patient Health Questionnaire-2 Score 0 06/22/2024 [facility] - [facility]ational Stress Questionnaire Answer Date Recorded [...] any time in the past 12 m [facility], were you homeless or living in a usp (including now)? No 06/06/2024 Comments No Sex and Gender Information Value Date Recorded Sex Assigned at Female 02/26/2023 6:03 PM CDT Legal Sex Female 3:11 AM CDT Gender Identity Female 02/26/2023 6:03 PM CDT Sexual Orientation Not on file Last Filed Vital Signs Vital Sign Reading Time Taken Comments Blood Pressure 114/68 06/22/2024 8:10 AM FIRST OFFICER Pulse 85 06/22/2024 8:10 AM FIRST OFFICER Temperature 36.6 C (97.8 F) 06/22/2024 8:10 AM FIRST OFFICER Respiratory Rate 16 06/22/2024 8:10 AM FIRST OFFICER Oxygen Saturation 98% 06/22/2024 8:10 AM FIRST OFFICER Inhaled Oxygen Concentration 21% 06/09/2024 7 :51 AM FIRST OFFICER Weight 56.2 kg (124 lb) 06/12/2024 8:10 AM FIRST OFFICER Height 175.3 cm (5' 9) 06/12/2024 8:10 AM FIRST OFFICER Body Mass Index 18.31 06/12/2024 8:10 AM FIRST OFFICER Plan of Treatment Health Maintenance Due Date Last Done Comments HIV SCREENING 2010 HEPATITIS C SCREENING 05/05/2013 DTAP/TDAP/TD VACCINES (1 - Tdap) 2014 HEPATITIS B VACCINE (1 of 3 - 19+ 3-dose series) 2014 PNEUMOCOCCAL VACCINE (1 of 2 - PCV) 2014 PAP SMEAR 2016 HPV VACCINE (1 - 3-dose SCDM series) 2022 COVID-19 VACCINE (2 - 2024-2 6 season) 2025 12/23/2020 INFLUENZA VACCINE (#1) 2025 03/16/2019 ZOSTER [...] ESBL GNR Comment:Urine 06/05/24; 05/09/2024 06/05/2024 Insurance [facility] [place] - [place] Advance Directives * Full Code (Latest Code Status on File) Date Activated Date Inactivated Comments 06/05/2024 11:04 PM 06/09/2024 6:08 PM * Full Code Date Activated Date Inactivated Comments 06/05/2024 9:51 PM 06/05/2024 11:04 PM * Full Code Date Activated Date Inactivated Comments 09/16/2016 3:58 PM 09/20/2016 12:39 PM Care Teams Facilities Administrator Relationship Specialty Start Date End Date James, Norah E, POWER SYSTEM DISPATCHER-SENIOR INDUSTRIAL ENGINEER [address] [place] [address] [place] [id number] PCP - General 08/01/22 Huma Hall MD [facility] [place] [address] Family Medicine 10/06/18
--- OUTSIDE RECORDS SUMMARY | 2025-04-09 19:49 | XMS_ITS | Patient Health Record ---
Author Organization Replaced by [facility] Address [address] [place] [address] Care Team Providers Care Marine Superintendent Name Role Phone Monserrat Roach Primary Care Provider [phone] CooneyButch romero Unavailable [phone] AnthonyShaiie Unavailable [phone] Chandan Housea Unavailable [phone] Allergies No Known Allergies Results Component Value Reference Range Notes NuSwab Vaginitis Plus (VG+) ([id number]) Reviewed date:08/17/2024 02:05:07 PM Interpretation: Performing Lab:[facility], [address] [place], [place] [address], Phone - [phone], Director - Zenaida Notes/Report: Test(s) 058942- Atopobium vaginae; 806164- BVAB 2; 772719- Megasphaera 1 was developed and its performance characteristics determined by [facility]. It has not been cleared or approved by the Food and Drug Administration. Test(s) 433262-Rsentzg albicans, TOBIAS; 180439-Yyshfjv glabrata, TOBIAS was developed and its performance [...] Reviewed date:07/05/2024 04:22:56 PM Interpretation: Performing Lab:[facility], [address] [place] [address], Phone - [phone], Director - Zenaida Notes/Report: Test(s) 230035- Atopobium vaginae; 357327- BVAB 2; 136949- Megasphaera 1 was developed and its performance characteristics determined by [facility]. It has not been cleared or approved by the Food and Drug Administration. Test(s) 136471-Xgbefwq albicans, TOBIAS; 909866-Sawxhke glabrata, TOBIAS was developed and its performance characteristics determined by [facility]. It has not been cleared or approved by the Food and Drug Administration. Written Authorization Written Authorization Received. Authorization received from MONSERRAT ROACH APRN 07-02-2024 Logged by Cary Manzo Test, Urine Reviewed date:08/28/2024 03:32:38 PM Interpretation: Performing Lab: Notes/Report: Test, Urine pos Negative - Negative CBC With Differential/Platel et* Reviewed date:06/15/2024 05:24:49 PM Interpretation: Performing Lab:[facility], [address] [place] [address], Phone - [phone], Director - Claudette Notes/Report: WBC 6.4 3.4-10.8 x10E3/uL RBC 4.86 [...] Panel* Reviewed date:06/15/2024 05:24:49 PM Interpretation: Performing Lab:[facility], [address] [place] [address], Phone - [phone], Director - [facility] Notes/Report: Glucose 80 70-99 mg/dL BUN 8 [...] A1c* Reviewed date:06/15/2024 05:24:49 PM Interpretation: Performing Lab:[facility], [address] [place] [address], Phone - [phone], Director - [facility] Notes/Report: Hemoglobin A1c 5.7 4.8-5.6 % . Prediabetes: 5.7 - 6.4 Diabetes: >6.4 Glycemic control for adults with diabetes: <7.0 UA/M w/rflx Culture, Comp Reviewed date:07/02/2024 08:05:29 AM Interpretation: Performing Lab:[facility], [address] [place] [address], Phone - [phone], Director - [facility] Notes/Report: Specific Sheldon 1.014 1.005-1.030 pH 7.0 5.0-7.5 Urine-Color Yellow [...] Indicated Reviewed date:06/28/2024 05:24:26 PM Interpretation: Performing Lab:[facility], [address] [facility], Phone - [phone], Director - [facility] Notes/Report: . NTI Miscellaneous . Dear Doctor, [...] test. . Date: . ICD-9/10 Diagnosis Code(s): _ . Physician or Authorized Designee Signature: . . Your signature confirms your order of the test(s) listed . Required test name(s): . Required test number(s): . Please provide requested information and fax to to expedite testing. . NuSwab Vaginitis Plus (VG+) (460985) Reviewed date:07/05/2024 04:16:37 PM Interpretation:Abnormal Performing Lab:[facility], [facility] [place], [place], Phone - [phone], Director - Zenaida Notes/Report: Test(s) 774237- Atopobium vaginae; 729626- BVAB 2; 842423- Megasphaera 1 was developed and its performance characteristics determined by [facility]. It has not been cleared or approved by the Food and Drug Administration. Test(s) 107574-Ccitgul albicans, TOBIAS; 750483-Uyywrdw glabrata, TOBIAS was developed and its performance [...] Negative Negative Neisseria gonorrhoeae, TOBIAS Negative Negative Urinalysis In-House, Routine Reviewed date:06/23/2024 12:02:02 PM Interpretation: Performing Lab: Notes/Report: Leukocytes small Nitrite, Urine neg Urobilinogen,Semi-Qn 0.2 Protein neg pH 7.0 Occult Blood trace Specific Sheldon 1.030 Ketones neg Bilirubin neg Glucose neg Reason For Referral Reason Hx of frequent UTIs. Recent hospitalization for pyelo. with midline insertion. Urine culture still abnormal. Diagnosis [address]requent urinary tra ct infections (N39.0) Referral Organization [facility] Referring Provider First Name Monserrat Referring Provider Last Name Benny Referring Provider Speciality Family Bon yun Referred Provider [facility] Referred Provider Specialty Urology General Notes Silvia Vicente 06/29/2024 02:47:53 PM >Spoke with staff and was advised patient's insurance is accepted at this office Clinical Notes [facility]- Urology dept. , [address] [facility] [address], [place]. [address], , Referral Priority Routine Medications Medication SIG (Take, Route, Frequency, Duration) Notes Start Date End Date Status diphenhydrAMINE HCl 25 MG 1 capsule every 6 hours Orally Once a day; Duration: 7 days As needed 08/13/2024 Active Albuterol Sulfate HFA 108 (90 Base) MCG/ACT 1 puff as needed Inhalation every 4 hrs; Duration: 30 days 03/10/2024 Active Doxycycline Hyclate 100 MG 1 capsule Ora lly twice daily; Duration: 7 days 08/17/2024 Active Triamcinolone Acetonide 0.1 % 1 application Externally twice daily; Duration: 7 days 08/13/2024 Active QUEtiapine Fumarate 50 MG 1-2 tablet at bedtime Orally Once a day; Duration: 30 days As needed Active Vraylar 3 MG 1 capsule Orally Onc e a day; Duration: 7 days Active QUEtiapine Fumarate 50 MG 1-2 tablet at bedtime Orally Once a day; Duration: 30 days Active Azithromycin 250 MG 4 tablets Orally onc e; Duration: 2 days 08/29/2024 Active Social History Tobacco Use: Social History [...] school 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 Stress is when someone feels tense, nervous, anxious, or can\t sleep at night because their mind is troubled Very much In the past year have you sp ent more than 2 nights in a row in a care home, skilled nursing, fpc center, or juvenile correctional facility? 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 Legal History- Drug-related charges in past, nothing [...] or Therapist - Saw a provider in [phone] for a short time Psychiatric Diagnosis(es) - [...] to discuss Education- 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 EMT, MEDICAL BILLING SERVICE, and RMA 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 Legal History- Drug-related charges in past, nothing [...] or Therapist - Saw a provider in [phone] for a short time Psychiatric Diagnosis(es) - [...] to discuss Education- 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 EMT, MEDICAL BILLING SERVICE, and RMA 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 Legal History- Drug-related charges in past, nothing [...] or Therapist - Saw a provider in [phone] for a short time Psychiatric Diagnosis(es) - [...] to discuss Education- 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 EMT, MEDICAL BILLING SERVICE, and RMA 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 Legal History- Drug-related charges in past, nothing [...] or Therapist - Saw a provider in [phone] for a short time Psychiatric Diagnosis(es) - [...] to discuss Education- 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 EMT, MEDICAL BILLING SERVICE, and RMA 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 Legal History- Drug-related charges in past, nothing [...] or Therapist - Saw a provider in [phone] for a short time Psychiatric Diagnosis(es) - [...] to discuss Education- 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 EMT, MEDICAL BILLING SERVICE, and RMA 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 Legal History- Drug-related charges in past, nothing [...] or Therapist - Saw a provider in [phone] for a short time Psychiatric Diagnosis(es) - [...] to discuss Education- 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 EMT, MEDICAL BILLING SERVICE, and RMA 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 Legal History- Drug-related charges in past, nothing [...] or Therapist - Saw a provider in [phone] for a short time Psychiatric Diagnosis(es) - [...] to discuss Education- 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 EMT, MEDICAL BILLING SERVICE, and RMA 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 Legal History- Drug-related charges in past, nothing [...] or Therapist - Saw a provider in [phone] for a short time Psychiatric Diagnosis(es) - [...] to discuss Education- 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 EMT, MEDICAL BILLING SERVICE, and RMA 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 Legal History- Drug-related charges in past, nothing [...] or Therapist - Saw a provider in [phone] for a short time Psychiatric Diagnosis(es) - [...] to discuss Education- 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 EMT, MEDICAL BILLING SERVICE, and RMA 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 Legal History- Drug-related charges in past, nothing [...] or Therapist - Saw a provider in [phone] for a short time Psychiatric Diagnosis(es) - [...] to discuss Education- 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 EMT, MEDICAL BILLING SERVICE, and RMA 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 bipolar 2 disorder Problem Posttraumatic stress disorder (72057746) PTSD (post-traumatic stress disorder) (F43.10) 03/18/20 Active confirmed Problem Asthma (918946178) Asthma (J45.909) Active confirmed Problem Generalized anxiety disorder (75405902) AZAEL (generalized anxiety disorder) (F41.1) 03/18/20 24 Active confirmed Problem Thyroid nodule (515815321) Thyroid nodule (E04.1) Active confirmed Problem Substance use disorder (5846438991) Substance use disorder (F19.90) 03/18/20 24 Active confirmed Problem Missed period (82673905) Missed menses (N92.6) Active confirmed Problem migraine (disorder) (19139215) Migraines (G43.909) Active confirmed Problem Peripheral neuropathy of bilateral lower limbs (disorder) (534890437373726 08) Neuropathy involving both lower extremities (G57.93) Active confirmed Problem Cannabis dependence (40244354) Marijuana smoker (F12.90) Active confirmed Vital Signs Heart Rate 78 /min 08/13/2024 Temperature 98.4 degrees Fahrenheit 06/11/2024 Respiratory Rate 16 /min 08/13/2024 Blood pressure diastolic 68 mm Hg 08/13/2024 Oximetry 98 % 08/13/2024 Height 67.5 in 08/13/2024 Blood pressure systolic 110 mm Hg 08/13/2024 Weight 119 lbs 08/13/2024 BMI 18.36 kg/m2 08/13/2024 Encounters Encounter Location Date Provider Diagnosis [facility] [place] [address] 08/28/2024 Monserrat Roach [address] [address] 04/20/2024 [facility] Mood disorder F39 ; PTSD (post-traumatic stress disorder) F43.10 ; AZAEL (generalized anxiety disorder) F41.1 ; Substance use disorder F19.90 ; Nicotine dependence, unspecified, uncomplicated F17.200 and Medication management Z79.[address] [place] [address] 06/02/2024 Anjali [facility] Mood disorder F39 ; PTSD (post-traumatic stress disorder) F43.10 ; AZAEL (generalized anxiety disorder) F41.1 ; Substance use disorder F19.90 ; Nicotine dependence, unspecified, uncomplicated F17.200 and Medication management Z79.899 [facility] [address] [place] [address] 06/11/2024 Monserrat Roach Screening for deficiency anemia Z13.0 ; Hospital discharge follow-up Z09 ; Screening for metabolic disorder Z13.228 ; Screening for diabetes mellitus Z13.1 ; Patient underweight R63.6 ; Non-tobacco user Z78.9 and Nutritional counseling Z71.3 [facility] [place] [address] 06/23/2024 Monserrat Roach Urinary tract infection N39.0 and Vaginitis N76.[address] [address] 08/03/2024 Anjali [facility] Mood disorder F39 ; PTSD (post-traumatic stress disorder) F43.10 ; AZAEL (generalized anxiety disorder) F41.1 ; Substance use disorder F19.90 ; Nicotine dependence, unspecified, uncomplicated F17.200 and Medication management Z79.899 [facility] [address] [facility] [place] [address] 08/13/2024 Monserrat Roach Patient underweight R63.6 ; Insect bite W57.XXXA ; Non-tobacco user Z78.9 ; Nutritional counseling Z71.3 and Vaginitis N76.[address] [address] 10/05/2024 An[facility] Mood disorder F39 ; PTSD (post-traumatic stress disorder) F43.10 ; AZAEL (generalized anxiety disorder) F41.1 ; Substance use disorder F19.90 ; Marijuana smoker F12.90 ; Nicotine dependence, unspecified, uncomplicated F17.200 and Medication management Z79.[address] [address] 10/27/2024 [facility] Mood disorder F39 ; PTSD (post-traumatic stress disorder) F43.10 ; AZAEL (generalized anxiety disorder) F41.1 ; Substance use disorder F19.90 ; Marijuana smoker F12.90 ; Nicotine dependence, unspecified, uncomplicated F17.200 and Medication management Z79.[address] [address] 12/28/2024 Anjali Sabblut Mood disorder F39 ; PTSD (post-traumatic stress disorder) F43.10 ; AZAEL (generalized anxiety disorder) F41.1 ; Substance use disorder F19.90 ; Marijuana smoker F12.90 ; Nicotine dependence, unspecified, uncomplicated F17.200 and Medication management Z79.[address] [address] 02/02/2025 Anjali Sabblut Mood disorder F39 ; PTSD (post-traumatic stress disorder) F43.10 ; AZAEL (generalized anxiety disorder) F41.1 ; Substance use disorder F19.90 ; Marijuana smoker F12.90 ; Nicotine dependence, unspecified, uncomplicated F17.200 and Medication management Z79.[address] [address] 05/25/2024 Anjali Sabmorelia Mood disorder F39 ; PTSD (post-traumatic stress disorder) F43.10 and AZAEL (generalized anxiety disorder) F41.[address] [address] 06/22/2024 Monserrat Roach [address] [address] 06/28/2024 Monserrat Roach Pyelonephritis N12 a nd Frequent urinary tract infections N39.0 [facility] [address] [place] [address] 07/01/2024 Monserrat Roach [address] [place] [address] 07/05/2024 Monserrat Roach Trichomoniasis of vagina A59.[address] [address] 08/17/2024 Monserrat Roach Chlamydia A74.[address] [address] 08/28/2024 Monserrat Roach Mood disorder F39 [address] [address] 08/28/2024 Butch Cooney Chlamydia A74.[address] [place] [address] 08/31/2024 Butch Cooney [facility] [address] [place] [address] 09/01/2024 Monserrat Benny [facility] [address] [place] [address] 09/28/2024 Butch Cooney [facility] [address] [place] [address] 10/22/2024 Anjali House Mood disorder F39 [address] [place] [address] 10/23/2024 Butch Cooney [address] [place] [address] 03/29/2025 Anjali House [address] [address] 04/06/2025 Anjali Harsh Mood disorder F39 Assessments Encounter Date Diagnosis (ICD Code) Assessment Notes Treatment Notes Treatment Clinical Notes Section Notes 08/28/2024 Chlamydia (ICD-10 - A74.9) 08/28/2024 Mood disorder (ICD-10 - F39) 08/03/2024 Mood disorder (ICD-10 - F39) MDD vs. bipolar 2 disorder Continue psychotherapy as scheduled. 08/17/2024 Chlamydia (ICD-10 - A74.9) 06/23/2024 Vaginitis (ICD-10 - N76.0) 06/23/2024 Urinary tract infection (ICD-10 - N39.0) 04/20/2024 Mood disorder (ICD-10 - F39) MDD vs. bipolar 2 disorder Continue psychotherapy as scheduled. 02/02/2025 Mood disorder (ICD-10 - F39) MDD vs. bipolar 2 disorder Continue psychotherapy as scheduled. Client reports lamotrigine caused rash. 12/28/2024 Mood disorder (ICD-10 - F39) MDD vs. bipolar 2 disorder Continue psychotherapy as scheduled. Client reports lamotrigine caused rash. 04/06/2025 Mood disorder (ICD-10 - F39) 06/28/2024 Pyelonephritis (ICD-10 - N12) 06/28/2024 Frequent urinary tract infections (ICD-10 - N39.0) 06/11/2024 Hospital discharge follow-up (ICD-10 - Z09) 06/02/2024 Mood disorder (ICD-10 - F39) MDD vs. bipolar 2 disorder Continue psychotherapy as scheduled. 05/25/2024 Mood disorder (ICD-10 - F39) MDD vs. bipolar 2 disorder 10/05/2024 Mood disorder (ICD-10 - F39) MDD vs. bipolar 2 disorder Continue psychotherapy as scheduled. Client reports lamotrigine caused rash. 10/27/2024 Mood disorder (ICD-10 - F39) MDD vs. bipolar 2 disorder Continue psychotherapy as scheduled. Client reports lamotrigine caused rash. 06/11/2024 Screening for deficiency anemia (ICD-10 - Z13.0) 10/22/2024 Mood disorder (ICD-10 - F39) MDD vs. bipolar 2 disorder 07/05/2024 Trichomoniasis of vagina (ICD-10 - A59.01) 08/13/2024 Insect bite (ICD-10 - W57.XXXA) 08/13/2024 Patient underweight (ICD-10 - R63.6) 08/13/2024 Non-tobacco user (ICD-10 - Z78.9) 10/27/2024 PTSD (post-traumatic stress disorder) (ICD-10 - F43.10) Continue psychotherapy as scheduled. 10/05/2024 PTSD (post-traumatic stress disorder) (ICD-10 - F43.10) Continue psychotherapy as scheduled. 05/25/2024 PTSD (post-traumatic stress disorder) (ICD-10 - F43.10) 06/02/2024 PTSD (post-traumatic stress disorder) (ICD-10 - F43.10) Continue psychotherapy as scheduled. 12/28/2024 PTSD (post-traumatic stress disorder) (ICD-10 - F43.10) Continue psychotherapy as scheduled. On waiting list to start trauma-based therapy. Trazodone stopped d/t inefficacy. 02/02/2025 PTSD (post-traumatic stress disorder) (ICD-10 - F43.10) Continue psychotherapy as scheduled. On waiting list to start trauma-based therapy. Trazodone stopped d/t inefficacy. 04/20/2024 PTSD (post-traumatic stress disorder) (ICD-10 - F43.10) Continue psychotherapy as scheduled. 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 Continue psychotherapy as scheduled. 06/11/2024 Screening for metabolic disorder (ICD-10 - Z13.228) 08/03/2024 AZAEL (generalized anxiety disorder) (ICD-10 - F41.1) Client reports no longer needing gabapentin. Continue psychotherapy as scheduled. 04/20/2024 AZAEL (generalized anxiety disorder) (ICD-10 - F41.1) Continue psychotherapy as scheduled. 02/02/2025 AZAEL (generalized anxiety disorder) (ICD-10 - F41.1) Client reports no longer needing gabapentin. Continue psychotherapy as scheduled. 12/28/2024 AZAEL (generalized anxiety disorder) (ICD-10 - F41.1) Client reports no longer needing gabapentin. Continue psychotherapy as scheduled. 06/02/2024 AZAEL (generalized anxiety disorder) (ICD-10 - F41.1) Continue psychotherapy as scheduled. 05/25/2024 AZAEL (generalized anxiety disorder) (ICD-10 - F41.1) 06/11/2024 Screening for diabetes mellitus (ICD-10 - Z13.1) 10/05/2024 AZAEL (generalized anxiety disorder) (ICD-10 - F41.1) Client reports no longer needing gabapentin. Continue psychotherapy as scheduled. 10/27/2024 AZAEL (generalized anxiety disorder) (ICD-10 - F41.1) Client reports no longer needing gabapentin. Continue psychotherapy as scheduled. 08/13/2024 Nutritional counseling (ICD-10 - Z71.3) 10/27/2024 Substance use disorder (ICD-10 - F19.90) Recommend a combination of 12-step programs, outpatient programs, and psychotherapy to maintain recovery in the outpatient setting. Recommend sober living house as planned. 10/05/2024 Substance use disorder (ICD-10 - F19.90) Recommend a combination of 12-step programs, outpatient programs, and psychotherapy to maintain recovery in the outpatient setting. Recommend sober living house as planned. 06/02/2024 Substance use disorder (ICD-10 - F19.90) Recommend a combination of 12-step programs, outpatient programs, and psychotherapy to maintain recovery in the outpatient setting. Recommend sober living house as planned. 12/28/2024 Substance use disorder (ICD-10 - F19.90) Recommend a combination of 12-step programs, outpatient programs, and psychotherapy to maintain recovery in the outpatient setting. Recommend sober living house as planned. 02/02/2025 Substance use disorder (ICD-10 - F19.90) Recommend [...] as planned. 08/13/2024 Vaginitis (ICD-10 - N76.0) 04/20/2024 Nicotine dependence, unspecified, uncomplicated (ICD-10 - F17.200) 02/02/2025 Marijuana smoker (ICD-10 - F12.90) 12/28/2024 Marijuana smoker (ICD-10 - F12.90) 06/11/2024 Patient underweight (ICD-10 - R63.6) 10/05/2024 Marijuana smoker (ICD-10 - F12.90) 10/27/2024 Marijuana smoker (ICD-10 - F12.90) 08/03/2024 Nicotine dependence, unspecified, uncomplicated (ICD-10 - F17.200) 06/02/2024 Nicotine dependence, unspecified, uncomplicated (ICD-10 - F17.200) 06/02/2024 Medication management (ICD-10 - Z79.899) May self-administer medications or be administered own oral medications per [facility] protocols. Provided informed consent with understanding of [...] or be administered own oral medications per [facility] protocols. Provided informed consent with understanding of side effects, adverse effects, risks and benefits as well as alternative treatments as previously discussed and with the above recommended medications & other aspects of the treatment program. Agrees to return sooner if symptoms worsen or suicidal or homicidal ideations occur. 10/27/2024 Nicotine dependence, unspecified, uncomplicated (ICD-10 - F17.200) 06/11/2024 Non-tobacco user (ICD-10 - Z78.9) 02/02/2025 Nicotine dependence, unspecified, uncomplicated (ICD-10 - F17.200) Client reports trying to get vaping. Consider nicotine cessation therapy as needed - contact office if desiring medication assisted therapy. 10/05/2024 Nicotine dependence, unspecified, uncomplicated (ICD-10 - F17.200) 12/28/2024 Nicotine dependence, unspecified, uncomplicated (ICD-10 - F17.200) Client reports trying to get vaping. Consider nicotine cessation therapy as needed - contact office if desiring medication assisted therapy. 04/20/2024 Medication management (ICD-10 - Z79.899) May self-administer medications or be administered own oral medications per [facility] protocols. Provided informed consent with understanding of side effects, adverse effects, risks and benefits as well as alternative treatments as previously discussed and with the above recommended medications & other aspects of the treatment program. Agrees to return sooner if symptoms worsen or suicidal or homicidal ideations occur. 12/28/2024 Medication management (ICD-10 - Z79.899) May self-administer medications or be administered own oral medications per [facility] protocols. Provided informed consent with understanding of side effects, adverse effects, risks and benefits as well as alternative treatments as previously discussed and with the above recommended medications & other aspects of the treatment program. Agrees to return sooner if symptoms worsen or suicidal or homicidal ideations occur. Labs monitored by PCP. Last done in May 2024. 10/05/2024 Medication management (ICD-10 - Z79.899) May self-administer medications or be administered own oral medications per [facility] protocols. Provided informed consent with understanding of side effects, adverse effects, risks and benefits as well as alternative treatments as previously discussed and with the above recommended medications & other aspects of the treatment program. Agrees to return sooner if symptoms worsen or suicidal or homicidal ideations occur. 02/02/2025 Medication management (ICD-10 - Z79.899) May self-administer medications or be administered own oral medications per [place] protocols. Provided informed consent with understanding of [...] or be administered own oral medications per [place] protocols. Provided informed consent with understanding of side effects, adverse effects, risks and benefits as well as alternative treatments as previously discussed and with the above recommended medications & other aspects of the treatment program. Agrees to return sooner if symptoms worsen or suicidal or homicidal ideations occur. 06/23/2024 Other Learning About the Safe Use of Antibiotics material was discussed. Pt was educated on use of antibiotic medication including dosing, side effects, adverse effects and anticipated response. Pt was also educated on importance of completing full course of treatment as ordered. Patient voiced understanding of all. Plan Of Treatment Next Appt Details Provider Name:Anjali Jessica nc, 04/12/2025 08:15:00 AM, [address], [place], [place], [address], Insurance Providers Payer Name Payer Address Payer Phone Subscriber Number Group Number Insured Name Patient Relationship to Insured Coverage Start Date Coverage End Date [facility] Attn Claims Department [address] [place] [address] [phone] [id number] Maribel Hoffman Self - patient is the insured 2 [facility] [address] [place] [address] [phone] Maribel Hoffman Self - patient is the insured 4 Medical (General) History Medical History History ICD Code Asthma J45.909 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
--- OUTSIDE RECORDS SUMMARY | 2025-04-09 19:51 | XMS_ITS | Data Portability ---
Author Organization [facility] Address [address] [place] [place] [place] [address] Care Team Providers Care Residential Real Estate Assistant Name Role Phone KINGSTON PENDLETONWALDO Primary Care Provider Assessment No assessment recorded. Plan of Treatment Reminders Order Date Submit Date Provider Last Modified By Organization Details Last Modified Time Details Appointments None recorded. Lab None recorded. Referral None recorded. Procedures None recorded. Surgeries suction dilation & curettage (SURG) 2022 023 [email or web address] [facility], [address], [place], [address], 3 19:38:03 Imaging US, pelvis 2022 023 [email or web address] [place], [facility] [address], [address], [place], [address], 3 20:36:32 Medication Orders None recorded. Patient TargetsNo targets recorded. Patient InstructionsNo instructions recorded. Reason for Referral None Reported. Results Created Date Observation Date Name Description Value Unit Range Abnormal Flag Note LastModifiedBy Organization Detail LastModifiedTime 06/29/1906/29/2022 CULTU RE: GROUP B STREP SCREE N, REFLE X SUSCE PTIBI LITY result report SEE RESULT S BELOW Test: Cultu re: Group B Strep , Refle x Susce ptibi lity ([facility]/ [facility] ) Speci men Sourc e: Vagin a/Rec ailyn Speci men Type: Vagin al/Re ctal Speci men Date: 023 4:19 PM Resul t Date: 023 2:16 PM Resul t Statu s: Final resul t Abnor mal: No Resul garciag Lab: [facility] [address] [facility] [address] Tel: CULTU RE ----- ----- ----- --- No Group B strep isola semaj at 2 days (malini ctive broth enhan cemen t) Not Available [facility] (Lab) [address], [place], [address], 07/02/2022 15:18:36 07/06/19 23 07/06/2022 URIC ACID uric acid 4.4 mg/dL 2.3-6. 6 Not Available [facility] (Lab) [address] [place], [address], 07/07/2022 03:01:25 07/06/19 23 07/06/2022 CMP(C OMPRE HENSI VE METAB OLIC PANEL ) sodium 140 mmol/ L 133-14 6 Not Available [facility] (Lab) [address] [place], [address], 07/07/2022 03:01:25 07/06/19 23 07/06/2022 CMP(C OMPRE HENSI VE METAB OLIC PANEL ) potassium 3.3 mmol/ L 3.5-5. 1 low Not Available [facility] (Lab) [address] [place], [address], 07/07/2022 03:01:25 07/06/19 23 07/06/2022 CMP(C OMPRE HENSI VE METAB OLIC PANEL ) chloride 105 mmol/ L 98-107 Not Available [facility] (Lab) [address] [place], [address], 07/07/2022 03:01:25 07/06/19 23 07/06/2022 CMP(C OMPRE HENSI VE METAB OLIC PANEL ) carbon dioxide 23 mmol/ L 21-31 Not Available [facility] (Lab) [address], [place], [address], 07/07/2022 03:01:25 07/06/19 23 07/06/2022 CMP(C OMPRE HENSI VE METAB OLIC PANEL ) anion gap 12 mmol/ L 4-13 Not Available [facility] (Lab) [address], [place], [address], 07/07/2022 03:01:25 07/06/19 23 07/06/2022 CMP(C OMPRE HENSI VE METAB OLIC PANEL ) blood urea nitrogen 4 mg/dL 7-25 low Not Available [facility] (Lab) [address], [place], [address], 07/07/2022 03:01:25 07/06/19 23 07/06/2022 CMP(C OMPRE HENSI VE METAB OLIC PANEL ) creatinine 0.64 mg/dL 0.60-1 .30 Not Available [facility] (Lab) [address], [place], [address], 07/07/2022 03:01:25 07/06/19 23 07/06/2022 CMP(C OMPRE HENSI VE METAB OLIC PANEL ) egfrcr (CKD-epi 2020) >90 mL/mi n/1.7 3_m2 >=60 Not Available [facility] (Lab) [address], [place], [address], 07/07/2022 03:01:25 07/06/19 23 07/06/2022 CMP(C OMPRE HENSI VE METAB OLIC PANEL ) calcium 8.7 mg/dL 8.3-10 .5 Not Available [facility] (Lab) [address], [place], [address], 07/07/2022 03:01:25 07/06/19 23 07/06/2022 CMP(C OMPRE HENSI VE METAB OLIC PANEL ) glucose 78 mg/dL 70-100 Not Available [facility] (Lab) [address], [place], [address], 07/07/2022 03:01:25 07/06/19 23 07/06/2022 CMP(C OMPRE HENSI VE METAB OLIC PANEL ) protein, total 6.3 g/dL 6.4-8. 3 low Not Available [facility] (Lab) [address], [place], [address], 07/07/2022 03:01:25 07/06/19 23 07/06/2022 CMP(C OMPRE HENSI VE METAB OLIC PANEL ) albumin 3.3 g/dL 3.5-5. 0 low Not Available [facility] (Lab) [address], [place], [address], 07/07/2022 03:01:25 07/06/19 23 07/06/2022 CMP(C OMPRE HENSI VE METAB OLIC PANEL ) ALT 7 units /L 9-43 low Not Available [facility] (Lab) [address], [place], [address], 07/07/2022 03:01:25 07/06/19 23 07/06/2022 CMP(C OMPRE HENSI VE METAB OLIC PANEL ) alkaline phosphatase 182 units /L 34-104 high Not Available [facility] (Lab) [address], [place], [address], 07/07/2022 03:01:25 07/06/19 23 07/06/2022 CMP(C OMPRE HENSI VE METAB OLIC PANEL ) AST 19 units /L 13-39 Not Available [facility] (Lab) [address], [place], [address], 07/07/2022 03:01:25 07/06/19 23 07/06/2022 CMP(C OMPRE HENSI VE METAB OLIC PANEL ) bilirubin, total 0.3 mg/dL 0.2-1. 2 Not Available [facility] (Lab) [address] [place], [address], 07/07/2022 03:01:25 07/06/19 23 07/06/2022 CBC W/DIF F WBC 13.5 10'3/ uL 3.6-10 .2 high Not Available [facility] (Lab) [address], [place], [address], 07/07/2022 03:01:26 07/06/19 23 07/06/2022 CBC W/DIF F RBC 4.14 10'6/ uL (based on docume nted legal sex) 4.10-5 .30 Not Available [facility] (Lab) [address], [place], [address], 07/07/2022 03:01:26 07/06/19 23 07/06/2022 CBC W/DIF F HGB 12.5 g/dL (based on docume nted legal sex) 11.9-1 5.8 Not Available [facility] (Lab) [address], [place], [address], 07/07/2022 03:01:26 07/06/19 23 07/06/2022 CBC W/DIF F HCT 38.7 % (based on docume nted legal sex) 37.4-4 8.3 Not Available [facility] (Lab) [address], [place], [address], 07/07/2022 03:01:26 07/06/19 23 07/06/2022 CBC W/DIF F MCV 93.5 fL 82.0-9 9.0 Not Available [facility] (Lab) [address], [place], [address], 07/07/2022 03:01:26 07/06/19 23 07/06/2022 CBC W/DIF F MCH 30.2 pg 27.0-3 3.0 Not Available [facility] (Lab) [address], [place], [address], 07/07/2022 03:01:26 07/06/19 07/06/2022 CBC W/DIF F MCHC 32.3 g/dL 32.0-3 6.0 Not Available [facility] (Lab) [address], [place], [address], 07/07/2022 03:01:26 07/06/19 23 07/06/2022 CBC W/DIF F RDW 13.7 % 11.0-1 5.0 Not Available [facility] (Lab) [address], [place], [address], 07/07/2022 03:01:26 07/06/19 23 07/06/2022 CBC W/DIF F plt 235 10'3/ uL 150-45 0 Not Available [facility] (Lab) [address], [place], [address], 07/07/2022 03:01:26 07/06/19 23 07/06/2022 CBC W/DIF F MPV 12.4 fL 9.8-12 .7 Not Available [facility] (Lab) [address], [place], [address], 07/07/2022 03:01:26 07/06/19 23 07/06/2022 CBC W/DIF F NRBC's 0.0 % 0 Not Available [facility] (Lab) [address], [place], [address], 07/07/2022 03:01:26 07/06/19 23 07/06/2022 CBC W/DIF F absolute NRBCs 0.0 10'3/ uL 0 Not Available [facility] (Lab) [address], [place], [address], 07/07/2022 03:01:26 07/06/19 23 07/06/2022 CBC W/DIF F neutrophils 74.5 % 37.0-7 2.0 high Not Available [facility] (Lab) [address], [place], [address], 07/07/2022 03:01:26 07/06/19 23 07/06/2022 CBC W/DIF F lymphocytes 19.2 % 16.0-4 8.0 Not Available [facility] (Lab) [address], [place], [address], 07/07/2022 03:01:26 07/06/19 23 07/06/2022 CBC W/DIF F monocytes 5.0 % 4.0-14 .0 Not Available [facility] (Lab) [address], [place], [address], 07/07/2022 03:01:26 07/06/19 23 07/06/2022 CBC W/DIF F eosinophils 0.2 % 0.0-9. 0 Not Available [facility] (Lab) [address], [place], [address], 07/07/2022 03:01:26 07/06/19 23 07/06/2022 CBC W/DIF F basophils 0.4 % 0.0-2. 0 Not Available [facility] (Lab) [address], [place], [address], 07/07/2022 03:01:26 07/06/19 23 07/06/2022 CBC W/DIF F immature granulocytes 0.7 % no define d refere nce range Not Available [facility] (Lab) [address], [place], [address], 07/07/2022 03:01:26 07/06/19 23 07/06/2022 CBC W/DIF F absolute neutrophils 10.0 10'3/ uL 1.1-6. 0 high Not Available [facility] (Lab) [address] [place], [address], 07/07/2022 03:01:26 07/06/19 23 07/06/2022 CBC W/DIF F absolute lymphocytes 2.6 10'3/ uL 0.7-3. 4 Not Available [facility] (Lab) [address], [place], [address], 07/07/2022 03:01:26 07/06/19 23 07/06/2022 CBC W/DIF F absolute monocytes 0.7 10'3/ uL 0.3-1. 0 Not Available [facility] (Lab) [address], [place], [address], 07/07/2022 03:01:26 07/06/1907/06/2022 CBC W/DIF F absolute eosinophils 0.0 10'3/ uL 0.0-0. 6 Not Available [facility] (Lab) [address], [place], [address], 07/07/2022 03:01:26 07/06/19 23 07/06/2022 CBC W/DIF F absolute basophils 0.1 10'3/ uL 0.0-0. 1 Not Available [facility] (Lab) [address], [place], [address], 07/07/2022 03:01:26 07/06/1907/06/2022 CBC W/DIF F absolute immature granulocytes 0.1 10'3/ uL 0.00-0 .10 2022 1:58 AM: P indic ates parti al resul ts on a panel have been relea sed. Addit ional resul ts will follo w. 2022 1:58 AM: This resul t has been final verif ied. No addit ional or lao ed resul ts are expec semaj. Not Available [facility] (Lab) [address], [place], [address], 07/07/2022 03:01:06/29/1906/29/2022 non-s tress test No observ ation record ed. [email or web address] [address], [place], [address], 06/29/2022 15:20:48 06/29/1906/29/2022 US, obste tric, follo w-up No observ ation record ed. [email or web address] Nancy [address], [place], [address], 07/02/2022 09:53:27 06/29/19 23 06/29/2022 US, obste tric, bioph ysica l profi le + non-s tress test No observ ation record ed. [email or web address] [facility] [address], [place], [address], 06/29/2022 18:15:40 06/29/19 23 06/29/2022 US, doppl er, umbil ical arter y veloc imetr y No observ ation record ed. [email or web address] [facility] [address], [place], [address], 06/29/2022 18:15:31 06/30/19 23 06/30/2022 non-s tress test No observ ation record ed. [email or web address] [place] [id number] [facility] [address], [place], [address], 07/02/2022 12:10:05 07/01/19 23 07/01/2022 non-s tress test No observ ation record ed. [email or web address] [place] [id number] [facility] [address], [place], [address], 07/03/2022 10:48:59 07/02/19 23 07/02/2022 non-s tress test No observ ation record ed. [email or web address] [place] [address], [place], [address], 07/02/2022 16:04:23 07/03/19 23 07/03/2022 US, obste tric, follo w-up No observ ation record ed. [email or web address] [facility] [address] [facility] [address], [place], [address], 07/06/2022 11:00:37 07/06/19 23 07/06/2022 non-s tress test No observ ation record ed. [email or web address] [place] [address], [place], [address], 07/06/2022 14:36:02 07/06/19 23 07/06/2022 US, obste tric, follo w-up No observ ation record ed. [email or web address] Nancy [address], [place], [address], 07/06/2022 15:46:10 07/06/19 23 07/06/2022 US, obste tric, bioph ysica l profi le No observ ation record ed. [email or web address] [facility] [address], [place], [address], 07/06/2022 17:00:11 07/13/19 23 07/13/2022 non-s tress test No observ ation record ed. [email or web address] [facility] [address], [place], [address], 07/13/2022 15:00:53 07/13/19 23 07/13/2022 US, obste tric, bioph ysica l profi le + non-s tress test No observ ation record ed. [email or web address] [facility] [address], [place], [address], 07/13/2022 18:13:17 07/13/19 23 07/13/2022 US, doppl er, umbil ical arter y veloc imetr y No observ ation record ed. [email or web address] [facility] [address], [place], [address], 07/13/2022 18:13:08 07/13/19 23 07/13/2022 US, obste tric, bioph ysica l profi le + non-s tress test No observ ation record ed. [email or web address] Nancy [address], [place], [address], 07/15/2022 09:18:38 07/24/19 23 07/24/2022 US, pelvi s No observ ation record ed. [email or web address] [facility] [address], [place], [address], 07/24/2022 18:35:59 07/24/19 23 07/24/2022 US, pelvi s No observ ation record ed. [email or web address] Nancy [address], [place], [address], 07/24/2022 22:09:21 Result Notes None recorded. Problems Name Problem SNOMED Code Status Onset Date Resolution Date Notes Provider Name and Address Organization Details Recorded Time Asthma 727116024 Completed not using inhaler Alie brock [facility] 17:51:31 Past pregnanc y history of gestatio nal diabetes mellitus 029963428 Completed early screenin g Alie Douglas [facility] 3 17:51:31 Depressi ve disorder 56679416 Completed Started Zoloft 50mg Alienya Douglas [facility] 17:51:31 RhD negative 345665851 Completed Alie Douglas [facility], [facility] 17:51:31 Nausea and vomiting 69718672 Completed Alie Douglas [facility] 17:51:31 Placenta l abnormal ity 359537853 Completed bilobed - Grade 1 & Grd 3- MFM 07/18 2wk growth at [facility] Alie brock [facility] 3 17:51:31 Bipolar disorder 29531654 Active 2018 Bipolar disorder , unspecif ied;Prac isabell ID: [id number] Not Available [facility] 0 18:25:44 Pregnanc y 69511707 Completed 202109/03/2022 Alieelissa brock, [facility] 3 17:51:37 Problem Notes None recorded. Procedures Surgical History Date Name Laterality Status Provider Name and Address Organization Details Recorded Time 07/31/19 23 SUCTION DILATION & CURETTAGE (SURG) completed [facility] 07/31/2022 10:15:18 07/31/19 23 SUCTION DILATION & CURETTAGE (SURG) completed [facility] 07/31/2022 10:15:12 12/28/19 22 Date of Last Pap Smear completed Karley Almeida [facility] 01/15/2022 11:18:52 05/27/19 20 biopsy of thyroid completed [facility] 02/06/2022 17:27:34 05/27/19 19 Breast Biopsy completed [facility] 02/06/2022 17:27:47 05/27/19 16 termination of completed [facility] 02/06/2022 17:24:48 Imaging Results None recorded. Procedure Notes None [...] 2 times every day 01/10 completed Prescrib marvin Gonzalez e: Yes Loca tion: Lilli tracey [facility] M odify By: kayley renteria DateTime : 02/29/20 09:45:00 AM Not Available Not Available Not Available doxycycli ne hyclate 100 mg capsule take 1 capsule by oral route 2 times every day 01/10 completed Prescrib ed Elsewher e: No [facility]at [facility] By: [email or web address] Encounte r DateTime : [...] Prescrib ed Elsewher e: Yes [facility] By: [email or web address] l Encoun ter DateTime : 06/02/19 01:00:00 PM Not Available [...] Elsewher e: No Locat ion: Lilli tracey [facility] odify By: mohit sandersunthoa DateTime : 10/04/19 02:19:09 PM Not Available [...] Elsewher e: No Locat ion: Lilli tracey [facility] odify By: mohit qureshi DateTime : [...] Elsewher e: No Locat ion: Lilli tracey [facility] odify By: alonzo renteria DateTime [...] Prescrib ed Elsewher e: No [facility] odify By: [email or web address] Encounte r DateTime : [...] Prescrib ed Elsewher e: Yes Loca tion: [facility] odify By: [email or web address] carmona DateTime : 06/02/19 01:00:00 PM Not [...] Prescrib ed Elsewher e: No Locat ion: [facility] odify By: [email or web address] Encounte r DateTime : 02/05/20 04:45:00 PM Not Available Not Available Not Available Lexapro 20 mg tablet take 1 tablet by oral route every day 02/04 completed Prescrib ed Elsewher e: No Locat ion: [facility] odify By: bchappnirmala l Zak carmona DateTime : 01/08/20 11:30:00 AM Not [...] Prescrib ed Elsewher e: No Locat ion: Shine kyung [facility] J Luis johnson By: cortezmic Tracey brandier DateTime : 12/10/19 03:30:00 PM Not Available Not Available Not Available OneTouch Ultra2 Meter Check blood sugar QID; fasting and 1hr pc 01/14 completed Prescrib ed Elsewher e: No Locat ion: Lilli tracey [facility] J Luis johnson By: [email or web address] Tracey ncounter DateTime : 12/10/19 03:30:00 PM Not Available Not Available Not Available Vitals Date Recorded Body weight Provider Name an d Address Organization Details Last Updated DateTime 07/25/[phone] [facility] 09/03/2022 17:51:35 Date Recorded Body height Body mass index (BMI) Systolic And Diastolic Provider Name and Address Organization Details Last Updated DateTime 07/25/2022 170.82 cm 21.3 kg/m2 120/76 mm[Hg] Karley [facility] 07/25/2022 17:49:20 Date Recorded Body weight Provider Name an d Address Organization Details Last Updated DateTime 08/06/[phone] g Alie [facility] 09/03/2022 17:51:35 Date Recorded Body height Body mass index (BMI) Systolic And Diastolic Provider Name and Address Organization Details Last Updated DateTime 08/06/2022 170.82 cm 20.4 kg/m2 110/65 mm[Hg] Karley Almeida [facility] 08/06/2022 11:51:50 Date Recorded Body height Body mass index (BMI) Body weight Systolic And Diastolic Provider Name and Address Organization Details Last Updated DateTime 09/07/2022 170.82 cm 19.1 kg/m2 66570.86 g 131/84 mm[Hg] Anna Cohen [facility] 09/07/2022 11:38:58 Social History Question Answer Notes LastModified by Organizat ion Details LastModified Time Tobacco Smoking Status Former Smoker Anna Cohen [facility] 04/11/2022 15:15:06 Do You Have An Advance Directive? No [email or web address] Information not available 04/11/2022 If You Are , What Was Your Level Of Alcohol Consumption Prior To ? Occasional [email or web address] Information not available 04/11/2022 Are You Blind Or Do You Have Difficulty Seeing? No [email or web address] Information not available 02/06/2022 What Is Your Level Of Caffeine Consumption? Moderate [email or web address] Information not available 04/11/2022 How Much Tobacco Do You Chew? None [email or web address] Information not available 04/11/2022 In The 14 Days Before Symptom Onset, Have You Had Close Contact With A Laboratory-confir med COVID-19 While That Case Was Ill? No [email or web address] Information not available 02/06/2022 In The 14 Days Before Symptom Onset, Have You Had Close Contact With A Person Who Is Under Investigation For COVID-19 While That Person Was Ill? No [email or web address] Information not available 02/06/2022 Have You Been To An Area Known To Be High Risk For COVID-19? No [email or web address] Information not available 02/06/2022 Are You Deaf Or Do You Have Serious Difficulty Hearing? No [email or web address] Information not available 02/06/2022 What Type Of Diet Are You Following? REGULAR [email or web address] Information not available 02/06/2022 What Is The Highest Grade Or Level Of School You Have Completed Or The Highest Degree You Have Received? [id number] [email or web address] Information not available 04/11/2022 Are There Any Guns Present In Your Home? No [email or web address] Information not available 04/11/2022 Do You Use Protection During Sex? No [email or web address] Information not available 04/11/2022 Do You Use Your Seat Belt Or Car Seat Routinely? Yes [email or web address] Information not available 02/06/2022 Do You Have Smoke And Carbon Monoxide Detectors In Your Home? Yes Information not available 02/06/2022 At What Age Did You Start Smoking Tobacco? 14 [email or web address] Information not available 04/11/2022 How Much Tobacco Do You Smoke? No [email or web address] Information not available 04/11/2022 Do You Use Sunscreen Routinely? Yes [email or web address] Information not available 02/06/2022 Has Tobacco Cessation Counseling Been Provided? No [email or web address] Information not available 04/11/2022 How Many Years Have You Smoked Tobacco? 9 [email or web address] Information not available 04/11/2022 Have You Used IV Drugs? No Information not available 04/11/2022 Do You Have Difficulty Walking Or Climbing Stairs? No [email or web address] Information not available 04/11/2022 Sex: Unknown Functional Status Question Answer Note LastModified by Organizat ion Details LastModified Time Do you use any illicit or recreational drugs? No Information not available 02/06/2022 Do you or have you ever used any other forms of tobacco or nicotine? Yes [email or web address] Information not available 04/11/2022 What is your level of alcohol consumption? None [email or web address] Information not available 02/06/2022 Are you able to walk independently without assistance or assistive devices? YESWOREST [email or web address] Information not available 02/06/2022 Are you able to care for yourself independently? Yes [email or web address] Information not available 04/11/2022 What is your occupation? [employer] [email or web address] Information not available 04/11/2022 Do you have difficulty dressing, bathing, grooming, or toileting? No [email or web address] Information not available 04/11/2022 Do you or have you ever used e-cigarettes or vape? Former user of electronic cigarettes [email or web address] Information not available 04/11/2022 What is your exercise level? Occasional [email or web address] Information not available 02/06/2022 Mental Status Question Answer Note LastModified by Organization D etails LastModified Time Do you feel stressed (tense, restless, nervous, or anxious, or unable to sleep at night)? [id number] [email or web address] Information not available 02/06/2022 Family History Relationship Description Onset Age of this Age Resolved Age Notes LastModified by Organization Details LastModified Time Brother Malignant neoplasm of esophagus [email or web address] Not available 04/11 15:15:05 Brother Anxiety disorder [email or web address] Not available 04/11 15:15:05 Brother Depressive disorder [email or web address] Not available 04/11 15:15:05 Father Malignant neoplasm of skin [email or web address] Not available 04/11 15:15:05 Father Malignant neoplasm of thyroid gland [email or web address] Not available 04/11 15:15:05 Mother Cyst of ovary [email or web address] Not available 04/11 15:15:05 Mother Asthma [email or web address] Not available 02/06/2022 17:23:01 Mother Malignant neoplasm of thyroid gland Not available 04/11 15:15:05 Mother Disorder of lung Not available 04/11 15:15:05 Mother Anxiety disorder [email or web address] Not available 04/11 15:15:05 Mother Hypercholest erolemia Not available 04/11 15:15:05 Mother Depressive disorder [email or web address] Not available 04/11 15:15:05 Mother Hypertensive disorder [email or web address] Not available 04/11 15:15:05 Mother Mental disorder [email or web address] Not available 04/11 15:15:05 Mother Disorder of thyroid gland [email or web address] Not available 04/11 15:15:05 Sister Anemia [email or web address] Not available 02/06/2022 17:23:07 Sister High risk [email or web address] Not available 04/11 15:15:05 Sister Depressive disorder Not available 04/11 15:15:05 Sister Cerebrovascu lar accident [email or web address] Not available 15:15:05 Sister Anxiety disorder Not available 04/11 15:15:05 Sister Mental disorder [email or web address] Not available 04/11 15:15:05 Maternal Grandmother Diabetes mellitus Not available 02/06 17:23:20 Maternal Grandmother Hypercholest erolemia [email or web address] Not available 02/06 17:23:30 Maternal Grandmother Hypertensive disorder [email or web address] Not available 02/06 17:23:40 Maternal Grandmother Malignant neoplasm of thyroid gland [email or web address] Not available 04/11 15:15:05 Maternal Grandmother Heart disease [email or web address] Not available 04/11 15:15:05 Maternal Grandmother Depressive disorder [email or web address] Not available 04/11 15:15:05 Maternal Grandmother Mental disorder Not available 04/11 15:15:05 Maternal Grandmother Disorder of lung [email or web address] Not available 04/11 15:15:05 Maternal Grandmother Osteoporosis [email or web address] Not availabl e 04/11/2022 15:15:05 Maternal Uncle Hypertensive disorder [email or web address] Not available 04/11 15:15:05 Daughter Mental disorder [email or web address] Not available 04/11 15:15:05 Maternal Aunt Disorder of thyroid gland [email or web address] Not available 04/11 15:15:05 Maternal Grandfather Depressive disorder [email or web address] Not available 04/11 15:15:05 Maternal Grandfather Mental disorder Not available 04/11 15:15:05 Maternal Grandfather Cerebrovascu lar accident [email or web address] Not available 15:15:05 Medical History Condition Response Allergies (Food, seasonal, environmental ) Y Other Y Drug/Latex Allergies/Reactions N Blood Transfusion N Breast Cancer N Dermatologic Disorders N Lung Disease N Defects or Inherited Disease N Breast Problem Y Gestational Diabetes Y Hematologic disorders N Anesthesia Complications N History of STI N Deep Vein Thrombosis N Polycystic ovary syndrome N Anxiety Disorder Y Autoimmune disease N Arthritis N Polyps N Infertility N Acid Reflux (GERD) N History of abnormal pap N Cancer N Varicosities N Stroke N Neurologic/Epilepsy Y Endometriosis N High Cholesterol N Fibromyalgia N Headaches N Kidney Disease N Heart Problems N Thyroid Problems Y Kidney or Bladder Problems N GI Problems N Eating Disorder N Anemia [...] Diagnosis SNOMED-CT Code Diagnosis ICD10 Code Diagnosis IMO Codes Diagnosis Note [id number] Travis San MD [facility] [address],[place] [address] 12/27/2021 14:28:32 12/27/2021 14:50:54 [id number] Norah Ramirez [facility] [address],[place] [address] 12/27/2021 14:31:55 12/27/2021 18:02:31 test positive 161503379 Z32.01 Amenorrhea 16128282 N91. 2 [id number] Lorenza Miller MD [facility] [address],[place] [address] 01/10/2022 15:17:23 01/12/2022 15:33:57 Bipolar disorder 68955188 F31.9 [id number] Travis San MD [facility] [address],[place] [address] 01/15/2022 10:24:01 01/15/2022 10:57:58 screening 369758148 Z36.82 [id number] Travis San MD [facility] [address],[place] [address] 01/15/2022 10:24:22 01/18/2022 14:24:38 Routine care 407205855 Z34.81 [id number] Travis San MD [facility] [address],[place] [address] 02/12/2022 10:57:19 02/12/2022 12:14:40 Nausea and vomiting 23804665 R11.2 Routine an tenatal care 670577335 Z34.81 [id number] Norah Ramirez [facility] [address],[place] [address] 03/14/2022 11:48:27 03/14/2022 13:59:54 Routine care 471593950 Z34.92 [id number] Travis San MD [facility] [address],[place] [address] 03/15/2022 16:56:25 03/16/2022 18:24:20 screening for malformation 253424063 Z36.3 [id number] Norah Ramirez [facility] [address],[place] [address] 04/11/2022 14:51:11 04/11/2022 15:36:29 Routine care 228709684 Z34.92 [id number] Norah Ramirez [facility] [address],[place] [address] 05/09/2022 14:46:41 05/09/2022 17:06:32 Urinary symptoms 434315096 R39.9 Routine an tenatal care 947354201 Z34.92 [id number] Norah Ramirez [facility] [address],[place] [address] 05/23/2022 15:24:26 05/23/2022 16:20:32 Routine care 158773397 Z34.92 - induced hypertension 75947885 O13.9 [id number] Norah Ramirez [facility] [address],[place] [address] 06/06/2022 11:47:41 06/06/2022 14:39:04 Urinary symptoms 113278960 R39.9 Routine an tenatal care 744170831 Z34.92 [id number] Travis San MD [facility] [address],[place] [address] 06/20/2022 11:32:46 06/20/2022 12:31:48 Uterine size for dates discrepancy 011502207 O26.843 Z3A.34 [id number] [facility] [address],[place] [address] 06/20/2022 11:33:06 06/20/2022 13:18:02 Dysuria 41613935 R30.0 Routine an tenatal care 892302861 Z34.92 [id number] Travis San MD [facility] [address],[place] [address] 06/20/2022 12:29:24 06/20/2022 18:40:59 Placental abnormality 992232798 O43.193 Z3A.34 [id number] MD Dillan Perry [address],[place] [address] 06/29/2022 14:39:48 06/29/2022 15:29:39 Placental abnormality 666597658 O43.193 Z3A.34 [id number] Travis San MD [facility] [address],[place] [address] 06/29/2022 14:40:06 07/02/2022 14:57:27 Placental abnormality 019875470 O43.193 Z3A.35 [id number] [facility] [address],[place] [address] 06/29/2022 14:40:25 07/02/2022 17:10:56 Routine care 905760877 Z34.92 [id number] Travis San MD [facility] [address],[place] [address] 07/02/2022 15:26:44 07/02/2022 16:10:57 Placental abnormality 299424707 O43.193 Z3A.35 [id number] MD Dillan Perry [address],[place] [address] 07/06/2022 13:53:51 07/06/2022 15:19:22 Placental abnormality 661692707 O43.193 Z3A.35 [id number] [facility] [address],[place] [address] 07/06/2022 13:54:29 07/06/2022 17:04:42 Placental abnormality 694891528 O43.93 [id number] [facility] [address],[place] [address] 07/06/2022 13:54:45 07/06/2022 15:23:18 [id number] Travis San MD [facility] [address],[place] [address] 07/13/2022 13:58:19 07/13/2022 15:04:53 Placental abnormality 516953959 O43.193 Z3A.37 [id number] Travis San MD [facility] [address],[place] [address] 07/13/2022 13:58:33 07/13/2022 15:01:52 Placental abnormality 668052587 O43.193 Z3A.35 [id number] [facility] [address],[place] [address] 07/13/2022 13:58:45 07/13/2022 15:59:29 Routine care 247834989 Z34.92 [id number] [facility] [address],[place] [address] 07/17/2022 16:43:16 07/17/2022 17:53:30 Past history of pre-eclampsia 7779649344 47588 Z87.59 Pt delivered on 07/14/22 r/t pre-e. [...] sxs. Pt verbalized understand ing. YU carranza [id number] Travis San MD [facility] [address],[place] [address] 07/24/2022 15:34:36 07/24/2022 16:32:47 Retained products of conception 714714355 O72.2 [id number] Travis San MD [facility] [address],[place] [address] 07/25/2022 17:42:15 07/26/2022 11:41:28 Retained placenta 351490433 O72.0 this patient is a 27-year-ol d female with retained placenta. We will perform suction D&C. She understand s the risks, benefits, and alternativ es. She has completed the informed consent process and is ready to proceed. [id number] Travis San MD [facility] [address],[place] [address] 07/31/2022 09:54:00 07/31/2022 09:56:00 [id number] Travis San MD [facility] [address],[place] [address] 08/06/2022 11:39:08 08/06/2022 14:51:55 Postoperative care 810625255 Z48.89 27-year-ol d female presents for postop follow-up. She is 1 week postop from a delivery. She is recovering normally. Her incision is clean dry and intact. She has no complaints . Her baby is doing. [id number] Norah Ramirez CNM [facility] [address],[place] [address] 09/07/2022 11:10:58 09/07/2022 12:20:27 care 765626076 Z39.2 anxiety and depression continue to see PCP, start nextellis for bcm, disc se risks and benefits including blood clot, stroke, f/u [facility] in january Health Concerns Section Related Observation LastModified by Organization Detai ls LastModified Time None Recorded Concern Status LastModified by Organization Details LastModified Time None Recorded Advance Directives Directive N: Payers Insurance Date Sequence Insurance Name Policy Number Policy Edward Covered Member ID Edward Member ID Guarantor Name 09/25/2023 1 [facility] - DOS ON OR AFTER 20 (MEDICAID REPLACEMENT - HMO) Maribel Claroskaitlin [id number] Maribel Contrkaitlin Notes Date Note Type Note Provider Name and Address Organization Details Recorded Time 3 text/html patient is a 27-year-old female who [...] infection. Travis San MD [address], [place], [address], [facility] 07/25/2022 23:58:21 3 text/html 27-year-old female presents for postop follow-up. She is 1 week postop from a delivery. She is recovering normally. Her incision is clean dry and intact. She has no complaints. Her baby is doing. Travis San MD [address], [place], [address], [facility] 08/06/2022 14:46:35 3 text/html VisitReported by PatientHPIFor quality, patient reportsnsvd. For context, patient reportscomplications of : pih,complications of labor: pih, complications: endometritis,feeding choice: bottle, depression,good support from partner/family, andresumed menstrual bleeding no(needed d/c for retained product). For associated symptoms, patient reportsno abnormal bleeding,no vaginal discharge,no pelvic pain,no constipation,no fecal incontinence,no dysuria,no urinary incontinence,no fever, andno problems. For contraception plan, patient reportsoral contraceptive pill.wants bcm disc options wants to start with pill for nowvapes occROS as noted in the HPI Anna Cohen [facility] 09/07/2022 19:00:24 OBGyn Episode Ob Episode Information Episode Created Date Number of Fetuses Patient Bloodtype Patient rh Status Prepregnancy Weight lbs Domestic Partner Domestic Partner Phone Father Name Drawer Waxer Status 01/16/20 1 O Negative 118 CLOSED Fetus Data First Name Last Name Admitted to NICU Weight (g) Sex Living Outcome Pediatric Complications Fetus ID Race Codes Race Delivery Type Barry tijerina 2551.45 5 F true Full Term [id number] Vaginal Delivery Problems Problem Notes Forceps delivery - pushed fo r three hours, intrapartum fever[facility]- pt instructed to d/c 04/18/22PIH LABS WNL 07/06 Problem Name Start Date End Date Resolution Snomed Code Not e Placental abnormality 00047920 5 bilobed - Grade 1 & Grd 3- MFM 07/18 2wk growth at [facility] Asthma 025184390 not using inhaler Past history of gestational diabetes mellitus 600135057 early scre ening Depressive disorder 02966879 Started Zoloft 50mg RhD negative 309497562 Nausea and vomiting 36285379 Brett Calculation Initial Brett Date Initial Exam [...] Gestation 0 [email or web address] 01/15/2022 07/30/19 23 0 Pre-susan Flowsheet Flowsheet Date 01/15/2022 Haro Score Blood Edema Fundus Height Fundus Units Glucose Ketones Leukocytes Nitrite Labor Signs Protein Cervic Dilation Cervic Effacement Cervic Station 12 Type Weight in lbs Pre/Post Dialysis Refused Weight 122.617756554719 BP Diastolic BP Location Tested BP Systolic [...] Weight in lbs Pre/Post Dialysis Refused Weight 124.727933349425 BP Diastolic BP Location Tested BP Systolic [...] Weight in lbs Pre/Post Dialysis Refused Weight 134.596190087690 BP Diastolic BP Location Tested BP Systolic [...] Weight in lbs Pre/Post Dialysis Refused Weight 139.970737025813 BP Diastolic BP Location Tested BP Systolic [...] Weight in lbs Pre/Post Dialysis Refused Weight 136.938554844305 BP Diastolic BP Location Tested BP Systolic BP Type 61 103 Fetus Heart Rate Present A 144 Present Fetus Movement Comments will do glucose and rhogam [place] om[place] [facility] tdap, forgetting zoloft sometimes, encouraged [...] Weight in lbs Pre/Post Dialysis Refused Weight 144.763211886887 BP Diastolic BP Location Tested BP Systolic BP Type 63 107 Fetus Heart Rate Present A 144 Present Fetus Movement A Yes Comments patient is having some pain, swelling, and contractions. labor precautions reviewed, fioricet and fleril for migraines, bp normotensive, will check labs f/u 2 weeks. 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 [employer] Flowsheet Date 06/06/2022 Haro Score Blood Edema Fundus Height Fundus Units Glucose Ketones Leukocytes Nitrite Labor Signs Protein Cervic Dilation Cervic Effacement Cervic Station neg trace none trace Type Weight in lbs Pre/Post Dialysis Refused Weight 142.929794707000 BP Diastolic BP Location Tested BP Systolic [...] Weight in lbs Pre/Post Dialysis Refused Weight 145.9500450722 BP Diastolic BP Location Tested BP Systolic BP Type 69 109 Fetus Heart Rate Present Fetus Movement A Yes Comments patient is having pain, cont ractions, burning with urination, and swelling.?bi lobed placenta grade 1/grade 3, short [place], will have ambreen review, plan weekly nst bpp, disc movement [...] Weight in lbs Pre/Post Dialysis Refused Weight 147.268320279773 BP Diastolic BP Location Tested BP Systolic BP Type 84 131 Fetus Heart Rate Present Fetus Movement A Yes Comments patient is having vaginal di scomfort, pain with urination, contractions, swelling and nausea. cervix FT/thick/softon review of US new area noted on grade 1 placenta/grade 3 bilobed again seen on US, disc with Dr. San and MFM was consulted by [facility], Dr. Rome, reviewed findings BPP 03/05 dopplers [...] Weight in lbs Pre/Post Dialysis Refused Weight 150.771886968953 BP Diastolic BP Location Tested BP Systolic BP Type 77 130 Fetus Heart Rate Present Fetus Movement A Yes Comments patient feel like breast lum p bigger, swelling, vision changes, headaches, discharge, contractions, nausea and acid reflux. bpp 03/05reviewed [facility] us, plan growth in 2-3 weeks per [facility], has a breast lump right that has [...] Weight in lbs Pre/Post Dialysis Refused Weight 153.292840098910 BP Diastolic BP Location Tested BP Systolic [...] Weight in lbs Pre/Post Dialysis Refused Weight 137.792870849161 BP Diastolic BP Location Tested BP Systolic [...] Weight in lbs Pre/Post Dialysis Refused Weight 131.367619182312 BP Diastolic BP Location Tested BP Systolic [...] Estim ated Date of Delivery false Thalassemia (Kittitian, Nepali, Mediterranean, Or Background): MCV < 80 false Neural Tube Defect (Meningomyelocele, Spina Bifi da, Or Anencephaly) false Congenital Heart Defect false Down Syndrome false Sherman-Sachs (eg, Anglican, Cajun, Latvian-Addison) f alse Kindra Disease false Sickle Cell Disease Or Trait () false Hemophilia Or Other Blood Disorders false Muscular Dystrophy false Cystic Fibrosis false Thiells's Chorea false Intellectual Disability/Autism false If Yes, [...] Sterilization Discharge Date Comments 3 Induce d Regional-Ep idural 37.6 false Norah Ramirez CNM Lobed Placenta & Pre Eclampsia w/o severe features Discharge Information Feeding Method Contraceptive Method Maternal HG B and HCT Levels Ob Episode Information Episode Created Date Number of Fetuses Patient Bloodtype Patient rh Status Prepregnancy Weight lbs Domestic Partner Domestic Partner Phone Father Name Drawer Waxer Status 02/07/20 22 1 CLOSED Fetus Data First Name Last Name Admitted to NICU Weight (g) Sex Living Outcome Pediatric Complications Fetus ID Race Codes Race Delivery Type , Induced 05460 Brett Calculation Initial Brett Date Initial Exam [...] Domestic Partner Domestic Partner Phone Father Name Drawer Waxer Status 01/16/20 22 1 CLOSED Fetus Data First Name Last Name Admitted to NICU Weight (g) Sex Living Outcome Pediatric Complications Fetus ID Race Codes Race Delivery Type 3118.44 5 F Full Term [id number] Vaginal Delivery Brett Calculation Initial Brett Date [...] Tubal Sterilization Discharge Date Comments 9 39 Josephi n e GDM Discharge Information Feeding Method Contraceptive Method Maternal HG B and HCT Levels
== END 2025-04-09 16:00 | disposition home or self-care (01) ==
PROVIDERS: Emergency Provider Registered Nurse
DX: N61.1 Abscess of the breast and nipple (principal); F17.290 Nicotine dependence, other tobacco product, uncomplicated; F12.90 Cannabis use, unspecified, uncomplicated; F31.9 Bipolar disorder, unspecified
CPT/HCPCS: 99213; G0463